=== PATIENT | female | born 1955 ===

== ENCOUNTER 2017-10-25 09:42 | Observation (INO) | payer OTHER ==
[2017-10-25 09:51] VITALS: BMI 28.8
--- NOTE | 2017-10-25 10:34 | ED PDOC ---
HPI: Abdomen Time Seen by Provider: 10/25/17 10:04 Chief Complaint (Nursing): Abdominal Pain Chief Complaint (Provider): "my privates are swollen" History Per: Patient, Manager Area ([employer]# [id number]) History/Exam Limitations: language barrier Onset/Duration Of Symptoms: Days Outside of [place] travel?: No Current Symptoms Are (Timing): Still Present Severity: Moderate Pain Scale Rating Of: 6 Location Of Pain/Discomfort: Suprapubic Additional Complaint(s): 62 y/o female, with extensive medical history, including ESRD on dialysis (T, Thur, Sat) presents complaining of vaginal swelling for the past two weeks. Pt reports the swelling started without any triggering event. It started at her stomach and worked its way down. She is compliant with dialysis. She says she attempted to tell her PMD and her Classification Clerk about this but said they ignored her, hence why she came for evaluation. She reports the vaginal edema is associated with difficulty urinating and suprapubic pain. She reports abdominal pain/fullness is associated with this sensation. She produces little urine due to ESRD but realized it has become difficult to micturate due to the edema. She denies any bleeding, discharge, pruritis, foul odor. Denies fever/chills, changes in vision, headaches, CP/SOB/palpitations, N/V/D/C, new onset pedal edema, numbness/tingling. Nephro: [place]ada Cardio: Koko PMD: Mario ALL: penicillins Past Medical History Vital Signs: Last Vital Signs Temp 97.9 F 10/25/17 09:50 Pulse 73 10/25/17 15:26 Resp 18 10/25/17 15:26 BP 169/76 H 10/25/17 15:26 Pulse Ox 98 10/25/17 15:26 - Family History Family History: States: No Known Family Hx - Home Medications Home Medications: Ambulatory Orders Medication Instructions Recorded Atorvastatin [Lipitor] 20 mg PO DAILY 10/25/17 B Complex W-C No.20/Folic Acid 1 mg PO DAILY 10/25/17 [Triphrocaps Softgel] Calcium Acetate [Phoslo] 3 cap PO TID 10/25/17 Esomeprazole Magnesium [Nexium] 40 mg PO DAILY 10/25/17 cloNIDine [Catapres] 0.3 mg PO Q8 10/25/17 - Allergies Allergies/Adverse Reactions: Allergies Allergy/AdvReac Type Severity Reaction Status Date / Time Penicillins Allergy RASH Verified 10/25/17 10:03 Review of Systems ROS Statement: Except As Marked, All Systems Reviewed And Found Negative Physical Exam - Reviewed Vital Signs Reviewed: Yes - Physical Exam Appears: Positive for: Non-toxic, No Acute Distress Head Exam: Positive for: ATRAUMATIC Skin: Positive for: Warm, Dry Eye Exam: Positive for: Normal appearance Neck: Positive for: Normal, Painless ROM, Supple Cardiovascular/Chest: Positive for: Regular Rate, Rhythm, Murmur (cresendo- descresendo murmur at RUSB ) Respiratory: Positive for: Normal Breath Sounds. Negative for: Crackles, Rales , Rhonchi, Wheezing, Respiratory Distress Pulses-Radial (L): 2+ Pulses-Radial (R): 2+ Gastrointestinal/Abdominal: Positive for: Bowel Sounds, Soft, Tenderness ( suprapubic ), Other (large scar s/p surgicial exploration ). Negative for: Distended, Guarding, Rebound Pelvic Exam: Positive for: External Exam Normal Back: Negative for: L CVA Tenderness, R CVA Tenderness Extremity: Positive for: Normal ROM, Pedal Edema (nonpitting ), Calf Tenderness (<2s). Negative for: Tenderness Lymphatic: Negative for: Adenopathy Neurologic/Psych: Positive for: clinical program coordinator II-XII - Laboratory Results Result Diagrams: 10/25/17 10:57 10/25/17 10:57 - ECG O2 Sat by Pulse Oximetry: 96 - Progress ED Course And Treament: suspected cystitis CBC CMP UA Pro-BNP: 157,000 Coags: wnl CT: mild-moderate pericardial effusion, b/l pleural effusion, cardiomegaly, mild -moderate ascites, polycystic kidneys Pt to be admitted for CHF and b/l effusions. Case discussed with admitting. Case discussed with Dr. Sutherland, whom has not seen the patient yet and agreed to allow Dr. Osborne to see the patient. Case discussed with Dr. Osborne whom will see the pt. Disposition - Clinical Impression Clinical Impression: CHF (congestive heart failure) - Patient ED Disposition Is Patient to be Admitted: Yes - Disposition Disposition Time: 16:39 Condition: STABLE - Pt Status Changed To: Hospital Disposition Of: Inpatient - Admit Certification Admit to Inpatient:: After my assessment, the patient will require hospitalization for at least two midnights. This is because of the severity of symptoms shown, intensity of services needed, and/or the medical risk in this patient being treated as an outpatient.
[2017-10-25 11:00] LABS: HEMOGLOBIN 10.2 g/dL (12.0-16.0); MEAN CELL VOLUME 96.7 fl (81.0-99.0); MEAN CORPUSCULAR HEMOGLOBIN 31.8 pg (27.0-31.0); MEAN CORPUSCULAR HGB CONC 32.9 g/dL (33.0-37.0); RBC 3.22 Mil/uL (3.80-5.20); RED CELL DISTRIBUTION WIDTH 16.4 % (11.5-14.5); WHITE BLOOD COUNT 4.8 K/uL (4.8-10.8)
[2017-10-25 11:13] LABS: ALB/GLOB RATIO 1.3 (1.0-2.1); ALBUMIN 3.9 g/dL (3.5-5.0)
[2017-10-25 11:46] LABS: URINE BILIRUBIN NEGATIVE (NEGATIVE); URINE CLARITY SLIGHT-CLOUDY (Clear); URINE COLOR LIGHT YELLOW (YELLOW); URINE GLUCOSE (UA) 100 mg/dL (Normal)
[2017-10-25 11:47] LABS: PH,URINE 7.5 (5.0-8.0); URINE BLOOD TRACE (NEGATIVE)
[2017-10-25 11:48] LABS: SQUAMOUS EPITHIAL 21 /hpf (0-5); URINE BACTERIA RARE (<OCC); URINE LEUKOCYTE ESTERASE NEGATIVE Leu/uL (Negative); URINE PROTEIN >=300 mg/dL (NEGATIVE); URINE UROBILINOGEN 0.2 mg/dL (0.2-1.0)
--- NOTE | 2017-10-25 14:23 | CT ---
PROCEDURE: CT Abdomen and Pelvis without intravenous contrast HISTORY: abdominal pain/edema COMPARISON: None. TECHNIQUE: Axial and reformatted coronal and sagittal CT images of the abdomen were obtained without IV or oral contrast administration. Contrast Dose: 0 IV contrast Radiation dose: Total exam DLP = 592.99 mGy-cm. This CT exam was performed using one or more of the following dose reduction techniques: Automated exposure control, adjustment of the mA and/or kV according to patient size, and/or use of iterative reconstruction technique. FINDINGS: LOWER THORAX: There are small bilateral pleural effusion. Mild ground-glass opacities noted at the lung bases could be due to pulmonary congestion. The heart is mildly to moderately enlarged. Vqvf-ky-oqmnsekf pericardial effusion is also noted. LIVER: The liver is mildly enlarged heterogeneous. There are scattered low attenuation lesions in the liver more prominent at the liver dome. The largest low-attenuation lesions seen at the posterior aspect of the liver dome measures 2.3 centimeter. This lesion is not fully characterized in this noncontrast study. GALLBLADDER AND BILE DUCTS: This suspicious for gallstone. Small amount of fluid seen at the pericholecystic region may be part of the free fluid noted in the rest of the abdomen. PANCREAS: Unremarkable. No gross lesion or ductal dilatation. SPLEEN: Unremarkable. ADRENALS: Unremarkable. No mass. KIDNEYS AND URETERS: There are multiple innumerable cystic structures in the kidneys associated with scattered coarse calcification. Findings suspicious for polycystic kidney disease. No evidence of hydronephrosis or hydroureter. VASCULATURE: Unremarkable. No aortic aneurysm. BOWEL: Unremarkable. No obstruction. No gross mural thickening. There are scattered colonic diverticulosis without evidence of diverticulitis. APPENDIX: Unremarkable. Normal appendix. PERITONEUM: There is a small amount of ascites in the abdomen. No evidence of free air. LYMPH NODES: Unremarkable. No enlarged lymph nodes. BLADDER: The urinary bladder is not distended. REPRODUCTIVE: The uterus and adnexa are not visualized. BONES: No acute fracture. Mild diffuse osteopenia noted. OTHER FINDINGS: There is mild diffuse soft tissue edema noted. IMPRESSION: Gallstones without definite CT evidence of acute cholecystitis. Findings suggestive of polycystic kidney disease. Small amount of ascites and mild to moderate diffuse soft tissue edema. Correlate clinically for renal failure/insufficiency. Small bilateral pleural effusions. Cardiomegaly and [id number]-[id number] pericardial effusion. Scattered low-attenuation lesions seen in the liver not fully characterized in this noncontrast study and may represent benign cyst. If indicated further assessment by ultrasound or enhanced study may be obtained.
--- NOTE | 2017-10-25 15:01 | RAD ---
HISTORY: LE edema COMPARISON: No prior. FINDINGS: LUNGS: No active pulmonary disease. PLEURA: No significant pleural effusion identified, no pneumothorax apparent. CARDIOVASCULAR: Cardiomegaly. No evidence of acute, significant cardiovascular disease. AllNormal. OSSEOUS STRUCTURES: No significant abnormalities. VISUALIZED UPPER ABDOMEN: Normal. OTHER FINDINGS: None. IMPRESSION: Cardiomegaly without evidence of congestive heart failure. No active pulmonary disease.
[2017-10-25 15:15] LABS: CK-MB 0.89 ng/mL (0.0-3.38); TROPONIN I 0.04 ng/mL (0.00-0.120)
[2017-10-25 15:28] LABS: PROTHROMBIN TIME 11.5 Seconds (9.8-13.1)
--- NOTE | 2017-10-25 16:32 | CP.PCM.HP ---
History of Present Illness - History of Present Illness History of Present Illness: 62 yo female with history of HTN, CHF and ESRD on dialysis TThS came in complaining of lower abdominal discomfort associated with swelling extending down to her vagina since 5 weeks ago. Admitted mild SOB after ambulating a few yards. Denied chest pain, nausea or vomiting. Has been compliant with dialysis since 16 yrs ago. The last dialysis was Wednesday and it was completed and went well. Present on Admission - Present on Admission Any Indicators Present on Admission: No History of DVT/PE: No History of Uncontrolled Diabetes: No Urinary Catheter: No Decubitus Ulcer Present: No Review of Systems - Review of Systems All systems: reviewed and no additional remarkable complaints except (aside from those mentioned above, 12 point system review were negative by me) Past Patient History - Tetanus Immunizations Tetanus Immunization: Unknown - Past Medical History & Family History Past Medical History?: Yes Past Family History: Reviewed and not pertinent - Past Social History Smoking Status: Never Smoked Alcohol: None Drugs: Denies Home Situation {Lives}: With Family - CARDIAC Hx Congestive Heart Failure: Yes Hx Hypercholesterolemia: Yes Hx Hypertension: Yes - PULMONARY Hx Respiratory Disorders: Yes - NEUROLOGICAL Hx Neurological Disorder: No - HEENT Hx HEENT Problems: No - RENAL Hx Dialysis: Yes (TTS) Type of Dialysis Access: av fistula right arm Date of Last Dialysis Treatment: 10/23/17 - ENDOCRINE/METABOLIC Hx Endocrine Disorders: No - HEMATOLOGICAL/ONCOLOGICAL Hx Blood Disorders: No - INTEGUMENTARY Hx Dermatological Problems: No - MUSCULOSKELETAL/RHEUMATOLOGICAL Hx Musculoskeletal Disorders: No - GASTROINTESTINAL Hx Gastrointestinal Disorders: No - GENITOURINARY/GYNECOLOGICAL Hx Genitourinary Disorders: No - PSYCHIATRIC Hx Psychophysiologic Disorder: No Hx Substance Use: No - SURGICAL HISTORY Hx Section: Yes Hx Vascular Surgery: Yes Hx Vascular Access Device: Yes (AV FISTULA) Other/Comment: FOOT SURGERY - ANESTHESIA Hx Anesthesia: Yes Hx Anesthesia Reactions: Yes Meds Allergies/Adverse Reactions: Allergies Allergy/AdvReac Type Severity Reaction Status Date / Time Penicillins Allergy RASH Verified 10/25/17 10:03 Physical Exam - Constitutional Appears: No Acute Distress - Head Exam Head Exam: ATRAUMATIC - Eye Exam Eye Exam: absent: Scleral icterus - ENT Exam ENT Exam: Mucous Membranes Moist - Neck Exam Neck exam: Negative for: Meningismus - Respiratory Exam Respiratory Exam: absent: Rales, Rhonchi, Wheezes, Respiratory Distress - Cardiovascular Exam Cardiovascular Exam: REGULAR RHYTHM, +S1, +S2 - GI/Abdominal Exam GI & Abdominal Exam: Soft (edematous from lower abdomen to suprapubis to genitalia). absent: Tenderness - Rectal Exam Rectal Exam: Deferred - Extremities Exam Extremities exam: Positive for: pedal edema. Negative for: normal inspection ( fistula on right arm) - Back Exam Back exam: absent: tenderness - Neurological Exam Neurological exam: Alert, Oriented x3 - Psychiatric Exam Psychiatric exam: Normal Affect - Skin Skin Exam: Dry, Intact Results - Vital Signs Recent Vital Signs: Last Vital Signs Temp 97.9 F 10/25/17 09:50 Pulse 73 10/25/17 15:26 Resp 18 10/25/17 15:26 BP 169/76 H 10/25/17 15:26 Pulse Ox 98 10/25/17 15:26 - Labs Result Diagrams: 10/25/17 10:57 10/25/17 10:57 Labs: Laboratory Results - last 24 hr 10/25/17 10/25/17 10/25/17 10:57 10:57 10:57 WBC 4.8 RBC 3.22 L Hgb 10.2 L Hct 31.1 L MCV 96.7 MCH 31.8 H MCHC 32.9 L RDW 16.4 H Plt Count 113 L PT INR Sodium 143 Potassium 5.2 H Chloride 98 Carbon Dioxide 31 H Anion Gap 19 BUN 39 H Creatinine 5.4 H Est GFR ( Amer) 10 Est GFR (Non-Af Amer) 8 Random Glucose 133 H Calcium 10.0 Total Bilirubin 1.1 AST 57 H ALT 17 Alkaline Phosphatase 97 CK-MB (Mass) Troponin I NT-Pro-B Natriuret Pep [id number] H Total Protein 7.0 Albumin 3.9 Globulin 3.1 Albumin/Globulin Ratio 1.3 Urine Color Light yellow Urine Clarity Slight-cloudy Urine pH 7.5 Ur Specific [place] >= 1.030 Urine Protein >=300 Urine Glucose (UA) 100 Urine Ketones Negative Urine Blood Trace H Urine Nitrate Negative Urine Bilirubin Negative Urine Urobilinogen 0.2 Ur Leukocyte Esterase Negative Urine RBC (Auto) 6 H Urine Microscopic WBC 8 H Ur Squamous Epith Cells 21 H Urine Bacteria Rare 10/25/17 10/25/17 14:46 15:12 WBC RBC Hgb Hct MCV MCH MCHC RDW Plt Count PT 11.5 INR 1.0 Sodium Potassium Chloride Carbon Dioxide Anion Gap BUN Creatinine Est GFR ( Amer) Est GFR (Non-Af Amer) Random Glucose Calcium Total Bilirubin AST ALT Alkaline Phosphatase CK-MB (Mass) 0.89 Troponin I 0.0400 NT-Pro-B Natriuret Pep Total Protein Albumin Globulin Albumin/Globulin Ratio Urine Color Urine Clarity Urine pH Ur Specific [place] Urine Protein Urine Glucose (UA) Urine Ketones Urine Blood Urine Nitrate Urine Bilirubin Urine Urobilinogen Ur Leukocyte Esterase Urine RBC (Auto) Urine Microscopic WBC Ur Squamous Epith Cells Urine Bacteria Assessment & Plan - Assessment and Plan (Free Text) Assessment: 62 yo female with history of HTN, CHF and ESRD on dialysis TThS came in complaining of lower abdominal discomfort associated with edematous swelling extending down to her genitalia since 5 weeks ago. 1. Abdominal Edema CT scan of abdomen: suggestive of Polycystic Kidney Disease r/o portal obstruction causing edema below the liver associated with Polycystic Kidney Disease GI consult with Dr. Elkins Abdominal US with Doppler 2. CHF?? ProBNP: 157,000 CXray: cardiomegaly but no pleural or pericardial effusion and no sign of CHF ECHO cardiology consult with Dr Osborne 3. ESRD dialysis TThS renal consult with Dr Barone
[2017-10-26 06:01] LABS: CALCIUM 9.7 mg/dL (8.4-10.2)
--- NOTE | 2017-10-26 06:57 | CON ---
DATE: CARDIOLOGY CONSULTATION REASON FOR CONSULTATION: Pericardial effusion. HISTORY OF PRESENT ILLNESS: The patient is a 62-year-old female who has a history of end-stage renal disease, on hemodialysis 3 times a week for the past 16 years. Her kidney failure was related to polycystic kidney according to the patient. She presents, because of lower anterior abdominal wall pain and swelling. The patient denies any fever or chills. Patient is unaware of any prior cardiac history and denies any history of chest pain. SOCIAL HISTORY: Nonsmoker, nondrinker. REVIEW OF SYSTEMS: The patient denies any fever or chills, denies any palpitation, dizziness or syncope. CURRENT MEDICATIONS: Clonidine 0.3 mg q. 8 hours, heparin 5000 units subcutaneous twice a day, Lipitor 20 mg once a day, PhosLo 3 tablets t.i.d., Protonix 40 mg once a day. PAST MEDICAL HISTORY: Hypertension, polycystic kidneys, on hemodialysis for the past 16 years. PHYSICAL EXAMINATION: GENERAL: The patient is a middle-aged female who does not appear to be in acute distress. VITAL SIGNS: Blood pressure 172/78, heart rate is 78, temperature 97.6, respirations 19. HEENT: Pale conjunctivae. CHEST: Diminished breath sounds over the bases. HEART: S1, S2 regular. ABDOMEN: Soft, cellulitis involving the lower anterior abdominal wall extending into the labia majora. EXTREMITIES: Trace leg edema. LABORATORY DATA: Hemoglobin and hematocrit 10.2 and 31.1, white count 4.8, platelet count 115,000. SMA-7: Sodium 143, potassium 5.2, chloride 98, CO2 of 31, glucose 133, BUN 39, creatinine 5.4, proBNP is 157,000, one set of troponin is negative. PT and INR are within normal limits. EKG revealed sinus rhythm with nonspecific ST changes, computer read as consider lateral ischemia; however, those changes are artifacts. Abdomen and pelvic CT scan: Gallstones without definite CT evidence of acute cholecystitis, polycystic kidney disease, small amount of ascites, ylze-li-zonwognc diffuse soft tissue edema, small bilateral pleural effusion, cardiomegaly and llkm-[id number]-lmxkqibr pericardial effusion. Chest x-ray could not be opened on the [employer] database; however, the official report states cardiomegaly without evidence of congestive heart failure, no active pulmonary disease. ASSESSMENT: 1. Consider anterior abdominal wall cellulitis, rule out fascitis. 2. End-stage renal disease, on hemodialysis secondary to polycystic kidney disease. 3. Hypertension. 4. Calculus cholecystitis. 5. Fxku-tg-gigcvutt pericardial effusion. 6. Thrombocytopenia and mild anemia. RECOMMENDATIONS: Continue current clonidine 0.3 mg q. 8 hours, may discontinue subcutaneous heparin, obtain an echocardiogram. Quentin Osborne MD
[2017-10-26] MEDS ORDERED: Albuterol HFA 90 mcg/actuation (8 g) INH PRN (07:01)
[2017-10-26 07:13] LABS: BASO # 0.1 K/uL (0.0-0.2); BASO % 1.2 % (0.0-2.0); EOS # 0.1 K/uL (0.0-0.7); EOS % 3.3 % (0.0-4.0); LYMPH % 23.2 % (20.0-40.0); MEAN CORPUSCULAR HEMOGLOBIN 32.1 pg (27.0-31.0); MEAN PLATELET VOLUME 8.9 fl (7.2-11.7); MONO # 0.5 K/uL (0.0-0.8); MONO % 10.7 % (0.0-10.0); NEUT # 2.8 K/uL (1.8-7.0); NEUT % 61.6 % (50.0-75.0); NRBC % 0.3 % (0.0-0.0); RBC 3.11 Mil/uL (3.80-5.20); RED CELL DISTRIBUTION WIDTH 16.6 % (11.5-14.5); WHITE BLOOD COUNT 4.5 K/uL (4.8-10.8)
--- NOTE | 2017-10-26 08:43 | CARD ---
APPROVED REPORT EKG Measurement Heart [id number] <Conclusion> Normal sinus rhythm ST & T wave abnormality, consider lateral ischemia Abnormal ECG
[2017-10-26] MEDS ORDERED: Doxercalciferol 4 mcg/2 ml Inj IV SCH (09:00)
[2017-10-26] MEDS ORDERED: [UNRECOGNIZED DRUG - REMARK] PO SCH (09:00)
[2017-10-26] MEDS ORDERED: Pantoprazole 40 mg EC Tab PO SCH (09:00)
[2017-10-26] MEDS: Calcium Acetate 667 MG Capsule PO SCH ×2 (09:49→13:26)
--- NOTE | 2017-10-26 10:17 | US ---
HISTORY: lower abdominal edema including genitalia and LE COMPARISON: October 25, 2017. CT abdomen and pelvis TECHNIQUE: Sonographic evaluation of the abdomen. FINDINGS: LIVER: Measures 17.9 Patent portal vein. Portal venous flow: Hepatopetal. Unremarkeable cm. Normal echogenicity of the liver parenchyma. No mass. No intrahepatic bile duct dilatation.Incidental finding(s): Innumerable hepatic cysts GALLBLADDER: Collapsed gallbladder accentuating bladder wall thickness. No gallstones identified. COMMON BILE DUCT: Measures 7.5. Mm. PANCREAS: Unremarkable as visualized. No mass. No ductal dilatation. RIGHT KIDNEY: Measures 5.6 x 13.9cm. Echogenic focus right kidney with distal shadowing 7 mm midpole region. Innumerable right renal cysts. LEFT KIDNEY: Measures 5.5 x 14.2cm. Normal echogenicity. No calculus, mass, or hydronephrosis. Innumerable left renal cysts. SPLEEN: Normal in size and contour. No mass. AORTA: No aneurysmal dilatation. IVC: Unremarkable. OTHER FINDINGS: Small volume abdominal ascites. IMPRESSION: Gallstones identified on recent CT scan are not apparent on the current study. Incidental finding(s): Findings consistent with polycystic kidney disease. Nonobstructing midpole calculus right kidney consistent with findings on recent CT scan. Low volume ascites.
--- NOTE | 2017-10-26 12:36 | CP.PCM.CON ---
History of Present Illness - History of Present Illness History of Present Illness: pt is seen and examined, full consult is dictated #[id number] seen in hd, uf goal is 2-2-.5 lit a s tolerated Past Patient History - Tetanus Immunizations Tetanus Immunization: Unknown - Past Medical History & Family History Past Medical History?: Yes - Past Social History Smoking Status: Never Smoked - CARDIAC Hx Congestive Heart Failure: Yes Hx Hypercholesterolemia: Yes Hx Hypertension: Yes - PULMONARY Hx Respiratory Disorders: Yes - NEUROLOGICAL Hx Neurological Disorder: No - HEENT Hx HEENT Problems: No - RENAL Hx Dialysis: Yes (TTS) Type of Dialysis Access: av fistula right arm Date of Last Dialysis Treatment: 10/23/17 - ENDOCRINE/METABOLIC Hx Endocrine Disorders: No - HEMATOLOGICAL/ONCOLOGICAL Hx Blood Disorders: No - INTEGUMENTARY Hx Dermatological Problems: No - MUSCULOSKELETAL/RHEUMATOLOGICAL Hx Musculoskeletal Disorders: No Hx Falls: Yes - GASTROINTESTINAL Hx Gastrointestinal Disorders: No - GENITOURINARY/GYNECOLOGICAL Hx Genitourinary Disorders: No - PSYCHIATRIC Hx Psychophysiologic Disorder: No Hx Substance Use: No - SURGICAL HISTORY Hx Section: Yes Hx Vascular Surgery: Yes Hx Vascular Access Device: Yes (AV FISTULA) Other/Comment: FOOT SURGERY - ANESTHESIA Hx Anesthesia: Yes Hx Anesthesia Reactions: Yes Meds Home Medications: Home Medication List Medication Instructions Recorded Confirmed Type Docusate [Colace] 100 mg PO BID PRN #30 cap 10/26/17 Rx Doxercalciferol [Hectorol] 2 mcg IV TTS vial 10/26/17 Rx Allergies/Adverse Reactions: Allergies Allergy/AdvReac Type Severity Reaction Status Date / Time Penicillins Allergy RASH Verified 10/25/17 10:03 - Medications Medications: Current Medications Acetaminophen (Tylenol 325mg Tab) 650 mg PO Q6 PRN PRN Reason: Pain, Mild (1-3) Last Admin: 10/26/17 03:53 Dose: 650 mg Albuterol (Ventolin Hfa 90 Mcg/Actuation (8 G)) 2 puff INH RQ6 PRN PRN Reason: Shortness of Breath Atorvastatin Calcium (Lipitor) 20 mg PO DAILY [facility] Last Admin: 10/26/17 09:48 Dose: 20 mg Calcium Acetate (Phoslo) 2,001 mg PO TID [facility] Last Admin: 10/26/17 09:49 Dose: 2,001 mg Clonidine HCl (Catapres) 0.3 mg PO Q8 [facility] Last Admin: 10/26/17 09:44 Dose: 0.3 mg Docusate Sodium (Colace) 100 mg PO BID PRN PRN Reason: Constipation Doxercalciferol (Hectorol) 2 mcg IV TTS [facility] Heparin Sodium (Porcine) (Heparin) 5,000 units SC Q12 SHAISTA PRN Reason: Protocol Last Admin: 10/26/17 09:47 Dose: 5,000 units Home Med (B Complex W-C No.20/Folic Acid [Triphrocaps Softgel]) 1 mg PO DAILY [facility] Pantoprazole Sodium (Protonix Ec Tab) 40 mg PO DAILY [facility] Last Admin: 10/26/17 09:48 Dose: 40 mg Results - Vital Signs Recent Vital Signs: Last Vital Signs Temp 98.8 F 10/26/17 12:00 Pulse 79 10/26/17 12:00 Resp 18 10/26/17 12:00 BP 179/65 H 10/26/17 12:00 Pulse Ox 92 L 10/26/17 12:00 - Labs Result Diagrams: 10/26/17 04:25 10/26/17 04:25 Labs: Laboratory Results - last 24 hr 10/25/17 10/25/17 10/25/17 14:46 15:12 16:40 WBC RBC Hgb Hct MCV MCH MCHC RDW Plt Count MPV Neut % (Auto) Lymph % (Auto) [place] % (Auto) Eos % (Auto) Baso % (Auto) Neut # Lymph # [place] # Eos # Baso # PT 11.5 INR 1.0 Sodium Potassium Chloride Carbon Dioxide Anion Gap BUN Creatinine Est GFR ( Amer) Est GFR (Non-Af Amer) Random Glucose Calcium CK-MB (Mass) 0.89 Troponin I 0.0400 NT-Pro-B Natriuret Pep [id number] H 10/26/17 10/26/17 04:25 04:25 WBC 4.5 L RBC 3.11 L Hgb 10.0 L Hct 30.2 L MCV 97.0 MCH 32.1 H MCHC 33.0 RDW 16.6 H Plt Count 97 L MPV 8.9 Neut % (Auto) 61.6 Lymph % (Auto) 23.2 [place] % (Auto) 10.7 H Eos % (Auto) 3.3 Baso % (Auto) 1.2 Neut # 2.8 Lymph # 1.0 [place] # 0.5 Eos # 0.1 Baso # 0.1 PT INR Sodium 143 Potassium 4.4 Chloride 98 Carbon Dioxide 31 H Anion Gap 18 BUN 46 H Creatinine 6.5 H Est GFR ( Amer) 8 Est GFR (Non-Af Amer) 6 Random Glucose 91 Calcium 9.7 CK-MB (Mass) Troponin I NT-Pro-B Natriuret Pep
--- NOTE | 2017-10-26 13:41 | CARD ---
APPROVED REPORT EXAM: Two-dimensional and M-mode echocardiogram with Doppler and color Doppler. Other Information Quality : ExcellentRhythm : NSR INDICATION Pericardial Effusion 2D DIMENSIONS IVSd1.20 (0.7-1.1cm)LVDd4.67 (3.9-5.9cm) LVOT Diameter1.84 (1.8-2.4cm)PWd1.64 (0.7-1.1cm) IVSs1.47 (0.8-1.2cm)LVDs3.57 (2.5-4.0cm) FS (%) 23.6 %PWs1.55 (0.8-1.2cm) M-Mode DIMENSIONS Left Atrium (MM)5.29 (2.5-4.0cm)IVSd1.12 (0.7-1.1cm) Aortic Root2.26 (2.2-3.7cm)LVDd5.38 (4.0-5.6cm) Aortic Cusp Exc.1.79 (1.5-2.0cm)PWd1.18 (0.7-1.1cm) IVSs1.59 cmFS (%) 38 % LVDs3.32 (2.0-3.8cm)PWs2.18 cm Mitral Valve MV E Wdttrdyj087.7cm/sMV DECEL LHHL254kiLY A Wwlphjnn403.1cm/s MV TTM52obK/A ratio1.2MVA (PHT)5.38cm2 TDI Lateral E' Peak V10.67cm/sMedial E' Peak V8.23cm/sE/Lateral E'13.5 E/Medial E'17.5 Pulmonary Valve PV Peak Yxcdugou772.7cm/s Tricuspid Valve TR Peak Mhkgyrym508du/sRAP IFSKFZCK71zfVaXO Peak Gr.56mmHg [id number] LEFT VENTRICLE The left ventricle is normal size. There is normal left ventricular wall thickness. Left ventricle systolic function is normal. The Ejection Fraction is 55-60%. There is normal LV segmental wall motion. The left ventricular diastolic function is normal. RIGHT VENTRICLE The right ventricle is normal size. There is normal right ventricular wall thickness. The right ventricular systolic function is normal. ATRIA The left atrium is mildly dilated. The right atrium is moderately dilated. AORTIC VALVE The aortic valve is normal in structure. No aortic regurgitation is present. There is no aortic valvular stenosis. MITRAL VALVE The mitral valve is normal in structure. There is no evidence of mitral valve prolapse. There is no mitral valve stenosis. Mitral regurgitation is mild. TRICUSPID VALVE The tricuspid valve is normal in structure. There is moderate tricuspid regurgitation. Right ventricular systolic pressure is estimated at 64 mmHg. There is moderate-severe pulmonary hypertension. PULMONIC VALVE The pulmonary valve is normal in structure. There is no pulmonic valvular regurgitation. GREAT VESSELS The aortic root is normal in size. The IVC is dilated. PERICARDIAL EFFUSION There is a small-moderate circumferential pericardial effusion. There is no evidence of diastolic compression of the right atrium or ventricle by pericardial effusion. <Conclusion> The left ventricle is normal size. There is normal left ventricular wall thickness. There is normal LV segmental wall motion. Left ventricle systolic function is normal. The Ejection Fraction is 55-60%. The left ventricular diastolic function is normal. The right atrium is moderately dilated. Right ventricular systolic pressure is estimated at 64 mmHg. There is moderate-severe pulmonary hypertension. The IVC is dilated. There is a small-moderate circumferential pericardial effusion. There is no evidence of diastolic compression of the right atrium or ventricle by pericardial effusion.
--- NOTE | 2017-10-26 15:39 | PN ---
DATE: SUBJECTIVE: The patient denies any chest pain. She complains of lower anterior abdominal wall pain. She denies any fever or chills. PHYSICAL EXAMINATION VITAL SIGNS: Blood pressure 179/69, heart rate 79, temperature 98.8, respirations 18. HEENT: Pale conjunctivae. CHEST: Clear. HEART: S1, S2 regular. EXTREMITIES: No edema. LABORATORY DATA: Hemoglobin and hematocrit 10 and 30.2, white count 4.5, platelet count 97,000. SMA-7: Sodium 146, potassium 4.4, chloride 98, CO2 31, glucose 91, BUN 46, creatinine 6.5. Official report of abdominal ultrasound, gallstones identified on recent CAT scan are not apparent on the current ultrasound study; polycystic kidney disease, nonobstructing midpole calculus, right kidney consistent with findings on CT scan. I did briefly review the echocardiography study, which revealed a small circumferential pericardial effusion. No evidence of tamponade. The right ventricular systolic pressure was measured as 66 mmHg. ASSESSMENT: 1. Lower anterior abdominal wall cellulitis. 2. Small pericardial effusion without the evidence of tamponade. 3. End-stage renal disease, on hemodialysis. 4. Urolithiasis. 5. Cholelithiasis identified on the CAT scan. 6. Polycystic kidney disease with end-stage renal disease, on hemodialysis for the past 16 years. 7. Thrombocytopenia and mild anemia. RECOMMENDATIONS: Continue clonidine 0.3 mg q. 8 hours, subcutaneous heparin 5000 units twice a day, Lipitor 20 mg once a day. The patient will be evaluated by Dr. Barone, heel pricker and will most likely get her scheduled hemodialysis for today. Quentin Osborne MD
[2017-10-26 16:23] VITALS: BP 183/61; PULSE 85; RESP 14; TEMP 98.2; O2SAT 95
[2017-10-26 16:54] LABS: HEPATITIS B SURFACE AG Negative (NEGATIVE)
[2017-10-26 17:12] LABS: HEPATITIS C ANTIBODY NEGATIVE (NEGATIVE)
--- NOTE | 2017-10-26 18:09 | CP.PCM.DIS ---
Provider - Provider Date of Admission: 10/25/17 14:45 Attending physician: Ismael Armendariz MD Primary care physician: Service patient Consults: Dr. Barone- nephrology Dr. Elkins- GI Time Spent in preparation of Discharge (in minutes): 25 Hospital Course - Lab Results Lab Results: Most Recent Lab Values WBC 4.5 K/uL (4.8-10.8) L 10/26/17 04:25 RBC 3.11 Mil/uL (3.80-5.20) L 10/26/17 04:25 Hgb 10.0 g/dL (12.0-16.0) L 10/26/17 04:25 Hct 30.2 % (34.0-47.0) L 10/26/17 04:25 MCV 97.0 fl (81.0-99.0) 10/26/17 04:25 MCH 32.1 pg (27.0-31.0) H 10/26/17 04:25 MCHC 33.0 g/dL (33.0-37.0) 10/26/17 04:25 RDW 16.6 % (11.5-14.5) H 10/26/17 04:25 Plt Count 97 K/uL (130-400) L 10/26/17 04:25 MPV 8.9 fl (7.2-11.7) 10/26/17 04:25 Neut % (Auto) 61.6 % (50.0-75.0) 10/26/17 04:25 Lymph % (Auto) 23.2 % (20.0-40.0) 10/26/17 04:25 [place] % (Auto) 10.7 % (0.0-10.0) H 10/26/17 04:25 Eos % (Auto) 3.3 % (0.0-4.0) 10/26/17 04:25 Baso % (Auto) 1.2 % (0.0-2.0) 10/26/17 04:25 Neut # 2.8 K/uL (1.8-7.0) 10/26/17 04:25 Lymph # 1.0 K/uL (1.0-4.3) 10/26/17 04:25 [place] # 0.5 K/uL (0.0-0.8) 10/26/17 04:25 Eos # 0.1 K/uL (0.0-0.7) 10/26/17 04:25 Baso # 0.1 K/uL (0.0-0.2) 10/26/17 04:25 PT 11.5 Seconds (9.8-13.1) 10/25/17 15:12 INR 1.0 (0.9-1.2) 10/25/17 15:12 Sodium 143 mmol/l (132-148) 10/26/17 04:25 Potassium 4.4 MMOL/L (3.6-5.0) 10/26/17 04:25 Chloride 98 mmol/L (98-107) 10/26/17 04:25 Carbon Dioxide 31 mmol/L (22-30) H 10/26/17 04:25 Anion Gap 18 (10-20) 10/26/17 04:25 BUN 46 mg/dl (7-17) H 10/26/17 04:25 Creatinine 6.5 mg/dl (0.7-1.2) H 10/26/17 04:25 Est GFR ( Amer) 8 10/26/17 04:25 Est GFR (Non-Af Amer) 6 10/26/17 04:25 Random Glucose 91 mg/dL (65-105) 10/26/17 04:25 Calcium 9.7 mg/dL (8.4-10.2) 10/26/17 04:25 Total Bilirubin 1.1 mg/dl (0.2-1.3) 10/25/17 10:57 AST 57 U/L (14-36) H 10/25/17 10:57 ALT 17 U/L (9-52) 10/25/17 10:57 Alkaline Phosphatase 97 U/L (38-126) 10/25/17 10:57 CK-MB (Mass) 0.89 ng/mL (0.0-3.38) 10/25/17 14:46 Troponin I 0.0400 ng/mL (0.00-0.120) 10/25/17 14:46 NT-Pro-B Natriuret Pep [id number] pg/ml (0-900) H 10/25/17 16:40 Total Protein 7.0 G/DL (6.3-8.2) 10/25/17 10:57 Albumin 3.9 g/dL (3.5-5.0) 10/25/17 10:57 Globulin 3.1 gm/dL (2.2-3.9) 10/25/17 10:57 Albumin/Globulin Ratio 1.3 (1.0-2.1) 10/25/17 10:57 Urine Color Light yellow (YELLOW) 10/25/17 10:57 Urine Clarity Slight-cloudy (Clear) 10/25/17 10:57 Urine pH 7.5 (5.0-8.0) 10/25/17 10:57 Ur Specific [place] >= 1.030 (1.003-1.030) 10/25/17 10:57 Urine Protein >=300 mg/dL (NEGATIVE) 10/25/17 10:57 Urine Glucose (UA) 100 mg/dL (Normal) 10/25/17 10:57 Urine Ketones Negative mg/dL (NEGATIVE) 10/25/17 10:57 Urine Blood Trace (NEGATIVE) H 10/25/17 10:57 Urine Nitrate Negative (NEGATIVE) 10/25/17 10:57 Urine Bilirubin Negative (NEGATIVE) 10/25/17 10:57 Urine Urobilinogen 0.2 mg/dL (0.2-1.0) 10/25/17 10:57 Ur Leukocyte Esterase Negative [place]/uL (Negative) 10/25/17 10:57 Urine RBC (Auto) 6 /hpf (0-3) H 10/25/17 10:57 Urine Microscopic WBC 8 /hpf (0-5) H 10/25/17 10:57 Ur Squamous Epith Cells 21 /hpf (0-5) H 10/25/17 10:57 Urine Bacteria Rare (<OCC) 10/25/17 10:57 Hep Bs Antigen Negative (NEGATIVE) 10/26/17 11:52 Hepatitis C Antibody Negative (NEGATIVE) 10/26/17 11:52 - Hospital Course Hospital Course: This is a 62 yo female with pmh of HTN, CHF (unspecified type), history of ESRD on dialysis T-, who presented to the ED complaining of generalized lower abdominal discomfort associated with generalized abdominal edema beginning 5 weeks ago. The patient has been compliant with dialysis. In the ED, the patient was found to be acutely fluid overloaded but was hemodynamically stable. CT scan of the abdomen and pelvis showed no acute abnormalities. The patient was admitted overnight. She states this morning that her abdominal pain was better. Dr. Barone was consulted and dialysis was performed. Dr. Elkins was consulted for GI- states no further workup at this time, abdominal pain likely due to soft tissue swelling from fluid overload. The patient underwent dialysis and states she feels better and her abdominal pain has improved. Of note, she does state that she has been having 2-3 drops of blood on tissue occasionally when she has a BM but not other lewis. She was encouraged to f/u with Dr. Elkins as outpatient for likely hemorrhoids. She was discharged today in stable condition and is to follow up with nephrology as scheduled for her dialysis. 1) Abdominal pain secondary to soft tissue swelling, from ESRD 2) Anasarca 3) Spotty GI bleeding, likely hemorrhoids 4) Essential hypertension 5) Cardiomegaly- needs echo as outpatient 6) ESRD on dialysis T-TH- SAT Discharge Exam - Additional Findings Additional findings: Physical exam: Constitutional- cooperative, awake, alert Head- NCAT, PERRL Eye- PERRL, EOMI ENT- normal exam, MMM. Neck- normal inspection, supple, no JVD Respiratory- CTAB, scatterd rhonchi, no wheezes or rales Cardiovascular- RRR, +S1, +S2 no MRG GI/Abdominal- mild tenderness to palpation, ascites, normal bowel sounds, soft, no mass, no hsm Skin- warm, dry Extremities Exam- normal capillary refill, normal inspection Neurological Exam- alert, awake, oriented Psych- normal mood, normal affect Discharge Plan - Follow Up Plan Condition: STABLE Disposition: HOME/ ROUTINE Instructions: Heart Failure (DC), Pacemaker (DC), Pulmonary Edema (DC), Ascites (DC) Additional Instructions: Mariama con cardiologo Dr. Koko renteria nov 03 a las 1:45pm Referrals: Jonh Sutherland MD [Medical Doctor] - Beau Barone MD [Staff Provider] - Chester Elkins MD, PhD [Staff Provider] - Francisco Martin MD [Staff Provider] -
--- NOTE | 2017-10-27 05:24 | CON ---
DATE: 10/26/2017 RENAL CONSULTATION LOCATION: 403, bed 1. REQUESTING PHYSICIAN: Ismael Armendariz MD REASON FOR RENAL CONSULTATION: End-stage renal disease for continuation of hemodialysis. HISTORY OF PRESENT ILLNESS: Ms. Alexis is a 62-year-old elderly female with a past medical history significant for longstanding hypertension, CHF, secondary hyperparathyroidism, end-stage renal disease on hemodialysis 3 times a week, Wednesday, , Wednesday, was admitted with chief complaints of lower abdominal discomfort associated with swelling of the legs extending down to her genitalia for 5 weeks, and also mild shortness of breath after ambulating for a few yards. Denies any chest pain, palpitation. Denies any nausea, vomiting, or diarrhea. Patient is on hemodialysis for the last 16 years. The last dialysis was on Wednesday, and was completed and tolerated. Patient is noncompliant with the fluid removal. Patient dictates removal of the fluid only 1 liter with each hemodialysis. Patient is gradually gaining weight. Denies any weight loss or any loss of appetite, any skin rash. PAST MEDICAL HISTORY: Significant for longstanding hypertension, CHF, end-stage renal disease on hemodialysis 3 times a week, Wednesday, and Wednesday for the last 16 years. PAST SURGICAL HISTORY: Status post hysterectomy and status post right upper extremity AV fistula. ALLERGIES: ALLERGIC TO PENICILLIN AND IODINE. SOCIAL HISTORY: No smoking, no alcohol, no drugs. FAMILY HISTORY: Not significant. She lives with her . CURRENT MEDICATIONS: Include as follows, Triphrocaps one daily, Lipitor 20 mg at bedtime, PhosLo 667 mg three capsules p.o. t.i.d., clonidine 0.3 mg p.o. q. 8 hours, Nexium 40 mg p.o. daily, Hectorol 2 mcg 3 times a week, Colace 100 mg p.o.b.i.d. REVIEW OF SYSTEMS: Significant for swelling of the legs and dyspnea on exertion. All other review of systems are reviewed and are negative. PHYSICAL EXAMINATION: VITAL SIGNS: Blood pressure 179/69, pulse 79, respirations 18, temperature 98.8, saturation 92%. Height 4 feet 9 inches and weight 133 pounds. GENERAL: Ms. Alexis is a 62-year-old elderly female, moderately-built, moderately-nourished, not in acute distress. HEENT: Pupils normal, reactive to light and accommodation. Puffiness of the face and eyelids. Conjunctivae pink. Sclerae is anicteric. Tongue is moist. Trachea is midline. LUNGS: Symmetric on both sides. Bilateral breath sounds present. Occasional basal crackles present. CARDIOVASCULAR: [place] at the fifth intercostal space, midclavicular line. S1 and S2 audible. No murmur, no gallop. The patient also has engorged veins on the anterior chest wall. ABDOMEN: Normal in appearance, soft, tympanic. No guarding. No rigidity. No hepatosplenomegaly. CENTRAL NERVOUS SYSTEM: Patient is alert, awake, and oriented x3. Nonfocal neuro examination. Cranial nerves II through XII grossly intact. Sensory and motor system is within normal limits. EXTREMITIES: No cyanosis, no clubbing. Patient has 1+ to 2+ edema in both lower extremities, left more than the right. LABORATORY DATA: Include as follows, as of 10/25/2017, WBC 4.8, hemoglobin 10.8, hematocrit 31.1, platelets 113. PT is 11.5, INR is 1.0. Sodium 143, potassium 5.2, chloride 98, CO2 of 31, BUN 39, creatinine 5.4, glucose 133, calcium is 10, and total bilirubin 1.1, AST 57, ALT 17, alkaline phosphate 97. ProBNP 157,000. Total protein 7.0, albumin is 3.9. Troponin 0.04. Urinalysis, slightly cloudy, pH 7.9, specific gravity more than 1.030, protein more than 300, glucose 100, ketones negative, blood trace, nitrites negative, bilirubin negative, urobilinogen 0.2, leukocyte esterase negative, rbc's 6 and wbc's 8. Hepatitis B surface antigen negative. Hepatitis C antibodies negative. As of 10/25/2017, repeat ProBNP 152,000. As of 10/26/2017, WBC 4.5, hemoglobin 10, hematocrit 30.2, platelets 97. Sodium 143, potassium 4.4, chloride 98, CO2 of 31, BUN 46, creatinine 6.5, glucose 91, calcium 9.7. Other laboratory reports, chest x-ray as of 10/25/2017, cardiomegaly without evidence of congestive heart failure, no active pulmonary disease. CT of the abdomen and pelvis as of 10/25/2017, gallstones without definite CT evidence of acute cholecystitis. Findings suggestive of polycystic kidney disease, small amount of ascites and mild to moderate diffuse soft tissue edema. Correlate clinically for renal failure and insufficiency. Small bilateral pleural effusion, cardiomegaly, and mild to moderate pericardial effusion. Scattered low attenuation lesion seen in the liver, not fully characterized in this noncontrast study, may represent benign cyst. If indicated further assessment, may by ultrasound or enhanced study may be obtained. Ultrasound of the abdomen as of 10/25/2017, the liver measures 17.9 cm, normal echogenicity of the liver parenchyma, no mass, no intrahepatic bile duct dilatation. Incidental findings, innumerable hepatic cysts present. The right kidney measures 5.6 x 13.9 cm, innumerable right renal cysts, and the left kidney 5.5 x 14.2 cm, normal echogenicity, no calculus, mass, hydronephrosis, innumerable left renal cysts, non-obstructing mid pole calculus right kidney consistent with findings on recent CT scan. Low volume ascites. Findings consistent with polycystic kidney disease. ASSESSMENT: In summary, Ms. Alexis is a 62-year-old elderly female with a history of longstanding hypertension, polycystic kidney disease, pericardial effusion, congestive heart failure, end-stage renal disease, status post hysterectomy, polycystic kidney disease and liver cysts, was admitted with edema of legs and also genital area, and dyspnea on exertion, with noncompliance with fluid removal due to cramps. 1. Uncontrolled hypertension. 2. End-stage renal disease. 3. Congestive heart failure. 4. Polycystic kidney and liver disease. PLAN: Patient is being dialyzed. We will try to ultrafiltrate as much as patient can tolerate. The goal is about 2.5 liters. We will decrease dry weight if patient agrees. Patient will need vigorous ultrafiltration and follow up with Cardiology. Continue Zemplar. Continue her current medications, and PhosLo and vitamins. We will follow with you. Thank you for allowing me to participate in your patient's care. Alicia Barone MD [facility] # [id number] MTDD
--- NOTE | 2017-10-27 09:04 | CON ---
DATE: 10/26/2017 REFERRING DOCTOR: Dr. Armendariz. REASON FOR CONSULTATION: Peripheral edema. HISTORY OF PRESENT ILLNESS: This is a pleasant 62-year-old female with history of hypertension, CHF, end-stage renal disease, on hemodialysis, lower abdominal discomfort, some swelling down to the lower abdomen and to her parapubic area. Patient has some shortness of breath. No nausea or vomiting. Some constipation lying in bed, comfortable, in no apparent distress. PAST MEDICAL HISTORY: As above. PAST SURGICAL HISTORY: As above. MEDICATIONS: Have been reviewed. REVIEW OF SYSTEMS: All other systems have been reviewed and negative apart from the HPI. PHYSICAL EXAMINATION: VITAL SIGNS: Here in the hospital are grossly unremarkable. GENERAL: This is a pleasant elderly-appearing female, lying in bed comfortably, in no apparent distress. HEENT: Head is normocephalic, atraumatic. Eyes, pupils equally reactive to light bilaterally. No conjunctival pallor or icterus. NECK: Supple. Normal range of motion. No lymphadenopathy appreciated. LUNGS: Coarse breath sounds bilaterally. HEART: S1, S2. Regular rate and rhythm. No murmurs appreciated. ABDOMEN: Soft and nontender. Bowel sounds present. No rebound, no guarding. RECTAL: Deferred. EXTREMITIES: Pulses present bilaterally. SKIN: Warm, dry and intact. NEUROLOGIC: A and O x3. LABORATORY DATA: Labs and radiology have been reviewed. CAT scan shows small amount of ascites, subcutaneous tissue edema, polycystic kidney disease, gallstones and the cholecystitis. Scan revealed some local in the liver. Blood work shows WBC 4.5, hemoglobin of 10.0, hematocrit 30, platelet count is essentially unremarkable. BNP is over 150,000. ASSESSMENT AND PLAN: This is a 62-year-old female with essentially in fluid overload renal failure, recommend dialysis. From GI standpoint, regarding the edema, I think it is all secondary to renal insufficiency, recommend an abdominal ultrasound with Doppler. If everything is within normal limits, she can be discharged home safely from GI standpoint. Follow up with me in the office as needed. Thank you for the consult. Chester Elkins MD/ PhD cc: Dr. Armendariz
== END 2017-10-26 16:45 | disposition home or self-care (01) ==
LOC: H.ER 09:42 → INTOOBSV 14:45 → H.ERHOLD 14:45 → H.TEL 23:00
DX: L03.311 Cellulitis of abdominal wall (principal); N18.6 End stage renal disease; I13.2 Hypertensive heart and chronic kidney disease with heart failure and with stage 5 chronic kidney disease, or end stage renal disease; I31.3 Pericardial effusion (noninflammatory); I50.9 Heart failure, unspecified; N20.9 Urinary calculus, unspecified; K80.10 Calculus of gallbladder with chronic cholecystitis without obstruction; N25.81 Secondary hyperparathyroidism of renal origin; K64.8 Other hemorrhoids; D64.9 Anemia, unspecified; D69.6 Thrombocytopenia, unspecified; K76.9 Liver disease, unspecified; Q61.3 Polycystic kidney, unspecified; E78.00 Pure hypercholesterolemia, unspecified; Z91.19 Patient's noncompliance with other medical treatment and regimen; Z99.2 Dependence on renal dialysis; Z88.0 Allergy status to penicillin
CPT/HCPCS: 36415; 71045; 74176; 76700; 80048; 80053; 81003; 82553; 83880; 84484; 85025; 85027; 85610; 86706; 86803; 87340; 90935; 93005; 93306; 96372; 96374; 99285; G0378; J1270; J1644; J1940

== ENCOUNTER 2017-11-04 20:10 | Observation (INO) | payer OTHER ==
[2017-11-04 20:10] VITALS: BMI 28.8
[2017-11-04] MEDS ORDERED: Albuterol-Ipratrop 3 mg / 0.5 (3 ml) UD INH STA (20:41)
[2017-11-04] MEDS ORDERED: Albuterol-Ipratrop 3 mg / 0.5 (3 ml) UD IH STA (20:41)
[2017-11-04] MEDS ORDERED: Sodium Chloride 0.9% 250 ML IV STA (20:41)
--- NOTE | 2017-11-04 20:45 | ED PDOC ---
HPI: SOB/CHF/COPD Time Seen by Provider: 11/04/17 20:30 Chief Complaint (Nursing): Shortness Of Breath Chief Complaint (Provider): Dyspnea History Per: Patient History/Exam Limitations: no limitations Onset/Duration Of Symptoms: Days (Today) Current Symptoms Are (Timing): Still Present Additional Complaint(s): Dyspnea with cough, nasal congestion, runny nose. No chest pain. Has body aches. No abd pain. No headaches or dizziness. Here few days ago for fluid in abd. Past Medical History Reviewed: Nursing Documentation, Vital Signs Vital Signs: Last Vital Signs Temp 101.4 F H 11/04/17 22:48 Pulse 96 H 11/04/17 22:48 Resp 17 11/04/17 22:48 BP 191/79 H 11/04/17 20:22 Pulse Ox 96 11/04/17 22:48 - Medical History PMH: CHF, HTN, Hypercholesterolemia, End Stage Renal Disease - Family History Family History: States: Unknown Family Hx - Living Arrangements Living Arrangements: With Family - Social History Alcohol: None Drugs: Denies - Home Medications Home Medications: Ambulatory Orders Medication Instructions Recorded Atorvastatin [Lipitor] 20 mg PO DAILY 10/25/17 B Complex W-C No.20/Folic Acid 1 mg PO DAILY 10/25/17 [Triphrocaps Softgel] Esomeprazole Magnesium [Nexium] 40 mg PO DAILY 10/25/17 cloNIDine [Catapres] 0.3 mg PO Q8 10/25/17 Docusate [Colace] 100 mg PO BID PRN #30 cap 10/26/17 Aspirin [Aspirin Chewable] 81 mg PO DAILY 11/04/17 B Complex W-C No.20/Folic Acid 1 cap PO DAILY 11/04/17 [Nephrocaps Softgel] - Allergies Allergies/Adverse Reactions: Allergies Allergy/AdvReac Type Severity Reaction Status Date / Time Penicillins Allergy RASH Verified 11/04/17 20:21 Review of Systems ROS Statement: Except As Marked, All Systems Reviewed And Found Negative Constitutional: Positive for: Weakness ENT: Positive for: Nose Pain, Nose Discharge, Nose Congestion Respiratory: Positive for: Cough, Shortness of Breath Neurological: Positive for: Weakness Physical Exam - Reviewed Nursing Documentation Reviewed: Yes Vital Signs Reviewed: Yes - Physical Exam Appears: Positive for: Non-toxic, No Acute Distress Head Exam: Positive for: ATRAUMATIC, NORMAL INSPECTION, NORMOCEPHALIC Skin: Positive for: Normal Color, Warm, DRY Eye Exam: Positive for: EOMI, Normal appearance, PERRL ENT: Positive for: Nasal Congestion Neck: Positive for: Normal, Painless ROM, Supple Cardiovascular/Chest: Positive for: Regular Rate, Rhythm Respiratory: Positive for: Decreased Breath Sounds, Other (mild coarse breath sounds). Negative for: Accessory Muscle Use Gastrointestinal/Abdominal: Positive for: Normal Exam, Bowel Sounds, Soft. Negative for: Tenderness Back: Positive for: Normal Inspection. Negative for: L CVA Tenderness, R CVA Tenderness Extremity: Positive for: Normal ROM. Negative for: Tenderness, Pedal Edema Neurologic/Psych: Positive for: Alert, Oriented - Laboratory Results Result Diagrams: 11/04/17 20:40 11/04/17 20:40 Interpretation Of Abn Labs: pos flu - ECG ECG: Positive for: Interpreted By Me, Viewed By Me ECG Rhythm: Positive for: Sinus Rhythm, Nonspecific Changes O2 Sat by Pulse Oximetry: 97 Pulse Ox Interpretation: Normal - Radiology X-Ray: Interpreted by Me, Viewed By Me X-Ray Interpretation: No Acute Disease - Progress ED Course And Treament: 1126: Stable. Has flu. Multiple risk factors and still weak. Will admit obs tele. Spoke with Dr. Kearns who will admit. Disposition - Clinical Impression Clinical Impression: Influenza, Weakness - Patient ED Disposition Is Patient to be Admitted: Yes Counseled Patient/Family Regarding: Studies Performed, Diagnosis - Disposition Disposition Time: 23:48 Condition: FAIR - Pt Status Changed To: Hospital Disposition Of: Observation - POA Present On Arrival: None
[2017-11-04] MEDS ORDERED: Albuterol-Ipratrop 3 mg / 0.5 (3 ml) UD ONE (20:57)
[2017-11-04 21:06] LABS: VENOUS BLOOD GAS BASE EXCESS -0.3 mmol/L (0.0-2.0); VENOUS BLOOD GAS PCO2 57 mmHg (40-60); VENOUS BLOOD GAS PO2 131 mm/Hg (30-55); VENOUS BLOOD PH 7.29 (7.32-7.43)
[2017-11-04 21:07] LABS: BASO % 0.9 % (0.0-2.0); EOS # 0.1 K/uL (0.0-0.7); EOS % 1.9 % (0.0-4.0); HEMOGLOBIN 9.8 g/dL (12.0-16.0); LYMPH # 0.6 K/uL (1.0-4.3); LYMPH % 17.5 % (20.0-40.0); MEAN CELL VOLUME 96.5 fl (81.0-99.0); MEAN CORPUSCULAR HEMOGLOBIN 31.3 pg (27.0-31.0); MEAN CORPUSCULAR HGB CONC 32.4 g/dL (33.0-37.0); MEAN PLATELET VOLUME 8.8 fl (7.2-11.7); MONO # 0.5 K/uL (0.0-0.8); MONO % 14.5 % (0.0-10.0); NEUT # 2.2 K/uL (1.8-7.0); NEUT % 65.2 % (50.0-75.0); NRBC % 0.1 % (0.0-0.0); RBC 3.13 Mil/uL (3.80-5.20); RED CELL DISTRIBUTION WIDTH 16.4 % (11.5-14.5); WHITE BLOOD COUNT 3.4 K/uL (4.8-10.8)
[2017-11-04 21:25] LABS: TROPONIN I 0.062 ng/mL (0.00-0.120)
[2017-11-04 21:30] LABS: ALB/GLOB RATIO 1.3 (1.0-2.1); ALBUMIN 3.8 g/dL (3.5-5.0); CALCIUM 9.3 mg/dL (8.4-10.2)
--- NOTE | 2017-11-04 23:54 | CP.PCM.HP ---
History of Present Illness - History of Present Illness History of Present Illness: PMD: basil Martin MD Chief Complaint: Fever/Cough/SOB The patient was seen and examined in the ED HPI: 62 years old female with hx of CHF, HTN, and ESRD on HD TTSa comes with 2 days of Fever, coughing with Phlegm, nasal congestion, Chills Rhinitis, body aches and SOB . No nausea , vomiting nor headaches, urinary symptoms nor diarrhea. In the ED the Ed the rapid Flue test was positive. PMH: ESRD on HD TTSa; CHF; HLD; HTN PSH: ; AV Fistula for Dialysis; Foot surgery SH: Never Smoked; No illegal drug use; No Alcohol; FH: States: Unknown Family Hx Allergies: PCN Medication: Reviewed Present on Admission - Present on Admission Any Indicators Present on Admission: No History of DVT/PE: No History of Uncontrolled Diabetes: No Urinary Catheter: No Decubitus Ulcer Present: No Review of Systems - Constitutional Constitutional: Chills, Fatigue, Fever. absent: Anorexia, Headache, Lethargy - EENT Eyes: Requires Corrective Lenses. absent: Diplopia, Floaters, Spots in Vision Ears: absent: Decreased Hearing, Ear Discharge, Tinnitus Nose/Mouth/Throat: Nasal Congestion, Nasal Discharge, Nasal Obstruction, Sinus Pressure. absent: Epistaxis, Sinus Pain - Cardiovascular Cardiovascular: Dyspnea. absent: Chest Pain, Edema - Respiratory Respiratory: Cough, Dyspnea. absent: Wheezing - Gastrointestinal Gastrointestinal: absent: Constipation, Diarrhea, Nausea, Vomiting - Genitourinary Genitourinary: absent: Dysuria, Flank Pain, Hematuria, Urinary Frequency - Musculoskeletal Musculoskeletal: Muscle Weakness, Myalgias. absent: Arthralgias - Integumentary Integumentary: absent: Pruritus, Rash, Skin Ulcer, Sores, Striae, Swelling - Neurological Neurological: absent: Confusion, Dizziness, Focal Weakness, Headaches, Weakness - Psychiatric Psychiatric: absent: Anxiety, Depression, Panic Attacks - Endocrine Endocrine: absent: Palpitations, Polydipsia, Polyphagia, Polyuria - Hematologic/Lymphatic Hematologic: absent: Easy Bleeding, Easy Bruising Past Patient History - Tetanus Immunizations Tetanus Immunization: Unknown - Past Medical History & Family History Past Medical History?: Yes - Past Social History Smoking Status: Never Smoked Chewing Tobacco Use: No Cigar Use: No Alcohol: None Drugs: Denies Home Situation {Lives}: With Family - CARDIAC Hx Congestive Heart Failure: Yes Hx Hypercholesterolemia: Yes Hx Hypertension: Yes - PULMONARY Hx Respiratory Disorders: Yes - NEUROLOGICAL Hx Neurological Disorder: No - HEENT Hx HEENT Problems: No - RENAL Hx Dialysis: Yes (TTS) - ENDOCRINE/METABOLIC Hx Endocrine Disorders: No - HEMATOLOGICAL/ONCOLOGICAL Hx Blood Disorders: No - INTEGUMENTARY Hx Dermatological Problems: No - MUSCULOSKELETAL/RHEUMATOLOGICAL Hx Musculoskeletal Disorders: No Hx Falls: Yes - GASTROINTESTINAL Hx Gastrointestinal Disorders: No - GENITOURINARY/GYNECOLOGICAL Hx Genitourinary Disorders: No - PSYCHIATRIC Hx Psychophysiologic Disorder: No Hx Substance Use: No - SURGICAL HISTORY Hx Section: Yes Hx Vascular Surgery: Yes Hx Vascular Access Device: Yes (AV FISTULA) Other/Comment: FOOT SURGERY - ANESTHESIA Hx Anesthesia: Yes Hx Anesthesia Reactions: Yes Meds Allergies/Adverse Reactions: Allergies Allergy/AdvReac Type Severity Reaction Status Date / Time Penicillins Allergy RASH Verified 11/04/17 20:21 Physical Exam - Constitutional Appears: No Acute Distress - Head Exam Head Exam: ATRAUMATIC, NORMAL INSPECTION, NORMOCEPHALIC - Eye Exam Eye Exam: EOMI, Normal appearance Pupil Exam: NORMAL ACCOMODATION, PERRL - ENT Exam ENT Exam: Mucous Membranes Moist, Normal Exam, Normal External Ear Exam - Neck Exam Neck exam: Positive for: Full Rom, Normal Inspection. Negative for: Lymphadenopathy, Tenderness - Respiratory Exam Respiratory Exam: Clear to Auscultation Bilateral. absent: Rales, Rhonchi, Wheezes - Cardiovascular Exam Cardiovascular Exam: REGULAR RHYTHM, RRR, +S1, +S2 Additional comments: IV/ systolic murmur at base - GI/Abdominal Exam GI & Abdominal Exam: Normal Bowel Sounds, Soft. absent: Mass, Organomegaly Additional comments: Mild tenderness at LUQ - Rectal Exam Rectal Exam: Deferred - Extremities Exam Extremities exam: Positive for: full ROM, normal inspection. Negative for: calf tenderness, pedal edema - Back Exam Back exam: NORMAL INSPECTION. absent: CVA tenderness (L), CVA tenderness (R) - Neurological Exam Neurological exam: Alert, CN II-XII Intact, Oriented x3, Reflexes Normal - Psychiatric Exam Psychiatric exam: Normal Affect, Normal Mood - Skin Skin Exam: Dry, Intact, Normal Color, Warm Results - Vital Signs Recent Vital Signs: Last Vital Signs Temp 101.4 F H 11/04/17 22:48 Pulse 96 H 11/04/17 22:48 Resp 17 11/04/17 22:48 BP 191/79 H 11/04/17 20:22 Pulse Ox 97 11/04/17 23:49 - Labs Result Diagrams: 11/04/17 20:40 11/04/17 20:40 Labs: Laboratory Results - last 24 hr 11/04/17 11/04/17 11/04/17 20:40 20:40 20:40 WBC 3.4 L RBC 3.13 L Hgb 9.8 L Hct 30.2 L MCV 96.5 MCH 31.3 H MCHC 32.4 L RDW 16.4 H Plt Count 101 L MPV 8.8 Neut % (Auto) 65.2 Lymph % (Auto) 17.5 L Angelina % (Auto) 14.5 H Eos % (Auto) 1.9 Baso % (Auto) 0.9 Neut # (Auto) 2.2 Lymph # (Auto) 0.6 L [place] # (Auto) 0.5 Eos # (Auto) 0.1 Baso # (Auto) 0.0 pO2 VBG pH VBG pCO2 VBG HCO3 VBG Total CO2 VBG O2 Sat (Calc) VBG Base Excess Glucose Lactate FiO2 Sodium 142 Potassium 4.0 Chloride 98 Carbon Dioxide 33 H Anion Gap 15 BUN 18 H Creatinine 3.6 H Est GFR ( Amer) 15 Est GFR (Non-Af Amer) 13 Random Glucose 117 H Calcium 9.3 Total Bilirubin 0.7 AST 30 ALT 18 Alkaline Phosphatase 79 Troponin I 0.0620 NT-Pro-B Natriuret Pep 863775 H Total Protein 6.7 Albumin 3.8 Globulin 2.9 Albumin/Globulin Ratio 1.3 Influenza Typ A,B (EIA) Pos for influenza a H 11/04/17 21:00 WBC RBC Hgb Hct MCV MCH MCHC RDW Plt Count MPV Neut % (Auto) Lymph % (Auto) Angelina % (Auto) Eos % (Auto) Baso % (Auto) Neut # (Auto) Lymph # (Auto) Angel[place] # (Auto) Eos # (Auto) Baso # (Auto) pO2 131 H VBG pH 7.29 L VBG pCO2 57 VBG HCO3 24.7 VBG Total CO2 29.1 H VBG O2 Sat (Calc) 99.2 H VBG Base Excess -0.3 L Glucose 118 H Lactate 1.5 FiO2 21.0 Sodium 125.0 L Potassium Chloride 100.0 Carbon Dioxide Anion Gap BUN Creatinine Est GFR ( Amer) Est GFR (Non-Af Amer) Random Glucose Calcium Total Bilirubin AST ALT Alkaline Phosphatase Troponin I NT-Pro-B Natriuret Pep Total Protein Albumin Globulin Albumin/Globulin Ratio Influenza Typ A,B (EIA) - Imaging and Cardiology Chest x-ray Status: Image reviewed by me Additional comment: No acute disease Assessment & Plan - Assessment and Plan (Free Text) Assessment: #. Influenza A infection #. ESRD on HD #. Leukopenia #. Thrombocytopenia #. Anemia Plan: 62 years old female with hx of CHF, HTN, and ESRD on HD TTSa comes with 2 days of Fever, coughing with Phlegm, nasal congestion, Chills Rhinitis, body aches and SOB . #. Influenza A infection - Droplet Isolation - Tamiflu #. ESRD on HD TTSa - Consult Dr Power nephrology #. Leukopenia and Thrombocytopenia could be due to the Flu - follow WBC #. HTN uncontrolled #. Anemia of Chronic Kidney disease - follow Hb #. DVT Prophylaxis with Heparin #. Code Status: Full - Date & Time Date: 11/04/17 Time: 23:54
[2017-11-05] MEDS ORDERED: Albuterol 0.083% Inhal Sol (2.5 mg/3 mL) UD INH PRN (04:39)
[2017-11-05 07:06] LABS: BASO % 0.5 % (0.0-2.0); EOS % 0.2 % (0.0-4.0); HEMOGLOBIN 9.8 g/dL (12.0-16.0); LYMPH # 0.5 K/uL (1.0-4.3); MEAN CELL VOLUME 97.5 fl (81.0-99.0); MEAN CORPUSCULAR HEMOGLOBIN 31.1 pg (27.0-31.0); MEAN CORPUSCULAR HGB CONC 31.8 g/dL (33.0-37.0); MEAN PLATELET VOLUME 8.6 fl (7.2-11.7); MONO # 0.1 K/uL (0.0-0.8); MONO % 4.8 % (0.0-10.0); NEUT # 2.3 K/uL (1.8-7.0); NEUT % 77.5 % (50.0-75.0); NRBC % 0.2 % (0.0-0.0); RBC 3.15 Mil/uL (3.80-5.20); RED CELL DISTRIBUTION WIDTH 16.1 % (11.5-14.5)
[2017-11-05] MEDS ORDERED: [UNRECOGNIZED DRUG - REMARK] PO SCH (09:00)
[2017-11-05] MEDS: Multivitamin Vitamin B Complex (Nephro-Vite) Tab PO SCH ×2 (09:24→17:17)
--- NOTE | 2017-11-05 10:09 | RAD ---
HISTORY: dyspnea COMPARISON: Chest radiograph dated 10/25/2017. FINDINGS: LUNGS: Questionable left basilar atelectasis. PLEURA: No significant pleural effusion identified, no pneumothorax apparent. CARDIOVASCULAR: Cardiomediastinal silhouette stably enlarged. OSSEOUS STRUCTURES: Unchanged. VISUALIZED UPPER ABDOMEN: Normal. OTHER FINDINGS: None. IMPRESSION: Questionable left basilar atelectasis.
--- NOTE | 2017-11-05 11:33 | CARD ---
APPROVED REPORT EKG Measurement Heart [id number] <Conclusion> Normal sinus rhythm ST & T wave abnormality, consider lateral ischemia Prolonged QT Abnormal ECG
[2017-11-05] MEDS ORDERED: Albuterol-Ipratrop 3 mg / 0.5 (3 ml) UD INH STA (16:59)
[2017-11-05] MEDS ORDERED: guaiFENesin-Codeine 100-10mg/5ml Syrup (5 ml) UD PO PRN (17:01)
--- NOTE | 2017-11-05 17:04 | CP.PCM.PN ---
Subjective - Date & Time of Evaluation Date of Evaluation: 11/05/17 Time of Evaluation: 14:00 - Subjective Subjective: Patient seen and examined bedside. Feeling very poor , complains of throat pain ,persistent coughing spells , dyspnea with coughing spells , chest congestion with clear sputum production. BP elevated 170/63 Tmax 102.3 Objective - Vital Signs/Intake and Output Vital Signs (last 24 hours): Temp Pulse Resp BP Pulse Ox 98.1 F 71 20 170/63 H 100 11/05/17 12:51 11/05/17 12:14 11/05/17 12:14 11/05/17 12:14 11/05/17 12:14 - Medications Medications: Current Medications Acetaminophen (Tylenol 325mg Tab) 650 mg PO Q4 PRN PRN Reason: Fever >100.4 F Albuterol Sulfate (Albuterol 0.083% Inhal Latricia (2.5 Mg/3 Ml) Ud) 2.5 mg INH RQ6 PRN PRN Reason: Shortness of Breath Albuterol/Ipratropium (Duoneb 3 Mg/0.5 Mg (3 Ml) Ud) 3 ml INH STAT STA Stop: 11/05/17 17:00 Albuterol/Ipratropium (Duoneb 3 Mg/0.5 Mg (3 Ml) Ud) 3 ml INH RQID [facility] Aspirin (Aspirin Chewable) 81 mg PO DAILY [facility] Last Admin: 11/05/17 09:25 Dose: 81 mg Atorvastatin Calcium (Lipitor) 20 mg PO DAILY [facility] Last Admin: 11/05/17 09:25 Dose: 20 mg Calcium Acetate (Phoslo) 667 mg PO [facility] Clonidine HCl (Catapres) 0.3 mg PO Q8 [facility] Last Admin: 11/05/17 09:32 Dose: 0.3 mg Docusate Sodium (Colace) 100 mg PO BID PRN PRN Reason: Constipation Guaifenesin/Codeine Phosphate (Robitussin W/Codeine) 10 ml PO Q6 PRN PRN Reason: Cough Heparin Sodium (Porcine) (Heparin) 5,000 units SC Q8 [facility] PRN Reason: Protocol Last Admin: 11/05/17 09:27 Dose: 5,000 units Home Med (B Complex W-C No.20/Folic Acid [Triphrocaps Softgel]) 1 mg PO DAILY [facility] Oseltamivir Phosphate (Tamiflu Cap) 75 mg PO BID [facility] PRN Reason: Protocol Last Admin: 11/05/17 09:24 Dose: 75 mg Vitamin B Complex/Vit C/Folic Acid (Nephro-Leslie) 1 tab PO DAILY [facility] Last Admin: 11/05/17 09:24 Dose: 1 tab - Labs Labs: 11/05/17 06:07 11/04/17 20:40 - Constitutional Appears: In Acute Distress (with coughing spells ) - Head Exam Head Exam: ATRAUMATIC, NORMAL INSPECTION, NORMOCEPHALIC - Eye Exam Eye Exam: EOMI, Normal appearance, PERRL Pupil Exam: NORMAL ACCOMODATION - ENT Exam ENT Exam: Mucous Membranes Moist, Normal Exam - Neck Exam Neck Exam: Normal Inspection - Respiratory Exam Respiratory Exam: Rales, Rhonchi, Respiratory Distress - Cardiovascular Exam Cardiovascular Exam: REGULAR RHYTHM, RRR, +S1, +S2. absent: JVD - GI/Abdominal Exam GI & Abdominal Exam: Soft, Normal Bowel Sounds. absent: Distended, Guarding, Tenderness, Rebound - Rectal Exam Rectal Exam: Deferred - Extremities Exam Extremities Exam: Full ROM, Normal Capillary Refill, Normal Inspection. absent : Calf Tenderness, Pedal Edema - Back Exam Back Exam: NORMAL INSPECTION - Neurological Exam Neurological Exam: Alert, Awake, CN II-XII Intact, Oriented x3 - Psychiatric Exam Psychiatric exam: Normal Affect - Skin Skin Exam: Dry, Intact, Normal Color, Warm Assessment and Plan - Assessment and Plan (Free Text) Assessment: 62 years old female with PMH ESRD on HD ,HTN comes with 2 days of Fever, coughing with Phlegm, nasal congestion, Chills Rhinitis, body aches and SOB .Patient states that she had HD yesterday. Complains of coughing spell associated with chest congestion , dyspnea and clear sputum production In ER found to be positive for Influenza A. CXR showed no active disease Patient febrile with Tmax 102 with SOB .BNP elevated [id number] ( same level as prior admissions) 1. Influenza A infection patient with dyspnea , shallow breathing chest congestion and coughing spells Droplet Isolation CXR showed no active disease Started Tamiflu will start Duonebs QID with pre and post treatment Peak flow Start Codeine with Robitussin Po 2. ESRD on HD TTSa Consult with Dr Power nephrology For HD in AM Continue Phoslo Elevated PROBNP is chronic due to ESRD ( Recent Echo showed normal EF and LV function )patient does not have CHF 3.Pancytopenia Possible worsening due to flu prior admision indicates also pancytopenia unclear etiology at present Will need follow up as out patient with Her PMD once flu is resolved for further evaluation 4.HTN uncontrolled on Clonidine PO 5.DVT Prophylaxis Heparin Code Status: Full surrogate decision maker :
[2017-11-05] MEDS ORDERED: Albuterol-Ipratrop 3 mg / 0.5 (3 ml) UD ONE ×2 (17:20→21:05)
[2017-11-05] MEDS: Albuterol-Ipratrop 3 mg / 0.5 (3 ml) UD INH SCH (21:06)
[2017-11-06 05:52] LABS: HEMOGLOBIN 10.2 g/dL (12.0-16.0); MEAN CELL VOLUME 97.4 fl (81.0-99.0); MEAN CORPUSCULAR HGB CONC 31.9 g/dL (33.0-37.0); RBC 3.27 Mil/uL (3.80-5.20); RED CELL DISTRIBUTION WIDTH 16.5 % (11.5-14.5); WHITE BLOOD COUNT 3.2 K/uL (4.8-10.8)
[2017-11-06 06:09] LABS: CALCIUM 9.1 mg/dL (8.4-10.2)
[2017-11-06] MEDS: Multivitamin Vitamin B Complex (Nephro-Vite) Tab PO SCH ×2 (09:53→09:57)
[2017-11-06] MEDS ORDERED: Albuterol-Ipratrop 3 mg / 0.5 (3 ml) UD ONE ×2 (09:59→13:27)
[2017-11-06] MEDS: Albuterol-Ipratrop 3 mg / 0.5 (3 ml) UD INH SCH ×2 (09:59→13:27)
--- NOTE | 2017-11-06 11:32 | CP.PCM.PN ---
Subjective - Date & Time of Evaluation Date of Evaluation: 11/06/17 Time of Evaluation: 11:30 - Subjective Subjective: pt doing well afebrile feeling better HD today and can likely go home after hd Objective - Vital Signs/Intake and Output Vital Signs (last 24 hours): Temp Pulse Resp BP Pulse Ox 97.7 F 79 17 176/75 H 98 11/06/17 04:48 11/06/17 10:11 11/06/17 10:11 11/06/17 10:11 11/06/17 10:11 - Medications Medications: Current Medications Acetaminophen (Tylenol 325mg Tab) 650 mg PO Q4 PRN PRN Reason: Fever >100.4 F Albuterol Sulfate (Albuterol 0.083% Inhal Latricia (2.5 Mg/3 Ml) Ud) 2.5 mg INH RQ6 PRN PRN Reason: Shortness of Breath Albuterol/Ipratropium (Duoneb 3 Mg/0.5 Mg (3 Ml) Ud) 3 ml INH RQID [facility] Last Admin: 11/06/17 09:59 Dose: 3 ml Amlodipine Besylate (Norvasc) 10 mg PO DAILY [facility] Aspirin (Aspirin Chewable) 81 mg PO DAILY [facility] Last Admin: 11/06/17 09:51 Dose: 81 mg Atorvastatin Calcium (Lipitor) 20 mg PO DAILY [facility] Last Admin: 11/06/17 09:52 Dose: 20 mg Calcium Acetate (Phoslo) 667 mg PO WM [facility] Last Admin: 11/06/17 09:54 Dose: 667 mg Clonidine HCl (Catapres) 0.3 mg PO Q8 [facility] Last Admin: 11/06/17 09:52 Dose: 0.3 mg Docusate Sodium (Colace) 100 mg PO BID PRN PRN Reason: Constipation Guaifenesin/Codeine Phosphate (Robitussin W/Codeine) 10 ml PO Q6 PRN PRN Reason: Cough Heparin Sodium (Porcine) (Heparin) 5,000 units SC Q8 [facility] PRN Reason: Protocol Last Admin: 11/06/17 10:06 Dose: Not Given Oseltamivir Phosphate (Tamiflu Cap) 75 mg PO BID [facility] PRN Reason: Protocol Last Admin: 11/06/17 09:53 Dose: 75 mg Vitamin B Complex/Vit C/Folic Acid (Nephro-Leslie) 1 tab PO DAILY [facility] Last Admin: 11/06/17 09:53 Dose: 1 tab Vitamin B Complex/Vit C/Folic Acid (Nephro-Leslie) 1 tab PO DAILY [facility] Last Admin: 11/06/17 09:57 Dose: Not Given - Labs Labs: 11/06/17 04:18 11/06/17 04:18 - Constitutional Appears: Non-toxic, No Acute Distress - Head Exam Head Exam: ATRAUMATIC, NORMOCEPHALIC - Eye Exam Eye Exam: Normal appearance, PERRL Pupil Exam: NORMAL ACCOMODATION - ENT Exam ENT Exam: Mucous Membranes Moist, Normal Oropharynx - Respiratory Exam Respiratory Exam: Clear to Ausculation Bilateral, NORMAL BREATHING PATTERN - Cardiovascular Exam Cardiovascular Exam: RRR, +S1, +S2 - GI/Abdominal Exam GI & Abdominal Exam: Soft, Normal Bowel Sounds. absent: Mass, Organomegaly - Extremities Exam Extremities Exam: Full ROM, Normal Capillary Refill - Back Exam Back Exam: absent: CVA tenderness (L), CVA tenderness (R) - Neurological Exam Neurological Exam: Alert, Awake, Oriented x3 - Psychiatric Exam Psychiatric exam: Normal Affect, Normal Mood - Skin Skin Exam: Dry, Normal Color, Warm Assessment and Plan - Assessment and Plan (Free Text) Plan: Assessment: 62 years old female with PMH ESRD on HD ,HTN comes with 2 days of Fever, coughing with Phlegm, nasal congestion, Chills Rhinitis, body aches and SOB .Patient states that she had HD yesterday. Complains of coughing spell associated with chest congestion , dyspnea and clear sputum production In ER found to be positive for Influenza A. CXR showed no active disease Patient febrile on admission with Tmax 102 with SOB .BNP elevated [id number] ( same level as prior admissions) 1. Influenza A infection patient admitted with dyspnea , shallow breathing chest congestion and coughing spells Droplet Isolation CXR showed no active disease Started Tamiflu will start Duonebs QID with pre and post treatment Peak flow Start Codeine with Robitussin Po improving today, afebrile 2. ESRD on HD TTSa Consult with Dr Power nephrology For HD today Continue Phoslo Elevated PROBNP is chronic due to ESRD ( Recent Echo showed normal EF and LV function )patient does not have CHF 3.Pancytopenia Possible worsening due to flu prior admision indicates also pancytopenia unclear etiology at present Will need follow up as out patient with Her PMD once flu is resolved for further evaluation 4.HTN uncontrolled on Clonidine PO 5.DVT Prophylaxis Heparin Code Status: Full surrogate decision maker :
[2017-11-07 00:38] VITALS: O2SAT 100
[2017-11-07] MEDS: Albuterol-Ipratrop 3 mg / 0.5 (3 ml) UD INH SCH (07:31)
[2017-11-07] MEDS: Multivitamin Vitamin B Complex (Nephro-Vite) Tab PO SCH ×2 (08:20→12:01)
--- NOTE | 2017-11-07 09:29 | CP.PCM.DIS ---
Provider - Provider Date of Admission: 11/04/17 23:48 Attending physician: Manan Kearns Time Spent in preparation of Discharge (in minutes): 30 Diagnosis - Discharge Diagnosis (1) Influenza Status: Acute Hospital Course - Lab Results Lab Results: Micro Results 11/04/17 21:00 Blood Blood Culture - Preliminary NO GROWTH AFTER 48 HOURS 11/04/17 20:40 Blood Blood Culture - Preliminary NO GROWTH AFTER 48 HOURS Most Recent Lab Values WBC 3.2 K/uL (4.8-10.8) L 11/06/17 04:18 RBC 3.27 Mil/uL (3.80-5.20) L 11/06/17 04:18 Hgb 10.2 g/dL (12.0-16.0) L 11/06/17 04:18 Hct 31.9 % (34.0-47.0) L 11/06/17 04:18 MCV 97.4 fl (81.0-99.0) 11/06/17 04:18 MCH 31.0 pg (27.0-31.0) 11/06/17 04:18 MCHC 31.9 g/dL (33.0-37.0) L 11/06/17 04:18 RDW 16.5 % (11.5-14.5) H 11/06/17 04:18 Plt Count 95 K/uL (130-400) L 11/06/17 04:18 MPV 8.6 fl (7.2-11.7) 11/05/17 06:07 Neut % (Auto) 77.5 % (50.0-75.0) H 11/05/17 06:07 Lymph % (Auto) 17.0 % (20.0-40.0) L 11/05/17 06:07 [place] % (Auto) 4.8 % (0.0-10.0) 11/05/17 06:07 Eos % (Auto) 0.2 % (0.0-4.0) 11/05/17 06:07 Baso % (Auto) 0.5 % (0.0-2.0) 11/05/17 06:07 Neut # (Auto) 2.3 K/uL (1.8-7.0) 11/05/17 06:07 Lymph # (Auto) 0.5 K/uL (1.0-4.3) L 11/05/17 06:07 [place] # (Auto) 0.1 K/uL (0.0-0.8) 11/05/17 06:07 Eos # (Auto) 0.0 K/uL (0.0-0.7) 11/05/17 06:07 Baso # (Auto) 0.0 K/uL (0.0-0.2) 11/05/17 06:07 pO2 131 mm/Hg (30-55) H 11/04/17 21:00 VBG pH 7.29 (7.32-7.43) L 11/04/17 21:00 VBG pCO2 57 mmHg (40-60) 11/04/17 21:00 VBG HCO3 24.7 mmol/L 11/04/17 21:00 VBG Total CO2 29.1 mmol/L (22-28) H 11/04/17 21:00 VBG O2 Sat (Calc) 99.2 % (40-65) H 11/04/17 21:00 VBG Base Excess -0.3 mmol/L (0.0-2.0) L 11/04/17 21:00 Sodium 125.0 mmol/L (132-148) L 11/04/17 21:00 Chloride 100.0 mmol/L (98-107) 11/04/17 21:00 Glucose 118 mg/dL (65-105) H 11/04/17 21:00 Lactate 1.5 mmol/L (0.7-2.1) 11/04/17 21:00 FiO2 21.0 % 11/04/17 21:00 Sodium 142 mmol/l (132-148) 11/06/17 04:18 Potassium 4.0 MMOL/L (3.6-5.0) 11/06/17 04:18 Chloride 92 mmol/L (98-107) L 11/06/17 04:18 Carbon Dioxide 33 mmol/L (22-30) H 11/06/17 04:18 Anion Gap 21 (10-20) H 11/06/17 04:18 BUN 45 mg/dl (7-17) H 11/06/17 04:18 Creatinine 6.1 mg/dl (0.7-1.2) H 11/06/17 04:18 Est GFR ( Amer) 8 02/10/18 04:18 Est GFR (Non-Af Amer) 7 11/06/17 04:18 Random Glucose 90 mg/dL (65-105) 11/06/17 04:18 Calcium 9.1 mg/dL (8.4-10.2) 11/06/17 04:18 Total Bilirubin 0.7 mg/dl (0.2-1.3) 11/04/17 20:40 AST 30 U/L (14-36) 11/04/17 20:40 ALT 18 U/L (9-52) 11/04/17 20:40 Alkaline Phosphatase 79 U/L (38-126) 11/04/17 20:40 Troponin I 0.0620 ng/mL (0.00-0.120) 11/04/17 20:40 NT-Pro-B Natriuret Pep 568918 pg/ml (0-900) H 11/04/17 20:40 Total Protein 6.7 G/DL (6.3-8.2) 11/04/17 20:40 Albumin 3.8 g/dL (3.5-5.0) 11/04/17 20:40 Globulin 2.9 gm/dL (2.2-3.9) 11/04/17 20:40 Albumin/Globulin Ratio 1.3 (1.0-2.1) 11/04/17 20:40 Influenza Typ A,B (EIA) Pos for influenza a (NEGATIVE) H 11/04/17 20:40 - Hospital Course Hospital Course: Assessment: 62 years old female with PMH ESRD on HD ,HTN comes with 2 days of Fever, coughing with Phlegm, nasal congestion, Chills Rhinitis, body aches and SOB .Patient states that she had HD yesterday. Complains of coughing spell associated with chest congestion , dyspnea and clear sputum production In ER found to be positive for Influenza A. CXR showed no active disease Patient febrile on admission with Tmax 102 with SOB .BNP elevated [id number] ( same level as prior admissions) PT IMPROVED CLINICALLY. AFEBRILE OVER 24 HOURS. TOLERATED HD WELL. STABLE FOR DISCHARGE HOME TODAY WITH FOLLOW UP PCP IN ONE WEEK. 1. Influenza A infection patient admitted with dyspnea , shallow breathing chest congestion and coughing spells Droplet Isolation CXR showed no active disease Started Tamiflu will start Duonebs QID with pre and post treatment Peak flow Start Codeine with Robitussin Po improving today, afebrile 2. ESRD on HD TTSa Consult with Dr Power nephrology For HD today Continue Phoslo Elevated PROBNP is chronic due to ESRD ( Recent Echo showed normal EF and LV function )patient does not have CHF 3.Pancytopenia Possible worsening due to flu prior admision indicates also pancytopenia unclear etiology at present Will need follow up as out patient with Her PMD once flu is resolved for further evaluation 4.HTN uncontrolled on Clonidine PO 5.DVT Prophylaxis Heparin Code Status: Full surrogate decision maker : Discharge Exam - Head Exam Head Exam: ATRAUMATIC Additional comments: GEN: WDWN, ALERT, COOPERATIVE HEENT: NCAT, PERRL, EOMI HEART: RRR, +S1S2, NO MRG LUNG: CTAB, NO WRR ABD: SOFT, NT, ND, NO HSM, NO MASSES EXT: NORMAL PEDAL PULSES, GOOD CAPILLARY REFILL NEURO: AAOX3, STRENGTH EQUAL BILATERAL UPPER AND LOWER EXTREMITIES SKIN: WARM, DRY PSYCH: NORMAL MOOD, NORMAL AFFECT Discharge Plan - Discharge Medications Prescriptions: amLODIPine [Norvasc] 10 mg PO DAILY #30 tab Atorvastatin [Lipitor] 20 mg PO DAILY #30 tab B Complex W-C No.20/Folic Acid [Triphrocaps Softgel] 1 mg PO DAILY #30 capsule B Complex W-C No.20/Folic Acid [Nephrocaps Softgel] 1 cap PO DAILY #30 capsule Calcium Acetate [Phoslo] 667 mg PO WM #90 capsule cloNIDine [Catapres] 0.3 mg PO Q8 #90 tab Docusate [Colace] 100 mg PO BID PRN #30 cap PRN Reason: Constipation Doxercalciferol [Hectorol] 2 mcg PO TTS #12 cap Epoetin Chris [Procrit] 10,000 unit IV TTS #1 vial Esomeprazole Magnesium [Nexium] 40 mg PO DAILY #30 capsule. Oseltamivir [Tamiflu Cap] 75 mg PO BID #6 cap - Follow Up Plan Condition: FAIR Disposition: HOME/ ROUTINE Instructions: Weakness (ED)
[2017-11-07 10:11] VITALS: BP 167/60; PULSE 79; RESP 18; TEMP 98.1
[2017-11-09] MEDS ORDERED: EPOETIN ALFA 10,000 UNIT/ML ML IV SCH (09:00)
== END 2017-11-07 11:35 | disposition home or self-care (01) ==
LOC: H.ER 20:10 → H.ERHOLD 23:48 → H.MEDSURG1 11-06 15:18
PROVIDERS: ADMIT Internal Medicine; ATTEND Internal Medicine
DX: J10.1 Influenza due to other identified influenza virus with other respiratory manifestations (principal); D61.818 Other pancytopenia; E78.00 Pure hypercholesterolemia, unspecified; E78.5 Hyperlipidemia, unspecified; I13.11 Hypertensive heart and chronic kidney disease without heart failure, with stage 5 chronic kidney disease, or end stage renal disease; N18.6 End stage renal disease; J31.0 Chronic rhinitis; Z99.2 Dependence on renal dialysis
CPT/HCPCS: 71045; 80048; 80053; 82803; 83880; 84484; 85025; 85027; 87040; 87804; 90935; 93005; 94640; 96372; 96374; 99285; G0378; J1644; J2930; J7040

== ENCOUNTER 2017-11-18 13:59 | Inpatient (IN) | payer OTHER ==
[2017-11-18 14:00] VITALS: BMI 28.8
[2017-11-18] MEDS ORDERED: Morphine 4 MG/ML VIAL IVP ONE ×2 (15:17→18:51)
--- NOTE | 2017-11-18 15:50 | ED PDOC ---
Lower Extremity Pain/Injury Time Seen by Provider: 11/18/17 14:35 Chief Complaint (Nursing): Lower Extremity Problem/Injury Chief Complaint (Provider): Right Leg Pain and Right Flank Pain History Per: Patient History/Exam Limitations: no limitations Onset/Duration Of Symptoms: Days (x4) Current Symptoms Are (Timing): Still Present Additional Complaint(s): 62 year old female with a past medical history of HTN and end stage renal disease, who presents to the ED complaining of right flank and right leg pain x4 days with associated tactile fevers, chills, chest pain, mild cough, and flu- like symptoms x4 days. Patient states she feels feverish, but denies taking her temperature. Also states her pain radiates down her right leg, and across her right flank to her back and abdomen. States her leg pain is primarily located in her right thigh. Reports her leg pain is worse when walking and the pain is preventing her from ambulating. Also reports right lower leg swelling. PMD: Dr. Francisco Martin [employer] Instructor: Dr. Alicia Barone Past Medical History Reviewed: Historical Data, Nursing Documentation, Vital Signs Vital Signs: Last Vital Signs Temp 98.0 F 11/18/17 14:04 Pulse 78 11/18/17 14:04 Resp 16 11/18/17 14:04 BP 160/107 H 11/18/17 14:04 Pulse Ox 98 11/18/17 14:04 - Medical History PMH: CHF, HTN, Hypercholesterolemia, End Stage Renal Disease (Dialysis - / /Wed) - Surgical History Surgical History: Hernia Repair Other surgeries: AV shunt, Right ankle fracture repair - Family History Family History: States: Unknown Family Hx - Immunization History Hx Tetanus Toxoid Vaccination: No Hx Influenza Vaccination: No Hx Pneumococcal Vaccination: No - Home Medications Home Medications: Ambulatory Orders Medication Instructions Recorded Aspirin [Aspirin Chewable] 81 mg PO DAILY 11/04/17 Atorvastatin [Lipitor] 20 mg PO DAILY #30 tab 11/07/17 B Complex W-C No.20/Folic Acid 1 cap PO DAILY #30 capsule 11/07/17 [Nephrocaps Softgel] B Complex W-C No.20/Folic Acid 1 mg PO DAILY #30 capsule 11/07/17 [Triphrocaps Softgel] Calcium Acetate [Phoslo] 667 mg PO WM #90 capsule 11/07/17 Docusate [Colace] 100 mg PO BID PRN #30 cap 11/07/17 Doxercalciferol [Hectorol] 2 mcg PO TTS #12 cap 11/07/17 Esomeprazole Magnesium [Nexium] 40 mg PO DAILY #30 capsule. 11/07/17 Vitamin B Complex/Vit C/Folic 1 tab PO DAILY tab 11/07/17 [Nephro-Leslie] amLODIPine [Norvasc] 10 mg PO DAILY #30 tab 11/07/17 cloNIDine [Catapres] 0.3 mg PO Q8 #90 tab 11/07/17 Metoprolol Tartrate [Lopressor] 25 mg PO BID 11/18/17 - Allergies Allergies/Adverse Reactions: Allergies Allergy/AdvReac Type Severity Reaction Status Date / Time Penicillins Allergy RASH Verified 11/18/17 14:03 Review of Systems ROS Statement: Except As Marked, All Systems Reviewed And Found Negative Constitutional: Positive for: Fever, Chills, Other (body aches) Cardiovascular: Positive for: Chest Pain Respiratory: Positive for: Cough Gastrointestinal: Positive for: Abdominal Pain Musculoskeletal: Positive for: Back Pain, Leg Pain Physical Exam - Reviewed Nursing Documentation Reviewed: Yes Vital Signs Reviewed: Yes - Physical Exam Appears: Positive for: Non-toxic, No Acute Distress, Uncomfortable (restless from pain) Head Exam: Positive for: ATRAUMATIC, NORMAL INSPECTION, NORMOCEPHALIC Skin: Positive for: Normal Color, Warm, Dry. Negative for: Rash Eye Exam: Positive for: EOMI, Normal appearance, PERRL Neck: Positive for: Normal, Painless ROM, Supple Cardiovascular/Chest: Positive for: Regular Rate, Rhythm. Negative for: Murmur Respiratory: Positive for: Normal Breath Sounds. Negative for: Respiratory Distress Gastrointestinal/Abdominal: Positive for: Soft, Tenderness (RLQ) Back: Positive for: R CVA Tenderness, Other (lower lumbar tenderness) Extremity: Positive for: Tenderness (right lower leg), Swelling (right lower leg , not erythematous), Other (SLR positive right leg). Negative for: Normal ROM ( right hip painful ROM) Neurologic/Psych: Positive for: Alert, Oriented (x3) - Laboratory Results Result Diagrams: 11/19/17 04:28 11/19/17 03:00 - ECG O2 Sat by Pulse Oximetry: 98 (RA) Pulse Ox Interpretation: Normal Medical Decision Making Medical Decision Making: Time: 15:09 Initial Impression: Flank pain, leg pain, abdominal pain. Differential diagnoses include, but are not limited to retroperitoneal/iliopsoas abscesses vs. hematoma, pyelonephritis, sciatica, appendicitis, septic hip arthritis, r/o DVT right lower extremity Initial Plan: --VBG Shock Panel --CT Abdomen & Pelvis --EKG --BMP --Troponin I --ED Urine dipstick --CBC w/ differential --Erythrocyte Sedimentation Rate --PTT --PT --Morphine 4 mg IVP --Blood Culture --US Duplex LE Vein Right --Reevaluation --EKG shows sinus rhythm, 1st degree AV block, normal QRS, no ST changes, rate 84 Time: 16:30 US Right Lower Extremity Venous Duplex Doppler Findings: COMMON FEMORAL VEIN: Normal direction of flow, compressibility and augmentation response. SUPERFICIAL FEMORAL VEIN: There is a peripheral circumference acute nonocclusive thrombus in the mid superficial femoral vein. POPLITEAL VEIN: Normal direction of flow, compressibility and augmentation response. POSTERIOR TIBIAL VEIN: Normal direction of flow, compressibility and augmentation response. OTHER FINDINGS: None. IMPRESSION: Acute circumferential nonocclusive thrombus in the mid superficial femoral vein. Clinical Impression: Acute DVT --Pending CT abdomen and labs --Discussed necessity of EJ and IJ IV access with patient, but patient refused due to concerns. Will proceed with peripheral IV access. --Patient is a dialysis patient and is receiving regular doses of Heparin. Patient is at risk for intraperitoneal bleeding, so at this time the risks of anticoagulation for DVT are higher than the benefits. Patient must be ruled out for any intra-abdominal bleeding before starting any anticoagulants. Time: 18:37 CT ABDOMEN AND PELVIS FINDINGS: LOWER THORAX: There are small right and trace left pleural effusions with subsegmental atelectasis in the lower lobes. There is moderate cardiomegaly. There is also moderate pericardial effusion. LIVER: There is mild hepatomegaly and diffuse low-attenuation in the liver. There are multiple variable size simple cysts in the liver, the largest in the posterior hepatic dome measures 2.0 cm. No gross lesion or ductal dilatation. GALLBLADDER AND BILE DUCTS: The gallbladder is well distended. There are probable tiny gallstones with PANCREAS: The pancreas is normal in size with homogeneous enhancement. No focal mass or ductal dilatation. SPLEEN: Normal in size and appearance. ADRENALS: No discrete nodule. KIDNEYS AND URETERS: Again seen are enlarged polycystic kidneys no hydronephrosis. VASCULATURE: Atherosclerotic aortoiliac calcifications. No aortic aneurysm. BOWEL: The small bowel loops are normal in caliber and there is fecalization of small bowel contents. There is mild left colonic diverticulosis without CT evidence for acute diverticulitis. No bowel dilatation or obstruction. APPENDIX: Normal appendix. PERITONEUM: There is small abdominal ascites. . No free air. LYMPH NODES: No enlarged lymph nodes. BLADDER: Decompressed. REPRODUCTIVE: The uterus is surgically absent. BONES: No acute fracture. Diffuse bone demineralization. OTHER FINDINGS: There is diffuse anasarca. IMPRESSION: 1. No evidence of hydronephrosis or obstructive uropathy. 2. Polycystic kidneys. 3. Multiple liver cysts, the largest in the posterior hepatic dome measures 2.0 cm. 4. Small abdominal ascites. Diffuse anasarca. 5. Mild left colonic diverticulosis without CT evidence for acute diverticulitis. 6. Small right and trace left pleural effusions and moderate pericardial effusion. 7. Question of small gallstones. Time: 18:45 --Lung Perf and Vent Scan --Benadryl 25 mg IV --SOLU-Medrol 125 mg IVP --Heparin --Upon reevaluation patient is still complaining of right sided leg and flank pain. --Discussed case with Dr. Julia Barone who will be on consult for dialysis. Discussed case with Hospitalist, Dr. Andrea, and patient will be admitted to telemetry for DVT, chest pain, and flank pain. Scribe Attestation: Documented by Enzo Schwartz, acting as a scribe for Karri Lorenzo MD. Provider Scribe Attestation: All medical record entries made by the Scribe were at my direction and personally dictated by me. I have reviewed the chart and agree that the record accurately reflects my personal performance of the history, physical exam, medical decision making, and the department course for this patient. I have also personally directed, reviewed, and agree with the discharge instructions and disposition. Disposition - Clinical Impression Clinical Impression: DVT (deep venous thrombosis), Chest pain, Flank pain - Patient ED Disposition Is Patient to be Admitted: Yes Discussed With DrMich: Deepika Andrea Counseled Patient/Family Regarding: Studies Performed, Diagnosis - Disposition Disposition Time: 18:45 Condition: FAIR - Pt Status Changed To: Hospital Disposition Of: Inpatient - Admit Certification Admit to Inpatient:: After my assessment, the patient will require hospitalization for at least two midnights. This is because of the severity of symptoms shown, intensity of services needed, and/or the medical risk in this patient being treated as an outpatient. - POA Present On Arrival: Deep Vein Thrombosis / PE
--- NOTE | 2017-11-18 16:32 | US ---
PROCEDURE: Right lower extremity venous duplex Doppler. HISTORY: Right leg pain swelling COMPARISON: None available. TECHNIQUE: Common femoral, superficial femoral, popliteal and posterior tibial veins were evaluated. Flow was assessed with color Doppler, compressibility, assessment of phasic flow and augmentation response. FINDINGS: COMMON FEMORAL VEIN: Normal direction of flow, compressibility and augmentation response. SUPERFICIAL FEMORAL VEIN: There is a peripheral circumference acute nonocclusive thrombus in the mid superficial femoral vein. POPLITEAL VEIN: Normal direction of flow, compressibility and augmentation response. POSTERIOR TIBIAL VEIN: Normal direction of flow, compressibility and augmentation response. OTHER FINDINGS: None. IMPRESSION: Acute circumferential nonocclusive thrombus in the mid superficial femoral vein.
[2017-11-18 16:58] LABS: VENOUS BLOOD GAS PCO2 49 mmHg (40-60); VENOUS BLOOD GAS PO2 58 mm/Hg (30-55); VENOUS BLOOD PH 7.57 (7.32-7.43)
[2017-11-18] MEDS ORDERED: Sodium Chloride 0.9% 100 ML ONE (17:08)
[2017-11-18] MEDS ORDERED: Iodixanol 320 MG/ML 100 ML BOTTLE IV ONE (17:08)
[2017-11-18 17:17] LABS: BASO % 0.8 % (0.0-2.0); EOS % 0.9 % (0.0-4.0); HEMOGLOBIN 9.5 g/dL (12.0-16.0); LYMPH # 0.9 K/uL (1.0-4.3); LYMPH % 22.6 % (20.0-40.0); MEAN CELL VOLUME 95.8 fl (81.0-99.0); MEAN CORPUSCULAR HEMOGLOBIN 32.4 pg (27.0-31.0); MEAN CORPUSCULAR HGB CONC 33.8 g/dL (33.0-37.0); MEAN PLATELET VOLUME 10.5 fl (7.2-11.7); MONO # 0.4 K/uL (0.0-0.8); MONO % 11.4 % (0.0-10.0); NEUT # 2.5 K/uL (1.8-7.0); NEUT % 64.3 % (50.0-75.0); NRBC % 0.1 % (0.0-0.0); RBC 2.95 Mil/uL (3.80-5.20); WHITE BLOOD COUNT 3.9 K/uL (4.8-10.8)
[2017-11-18 17:35] LABS: CALCIUM 9.3 mg/dL (8.4-10.2); TROPONIN I 0.043 ng/mL (0.00-0.120)
[2017-11-18 17:43] LABS: INR 1.1 (0.9-1.2); PARTIAL THROMBOPLASTIN TIME 26.7 Seconds (25.6-37.1); PROTHROMBIN TIME 12.4 Seconds (9.8-13.1)
--- NOTE | 2017-11-18 18:39 | CT ---
PROCEDURE: CT Abdomen and Pelvis with contrast HISTORY: right flank pain. eval iliapsoas/retroperitoneum COMPARISON: 10/25/2017. TECHNIQUE: CT scan of the abdomen and pelvis was performed after intravenous administration of contrast. Oral contrast was not administered. Coronal and sagittal reformatted images were obtained. Contrast dose: 80 mL Visipaque 320 Radiation dose: Total exam DLP = 452.01 mGy-cm. This CT exam was performed using one or more of the following dose reduction techniques: Automated exposure control, adjustment of the mA and/or kV according to patient size, and/or use of iterative reconstruction technique. FINDINGS: LOWER THORAX: There are small right and trace left pleural effusions with subsegmental atelectasis in the lower lobes. There is moderate cardiomegaly. There is also moderate pericardial effusion. LIVER: There is mild hepatomegaly and diffuse low-attenuation in the liver. There are multiple variable size simple cysts in the liver, the largest in the posterior hepatic dome measures 2.0 cm. No gross lesion or ductal dilatation. GALLBLADDER AND BILE DUCTS: The gallbladder is well distended. There are probable tiny gallstones with PANCREAS: The pancreas is normal in size with homogeneous enhancement. No focal mass or ductal dilatation. SPLEEN: Normal in size and appearance. ADRENALS: No discrete nodule. KIDNEYS AND URETERS: Again seen are enlarged polycystic kidneys no hydronephrosis. VASCULATURE: Atherosclerotic aortoiliac calcifications. No aortic aneurysm. BOWEL: The small bowel loops are normal in caliber and there is fecalization of small bowel contents. There is mild left colonic diverticulosis without CT evidence for acute diverticulitis. No bowel dilatation or obstruction. APPENDIX: Normal appendix. PERITONEUM: There is small abdominal ascites. . No free air. LYMPH NODES: No enlarged lymph nodes. BLADDER: Decompressed. REPRODUCTIVE: The uterus is surgically absent. BONES: No acute fracture. Diffuse bone demineralization. OTHER FINDINGS: There is diffuse anasarca. IMPRESSION: 1. No evidence of hydronephrosis or obstructive uropathy. 2. Polycystic kidneys. 3. Multiple liver cysts, the largest in the posterior hepatic dome measures 2.0 cm. 4. Small abdominal ascites. Diffuse anasarca. 5. Mild left colonic diverticulosis without CT evidence for acute diverticulitis. 6. Small right and trace left pleural effusions and moderate pericardial effusion. 7. Question of small gallstones.
[2017-11-18] MEDS ORDERED: DiphenhydrAMINE 50 mg/ml Inj IV STA (18:42)
[2017-11-18] MEDS ORDERED: Heparin 25,000units in D5W 25,000 UNITS/250 ML BAG IV SCH (18:45)
[2017-11-18] MEDS ORDERED: Heparin 25,000units in D5W 0 UNITS/0 ML BAG IV ONE (18:54)
[2017-11-18] MEDS ORDERED: Morphine 4 MG/ML VIAL ONE (18:54)
[2017-11-18] MEDS ORDERED: DiphenhydrAMINE 50 mg/ml Inj ONE (18:57)
--- NOTE | 2017-11-18 19:34 | CP.PCM.HP ---
History of Present Illness - History of Present Illness History of Present Illness: CC: back pain HPI: 62 F PMH ESRD TTS (Dr. Barone), HTN, HLD, presents to the ED today complaining of moderate chest pain associated with mild dyspnea and moderate flank pain, constant, radiating down lower extremity. Patient is anuric. CT abd was negative for any signs of infection or acute pathology, it did show a moderate pericardial effusion. EKG mild electrical alternans. Patient is currently comfortable, hypertensive, no respiratory distress. Pt also found to have DVT after eval for RLE swelling. Initiated on Eliquis. For hypertension, patient had not taken Clonidine today, on 0.3 mg [id number]. ROS: per HPI all other systems reviewed and negative Present on Admission - Present on Admission Any Indicators Present on Admission: No Past Patient History - Tetanus Immunizations Tetanus Immunization: Unknown - Past Medical History & Family History Past Medical History?: Yes - Past Social History Smoking Status: Never Smoked - CARDIAC Hx Congestive Heart Failure: Yes Hx Hypercholesterolemia: Yes Hx Hypertension: Yes - PULMONARY Hx Respiratory Disorders: Yes - NEUROLOGICAL Hx Neurological Disorder: No - HEENT Hx HEENT Problems: No - RENAL Date of Last Dialysis Treatment: 10/23/17 - ENDOCRINE/METABOLIC Hx Endocrine Disorders: No - HEMATOLOGICAL/ONCOLOGICAL Hx Blood Disorders: No - INTEGUMENTARY Hx Dermatological Problems: No - MUSCULOSKELETAL/RHEUMATOLOGICAL Hx Musculoskeletal Disorders: No Hx Falls: No - GASTROINTESTINAL Hx Gastrointestinal Disorders: No - GENITOURINARY/GYNECOLOGICAL Hx Genitourinary Disorders: No - PSYCHIATRIC Hx Psychophysiologic Disorder: No Hx Substance Use: No - SURGICAL HISTORY Hx Section: Yes Hx Vascular Surgery: Yes Hx Vascular Access Device: Yes (AV FISTULA) Other/Comment: FOOT SURGERY - ANESTHESIA Hx Anesthesia: Yes Hx Anesthesia Reactions: Yes Meds Allergies/Adverse Reactions: Allergies Allergy/AdvReac Type Severity Reaction Status Date / Time Penicillins Allergy RASH Verified 11/18/17 14:03 Physical Exam - Constitutional Appears: Non-toxic, No Acute Distress - Head Exam Head Exam: ATRAUMATIC, NORMOCEPHALIC - Eye Exam Eye Exam: EOMI, Normal appearance, PERRL Pupil Exam: NORMAL ACCOMODATION - ENT Exam ENT Exam: Mucous Membranes Moist, Normal Oropharynx - Respiratory Exam Respiratory Exam: Clear to Auscultation Bilateral, NORMAL BREATHING PATTERN - Cardiovascular Exam Cardiovascular Exam: RRR, +S1, +S2 - GI/Abdominal Exam GI & Abdominal Exam: Normal Bowel Sounds, Soft. absent: Mass, Organomegaly, Tenderness - Extremities Exam Extremities exam: Positive for: normal capillary refill, pedal pulses present - Back Exam Back exam: absent: CVA tenderness (L), CVA tenderness (R) - Neurological Exam Neurological exam: Alert, Oriented x3 - Psychiatric Exam Psychiatric exam: Normal Affect, Normal Mood - Skin Skin Exam: Dry, Warm Results - Vital Signs Recent Vital Signs: Last Vital Signs Temp 98.0 F 11/18/17 14:04 Pulse 98 H 11/18/17 19:14 Resp 16 11/18/17 14:04 BP 185/64 H 11/18/17 19:14 Pulse Ox 98 11/18/17 18:54 - Labs Result Diagrams: 11/18/17 17:08 11/18/17 17:08 Labs: Laboratory Results - last 24 hr 11/18/17 11/18/17 11/18/17 16:52 17:08 17:08 WBC 3.9 L RBC 2.95 L Hgb 9.5 L Hct 28.3 L MCV 95.8 MCH 32.4 H MCHC 33.8 RDW 16.0 H Plt Count 159 MPV 10.5 Neut % (Auto) 64.3 Lymph % (Auto) 22.6 Hartley % (Auto) 11.4 H Eos % (Auto) 0.9 Baso % (Auto) 0.8 Neut # (Auto) 2.5 Lymph # (Auto) 0.9 L Hartley # (Auto) 0.4 Eos # (Auto) 0.0 Baso # (Auto) 0.0 ESR 50 H PT INR APTT pO2 58 H VBG pH 7.57 H VBG pCO2 49 VBG HCO3 40.4 VBG Total CO2 46.4 H VBG O2 Sat (Calc) 97.3 H VBG Base Excess 20.0 H VBG Potassium 5.6 H Sodium 140.0 145 Chloride 105.0 96 L Glucose 99 Lactate 0.9 FiO2 28.0 Potassium 4.3 Carbon Dioxide 38 H Anion Gap 15 BUN 15 Creatinine 2.9 H Est GFR ( Amer) 20 Est GFR (Non-Af Amer) 16 Random Glucose 98 Calcium 9.3 Troponin I 0.0430 Venous Blood Potassium 5.6 H 02/22/18 17:08 WBC RBC Hgb Hct MCV MCH MCHC RDW Plt Count MPV Neut % (Auto) Lymph % (Auto) Hartley % (Auto) Eos % (Auto) Baso % (Auto) Neut # (Auto) Lymph # (Auto) Hartley # (Auto) Eos # (Auto) Baso # (Auto) ESR PT 12.4 INR 1.1 APTT 26.7 pO2 VBG pH VBG pCO2 VBG HCO3 VBG Total CO2 VBG O2 Sat (Calc) VBG Base Excess VBG Potassium Sodium Chloride Glucose Lactate FiO2 Potassium Carbon Dioxide Anion Gap BUN Creatinine Est GFR ( Amer) Est GFR (Non-Af Amer) Random Glucose Calcium Troponin I Venous Blood Potassium Assessment & Plan - Assessment and Plan (Free Text) Plan: 62 F PMH ESRD TTS (Dr. Barone), HTN, HLD, presents to the ED today complaining of moderate chest pain associated with mild dyspnea and moderate flank pain, constant, radiating down lower extremity. Patient is anuric. CT abd was negative for any signs of infection or acute pathology, it did show a moderate pericardial effusion. EKG mild electrical alternans. Patient is currently comfortable, hypertensive, no respiratory distress. Pt also found to have DVT after eval for RLE swelling. Initiated on Eliquis. For hypertension, patient had not taken Clonidine today, on 0.3 mg [id number]. DVT - DUPLEX: R superficial femoral vein, currently on Eliquis 10 mg Q12 for 7 days, then switch to 5 mg Q12 - V/Q scan was ordered by ER, pt already being treated Moderate Pericardial effusion - EKG showed mild electrical alternans - pt is HD stable, hypertensive but receiving medications - Echo ordered, as well as Cardiology consult with Dr. 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
[2017-11-18 21:12] LABS: CALCIUM 9.4 mg/dL (8.4-10.2)
[2017-11-19 03:51] LABS: CALCIUM 9.8 mg/dL (8.4-10.2)
[2017-11-19 05:57] LABS: HEMOGLOBIN 9.8 g/dL (12.0-16.0); MEAN CELL VOLUME 97.4 fl (81.0-99.0); MEAN CORPUSCULAR HEMOGLOBIN 31.7 pg (27.0-31.0); MEAN CORPUSCULAR HGB CONC 32.6 g/dL (33.0-37.0); RBC 3.08 Mil/uL (3.80-5.20); WHITE BLOOD COUNT 3.3 K/uL (4.8-10.8)
[2017-11-19] MEDS: Multivitamin Vitamin B Complex (Nephro-Vite) Tab PO SCH (08:57)
[2017-11-19] MEDS: Pantoprazole 40 mg EC Tab PO SCH (08:58)
[2017-11-19] MEDS: Calcium Acetate 667 MG Capsule PO SCH ×3 (08:58→17:43)
[2017-11-19] MEDS ORDERED: [UNRECOGNIZED DRUG - REMARK] PO SCH (09:00)
[2017-11-19] MEDS ORDERED: [UNRECOGNIZED DRUG - REMARK] PO SCH (09:00)
--- NOTE | 2017-11-19 10:38 | CP.PCM.CON ---
History of Present Illness - History of Present Illness History of Present Illness: This 62-year-old hypertensive female with chronic renal failure; requiring hemodialysis for number of years came to the emergency room complaining of flank pain and was hospitalized when he CT scan of the abdomen also detected evidence of pericardial fluid. The patient denies any unusual shortness of breath. She denies any chest pains. She denies any orthopnea. Physical examination shows an elderly tired female alert awake and coherent. Able to lie virtually flat in bed. Her heart rate was 76 bpm regular and her blood pressure was 140/70 mmHg. There was no pulsus paradoxus. Her jugular venous pressure was minimally elevated and there was no edema over lower extremities. There was a nonfunctioning shunt in the left upper extremity while the right upper extremity had a functioning AV shunt for hemodialysis. Her apex was not palpable the first and second heart sounds were normal there was no gallop there were no murmurs or rales. Her electric cardiogram showed sinus rhythm with nonspecific ST-T changes. Review of her echocardiogram from October 26 revealed a preserved left ventricular systolic function with markedly elevated pulmonary artery systolic pressure at 64 mmHg and evidence of mild to moderate pericardial effusion without any evidence off right ventricular and right atrial free wall compression. Her lab data was reviewed. Ultrasound of the lower extremities has also revealed evidence of DVT and the patient is being appropriately treated with anticoagulation. Impression: Pericardial fluid collection probably secondary to end-stage renal disease. This was detected on a recent echocardiogram on October 26 as well. The patient is going to have a repeat echocardiogram and if it also does not show any right ventricular free wall compression the patient may be allowed to return home. Past Patient History - Tetanus Immunizations Tetanus Immunization: Unknown - Past Medical History & Family History Past Medical History?: Yes - Past Social History Smoking Status: Never Smoked - CARDIAC Hx Cardiac Disorders: Yes - PULMONARY Hx Respiratory Disorders: Yes - NEUROLOGICAL Hx Neurological Disorder: No - HEENT Hx HEENT Problems: No - RENAL Hx Chronic Kidney Disease: Yes Hx Dialysis: Yes Type of Dialysis Access: R avf Date of Last Dialysis Treatment: 11/18/17 - ENDOCRINE/METABOLIC Hx Endocrine Disorders: No - HEMATOLOGICAL/ONCOLOGICAL Hx Blood Disorders: No - INTEGUMENTARY Hx Dermatological Problems: No - MUSCULOSKELETAL/RHEUMATOLOGICAL Hx Musculoskeletal Disorders: No Hx Falls: Yes - GASTROINTESTINAL Hx Gastrointestinal Disorders: No - GENITOURINARY/GYNECOLOGICAL Hx Genitourinary Disorders: No - PSYCHIATRIC Hx Psychophysiologic Disorder: No Hx Substance Use: No - SURGICAL HISTORY Hx Section: Yes Hx Vascular Surgery: Yes Hx Vascular Access Device: Yes (AV FISTULA) Other/Comment: FOOT SURGERY - ANESTHESIA Hx Anesthesia: Yes Hx Anesthesia Reactions: Yes Meds Allergies/Adverse Reactions: Allergies Allergy/AdvReac Type Severity Reaction Status Date / Time Penicillins Allergy RASH Verified 11/18/17 14:03 - Medications Medications: Current Medications Amlodipine Besylate (Norvasc) 10 mg PO DAILY [facility] Apixaban (Eliquis) 10 mg PO Q12 [facility] PRN Reason: Protocol Stop: 11/25/17 09:01 Last Admin: 11/19/17 08:57 Dose: 10 mg Atorvastatin Calcium (Lipitor) 20 mg PO DAILY [facility] Last Admin: 11/19/17 08:57 Dose: 20 mg Calcium Acetate (Phoslo) 667 mg PO WM [facility] Last Admin: 11/19/17 08:58 Dose: 667 mg Clonidine HCl (Catapres) 0.3 mg PO Q8 [facility] Last Admin: 11/19/17 00:26 Dose: 0.3 mg Docusate Sodium (Colace) 100 mg PO BID PRN PRN Reason: Constipation Doxercalciferol (Hectorol) 2 mcg PO TTS [facility] Epoetin Chris (Procrit) 10,000 unit IV TTS [facility] Metoprolol Tartrate (Lopressor) 25 mg PO BID [facility] Last Admin: 11/19/17 08:59 Dose: Not Given Pantoprazole Sodium (Protonix Ec Tab) 40 mg PO DAILY [facility] Last Admin: 11/19/17 08:58 Dose: 40 mg Vitamin B Complex/Vit C/Folic Acid (Nephro-Leslie) 1 tab PO DAILY [facility] Last Admin: 11/19/17 08:57 Dose: 1 tab Results - Vital Signs Recent Vital Signs: Last Vital Signs Temp 97.9 F 11/19/17 08:00 Pulse 75 11/19/17 08:00 Resp 20 11/19/17 08:00 BP 171/64 H 11/19/17 08:00 Pulse Ox 95 11/19/17 08:00 - Labs Result Diagrams: 11/19/17 04:28 11/19/17 03:00 Labs: Laboratory Results - last 24 hr 11/18/17 11/18/17 11/18/17 16:52 17:08 17:08 WBC 3.9 L RBC 2.95 L Hgb 9.5 L Hct 28.3 L MCV 95.8 MCH 32.4 H MCHC 33.8 RDW 16.0 H Plt Count 159 MPV 10.5 Neut % (Auto) 64.3 Lymph % (Auto) 22.6 Brewster % (Auto) 11.4 H Eos % (Auto) 0.9 Baso % (Auto) 0.8 Neut # (Auto) 2.5 Lymph # (Auto) 0.9 L Brewster # (Auto) 0.4 Eos # (Auto) 0.0 Baso # (Auto) 0.0 ESR 50 H PT INR APTT pO2 58 H VBG pH 7.57 H VBG pCO2 49 VBG HCO3 40.4 VBG Total CO2 46.4 H VBG O2 Sat (Calc) 97.3 H VBG Base Excess 20.0 H VBG Potassium 5.6 H Sodium 140.0 145 Chloride 105.0 96 L Glucose 99 Lactate 0.9 FiO2 28.0 Potassium 4.3 Carbon Dioxide 38 H Anion Gap 15 BUN 15 Creatinine 2.9 H Est GFR ( Amer) 20 Est GFR (Non-Af Amer) 16 Random Glucose 98 Calcium 9.3 Troponin I 0.0430 Venous Blood Potassium 5.6 H 18 18 11/19/17 17:08 20:50 03:00 WBC RBC Hgb Hct MCV MCH MCHC RDW Plt Count MPV Neut % (Auto) Lymph % (Auto) Brewster % (Auto) Eos % (Auto) Baso % (Auto) Neut # (Auto) Lymph # (Auto) Brewster # (Auto) Eos # (Auto) Baso # (Auto) ESR PT 12.4 INR 1.1 APTT 26.7 pO2 VBG pH VBG pCO2 VBG HCO3 VBG Total CO2 VBG O2 Sat (Calc) VBG Base Excess VBG Potassium Sodium 144 144 Chloride 94 L 94 L Glucose Lactate FiO2 Potassium 3.7 4.0 Carbon Dioxide 38 H 39 H Anion Gap 16 15 BUN 16 22 H Creatinine 3.3 H 4.2 H Est GFR ( Amer) 17 13 Est GFR (Non-Af Amer) 14 11 Random Glucose 101 162 H Calcium 9.4 9.8 Troponin I Venous Blood Potassium 11/19/1718 11/19/17 03:00 04:28 08:24 WBC 3.3 L RBC 3.08 L Hgb 9.8 L Hct 30.0 L MCV 97.4 MCH 31.7 H MCHC 32.6 L RDW 16.0 H Plt Count 97 L D MPV Neut % (Auto) Lymph % (Auto) Brewster % (Auto) Eos % (Auto) Baso % (Auto) Neut # (Auto) Lymph # (Auto) Brewster # (Auto) Eos # (Auto) Baso # (Auto) ESR PT INR APTT pO2 VBG pH VBG pCO2 VBG HCO3 VBG Total CO2 VBG O2 Sat (Calc) VBG Base Excess VBG Potassium Sodium Chloride Glucose Lactate FiO2 Potassium Carbon Dioxide Anion Gap BUN Creatinine Est GFR ( Amer) Est GFR (Non-Af Amer) Random Glucose Calcium Troponin I 0.0520 0.0460 Venous Blood Potassium
--- NOTE | 2017-11-19 14:35 | CP.PCM.PN ---
Subjective - Date & Time of Evaluation Date of Evaluation: 11/19/17 Time of Evaluation: 14:31 - Subjective Subjective: pt feeling well today would like to go home states her pain is resolved. per Dr. Barone HD today and likely dc home Objective - Vital Signs/Intake and Output Vital Signs (last 24 hours): Temp Pulse Resp BP Pulse Ox 98.3 F 71 20 168/55 H 100 11/19/17 13:00 11/19/17 13:00 11/19/17 13:00 11/19/17 13:00 11/19/17 13:00 - Medications Medications: Current Medications Amlodipine Besylate (Norvasc) 10 mg PO DAILY [facility] Apixaban (Eliquis) 10 mg PO Q12 [facility] PRN Reason: Protocol Stop: 11/25/17 09:01 Last Admin: 11/19/17 08:57 Dose: 10 mg Atorvastatin Calcium (Lipitor) 20 mg PO DAILY [facility] Last Admin: 11/19/17 08:57 Dose: 20 mg Calcium Acetate (Phoslo) 667 mg PO WM [facility] Last Admin: 11/19/17 12:54 Dose: 667 mg Clonidine HCl (Catapres) 0.3 mg PO Q8 [facility] Last Admin: 11/19/17 00:26 Dose: 0.3 mg Docusate Sodium (Colace) 100 mg PO BID PRN PRN Reason: Constipation Doxercalciferol (Hectorol) 2 mcg PO TTS [facility] Epoetin Chris (Procrit) 10,000 unit IV TTS [facility] Metoprolol Tartrate (Lopressor) 25 mg PO BID [facility] Last Admin: 11/19/17 08:59 Dose: Not Given Pantoprazole Sodium (Protonix Ec Tab) 40 mg PO DAILY [facility] Last Admin: 11/19/17 08:58 Dose: 40 mg Vitamin B Complex/Vit C/Folic Acid (Nephro-Leslie) 1 tab PO DAILY [facility] Last Admin: 11/19/17 08:57 Dose: 1 tab - Labs Labs: 11/19/17 04:28 11/19/17 03:00 PT 12.4 Seconds (9.8-13.1) 11/18/17 17:08 INR 1.1 (0.9-1.2) 11/18/17 17:08 APTT 26.7 Seconds (25.6-37.1) 11/18/17 17:08 - Constitutional Appears: Non-toxic, No Acute Distress - Head Exam Head Exam: ATRAUMATIC, NORMOCEPHALIC - Eye Exam Eye Exam: EOMI, Normal appearance, PERRL - ENT Exam ENT Exam: Mucous Membranes Moist, Normal Exam - Respiratory Exam Respiratory Exam: Clear to Ausculation Bilateral, NORMAL BREATHING PATTERN - Cardiovascular Exam Cardiovascular Exam: RRR, +S1, +S2 - GI/Abdominal Exam GI & Abdominal Exam: Soft, Normal Bowel Sounds. absent: Tenderness, Mass - Extremities Exam Extremities Exam: Full ROM, Normal Capillary Refill - Back Exam Back Exam: absent: CVA tenderness (L), CVA tenderness (R) - Neurological Exam Neurological Exam: Alert, Awake - Psychiatric Exam Psychiatric exam: Normal Affect, Normal Mood - Skin Skin Exam: Dry, Warm Assessment and Plan - Assessment and Plan (Free Text) Plan: 62 F PMH ESRD TTS (Dr. Barone), HTN, HLD, presents to the ED today complaining of moderate chest pain associated with mild dyspnea and moderate flank pain, constant, radiating down lower extremity. Patient is anuric. CT abd was negative for any signs of infection or acute pathology, it did show a moderate pericardial effusion. EKG mild electrical alternans. Patient is currently comfortable, hypertensive, no respiratory distress. Pt also found to have DVT after eval for RLE swelling. Initiated on Eliquis. For hypertension, patient had not taken Clonidine today, on 0.3 mg [id number]. 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
--- NOTE | 2017-11-19 15:14 | RAD ---
HISTORY: Chest pain COMPARISON: 11/04/2017. FINDINGS: LUNGS: The lungs are well inflated. There is moderate pulmonary venous congestion. PLEURA: No significant pleural effusion identified, no pneumothorax apparent. CARDIOVASCULAR: There is moderate cardiomegaly. OSSEOUS STRUCTURES: No significant abnormalities. VISUALIZED UPPER ABDOMEN: Normal. OTHER FINDINGS: There is stable appearance of a right axillary stent. . IMPRESSION: No active pulmonary disease. Moderate cardiomegaly and moderate pulmonary venous congestion.
--- NOTE | 2017-11-19 16:38 | NM ---
COMPARISON: Portable chest 11/19/2017 TECHNIQUE: 35.8 mCi technetium 99-m DTPA aerosol. 4.6 mCI technetium 99-m MAA administered intravenously. FINDINGS: VENTILATION COMPONENT: Mild central deposition inhalation agent is appreciated. Ventilation is otherwise unremarkable. An element of COPD is not completely excluded. PERFUSION COMPONENT: No suspicious perfusion defects identified. IMPRESSION: Lowprobability ventilation perfusion scan for pulmonary embolism.
--- NOTE | 2017-11-19 18:18 | CARD ---
APPROVED REPORT EXAM: Two-dimensional and M-mode echocardiogram with Doppler and color Doppler. Other Information Quality : ExcellentRhythm : NSR INDICATION Chest Pain 2D DIMENSIONS IVSd1.38 (0.7-1.1cm)LVDd5.05 (3.9-5.9cm) LVOT Diameter1.42 (1.8-2.4cm)PWd1.18 (0.7-1.1cm) IVSs1.55 (0.8-1.2cm)LVDs3.53 (2.5-4.0cm) FS (%) 30.1 %PWs1.60 (0.8-1.2cm) LVEF (%)55.0 (>50%) M-Mode DIMENSIONS Left Atrium (MM)4.40 (2.5-4.0cm)IVSd1.46 (0.7-1.1cm) Aortic Root2.81 (2.2-3.7cm)LVDd5.16 (4.0-5.6cm) Aortic Cusp Exc.1.85 (1.5-2.0cm)PWd1.29 (0.7-1.1cm) IVSs1.85 cmFS (%) 38 % LVDs3.18 (2.0-3.8cm)PWs2.25 cm Mitral Valve MV E Fprqrmjz067.1cm/sMV DECEL [id number] A Lnfeaggy660.8cm/s MV REE82qdM/A ratio1.4MVA (PHT)4.47cm2 TDI Lateral E' Peak V9.37cm/sMedial E' Peak V6.44cm/sE/Lateral E'16.0 E/Medial E'23.3 Pulmonary Valve PV Peak Uxtztlnd588.5cm/s Tricuspid Valve TR Peak Jsrhreps690jx/sRAP PHMXYBQR48svLgVS Peak Gr.43mmHg [id number] LEFT VENTRICLE The left ventricle is normal size. There is mild concentric left ventricular hypertrophy. The left ventricular function is normal. The left ventricular ejection fraction is within the normal range. There is normal LV segmental wall motion. The left ventricular diastolic function is normal. RIGHT VENTRICLE The right ventricle is normal size. There is normal right ventricular wall thickness. The right ventricular systolic function is normal. ATRIA The left atrium is mildly dilated. The right atrium is mildly dilated. AORTIC VALVE The aortic valve is normal in structure. No aortic regurgitation is present. There is no aortic valvular stenosis. MITRAL VALVE The mitral valve is mildly thickened. There is no mitral valve stenosis. Mitral regurgitation is moderate. TRICUSPID VALVE The tricuspid valve is normal in structure. There is moderate to severe tricuspid regurgitation. There is moderate pulmonary hypertension. PULMONIC VALVE The pulmonary valve is normal in structure. There is no pulmonic valvular regurgitation. GREAT VESSELS The aortic root is normal in size. The IVC collapses <50% with inspiration. PERICARDIAL EFFUSION There is a small-moderate circumferential pericardial effusion. There is an evidence of mild diastolic compression of the right atrium pericardial effusion. There are no echocardiographic indications for cardiac tamponade., clinical correlation is suggested <Conclusion> The left ventricle is normal size. The left ventricular function is normal. The left ventricular ejection fraction is within the normal range. There is normal LV segmental wall motion. The left ventricular diastolic function is normal. Mitral regurgitation is moderate. There is moderate to severe tricuspid regurgitation. There is moderate pulmonary hypertension. There is a small-moderate circumferential pericardial effusion. There is an evidence of mild diastolic compression of the right atrium pericardial effusion. There are no echocardiographic indications for cardiac tamponade., clinical correlation is suggested
--- NOTE | 2017-11-19 23:22 | CP.PCM.CON ---
History of Present Illness - History of Present Illness History of Present Illness: pt is seen ,full consult is dictated , for hd in am, refusing today#[id number] Past Patient History - Tetanus Immunizations Tetanus Immunization: Unknown - Past Medical History & Family History Past Medical History?: Yes - Past Social History Smoking Status: Never Smoked - CARDIAC Hx Congestive Heart Failure: Yes Hx Hypercholesterolemia: Yes Hx Hypertension: Yes - PULMONARY Hx Respiratory Disorders: Yes - NEUROLOGICAL Hx Neurological Disorder: No - HEENT Hx HEENT Problems: No - RENAL Date of Last Dialysis Treatment: 10/23/17 - ENDOCRINE/METABOLIC Hx Endocrine Disorders: No - HEMATOLOGICAL/ONCOLOGICAL Hx Blood Disorders: No - INTEGUMENTARY Hx Dermatological Problems: No - MUSCULOSKELETAL/RHEUMATOLOGICAL Hx Musculoskeletal Disorders: No Hx Falls: No - GASTROINTESTINAL Hx Gastrointestinal Disorders: No - GENITOURINARY/GYNECOLOGICAL Hx Genitourinary Disorders: No - PSYCHIATRIC Hx Psychophysiologic Disorder: No Hx Substance Use: No - SURGICAL HISTORY Hx Section: Yes Hx Vascular Surgery: Yes Hx Vascular Access Device: Yes (AV FISTULA) Other/Comment: FOOT SURGERY - ANESTHESIA Hx Anesthesia: Yes Hx Anesthesia Reactions: Yes Meds Allergies/Adverse Reactions: Allergies Allergy/AdvReac Type Severity Reaction Status Date / Time Penicillins Allergy RASH Verified 11/18/17 14:03 - Medications Medications: Current Medications Amlodipine Besylate (Norvasc) 10 mg PO DAILY [facility] Last Admin: 11/19/17 16:46 Dose: Not Given Apixaban (Eliquis) 10 mg PO Q12 [facility] PRN Reason: Protocol Stop: 11/25/17 09:01 Last Admin: 11/19/17 20:45 Dose: 10 mg Atorvastatin Calcium (Lipitor) 20 mg PO DAILY [facility] Last Admin: 11/19/17 08:57 Dose: 20 mg Calcium Acetate (Phoslo) 667 mg PO [facility] Clonidine HCl (Catapres) 0.3 mg PO Q8 [facility] Last Admin: 11/19/17 16:46 Dose: Not Given Docusate Sodium (Colace) 100 mg PO BID PRN PRN Reason: Constipation Doxercalciferol (Hectorol) 2 mcg PO TTS [facility] Epoetin Chris (Procrit) 10,000 unit IV TTS [facility] Metoprolol Tartrate (Lopressor) 25 mg PO BID [facility] Last Admin: 11/19/17 20:47 Dose: 25 mg Pantoprazole Sodium (Protonix Ec Tab) 40 mg PO DAILY [facility] Last Admin: 11/19/17 08:58 Dose: 40 mg Vitamin B Complex/Vit C/Folic Acid (Nephro-Leslie) 1 tab PO DAILY [facility] Last Admin: 11/19/17 08:57 Dose: 1 tab Results - Vital Signs Recent Vital Signs: Last Vital Signs Temp 98.9 F 11/19/17 19:41 Pulse 93 H 11/19/17 20:47 Resp 20 11/19/17 19:41 BP 181/64 H 11/19/17 20:47 Pulse Ox 92 L 11/19/17 19:41 - Labs Result Diagrams: 11/19/17 04:28 11/19/17 03:00 Labs: Laboratory Results - last 24 hr 11/19/17 11/19/17 11/19/17 03:00 03:00 04:28 WBC 3.3 L RBC 3.08 L Hgb 9.8 L Hct 30.0 L MCV 97.4 MCH 31.7 H MCHC 32.6 L RDW 16.0 H Plt Count 97 L D Sodium 144 Potassium 4.0 Chloride 94 L Carbon Dioxide 39 H Anion Gap 15 BUN 22 H Creatinine 4.2 H Est GFR ( Amer) 13 Est GFR (Non-Af Amer) 11 Random Glucose 162 H Calcium 9.8 Troponin I 0.0520 11/19/17 11/19/17 08:24 16:55 WBC RBC Hgb Hct MCV MCH MCHC RDW Plt Count Sodium Potassium Chloride Carbon Dioxide Anion Gap BUN Creatinine Est GFR ( Amer) Est GFR (Non-Af Amer) Random Glucose Calcium Troponin I 0.0460 0.0420
[2017-11-19] MEDS ORDERED: DiphenhydrAMINE 50 mg/ml Inj IVP STA (23:25)
[2017-11-19] MEDS ORDERED: DiphenhydrAMINE 50 mg/ml Inj ONE (23:32)
--- NOTE | 2017-11-19 23:48 | CARD ---
APPROVED REPORT EKG Measurement Heart [id number] [place] [id number] <Conclusion> Sinus rhythm with 1st degree AV block Possible Left atrial enlargement Sigificant artifacts Borderline ECG
--- NOTE | 2017-11-20 00:46 | PCM.RRT ---
<Claire Mosqueda - Last Filed: 11/20/17 01:00> I.Reason for JACK PRIZER - A) Acute Change in Patient: Subjective: JACK PRIZER Time start time: 11:46 JACK PRIZER Reason: CP, vomiting S: JACK PRIZER called by RN because patient was complaining of chest pain and vomiting. ROS negative. O: Vials: BP 187/66, HR 103, O2 sat 100% on rm air General: Pt seen actively vomiting, in acute distress Cardio: RRR, no murmurs, normal S1, S2 Pulmonary: CTABL, no rales, no wheezing Abdomen: Soft, nontender, non distended JACK PRIZER Interventions: -Zofran 4mg IV -Nitroglycerin SL x2 -Troponin q6 -EKG: no ischemic changes -Cxray portable Assessment: 62 F PMHx ESRD complaining of acute onset chest pain and vomiting. Plan: Continue to monitor. F/u labs and Cxray JACK PRIZER End Time: 12:30am JACK PRIZER MD: Dr. Kearns, Dr. Richards, Dr. Mosqueda <Manan Kearns - Last Filed: 11/20/17 05:32> Attending/Attestation - Attestation I have personally seen and examined this patient.: No I have fully participated in the care of the patient.: No I have reviewed all pertinent clinical information, including history, physical exam and plan: No Notes (Text): 11/20/17 05:27 I saw and examined this patient shoulder to shoulder with Dr Mosqueda. The assessment and plan indicate my direct input. Patient with nausea and retching after taking Eliquis complaining of chest pain. EKG: NSR with no sign of Ischemia - Troponin 0.048 A&P - Chest pain r/o ACS - Benadryl was initially prior to the JACK PRIZER - Zofran stopped the Retching and the patient felt better - NTG SL 2 tabs relieved the pain - Follow troponin #. ESRD - Dialysis for Today Manan Kearns MD
--- NOTE | 2017-11-20 08:30 | CON ---
DATE: RENAL CONSULTATION LOCATION: The patient is located in room 403, bed 2. REQUESTED PHYSICIAN: Deepika Andrea DO REASON FOR RENAL CONSULTATION: End-stage renal disease for continuation of the hemodialysis. HISTORY OF PRESENT ILLNESS: Mrs. Alexis is a 62-year-old elderly female with a past medical history significant for hypertension, end-stage renal disease, polycystic kidney disease, coronary artery disease and CHF who was admitted with chief complaints of right leg pain and bilateral flank pain for the last 4 days associated with questionable fever, chills, chest pain, mild cough and flu like symptoms. The patient initially claims and denies taking temperature and also complains of pain in the right leg radiating to the right leg. Pain is worse while walking and making her difficult to ambulate. The patient is not in acute distress. The patient is refusing hemodialysis today even after the contrast injection yesterday, the patient wants to get dialysis in a.m. only. PAST MEDICAL HISTORY: Significant for longstanding hypertension, polycystic kidney disease, end-stage renal disease, coronary artery disease, CHF and pericardial effusion. PAST SURGICAL HISTORY: Status post right upper extremity AV fistula. Status post hernia repair. ALLERGIES: ALLERGIC TO PENICILLIN. FAMILY HISTORY: Not significant. SOCIAL HISTORY: No smoking. No alcohol. No drugs. CURRENT MEDICATIONS: Include as follows: Clonidine 0.3 mg p.o. q. 8 hours, Colace 100 mg p.o. b.i.d., Eliquis 10 mg p.o. q.12 hours, Hectorol 2 mcg p.o. 3 times a week, Lipitor 20 mg p.o. daily, Lopressor 25 mg p.o. b.i.d., Nephro-Leslie 1 tablet daily, amlodipine 10 mg p.o. daily, PhosLo 667 mg p.o. with meals, Procrit 10,000 units 3 times a week and Protonix 40 mg p.o. daily. REVIEW OF SYSTEMS: Significant for bilateral flank pain and right leg pain and feverish cough and chest discomfort. All other review of systems are reviewed and negative. PHYSICAL EXAMINATION GENERAL: Mrs. Alexis is a 62-year-old elderly female moderately-built, moderately-nourished, not in distress. VITAL SIGNS: As follows: Blood pressure of 161/65, pulse of 77, respirations of 20, temperature of 98.6 and oxygen saturation of 93%. Height is 4 feet 9 inches and weight is 126 pounds. HEENT: Pupils are normal and reactive to light and accommodation. Conjunctivae are pink. Sclerae are anicteric. Tongue is moist. Trachea is midline. LUNGS: Symmetry on both sides. Bilateral breath sounds present and clear on auscultation. CARDIOVASCULAR SYSTEM: [place] at the fifth intercostal space, midclavicular line. S1 and S2 audible. No murmur and no gallop. ABDOMEN: Normal in appearance, soft, and tympanic. No guarding. No rigidity. No hepatosplenomegaly. The patient has bilateral flank tenderness present. No abdominal bruit. CENTRAL NERVOUS SYSTEM: The patient is alert, awake and oriented x3. Nonfocal neuro examination. Cranial nerves II through XII grossly intact. Sensory and motor system is within normal limits. EXTREMITIES: No cyanosis. No clubbing. No edema. Left leg is slightly swollen than the right. LABORATORY DATA: Include as follows: As of 11/19/2017, WBC of 3.3, hemoglobin of 9.8, hematocrit is 30 and platelets of 97. Sodium is 133, potassium is 4, chloride is 94, CO2 is 39, BUN is 22, and creatinine is 4.2. Glucose is 162 and calcium is 9.8. Troponin of 0.05, 0.046 and 0.042. As of 11/18/2017, WBC of 3.9, hemoglobin of 9.5, hematocrit is 28.3 and platelets of 159. PT is 12.4 and PTT is 26.7 . VBG; pH of 7.57, pO2 of 58, pCO2 of 49, and bicarbonate is 40. Sodium is 145, potassium is 4.3, chloride is 96, CO2 is 38, BUN is 15, and creatinine is 2.9. Glucose is 98 and calcium is 9.3. Troponin is 0.043. This is post-dialysis results. RADIOLOGIC DATA: Ultrasound of the extremities, acute circumferential nonocclusive thrombus in the mid superficial femoral vein, right lower extremity. CT of the abdomen and pelvis as of 11/18/2017, no evidence of hydronephrosis or obstructive uropathy, polycystic kidneys, multiple liver system, the largest in the posterior hepatic dome measures 2 cm small abdominal abscess and diffuse anasarca, mild left colonic diverticulosis without CT evidence for acute diverticulitis, small right and trace left pleural effusion and moderate pericardial effusion, questionable small gallstones. ASSESSMENT: In summary, Mrs. Alexis is a 62-year-old elderly female with a history of hypertension, polycystic kidney disease, end-stage renal disease, pericardial effusion, and diverticulosis who was admitted with bilateral flank tenderness, pain and right leg pain and also occasional cough and slight discomfort. She is status post CT of the abdomen and pelvis with contrast. 1. End-stage renal disease, continue hemodialysis 3 times a week, Wednesday, and Wednesday. The patient was offered hemodialysis today after the contrast exposure. The patient is refusing hemodialysis today. She is insisting to get dialysis on Wednesday. 2. Polycystic kidney and liver disease. 3. Rule out acute deep venous thrombosis of the right lower extremity. Continue anticoagulation as per the primary team. Continue phosphate binders and continue Epogen and Hectorol. We will follow with you. Thank for allowing me to participate in your patient's care. Alicia Barone MD
[2017-11-20] MEDS: Multivitamin Vitamin B Complex (Nephro-Vite) Tab PO SCH (08:48)
[2017-11-20] MEDS: Pantoprazole 40 mg EC Tab PO SCH (08:50)
[2017-11-20] MEDS ORDERED: EPOETIN ALFA 10,000 UNIT/ML ML IV SCH (09:00)
--- NOTE | 2017-11-20 09:53 | RAD ---
HISTORY: chest pain COMPARISON: Portable chest 11/19/2017 FINDINGS: LUNGS: Trace airspace disease not excluded the left base. PLEURA: Trace of pleural effusion suspected. No right pleural effusion. No pneumothorax bilaterally. CARDIOVASCULAR: Stable cardiomegaly. Pulmonary venous congestion is unchanged. OSSEOUS STRUCTURES: No significant abnormalities. VISUALIZED UPPER ABDOMEN: Normal. OTHER FINDINGS: Wall stent again seen at the medial right arm as well as axilla. As heterotopic calcifications also noted more distally in the arm. IMPRESSION: Stable CHF with no interval improvement at this time. Limited left pleural effusions suspected. Left basilar airspace disease is not excluded laterally.
[2017-11-20 10:41] LABS: BASO % 0.6 % (0.0-2.0); EOS % 0.1 % (0.0-4.0); HEMOGLOBIN 9.9 g/dL (12.0-16.0); LYMPH # 0.5 K/uL (1.0-4.3); LYMPH % 15.4 % (20.0-40.0); MEAN CELL VOLUME 98.4 fl (81.0-99.0); MEAN CORPUSCULAR HEMOGLOBIN 31.7 pg (27.0-31.0); MEAN CORPUSCULAR HGB CONC 32.2 g/dL (33.0-37.0); MEAN PLATELET VOLUME 9.4 fl (7.2-11.7); MONO # 0.1 K/uL (0.0-0.8); MONO % 3.8 % (0.0-10.0); NEUT # 2.7 K/uL (1.8-7.0); NEUT % 80.1 % (50.0-75.0); NRBC % 0.7 % (0.0-0.0); RBC 3.12 Mil/uL (3.80-5.20); RED CELL DISTRIBUTION WIDTH 16.5 % (11.5-14.5); WHITE BLOOD COUNT 3.3 K/uL (4.8-10.8)
[2017-11-20 11:19] LABS: CALCIUM 9.5 mg/dL (8.4-10.2)
--- NOTE | 2017-11-20 11:44 | CP.PCM.PN ---
Subjective - Date & Time of Evaluation Date of Evaluation: 11/20/17 Time of Evaluation: 11:44 - Subjective Subjective: pt is quin nd examined, follow up consult is dictated #[phone] for hd today, refused on wednesday Objective - Vital Signs/Intake and Output Vital Signs (last 24 hours): Temp Pulse Resp BP Pulse Ox 98.1 F 69 18 161/63 H 100 11/20/17 08:00 11/20/17 08:49 11/20/17 08:00 11/20/17 08:49 11/20/17 08:00 - Medications Medications: Current Medications Amlodipine Besylate (Norvasc) 10 mg PO DAILY [facility] Last Admin: 11/20/17 08:49 Dose: 10 mg Atorvastatin Calcium (Lipitor) 20 mg PO DAILY [facility] Last Admin: 11/20/17 08:49 Dose: 20 mg Calcium Acetate (Phoslo) 667 mg PO WM [facility] Last Admin: 11/20/17 08:47 Dose: 667 mg Clonidine HCl (Catapres) 0.3 mg PO Q8 [facility] Last Admin: 11/20/17 08:49 Dose: 0.3 mg Docusate Sodium (Colace) 100 mg PO BID PRN PRN Reason: Constipation Doxercalciferol (Hectorol) 2 mcg PO TTS [facility] Epoetin Chris (Procrit) 10,000 unit IV TTS [facility] Last Admin: 11/20/17 08:47 Dose: 10,000 unit Metoprolol Tartrate (Lopressor) 25 mg PO BID [facility] Last Admin: 11/20/17 08:48 Dose: 25 mg Ondansetron HCl (Zofran Inj) 4 mg IVP Q4 PRN PRN Reason: Nausea/Vomiting Pantoprazole Sodium (Protonix Ec Tab) 40 mg PO DAILY [facility] Last Admin: 11/20/17 08:50 Dose: 40 mg Vitamin B Complex/Vit C/Folic Acid (Nephro-Leslie) 1 tab PO DAILY [facility] Last Admin: 11/20/17 08:48 Dose: 1 tab - Labs Labs: 11/20/17 09:55 11/20/17 09:55 PT 12.4 Seconds (9.8-13.1) 11/18/17 17:08 INR 1.1 (0.9-1.2) 11/18/17 17:08 APTT 26.7 Seconds (25.6-37.1) 11/18/17 17:08
--- NOTE | 2017-11-20 11:51 | CP.PCM.PN ---
Subjective - Date & Time of Evaluation Date of Evaluation: 11/20/17 Time of Evaluation: 11:48 - Subjective Subjective: pt had episode of cp overnight, troponin elevated this AM 0.38, EKG no acute changes chest pain free at this time refused HD last night, pt to have HD this AM hemodynamically stable NAD Objective - Vital Signs/Intake and Output Vital Signs (last 24 hours): Temp Pulse Resp BP Pulse Ox 98.1 F 69 18 161/63 H 100 11/20/17 08:00 11/20/17 08:49 11/20/17 08:00 11/20/17 08:49 11/20/17 08:00 - Medications Medications: Current Medications Amlodipine Besylate (Norvasc) 10 mg PO DAILY [facility] Last Admin: 11/20/17 08:49 Dose: 10 mg Atorvastatin Calcium (Lipitor) 20 mg PO DAILY [facility] Last Admin: 11/20/17 08:49 Dose: 20 mg Calcium Acetate (Phoslo) 667 mg PO WM [facility] Last Admin: 11/20/17 08:47 Dose: 667 mg Clonidine HCl (Catapres) 0.3 mg PO Q8 [facility] Last Admin: 11/20/17 08:49 Dose: 0.3 mg Docusate Sodium (Colace) 100 mg PO BID PRN PRN Reason: Constipation Doxercalciferol (Hectorol) 2 mcg PO TTS [facility] Enoxaparin Sodium (Lovenox) 60 mg SC DAILY [facility] PRN Reason: Protocol Epoetin Chris (Procrit) 10,000 unit IV TTS [facility] Last Admin: 11/20/17 08:47 Dose: 10,000 unit Metoprolol Tartrate (Lopressor) 25 mg PO BID [facility] Last Admin: 11/20/17 08:48 Dose: 25 mg Ondansetron HCl (Zofran Inj) 4 mg IVP Q4 PRN PRN Reason: Nausea/Vomiting Pantoprazole Sodium (Protonix Ec Tab) 40 mg PO DAILY [facility] Last Admin: 11/20/17 08:50 Dose: 40 mg Vitamin B Complex/Vit C/Folic Acid (Nephro-Leslie) 1 tab PO DAILY [facility] Last Admin: 11/20/17 08:48 Dose: 1 tab - Labs Labs: 11/20/17 09:55 11/20/17 09:55 PT 12.4 Seconds (9.8-13.1) 11/18/17 17:08 INR 1.1 (0.9-1.2) 11/18/17 17:08 APTT 26.7 Seconds (25.6-37.1) 11/18/17 17:08 - Constitutional Appears: Non-toxic, No Acute Distress - Head Exam Head Exam: ATRAUMATIC, NORMOCEPHALIC - Eye Exam Eye Exam: EOMI, Normal appearance, PERRL Pupil Exam: NORMAL ACCOMODATION - ENT Exam ENT Exam: Mucous Membranes Moist, Normal Oropharynx - Neck Exam Neck Exam: Full ROM, Normal Inspection - Respiratory Exam Respiratory Exam: Clear to Ausculation Bilateral, NORMAL BREATHING PATTERN - Cardiovascular Exam Cardiovascular Exam: RRR, +S1, +S2 - GI/Abdominal Exam GI & Abdominal Exam: Soft, Normal Bowel Sounds. absent: Tenderness, Mass, Organomegaly - Extremities Exam Extremities Exam: Normal Capillary Refill. absent: Pedal Edema - Back Exam Back Exam: absent: CVA tenderness (L), CVA tenderness (R) - Neurological Exam Neurological Exam: Alert, Awake, Oriented x3 - Psychiatric Exam Psychiatric exam: Normal Affect, Normal Mood - Skin Skin Exam: Dry, Warm Assessment and Plan - Assessment and Plan (Free Text) Plan: 62 F PMH ESRD TTS (Dr. Barone), HTN, HLD, presents to the ED today complaining of moderate chest pain associated with mild dyspnea and moderate flank pain, constant, radiating down lower extremity. Patient is anuric. CT abd was negative for any signs of infection or acute pathology, it did show a moderate pericardial effusion. EKG mild electrical alternans. Patient is currently comfortable, hypertensive, no respiratory distress. Pt also found to have DVT after eval for RLE swelling. Initiated on Eliquis. For hypertension, patient had not taken Clonidine today, on 0.3 mg [id number]. 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
[2017-11-20] MEDS ORDERED: Enoxaparin 60 mg Syringe SC SCH (12:00)
[2017-11-20] MEDS: Heparin 25,000units in D5W 25,000 UNITS/250 ML BAG IV SCH ×2 (15:17→15:28)
--- NOTE | 2017-11-20 19:01 | CARD ---
APPROVED REPORT EKG Measurement Heart [id number] <Conclusion> Normal sinus rhythm Possible Left atrial enlargement Borderline ECG
--- NOTE | 2017-11-20 19:08 | CARD ---
APPROVED REPORT EKG Measurement Heart [id number] FL [id number] <Conclusion> Normal sinus rhythm Possible Left atrial enlargement Nonspecific ST abnormality Abnormal ECG
--- NOTE | 2017-11-21 00:38 | PN ---
FOLLOWUP RENAL CONSULTATION DATE: 11/20/2017 LOCATION: The patient is located in room 403, bed 2. REQUESTED BY: Deepika Andrea DO REASON FOR RENAL CONSULTATION: End-stage renal failure, for continuation hemodialysis. SUBJECTIVE: Mrs. Alexis is a 62-year-old elderly female with a past medical history significant for longstanding hypertension, polycystic kidney disease, end-stage renal failure, history of CHF, and pericardial effusion, who was admitted with a chief complaints of back pain and leg pain, who was requesting only UF about 1 L during dialysis. The patient is not in acute distress. The patient was seen and examined during hemodialysis. PHYSICAL EXAMINATION: VITAL SIGNS: As follows; blood pressure 148/62, pulse 66, respirations 20, temperature 97.9, and saturation 92%. Height 4 feet 9 inches and weight is 126 pounds. GENERAL: Mrs. Alexis is a 62-year-old elderly female, moderately built, moderately nourished, not in acute distress. HEENT: Pupils normal and reactive to light and accommodation. Conjunctivae pink. Sclerae anicteric. Tongue is moist. Trachea is midline. LUNGS: Symmetric on both sides. Bilateral breath sounds present. Clear on auscultation. CVS: [place] at the fifth intercostal space, midclavicular line. S1 and S2 audible. No murmur or gallop. ABDOMEN: Normal in appearance, soft, tympanic. Mild bilateral flank tenderness present. No guarding. No rigidity. No abdominal bruits. REGISTERED PUBLIC HEALTH NURSE: The patient is alert, awake, and oriented x3. Nonfocal neuro examination. Sensory and motor system is grossly within normal limits. EXTREMITIES: No cyanosis. No clubbing. No edema. CURRENT MEDICATIONS: Include as follows, clonidine 0.3 mg p.o. q. 8 hours, Colace 100 mg p.o. b.i.d., Coumadin 5 mg daily, Hectorol 2 mcg three times a week p.o., heparin 25,000 units in 250 mL as per the protocol, Lipitor 20 mg p.o. daily, Lopressor 25 mg p.o. b.i.d., Nephro-Leslie 1 tablet daily, Norvasc 10 mg daily, PhosLo 667 mg p.o. with meals, Procrit 10,000 units three times a week, Protonix 40 mg p.o. daily, and Zofran 4 mg IV q. 4 hours p.r.n. LABORATORY DATA: Include as follows, as of 11/20/2017, WBC 3.3, hemoglobin 9.9, hematocrit 30.7, and platelet 100. Sodium 143, potassium is 4, chloride 94, CO2 of 33, BUN 45, creatinine 5.9, glucose 132, calcium 9.5 and phosphorus is 4.6. Troponin 0.38 and 0.594. Triglyceride is 153, cholesterol is 98, LDL is 30 and HDL is 36. ASSESSMENT AND PLAN: In summary, Mrs. Alexis is a 62-year-old female elderly female with a history of hypertension, polycystic kidney disease and liver disease, end-stage renal disease, congestive heart failure, pericardial effusion, who was admitted with a right leg pain and found to have an acute circumferential nonocclusive thrombus in the mid superficial femoral vein. Lung scan as of 11/18/2017, low probability ventilation perfusion scan for pulmonary embolism. 1. End-stage renal disease. Continue hemodialysis three times a week, Wednesday, , and Wednesday. 2. Hypertension. Blood pressure is slightly high. Continue her current medications include Catapres and amlodipine. Consider to add beta-nella if needed. 3. Right superficial vein circumferential mid noncompressible thrombus. Continue anticoagulation as per the primary care physician. We will try to ultrafiltrate 2 L if the patient tolerates and continue phosphate binders. We will follow with you. Thank you for allowing me to participate in your patient's care. Continue to monitor the platelets as platelet count is dropping from 159,000 to 100,000 today. Alicia Barone MD
[2017-11-21 00:41] VITALS: RESP 18
[2017-11-21 05:16] VITALS: O2SAT 95
[2017-11-21 06:54] LABS: HEMOGLOBIN 10.1 g/dL (12.0-16.0); MEAN CELL VOLUME 96.6 fl (81.0-99.0); MEAN CORPUSCULAR HEMOGLOBIN 31.7 pg (27.0-31.0); MEAN CORPUSCULAR HGB CONC 32.8 g/dL (33.0-37.0); RBC 3.19 Mil/uL (3.80-5.20); RED CELL DISTRIBUTION WIDTH 15.7 % (11.5-14.5); WHITE BLOOD COUNT 3.4 K/uL (4.8-10.8)
[2017-11-21 07:00] LABS: INR 1.5 (0.9-1.2); PROTHROMBIN TIME 17.1 Seconds (9.8-13.1)
[2017-11-21 07:24] LABS: CALCIUM 9.3 mg/dL (8.4-10.2)
[2017-11-21 07:28] LABS: TROPONIN I 0.358 ng/mL (0.00-0.120)
[2017-11-21] MEDS: Multivitamin Vitamin B Complex (Nephro-Vite) Tab PO SCH (08:52)
[2017-11-21] MEDS: Pantoprazole 40 mg EC Tab PO SCH (08:53)
[2017-11-21] MEDS ORDERED: Enoxaparin 60 mg Syringe SC SCH (11:30)
--- NOTE | 2017-11-21 11:33 | CP.PCM.DIS ---
Provider - Provider Date of Admission: 11/18/17 18:44 Attending physician: Manan Kearns Time Spent in preparation of Discharge (in minutes): 30 Diagnosis - Discharge Diagnosis (1) DVT (deep venous thrombosis) Status: Acute Hospital Course - Lab Results Lab Results: Micro Results 11/18/17 17:08 Blood-Venous Blood Culture - Preliminary NO GROWTH AFTER 48 HOURS 11/18/17 17:08 Blood-Venous Blood Culture - Preliminary NO GROWTH AFTER 48 HOURS Most Recent Lab Values WBC 3.4 K/uL (4.8-10.8) L 11/21/17 06:00 RBC 3.19 Mil/uL (3.80-5.20) L 11/21/17 06:00 Hgb 10.1 g/dL (12.0-16.0) L 11/21/17 06:00 Hct 30.8 % (34.0-47.0) L 11/21/17 06:00 MCV 96.6 fl (81.0-99.0) 11/21/17 06:00 MCH 31.7 pg (27.0-31.0) H 11/21/17 06:00 MCHC 32.8 g/dL (33.0-37.0) L 11/21/17 06:00 RDW 15.7 % (11.5-14.5) H 11/21/17 06:00 Plt Count 137 K/uL (130-400) 11/21/17 06:00 MPV 9.4 fl (7.2-11.7) 11/20/17 09:55 Neut % (Auto) 80.1 % (50.0-75.0) H 11/20/17 09:55 Lymph % (Auto) 15.4 % (20.0-40.0) L 11/20/17 09:55 [place] % (Auto) 3.8 % (0.0-10.0) 11/20/17 09:55 Eos % (Auto) 0.1 % (0.0-4.0) 11/20/17 09:55 Baso % (Auto) 0.6 % (0.0-2.0) 11/20/17 09:55 Neut # (Auto) 2.7 K/uL (1.8-7.0) 11/20/17 09:55 Lymph # (Auto) 0.5 K/uL (1.0-4.3) L 11/20/17 09:55 [place] # (Auto) 0.1 K/uL (0.0-0.8) 11/20/17 09:55 Eos # (Auto) 0.0 K/uL (0.0-0.7) 11/20/17 09:55 Baso # (Auto) 0.0 K/uL (0.0-0.2) 11/20/17 09:55 ESR 50 mm/hr (0-30) H 11/18/17 17:08 PT 17.1 Seconds (9.8-13.1) H 11/21/17 06:00 INR 1.5 (0.9-1.2) H 11/21/17 06:00 APTT 26.7 Seconds (25.6-37.1) 11/18/17 17:08 pO2 58 mm/Hg (30-55) H 11/18/17 16:52 VBG pH 7.57 (7.32-7.43) H 11/18/17 16:52 VBG pCO2 49 mmHg (40-60) 11/18/17 16:52 VBG HCO3 40.4 mmol/L 11/18/17 16:52 VBG Total CO2 46.4 mmol/L (22-28) H 11/18/17 16:52 VBG O2 Sat (Calc) 97.3 % (40-65) H 11/18/17 16:52 VBG Base Excess 20.0 mmol/L (0.0-2.0) H 11/18/17 16:52 VBG Potassium 5.6 mmol/L (3.6-5.2) H 11/18/17 16:52 Sodium 140.0 mmol/L (132-148) 11/18/17 16:52 Chloride 105.0 mmol/L (98-107) 11/18/17 16:52 Glucose 99 mg/dL (65-105) 11/18/17 16:52 Lactate 0.9 mmol/L (0.7-2.1) 11/18/17 16:52 FiO2 28.0 % 11/18/17 16:52 Sodium 141 mmol/l (132-148) 11/21/17 06:00 Potassium 4.0 MMOL/L (3.6-5.0) 11/21/17 06:00 Chloride 95 mmol/L (98-107) L 11/21/17 06:00 Carbon Dioxide 35 mmol/L (22-30) H 11/21/17 06:00 Anion Gap 15 (10-20) 11/21/17 06:00 BUN 25 mg/dl (7-17) H 11/21/17 06:00 Creatinine 4.5 mg/dl (0.7-1.2) H 11/21/17 06:00 Est GFR ( Amer) 12 11/21/17 06:00 Est GFR (Non-Af Amer) 10 11/21/17 06:00 Random Glucose 94 mg/dL (65-105) 11/21/17 06:00 Calcium 9.3 mg/dL (8.4-10.2) 11/21/17 06:00 Phosphorus 4.6 mg/dl (2.5-4.5) H 11/20/17 09:55 Troponin I 0.3580 ng/mL (0.00-0.120) H* 11/21/17 06:00 Triglycerides 153 mg/DL (0-149) H 11/20/17 09:55 Cholesterol 98 mg/dL (0-199) 11/20/17 09:55 LDL Cholesterol Direct 30 mg/dL (0-129) 11/20/17 09:55 HDL Cholesterol 36 MG/DL (30-70) 11/20/17 09:55 Venous Blood Potassium 5.6 mmol/L (3.6-5.2) H 11/18/17 16:52 - Hospital Course Hospital Course: 62 F PMH ESRD TTS (Dr. Barone), HTN, HLD, presents to the ED today complaining of moderate chest pain associated with mild dyspnea and moderate flank pain, constant, radiating down lower extremity. Patient is anuric. CT abd was negative for any signs of infection or acute pathology, it did show a moderate pericardial effusion. EKG mild electrical alternans. Patient is currently comfortable, hypertensive, no respiratory distress. Pt also found to have DVT after eval for RLE swelling. Initiated on Eliquis. For hypertension, patient had not taken Clonidine today, on 0.3 mg [id number]. COURSE BY PROBLEM Discussed with Cardiology, patient stable to be discharged home with follow up CARDIOLOGY, NEPHROLOGY, AND PCP. Elevated Troponin, chest pain - trend enzymes, trending down, discussed with Cardiology, patient stable to be discharged with follow up as outpatient. - no acute changes on EKG, will monitor, currently chest pain free DVT - DUPLEX: R superficial femoral vein - patient refusing Eliquis stating she had an allergic reaction - changed to Lovenox and Coumadin, INR tomorrow - V/Q scan low likelihood PE - patient initially refused LOVENOX, however now agrees to treatment. - patient to FOLLOW UP WITH PCP FOR CLOSE MONITORING OF INR AND BRIDGE TO THERAPEUTIC LEVEL OF [place]. Moderate Pericardial effusion - stable, secondary to ESRD - EKG showed mild electrical alternans - pt is HD stable, hypertensive but receiving medications - Echo +small to moderate pericardial effusion, pt is HD stable - Cardiology consult appreciated, OK for discharge home. 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 - additional session of HD today 2/2 IV contrast yesterday - stable, continue all ESRD meds - Phoslo, Doxercalciferol, Procrit HTN - continue Norvasc, Clonidine 0.3 mg Q8 HLD - continue Lipitor VTE ppx on Eliquis Discharge Exam - Head Exam Head Exam: ATRAUMATIC, NORMOCEPHALIC - Eye Exam Eye Exam: EOMI, Normal appearance - ENT Exam ENT Exam: Mucous Membranes Dry, Mucous Membranes Moist - Respiratory Exam Respiratory Exam: Clear to PA & Lateral, NORMAL BREATHING PATTERN - Cardiovascular Exam Cardiovascular Exam: RRR, +S1, +S2 - GI/Abdominal Exam GI & Abdominal Exam: Normal Bowel Sounds, Soft, Unremarkable - Extremities Exam Extremities exam: full ROM, pedal pulses present - Back Exam Back exam: absent: CVA tenderness (L), CVA tenderness (R) - Neurological Exam Neurological exam: Alert, Oriented x3 - Psychiatric Exam Psychiatric exam: Normal Affect, Normal Mood - Skin Skin Exam: Dry, Warm Discharge Plan - Discharge Medications Prescriptions: amLODIPine [Norvasc] 10 mg PO DAILY #30 tab Atorvastatin [Lipitor] 20 mg PO DAILY #30 tab B Complex W-C No.20/Folic Acid [Triphrocaps Softgel] 1 mg PO DAILY #30 capsule B Complex W-C No.20/Folic Acid [Nephrocaps Softgel] 1 cap PO DAILY #30 capsule Calcium Acetate [Phoslo] 667 mg PO WM #90 capsule cloNIDine [Catapres] 0.3 mg PO Q8 #90 tab Docusate [Colace] 100 mg PO BID PRN #30 cap PRN Reason: Constipation Doxercalciferol [Hectorol] 2 mcg PO TTS #12 cap Enoxaparin [Lovenox] 60 mg SC DAILY #17 syr Epoetin Chris [Procrit] 10,000 unit IV TTS #3 ml Esomeprazole Magnesium [Nexium] 40 mg PO DAILY #30 capsule. Metoprolol Tartrate [Lopressor] 25 mg PO BID #60 tab Vitamin B Complex/Vit C/Folic [Nephro-Leslie] 1 tab PO DAILY #30 tab Warfarin [Coumadin] 5 mg PO QD5 #14 tab - Follow Up Plan Condition: FAIR Disposition: HOME/ ROUTINE Additional Instructions: FOLLOW UP PCP IN 2 TO 3 DAYS FOR FOLLOW UP INR and Coumadin levels. If unable to follow up with Primary care doctor, follow up in [facility] TO CHECK LEVELS. FOLLOW UP CARDIOLOGY ONE WEEK FOLLOW UP NEPHROLOGY ONE WEEK Referrals: Alicia Barone MD [Staff Provider] - Leroy Barnes MD [Staff Provider] - [facility] [Provider Group]
[2017-11-21 16:51] VITALS: PULSE 78
[2017-11-21 16:52] VITALS: BP 190/71; TEMP 98.3
== END 2017-11-21 18:30 | disposition home or self-care (01) | DRG 130 ==
LOC: H.ER 13:59 → H.ERHOLD 18:44 → H.TEL 20:51
PROVIDERS: ADMIT Internal Medicine; ATTEND Internal Medicine
PROC: 5A1D70Z Performance of Urinary Filtration, Intermittent, Less than 6 Hours Per Day (ICD-10-PCS; principal; 2017-11-20)
DX: I82.811 Embolism and thrombosis of superficial veins of right lower extremity (principal); I13.2 Hypertensive heart and chronic kidney disease with heart failure and with stage 5 chronic kidney disease, or end stage renal disease; I31.3 Pericardial effusion (noninflammatory); N18.6 End stage renal disease; Q61.3 Polycystic kidney, unspecified; R34 Anuria and oliguria; R18.8 Other ascites; R16.0 Hepatomegaly, not elsewhere classified; I50.9 Heart failure, unspecified; K76.89 Other specified diseases of liver; E78.00 Pure hypercholesterolemia, unspecified; Z79.01 Long term (current) use of anticoagulants; E78.5 Hyperlipidemia, unspecified; I25.10 Atherosclerotic heart disease of native coronary artery without angina pectoris; M81.0 Age-related osteoporosis without current pathological fracture; Z91.15 Patient's noncompliance with renal dialysis; Z99.2 Dependence on renal dialysis; K57.90 Diverticulosis of intestine, part unspecified, without perforation or abscess without bleeding; Z79.899 Other long term (current) drug therapy; R74.8 Abnormal levels of other serum enzymes

== ENCOUNTER 2017-11-28 21:20 | Inpatient (IN) | payer MEDICAID, OTHER ==
[2017-11-28 21:20] VITALS: BMI 28.8
--- NOTE | 2017-11-28 22:33 | ED PDOC ---
HPI: Chest Pain Time Seen by Provider: 11/28/17 21:34 Chief Complaint (Nursing): Chest Pain Chief Complaint (Provider): Chest Pain History Per: Patient History/Exam Limitations: no limitations Onset/Duration Of Symptoms: Hrs (x2), Waxing/Waning Quality: "Pain" Associated Symptoms: denies: Nausea, Dyspnea Modifying Factors: None Exacerbating Factors: None Alleviating Factors: None Additional Complaint(s): 62 year old female with a past medical history of deep vein thrombosis (right leg) presents to the ED complaining of chest pain which began 2 hours prior to arrival while she was at rest. The patient reports that the pain is substernal and radiates to her left arm. She also notes some shortness of breath and a non productive cough. As per patient, she was recently admitted to the hospital for deep vein thrombosis in her right leg and was discharged last Wednesday. Patient also states that her AV shunt seems to be more swollen than usual since last week Wednesday. She also notes some malaise, fatigue, generalized weakness, constipation, headache and dizziness and epigastric pain. Denies fever, nausea, vomiting, diarrhea. patient also has bruising on left upper arm that have been there since she was admitted 2 weeks ago. She reports nosebleeds yesterday and therefore stopped taking her coumadin. Concerned that her multiple ecchymotic lesions, her shunt swelling and her nosebleed is all due to anticoagulation. PMD Dr Hieu Martin - Risk Factors PE Risk Factors: Pos: Recent Hospitalization, Previous DVT, CHF TAD Risk Factors: Pos: Hypertension Past Medical History Reviewed: Historical Data, Nursing Documentation, Vital Signs Vital Signs: Last Vital Signs Temp 98.4 F 11/30/17 12:00 Pulse 86 11/30/17 12:00 Resp 20 11/30/17 12:00 BP 198/75 H 11/30/17 12:00 Pulse Ox 100 11/30/17 12:00 - Medical History PMH: CHF, HTN, Hypercholesterolemia, End Stage Renal Disease (Dialysis - / /Wed), Chronic Kidney Disease - Surgical History Surgical History: Hernia Repair - Family History Family History: States: Unknown Family Hx - Social History Current smoker - smoking cessation education provided: No Ex-Smoker (has not smoked in the last 12 months): No Alcohol: None Drugs: Denies - Immunization History Hx Tetanus Toxoid Vaccination: No Hx Influenza Vaccination: No Hx Pneumococcal Vaccination: No - Home Medications Home Medications: Ambulatory Orders Medication Instructions Recorded Atorvastatin [Lipitor] 20 mg PO DAILY #30 tab 11/20/17 B Complex W-C No.20/Folic Acid 1 cap PO DAILY #30 capsule 11/20/17 [Nephrocaps Softgel] B Complex W-C No.20/Folic Acid 1 mg PO DAILY #30 capsule 11/20/17 [Triphrocaps Softgel] Calcium Acetate [Phoslo] 667 mg PO WM #90 capsule 11/20/17 Docusate [Colace] 100 mg PO BID PRN #30 cap 11/20/17 Doxercalciferol [Hectorol] 2 mcg PO TTS #12 cap 11/20/17 Epoetin Chris [Procrit] 10,000 unit IV TTS #3 ml 11/20/17 Esomeprazole Magnesium [Nexium] 40 mg PO DAILY #30 capsule. 11/20/17 Metoprolol Tartrate [Lopressor] 25 mg PO BID #60 tab 11/20/17 Vitamin B Complex/Vit C/Folic 1 tab PO DAILY #30 tab 11/20/17 [Nephro-Leslie] amLODIPine [Norvasc] 10 mg PO DAILY #30 tab 11/20/17 cloNIDine [Catapres] 0.3 mg PO Q8 #90 tab 11/20/17 Enoxaparin [Lovenox] 60 mg SC DAILY #17 syr 11/21/17 Warfarin [Coumadin] 5 mg PO QD5 #14 tab 11/21/17 - Allergies Allergies/Adverse Reactions: Allergies Allergy/AdvReac Type Severity Reaction Status Date / Time aspirin Allergy PAIN Verified 11/28/17 21:23 Penicillins Allergy RASH Verified 11/18/17 14:03 Review of Systems ROS Statement: Except As Marked, All Systems Reviewed And Found Negative Constitutional: Positive for: Malaise, Other (fatigue). Negative for: Fever Cardiovascular: Positive for: Chest Pain Respiratory: Positive for: Cough, Shortness of Breath Gastrointestinal: Positive for: Constipation. Negative for: Nausea, Vomiting Neurological: Positive for: Headache, Dizziness Physical Exam - Reviewed Nursing Documentation Reviewed: Yes Vital Signs Reviewed: Yes - Physical Exam Appears: Positive for: Non-toxic, In Acute Distress (mild) Head Exam: Positive for: ATRAUMATIC, NORMOCEPHALIC Skin: Positive for: Warm, Dry (areas of ecchymosis extremities) Eye Exam: Positive for: EOMI, PERRL ENT: Positive for: Other (dry mucous membranes) Neck: Positive for: Painless ROM, Supple Cardiovascular/Chest: Positive for: Regular Rate, Rhythm. Negative for: Murmur Respiratory: Positive for: Normal Breath Sounds. Negative for: Respiratory Distress Gastrointestinal/Abdominal: Positive for: Soft. Negative for: Tenderness Back: Positive for: Normal Inspection. Negative for: Decreased ROM Extremity: Positive for: Pedal Edema (trace), Swelling (membranes right upper extremity AV shunt with palpable thrill and mild swelling no erythema), Other ( right radial pulse palpable;Left upper extremity multiple areas of ecchymosis). Negative for: Deformity Lymphatic: Negative for: Adenopathy Neurologic/Psych: Positive for: Alert. Negative for: Motor/Sensory Deficits - Laboratory Results Result Diagrams: 11/30/17 04:15 11/30/17 04:15 - ECG O2 Sat by Pulse Oximetry: 96 (RA) Pulse Ox Interpretation: Normal Medical Decision Making Medical Decision Makin Initial Impression 62 year old female presenting with chest pain Differentials including but not limited too: CHF, PE, acute coronary syndrome, pneumonia, fluid overload. Initial Plan: * CMP * Magnesium * phosphorous * troponin I * Troponin I Q8H * EKG * CBC * Partial Thromboplastin * Prothrombin Time * CXR * Blood Culture * Reevaluation 2127 EKG performed: * poor baseline * sinus rhythm 83bpm * no ST elevations non specific Pt needs hospitalization for chest pain with cardiac risk factors, needing serial enzymes to r/o ACS. Also needs hospitalization for symptomatic coumadin toxicity. Documented by Shira Copeland acting as a scribe for Emeli Ceballos MD. All medical record entries made by the Scribe were at my direction and personally dictated by me. I have reviewed the chart and agree that the record accurately reflects my personal performance of the history, physical exam, medical decision making, and the department course for this patient. I have also personally directed, reviewed, and agree with the discharge instructions and disposition. Disposition - Clinical Impression Clinical Impression: DVT (deep venous thrombosis), Chest pain, Coumadin toxicity Counseled Patient/Family Regarding: Studies Performed, Diagnosis - Disposition Disposition Time: 22:00 Condition: FAIR - Pt Status Changed To: Hospital Disposition Of: Inpatient - Admit Certification Admit to Inpatient:: After my assessment, the patient will require hospitalization for at least two midnights. This is because of the severity of symptoms shown, intensity of services needed, and/or the medical risk in this patient being treated as an outpatient. - POA Present On Arrival: Deep Vein Thrombosis / PE
[2017-11-28 22:43] LABS: BASO # 0.1 K/uL (0.0-0.2); BASO % 2.3 % (0.0-2.0); EOS # 0.1 K/uL (0.0-0.7); EOS % 3.2 % (0.0-4.0); HEMOGLOBIN 9.3 g/dL (12.0-16.0); LYMPH # 0.8 K/uL (1.0-4.3); LYMPH % 19.9 % (20.0-40.0); MEAN CELL VOLUME 96.7 fl (81.0-99.0); MEAN CORPUSCULAR HEMOGLOBIN 31.7 pg (27.0-31.0); MEAN CORPUSCULAR HGB CONC 32.8 g/dL (33.0-37.0); MEAN PLATELET VOLUME 8.2 fl (7.2-11.7); MONO # 0.5 K/uL (0.0-0.8); MONO % 12.4 % (0.0-10.0); NEUT # 2.6 K/uL (1.8-7.0); NEUT % 62.2 % (50.0-75.0); NRBC % 0.2 % (0.0-0.0); RBC 2.92 Mil/uL (3.80-5.20); RED CELL DISTRIBUTION WIDTH 16.7 % (11.5-14.5); WHITE BLOOD COUNT 4.2 K/uL (4.8-10.8)
[2017-11-28 23:04] LABS: TROPONIN I 0.036 ng/mL (0.00-0.120)
[2017-11-28 23:13] LABS: ALB/GLOB RATIO 1.1 (1.0-2.1); ALBUMIN 3.6 g/dL (3.5-5.0); CALCIUM 9.9 mg/dL (8.4-10.2)
[2017-11-28 23:24] LABS: INR 5.3 (0.9-1.2)
[2017-11-28 23:25] LABS: PARTIAL THROMBOPLASTIN TIME 45.9 Seconds (25.6-37.1)
[2017-11-28 23:34] LABS: PROTHROMBIN TIME 60.3 Seconds (9.8-13.1)
--- NOTE | 2017-11-29 00:41 | CP.PCM.HP ---
History of Present Illness - History of Present Illness History of Present Illness: This is a 62 yo female with a past medical history of hypertension, CKD ESRD on dialysis T-TH-SAT for a number of years, who came to the ED c/o chest pain, left sided, beginning 2 hours prior to arrival. The pain started at rest, is substernal, and radiates from her left chest to her left arm, feels like a pressure. The patient is also c/o some shortness of breath intermittently. She is also complaining that her AV shunt seems to be more swollen; however it is not painful or erythematous and she recieved dialysis on 11/28 successfully. She has noticed increased bruising on the left arm and some epistaxis yesterday so she has stopped taking her Coumadin yesterday evening. Of note she was being bridged onto Coumadin from Lovenox and so she was on Lovenox and Coumadin. In the ED, she was found to have INR elevated at 5.3 and PTT of 45.9. Her Hg is 9.3 , which is a little lower than her baseline of around 9.8. She has known hemorrhoids for which she has noticed a few drops of bleeding occasionally during BM; however no signs of melena or arleen bleeding. Troponin is 0.0360, down from previous admission when it was 0.3580. EKG nonischemic according to ED. The patient is to be admitted for further workup from cardiology in the morning to rule out acute coronary syndrome. She may also need repeat Echocardiogram to evaluate her known pericardial effusion. Denies any n/v/d/f/c/ headache. Present on Admission - Present on Admission Any Indicators Present on Admission: No Review of Systems - Review of Systems Review of Systems: A 12 point review of systems was conducted and found to be negative other than in HPI. Past Patient History - Tetanus Immunizations Tetanus Immunization: Unknown - Past Medical History & Family History Past Medical History?: Yes - Past Social History Alcohol: None Drugs: Denies - CARDIAC Hx Hypercholesterolemia: Yes Hx Hypertension: Yes - PULMONARY Hx Respiratory Disorders: Yes - NEUROLOGICAL Hx Neurological Disorder: No - HEENT Hx HEENT Problems: No - RENAL Hx Chronic Kidney Disease: Yes - ENDOCRINE/METABOLIC Hx Endocrine Disorders: No - HEMATOLOGICAL/ONCOLOGICAL Hx Blood Disorders: No - INTEGUMENTARY Hx Dermatological Problems: No - MUSCULOSKELETAL/RHEUMATOLOGICAL Hx Musculoskeletal Disorders: No Hx Falls: No - GASTROINTESTINAL Hx Gastrointestinal Disorders: No - GENITOURINARY/GYNECOLOGICAL Hx Genitourinary Disorders: No - PSYCHIATRIC Hx Psychophysiologic Disorder: No Hx Substance Use: No - SURGICAL HISTORY Hx Section: Yes Hx Vascular Surgery: Yes Hx Vascular Access Device: Yes (AV FISTULA) Other/Comment: FOOT SURGERY - ANESTHESIA Hx Anesthesia: Yes Hx Anesthesia Reactions: Yes Meds Allergies/Adverse Reactions: Allergies Allergy/AdvReac Type Severity Reaction Status Date / Time aspirin Allergy PAIN Verified 11/28/17 21:23 Penicillins Allergy RASH Verified 11/18/17 14:03 Physical Exam - Additional Findings Additional findings: Physical exam: Constitutional- cooperative, awake, alert Head- NCAT, PERRL Eye- PERRL, EOMI ENT- normal exam, MMM. Neck- normal inspection, supple, no JVD Respiratory- CTAB, no wheezes rales rhonchi Cardiovascular- RRR, +S1, +S2, systolic ejection murmur radiating up into the carotids GI/Abdominal- normal bowel sounds, soft, no mass, no hsm Skin- warm, dry Extremities Exam- + right brachial AV fistula noted, good bruit, no erythema. normal capillary refill. Ecchymosis on the left upper extremity. +1 pitting edema bilateral lower extremities Neurological Exam- alert, awake, oriented Psych- normal mood, normal affect Results - Vital Signs Recent Vital Signs: Last Vital Signs Temp 98.6 F 11/28/17 21:24 Pulse 83 11/28/17 21:24 Resp 18 11/28/17 21:24 BP 176/73 H 11/28/17 21:24 Pulse Ox 96 11/28/17 22:58 - Labs Result Diagrams: 11/28/17 22:38 11/28/17 22:38 Labs: Laboratory Results - last 24 hr 11/28/17 11/28/17 11/28/17 22:38 22:38 22:38 WBC 4.2 L RBC 2.92 L Hgb 9.3 L Hct 28.2 L MCV 96.7 MCH 31.7 H MCHC 32.8 L RDW 16.7 H Plt Count 153 MPV 8.2 Neut % (Auto) 62.2 Lymph % (Auto) 19.9 L [place] % (Auto) 12.4 H Eos % (Auto) 3.2 Baso % (Auto) 2.3 H Neut # (Auto) 2.6 Lymph # (Auto) 0.8 L [place] # (Auto) 0.5 Eos # (Auto) 0.1 Baso # (Auto) 0.1 PT 60.3 H* INR 5.3 H APTT 45.9 H Sodium 141 Potassium 4.4 Chloride 94 L Carbon Dioxide 38 H Anion Gap 13 BUN 35 H Creatinine 5.3 H Est GFR ( Amer) 10 Est GFR (Non-Af Amer) 8 Random Glucose 104 Calcium 9.9 Phosphorus 3.7 Magnesium 2.3 Total Bilirubin 0.8 AST 41 H D ALT 28 Alkaline Phosphatase 75 Troponin I 0.0360 Total Protein 6.7 Albumin 3.6 Globulin 3.1 Albumin/Globulin Ratio 1.1 Blood Type Antibody Screen BBK History Checked 11/28/17 22:38 WBC RBC Hgb Hct MCV MCH MCHC RDW Plt Count MPV Neut % (Auto) Lymph % (Auto) [place] % (Auto) Eos % (Auto) Baso % (Auto) Neut # (Auto) Lymph # (Auto) [place] # (Auto) Eos # (Auto) Baso # (Auto) PT INR APTT Sodium Potassium Chloride Carbon Dioxide Anion Gap BUN Creatinine Est GFR ( Amer) Est GFR (Non-Af Amer) Random Glucose Calcium Phosphorus Magnesium Total Bilirubin AST ALT Alkaline Phosphatase Troponin I Total Protein Albumin Globulin Albumin/Globulin Ratio Blood Type A POSITIVE Antibody Screen Negative BBK History Checked No verified bt Assessment & Plan - Assessment and Plan (Free Text) Plan: ASSESSMENT/PLAN 1) Chest pain, evaluate for ACS, with known hx of pericardial effusion - Dr. Flannery to be called in AM for cardiology - Troponins q 8 hours, first one WNL - EKG nonischemic; will repeat in AM 2) Supratherapeutic INR due to mild Coumadin toxicity - Hold Coumadin/Lovenox - Daily PT/INR - Continue to monitor hemoglobin 3) ESRD on dialysis T-TH-SAT - AV fistula appears to be working well as she just had dialysis 3/4 - Normovolemic at this time - Monitor electrolytes, BUN/CR - Consult Dr. Barone in AM for dialysis recommendations 4) Essential hypertension - Continue Clonidine 0.3 mg po q 8 hours - Continue Norvasc 10 mg po daily - Continue Lopressor 25 mg po BID 5) Hemorrhoids - To f/u with Dr. Elkins as outpatient - Continue Colace 100 mg po BID PRN for constipation 6) Hyperlipidemia - Continue statin 7) Anemia of chronic disease - Continue Procrit -Chronic - Appears stable, will continue to monitor w/ high INR 8) DVT prophylaxis - None, pt has supratherapeutic INR
[2017-11-29 06:26] LABS: HEMOGLOBIN 8.6 g/dL (12.0-16.0); MEAN CELL VOLUME 97.3 fl (81.0-99.0); MEAN CORPUSCULAR HGB CONC 32.9 g/dL (33.0-37.0); RBC 2.68 Mil/uL (3.80-5.20); RED CELL DISTRIBUTION WIDTH 16.5 % (11.5-14.5); WHITE BLOOD COUNT 3.2 K/uL (4.8-10.8)
[2017-11-29 06:41] LABS: INR 5.4 (0.9-1.2)
[2017-11-29 06:46] LABS: PROTHROMBIN TIME 61.5 Seconds (9.8-13.1)
[2017-11-29] MEDS ORDERED: Calcium Acetate 667 MG Capsule PO SCH (07:30)
--- NOTE | 2017-11-29 08:10 | CARD ---
APPROVED REPORT EKG Measurement Heart [id number] <Conclusion> Sinus rhythm with 1st degree AV block Otherwise normal ECG
--- NOTE | 2017-11-29 08:11 | CARD ---
APPROVED REPORT EKG Measurement Heart [id number] <Conclusion> Sinus rhythm with 1st degree AV block Nonspecific ST abnormality Abnormal ECG
--- NOTE | 2017-11-29 08:37 | RAD ---
HISTORY: chset pain COMPARISON: Portable chest 11/20/2017. FINDINGS: LUNGS: There is silhouetting left hemidiaphragm suggesting atelectasis or potential infiltrate left lower lobe base. No right-sided infiltrate. PLEURA: Minimal left pleural effusion not excluded. None is seen at the right. No pneumothorax bilaterally. CARDIOVASCULAR: Cardiomegaly appears stable with no interval pulmonary vascular derangement appreciable. OSSEOUS STRUCTURES: No significant abnormalities. VISUALIZED UPPER ABDOMEN: Normal. OTHER FINDINGS: A right-sided wall stent is seen in the medial proximal right upper extremity soft tissues once again. IMPRESSION: Left lower lobe basilar atelectasis or infiltrate. Trace of pleural effusion not excluded. Stable cardiomegaly.
[2017-11-29] MEDS ORDERED: Multivitamin Vitamin B Complex (Nephro-Vite) Tab PO SCH (09:00)
[2017-11-29] MEDS ORDERED: [UNRECOGNIZED DRUG - REMARK] PO SCH (09:00)
[2017-11-29] MEDS ORDERED: [UNRECOGNIZED DRUG - REMARK] PO SCH (09:00)
[2017-11-29] MEDS: Pantoprazole 40 mg EC Tab PO SCH (09:52)
[2017-11-29] MEDS: Multivitamin Vitamin B Complex (Nephro-Vite) Tab PO SCH (09:53)
--- NOTE | 2017-11-29 20:07 | CP.PCM.CON ---
History of Present Illness - History of Present Illness History of Present Illness: PT WITH CHEST DISCOMFORT FOR SEVERAL DAYS WITH ASSOCIATED ORTHOPNEA AND RODRIGUEZ. CP IS INTERMITTENT AND MILD IN NATURE. IT OCCURS WITH EXERTION AND REST. LASTS SEVERAL MINUTES. UPON PRESENTATION Elevated inr WAS NOTED. PT HAS RECENTLY DIAGNOSED loculated pericard effusion. DENIES DIZZINESS, LH, PALP. LABS REVEAL ANEMIA, RENAL FAILURE, AND NEG TROPONINS. I REVIEWED THE PREVIOUS ECHO AND COMPARED TO THE CURRENT ECHO. THE EFFUSION SIZE IS STABLE. Review of Systems - Constitutional Constitutional: As Per HPI. absent: Anorexia, Chills, Daytime Sleepiness, Excessive Sweating, Fatigue, Fever, Frequent Falls, Headache, Increased Appetite , Lethargy, Malaise, Night Sweats, Snoring, Sleep Apnea, Weight Gain, Weight Loss, Weakness, Other - EENT Eyes: As Per HPI. absent: Blind Spots, Blurred Vision, Change in Vision, Decreased Night Vision, Diplopia, Discharge, Dry Eye, Exophthalmos, Floaters, Irritation, Itchy Eyes, Loss of Peripheral Vision, Pain, Photophobia, Requires Corrective Lenses, Sees Flashes, Spots in Vision, Tunnel Vision, Other Visual Disturbances, Loss of Vision, Other Ears: As Per HPI. absent: Decreased Hearing, Ear Discharge, Ear Pain, Tinnitus , Abnormal Hearing, Disequilibrium, Dizziness, Other Nose/Mouth/Throat: As Per HPI. absent: Epistaxis, Nasal Congestion, Nasal Discharge, Nasal Obstruction, Nasal Trauma, Nose Pain, Post Nasal Drip, Sinus Pain, Sinus Pressure, Bleeding Gums, Change in Voice, Dental Pain, Dry Mouth, Dysphagia, Halitosis, Hoarsness, Lip Swelling, Mouth Lesions, Mouth Pain, Odynophagia, Sore Throat, Throat Swelling, Tongue Swelling, Facial Pain, Neck Pain, Neck Mass, Other - Breasts Breasts: As Per HPI. absent: Change in Shape, Mass, Pain, Nipple Discharge, Nipple Inversion, Skin Changes, Swelling, Other - Cardiovascular Cardiovascular: Chest Pain at Rest, Chest Pain with Activity, Dyspnea, Dyspnea on Exertion, Edema. absent: As Per HPI, Acrocyanosis, Chest Pain, Claudication , Diaphoresis, Irregular Heart Rhythm, Pain Radiating to Arm/Neck/Jaw, Leg Edema , Leg Ulcers, Lightheadedness, Orthopnea, Palpitations, Paroxysmal Nocturnal Dyspnea, Pedal Edema, Radiating Pain, Rapid Heart Rate, Slow Heart Rate, Syncope , Other - Respiratory Respiratory: As Per HPI. absent: Cough, Dyspnea, Hemoptysis, Dyspnea on Exertion, Wheezing, Snoring, Stridor, Pain on Inspiration, Chest Congestion, Excessive Mucous Production, Change in Mucous Color, Pain with Coughing, Other - Gastrointestinal Gastrointestinal: As Per HPI. absent: Abdominal Pain, Belching, Bloating, Change in Bowel Habits, Change in Stool Character, Coffee Ground Emesis, Constipation, Cramping, Diarrhea, Dyspepsia, Dysphagia, Early Satiety, Excessive Flatus, Fecal Incontinence, Heartburn, Hematemesis, Hematochezia, Loose Stools, Melena, Nausea, Odynophagia, Temesmus, Vomiting, Other - Genitourinary Genitourinary: As Per HPI. absent: Change in Urinary Stream, Difficulty Urinating, Dysuria, Flank Pain, Hematuria, Pyuria, Nocturia, Urinary Incontinence, Urinary Frequency, Urinary Hesitance, Urinary Urgency, Voiding Freq/Small Amts, Freq UTI, Hx Renal/Bladder Calculi, Hx /Renal Surgery, Bladder Distension, Other - Reproductive: Female Reproductive:Female: As Per HPI. absent: Amenorrhea, Amenorrhea/ Control, Currently Menstual, Cycle <21 Days, Cycle >35 Days, Cycle Variable, Menses 1-7 Days, Menses >/= 8 Days, Menses Variable, Cycle > 4 Weeks Between, No Menses for 6 Months, Heavy Menses, Light Menses, Normal Menses, Spotting Between Cycles , S/P Hysterectomy, Menopausal, Post Menopausal, Premenarche, Abnormal Vaginal Bleeding, Dysmenorrhea, Dyspareunia, Genital Lesions, Genital Pruritis, Pelvic Pain, Prolapse Symptoms, Sexual Dysfunction, Vaginal Discharge, Vaginal Dryness , Vaginal Odor, Vaginal Pruritis, Other - Menstruation Menstruation: As Per HPI. absent: Amenorrhea, Amenorrhea/ Control, Currently Menstual, Cycle <21 Days, Cycle >35 Days, Cycle Variable, Menses 1-7 Days, Menses >/= 8 Days, Menses Variable, Cycle > 4 Weeks Between, No Menses for 6 Months, Heavy Menses, Light Menses, Normal Menses, Spotting Between Cycles , S/P Hysterectomy, Menopausal, Post Menopausal, Premenarche, Abnormal Vaginal Bleeding, Dysmenorrhea, Other - Musculoskeletal Musculoskeletal: As Per HPI. absent: Abnormal Gait, Arthralgias, Atrophy, Back Pain, Deformity, Joint Swelling, Limited Range of Motion, Loss of Height, Muscle Cramps, Muscle Weakness, Myalgias, Neck Pain, Numbness, Radiating Pain into Limb, Stiffness, Tingling, Other - Integumentary Integumentary: Dry Skin, Unusual Bruising. absent: As Per HPI, Acne, Alopecia, Bleeding Lesions, Change in Hair, Change in Nails, Change in Pigmentation, Changing Lesions, Erythema, Furuncle, Hirsutism, Lesions, New Lesions, Non- Healing Lesions, Photosensitivity, Pruritus, Rash, Skin Pain, Skin Ulcer, Sores , Striae, Swelling, Wounds, Jaundice, Other - Neurological Neurological: As Per HPI. absent: Abnormal Gait, Abnormal Hearing, Abnormal Movements, Abnormal Speech, Behavioral Changes, Burning Sensations, Confusion, Convulsions, Disequilibrium, Dizziness, Numbness, Focal Weakness, Frequent Falls , Headaches, Lack of Coordination, Loss of Vision, Memory Loss, Paresthesias, Radicular Pain, Restless Legs, Sensory Deficit, Syncope, Tingling, Tremor, Vertigo, Weakness, Other Visual Disturbances, Other - Psychiatric Psychiatric: As Per HPI. absent: Abnormal Sleep Pattern, Anhedonia, Anxiety, Auditory Hallucinations, Behavioral Changes, Change in Appetite, Change in Libido, Confusion, Depression, Difficulty Concentrating, Hallucinations, Homicidal Ideation, Hopelessness, Irritability, Memory Loss, Mood Swings, Panic Attacks, Paranoia, Suicidal Ideation, Visual Hallucinations, Tactile Hallucinations, Other - Endocrine Endocrine: As Per HPI. absent: Change in Body Appearance, Change in Libido, Cold Intolorance, Deepening of Voice, Excessive Sweating, Fatigue, Flushing, Heat Intolorance, Increase in Ring/Shoe/Hat Size, Palpitations, Polydipsia, Polyphagia, Polyuria, Other - Hematologic/Lymphatic Hematologic: As Per HPI. absent: Easy Bleeding, Easy Bruising, Lymphadenopathy , Other Past Patient History - Tetanus Immunizations Tetanus Immunization: Unknown - Past Medical History & Family History Past Medical History?: Yes - Past Social History Smoking Status: Never Smoked Alcohol: None Drugs: Denies Home Situation {Lives}: With Family Domestic Violence: Negative - CARDIAC Hx Hypercholesterolemia: Yes Hx Hypertension: Yes Hx Peripheral Edema: Yes - PULMONARY Hx Respiratory Disorders: Yes - NEUROLOGICAL Hx Neurological Disorder: No - HEENT Hx HEENT Problems: No - RENAL Hx Chronic Kidney Disease: Yes Hx Dialysis: Yes Type of Dialysis Access: Right upper arm AVF Date of Last Dialysis Treatment: 11/27/17 - ENDOCRINE/METABOLIC Hx Endocrine Disorders: No - HEMATOLOGICAL/ONCOLOGICAL Hx Blood Disorders: No - INTEGUMENTARY Hx Dermatological Problems: No - MUSCULOSKELETAL/RHEUMATOLOGICAL Hx Musculoskeletal Disorders: No Hx Falls: No - GASTROINTESTINAL Hx Gastrointestinal Disorders: No Hx Hemorrhoids: Yes - GENITOURINARY/GYNECOLOGICAL Hx Genitourinary Disorders: No - PSYCHIATRIC Hx Psychophysiologic Disorder: No - SURGICAL HISTORY Hx Section: Yes Hx Herniorrhaphy: Yes Hx Vascular Surgery: Yes Hx Vascular Access Device: Yes (AV FISTULA) Other/Comment: FOOT SURGERY - ANESTHESIA Hx Anesthesia: Yes Hx Anesthesia Reactions: Yes Hx Malignant Hyperthermia: No Has any member of the family had a problem w/ anesthesia?: No Meds Allergies/Adverse Reactions: Allergies Allergy/AdvReac Type Severity Reaction Status Date / Time aspirin Allergy PAIN Verified 11/28/17 21:23 Penicillins Allergy RASH Verified 11/18/17 14:03 - Medications Medications: Current Medications Amlodipine Besylate (Norvasc) 10 mg PO DAILY [facility] Last Admin: 11/29/17 09:52 Dose: 10 mg Atorvastatin Calcium (Lipitor) 20 mg PO DAILY [facility] Last Admin: 11/29/17 09:52 Dose: 20 mg Calcium Acetate (Phoslo) 667 mg PO WM [facility] Last Admin: 11/29/17 14:07 Dose: Not Given Clonidine HCl (Catapres) 0.3 mg PO Q8 [facility] Last Admin: 11/29/17 16:05 Dose: 0.3 mg Docusate Sodium (Colace) 100 mg PO BID PRN PRN Reason: Constipation Last Admin: 11/29/17 09:54 Dose: 100 mg Doxercalciferol (Hectorol) 2 mcg PO TTS [facility] Epoetin Chris (Procrit) 10,000 unit IV TTS [facility] Metoprolol Tartrate (Lopressor) 25 mg PO BID [facility] Last Admin: 11/29/17 16:05 Dose: 25 mg Pantoprazole Sodium (Protonix Ec Tab) 40 mg PO DAILY [facility] Last Admin: 11/29/17 09:52 Dose: 40 mg Vitamin B Complex/Vit C/Folic Acid (Nephro-Leslie) 1 tab PO DAILY [facility] Last Admin: 11/29/17 09:52 Dose: 1 tab Vitamin B Complex/Vit C/Folic Acid (Nephro-Leslie) 1 tab PO DAILY [facility] Last Admin: 11/29/17 09:53 Dose: Not Given Results - Vital Signs Recent Vital Signs: Last Vital Signs Temp 101.0 F H 11/29/17 19:31 Pulse 73 11/29/17 19:31 Resp 20 11/29/17 19:31 BP 172/68 H 11/29/17 19:31 Pulse Ox 99 11/29/17 19:31 - Labs Result Diagrams: 11/30/17 04:15 11/30/17 04:15 Labs: Laboratory Results - last 24 hr 11/28/17 11/28/17 11/28/17 22:38 22:38 22:38 WBC 4.2 L RBC 2.92 L Hgb 9.3 L Hct 28.2 L MCV 96.7 MCH 31.7 H MCHC 32.8 L RDW 16.7 H Plt Count 153 MPV 8.2 Neut % (Auto) 62.2 Lymph % (Auto) 19.9 L [place] % (Auto) 12.4 H Eos % (Auto) 3.2 Baso % (Auto) 2.3 H Neut # (Auto) 2.6 Lymph # (Auto) 0.8 L [place] # (Auto) 0.5 Eos # (Auto) 0.1 Baso # (Auto) 0.1 PT 60.3 H* INR 5.3 H APTT 45.9 H Sodium 141 Potassium 4.4 Chloride 94 L Carbon Dioxide 38 H Anion Gap 13 BUN 35 H Creatinine 5.3 H Est GFR ( Amer) 10 Est GFR (Non-Af Amer) 8 Random Glucose 104 Calcium 9.9 Phosphorus 3.7 Magnesium 2.3 Total Bilirubin 0.8 AST 41 H D ALT 28 Alkaline Phosphatase 75 Troponin I 0.0360 Total Protein 6.7 Albumin 3.6 Globulin 3.1 Albumin/Globulin Ratio 1.1 Blood Type Blood Type Confirm Antibody Screen BBK History Checked 11/28/17 11/28/17 11/29/17 22:38 23:31 05:30 WBC RBC Hgb Hct MCV MCH MCHC RDW Plt Count MPV Neut % (Auto) Lymph % (Auto) [place] % (Auto) Eos % (Auto) Baso % (Auto) Neut # (Auto) Lymph # (Auto) [place] # (Auto) Eos # (Auto) Baso # (Auto) PT INR APTT Sodium Potassium Chloride Carbon Dioxide Anion Gap BUN Creatinine Est GFR ( Amer) Est GFR (Non-Af Amer) Random Glucose Calcium Phosphorus Magnesium Total Bilirubin AST ALT Alkaline Phosphatase Troponin I 0.0460 Total Protein Albumin Globulin Albumin/Globulin Ratio Blood Type A POSITIVE Blood Type Confirm A POSITIVE Antibody Screen Negative BBK History Checked No verified bt 11/29/17 11/29/17 11/29/17 05:30 05:30 09:00 WBC 3.2 L RBC 2.68 L Hgb 8.6 L Hct 26.1 L MCV 97.3 MCH 32.0 H MCHC 32.9 L RDW 16.5 H Plt Count 135 MPV Neut % (Auto) Lymph % (Auto) [place] % (Auto) Eos % (Auto) Baso % (Auto) Neut # (Auto) Lymph # (Auto) [place] # (Auto) Eos # (Auto) Baso # (Auto) PT 61.5 H* INR 5.4 H APTT 46.8 H Sodium Potassium Chloride Carbon Dioxide Anion Gap BUN Creatinine Est GFR ( Amer) Est GFR (Non-Af Amer) Random Glucose Calcium Phosphorus Magnesium Total Bilirubin AST ALT Alkaline Phosphatase Troponin I Total Protein Albumin Globulin Albumin/Globulin Ratio Blood Type Blood Type Confirm Antibody Screen BBK History Checked 11/29/17 14:22 WBC RBC Hgb Hct MCV MCH MCHC RDW Plt Count MPV Neut % (Auto) Lymph % (Auto) [place] % (Auto) Eos % (Auto) Baso % (Auto) Neut # (Auto) Lymph # (Auto) [place] # (Auto) Eos # (Auto) Baso # (Auto) PT INR APTT Sodium Potassium Chloride Carbon Dioxide Anion Gap BUN Creatinine Est GFR ( Amer) Est GFR (Non-Af Amer) Random Glucose Calcium Phosphorus Magnesium Total Bilirubin AST ALT Alkaline Phosphatase Troponin I 0.0380 Total Protein Albumin Globulin Albumin/Globulin Ratio Blood Type Blood Type Confirm Antibody Screen BBK History Checked - EKG Data EKG Interpreted by: Myself EKG shows normal: Sinus rhythm Assessment & Plan (1) Pericardial effusion Status: Acute (2) PHT (pulmonary hypertension) Status: Acute (3) Dyspnea Status: Acute (4) Tricuspid regurgitation Status: Acute (5) Chest pain Status: Acute (6) DVT (deep venous thrombosis) Status: Acute - Assessment and Plan (Free Text) Plan: echo reviewed. pt has a large posterior loculated pericard effusion. Pt also has severe tr with elevated PAP, therefore Systolic RA collapse may not be seen. Pts bp is high and hr stable. Her trop are unlikely due to ischemia with her elevated inr. Ekg shows no signs of pericarditis. Would monitor HB and proceed with HD. watch for hemodynamic changes w HD. RECOMMEND AGAINST ANTICOAG IN FUTURE.
[2017-11-30 05:24] LABS: HEMOGLOBIN 9.5 g/dL (12.0-16.0); MEAN CELL VOLUME 97.5 fl (81.0-99.0); MEAN CORPUSCULAR HEMOGLOBIN 31.9 pg (27.0-31.0); MEAN CORPUSCULAR HGB CONC 32.8 g/dL (33.0-37.0); RBC 2.98 Mil/uL (3.80-5.20); WHITE BLOOD COUNT 4.3 K/uL (4.8-10.8)
[2017-11-30 05:48] LABS: CALCIUM 9.5 mg/dL (8.4-10.2); INR 3.8 (0.9-1.2); PROTHROMBIN TIME 43.6 Seconds (9.8-13.1)
[2017-11-30] MEDS ORDERED: Labetalol 5 mg/ml Inj 20ML IVP STA (05:59)
--- NOTE | 2017-11-30 07:53 | CARD ---
APPROVED REPORT EXAM: Two-dimensional and M-mode echocardiogram with Doppler and color Doppler. Other Information Quality : ExcellentRhythm : NSR INDICATION Pericardial Effusion 2D DIMENSIONS IVSd1.38 (0.7-1.1cm)LVDd5.10 (3.9-5.9cm) LVOT Diameter1.91 (1.8-2.4cm)PWd1.26 (0.7-1.1cm) IVSs1.76 (0.8-1.2cm)LVDs3.60 (2.5-4.0cm) FS (%) 29.3 %PWs1.65 (0.8-1.2cm) M-Mode DIMENSIONS Left Atrium (MM)4.47 (2.5-4.0cm)IVSd1.59 (0.7-1.1cm) Aortic Root2.76 (2.2-3.7cm)LVDd5.18 (4.0-5.6cm) Aortic Cusp Exc.1.91 (1.5-2.0cm)PWd1.09 (0.7-1.1cm) IVSs1.85 cmFS (%) 37 % LVDs3.26 (2.0-3.8cm)PWs2.09 cm Mitral Valve MV E Fmyzvufa872.5cm/sMV DECEL [id number] A Sniugbqt022.2cm/s MV ADE04uqU/A ratio1.4MVA (PHT)4.82cm2 TDI Lateral E' Peak V10.59cm/sMedial E' Peak V7.90cm/sE/Lateral E'13.4 E/Medial E'17.9 Pulmonary Valve PV Peak Ixcbzjxh880.9cm/s Tricuspid Valve TR Peak [id number]/sRAP [id number] Peak Gr.52mmHg [id number] LEFT VENTRICLE The left ventricle is normal size. There is mild concentric left ventricular hypertrophy. Left ventricle systolic function is normal. The Ejection Fraction is 60-65%. There is normal LV segmental wall motion. The left ventricular diastolic function is normal. RIGHT VENTRICLE The right ventricle is normal size. There is normal right ventricular wall thickness. The right ventricular systolic function is normal. ATRIA The left atrium is borderline dilated. The right atrium is mildly dilated. AORTIC VALVE The aortic valve is normal in structure. No aortic regurgitation is present. There is no aortic valvular stenosis. MITRAL VALVE The mitral valve is normal in structure. There is no evidence of mitral valve prolapse. There is no mitral valve stenosis. Mitral regurgitation is mild to moderate. TRICUSPID VALVE The tricuspid valve is normal in structure. There is severe tricuspid regurgitation. Right ventricular systolic pressure is estimated at 63 mmHg. There is severe pulmonary hypertension. PULMONIC VALVE The pulmonary valve is normal in structure. There is no pulmonic valvular regurgitation. GREAT VESSELS The aortic root is normal in size. The IVC is dilated. The IVC collapses <50% with inspiration. PERICARDIAL EFFUSION There is a small-moderate circumferential pericardial effusion. There is an evidence of diastolic compression of the right atrium free wall by pericardial effusion. Comparison with the study of Nov 19, shows this finding is unchanged. Clinical correlation is recommended. <Conclusion> The left ventricle is normal size. There is mild concentric left ventricular hypertrophy. There is normal LV segmental wall motion. Left ventricle systolic function is normal. The Ejection Fraction is 60-65%. The left ventricular diastolic function is normal. There is severe tricuspid regurgitation. Right ventricular systolic pressure is estimated at 63 mmHg. There is severe pulmonary hypertension. The IVC is dilated. The IVC collapses <50% with inspiration. There is a small-moderate circumferential pericardial effusion. There is an evidence of diastolic mild compression of the right atrial free wall by pericardial effusion. Comparison with the study of Nov 19, shows this finding is unchanged. Clinical correlation is recommended.
--- NOTE | 2017-11-30 11:01 | CP.PCM.CON ---
History of Present Illness - History of Present Illness History of Present Illness: pt is seen and examined during hd, full consult is dictated #[id number] Past Patient History - Tetanus Immunizations Tetanus Immunization: Unknown - Past Medical History & Family History Past Medical History?: Yes - Past Social History Smoking Status: Never Smoked - CARDIAC Hx Hypercholesterolemia: Yes Hx Hypertension: Yes Hx Peripheral Edema: Yes - PULMONARY Hx Respiratory Disorders: Yes - NEUROLOGICAL Hx Neurological Disorder: No - HEENT Hx HEENT Problems: No - RENAL Hx Chronic Kidney Disease: Yes Hx Dialysis: Yes Type of Dialysis Access: Right upper arm AVF Date of Last Dialysis Treatment: 11/27/17 - ENDOCRINE/METABOLIC Hx Endocrine Disorders: No - HEMATOLOGICAL/ONCOLOGICAL Hx Blood Disorders: No - INTEGUMENTARY Hx Dermatological Problems: No - MUSCULOSKELETAL/RHEUMATOLOGICAL Hx Musculoskeletal Disorders: No Hx Falls: No - GASTROINTESTINAL Hx Gastrointestinal Disorders: No Hx Hemorrhoids: Yes - GENITOURINARY/GYNECOLOGICAL Hx Genitourinary Disorders: No - PSYCHIATRIC Hx Psychophysiologic Disorder: No - SURGICAL HISTORY Hx Section: Yes Hx Herniorrhaphy: Yes Hx Vascular Surgery: Yes Hx Vascular Access Device: Yes (AV FISTULA) Other/Comment: FOOT SURGERY - ANESTHESIA Hx Anesthesia: Yes Hx Anesthesia Reactions: Yes Hx Malignant Hyperthermia: No Has any member of the family had a problem w/ anesthesia?: No Meds Allergies/Adverse Reactions: Allergies Allergy/AdvReac Type Severity Reaction Status Date / Time aspirin Allergy PAIN Verified 11/28/17 21:23 Penicillins Allergy RASH Verified 11/18/17 14:03 - Medications Medications: Current Medications Acetaminophen (Tylenol 325mg Tab) 650 mg PO Q6 PRN PRN Reason: Fever >100.4 F Last Admin: 11/29/17 20:22 Dose: 650 mg Amlodipine Besylate (Norvasc) 10 mg PO DAILY [facility] Last Admin: 11/30/17 10:53 Dose: 10 mg Atorvastatin Calcium (Lipitor) 20 mg PO DAILY [facility] Last Admin: 11/29/17 09:52 Dose: 20 mg Calcium Acetate (Phoslo) 667 mg PO WM [facility] Last Admin: 11/30/17 09:18 Dose: Not Given Clonidine HCl (Catapres) 0.3 mg PO Q8 [facility] Last Admin: 11/30/17 10:57 Dose: 0.3 mg Docusate Sodium (Colace) 100 mg PO BID PRN PRN Reason: Constipation Last Admin: 11/29/17 09:54 Dose: 100 mg Doxercalciferol (Hectorol) 2 mcg PO TTS [facility] Epoetin Chris (Procrit) 10,000 unit IV TTS [facility] Hydralazine HCl (Apresoline) 10 mg PO TID [facility] Last Admin: 11/30/17 09:17 Dose: Not Given Metoprolol Tartrate (Lopressor) 50 mg PO BID [facility] Last Admin: 11/30/17 09:18 Dose: Not Given Pantoprazole Sodium (Protonix Ec Tab) 40 mg PO DAILY [facility] Last Admin: 11/29/17 09:52 Dose: 40 mg Vitamin B Complex/Vit C/Folic Acid (Nephro-Leslie) 1 tab PO DAILY [facility] Last Admin: 11/29/17 09:52 Dose: 1 tab Vitamin B Complex/Vit C/Folic Acid (Nephro-Leslie) 1 tab PO DAILY [facility] Last Admin: 11/29/17 09:53 Dose: Not Given Results - Vital Signs Recent Vital Signs: Last Vital Signs Temp 98.4 F 11/30/17 09:00 Pulse 96 H 11/30/17 10:57 Resp 18 11/30/17 09:00 BP 221/74 H 11/30/17 10:57 Pulse Ox 90 L 11/30/17 09:00 - Labs Result Diagrams: 11/30/17 04:15 11/30/17 04:15 Labs: Laboratory Results - last 24 hr 11/29/17 11/29/17 11/30/17 14:22 21:00 04:15 WBC 4.3 L RBC 2.98 L Hgb 9.5 L Hct 29.1 L MCV 97.5 MCH 31.9 H MCHC 32.8 L RDW 17.0 H Plt Count 131 PT INR Sodium Potassium Chloride Carbon Dioxide Anion Gap BUN Creatinine Est GFR ( Amer) Est GFR (Non-Af Amer) Random Glucose Calcium Troponin I 0.0380 Influenza Typ A,B (EIA) Negative for flu a/b 11/30/17 11/30/17 04:15 04:15 WBC RBC Hgb Hct MCV MCH MCHC RDW Plt Count PT 43.6 H* INR 3.8 H D Sodium 139 Potassium 4.9 Chloride 91 L Carbon Dioxide 33 H Anion Gap 20 BUN 52 H Creatinine 7.2 H Est GFR ( Amer) 7 Est GFR (Non-Af Amer) 6 Random Glucose 90 Calcium 9.5 Troponin I Influenza Typ A,B (EIA)
[2017-11-30] MEDS: EPOETIN ALFA 10,000 UNIT/ML ML IV SCH (11:54)
--- NOTE | 2017-11-30 13:43 | CP.PCM.PN ---
Subjective - Date & Time of Evaluation Date of Evaluation: 11/30/17 Time of Evaluation: 13:00 - Subjective Subjective: Patient seen and examined. Complaining of increased rectal bleeding today with a bowel movement. Tolerating dialysis well. Blood pressure still uncontrolled however. Fever of 101 yesterday evening; will continue to monitor her vitals. Objective - Vital Signs/Intake and Output Vital Signs (last 24 hours): Temp Pulse Resp BP Pulse Ox 98.4 F 86 20 198/75 H 100 11/30/17 12:00 11/30/17 12:00 11/30/17 12:00 11/30/17 12:00 11/30/17 12:00 - Medications Medications: Current Medications Acetaminophen (Tylenol 325mg Tab) 650 mg PO Q6 PRN PRN Reason: Fever >100.4 F Last Admin: 11/29/17 20:22 Dose: 650 mg Amlodipine Besylate (Norvasc) 10 mg PO DAILY [facility] Last Admin: 11/30/17 10:53 Dose: 10 mg Atorvastatin Calcium (Lipitor) 20 mg PO DAILY [facility] Last Admin: 11/29/17 09:52 Dose: 20 mg Calcium Acetate (Phoslo) 667 mg PO WM [facility] Last Admin: 11/30/17 09:18 Dose: Not Given Clonidine HCl (Catapres) 0.3 mg PO Q8 [facility] Last Admin: 11/30/17 10:57 Dose: 0.3 mg Docusate Sodium (Colace) 100 mg PO BID PRN PRN Reason: Constipation Last Admin: 11/29/17 09:54 Dose: 100 mg Doxercalciferol (Hectorol) 2 mcg PO TTS [facility] Epoetin Chris (Procrit) 10,000 unit IV TTS [facility] Last Admin: 11/30/17 11:54 Dose: 10,000 unit Hydralazine HCl (Apresoline) 10 mg PO TID [facility] Last Admin: 11/30/17 09:17 Dose: Not Given Metoprolol Tartrate (Lopressor) 50 mg PO BID [facility] Last Admin: 11/30/17 09:18 Dose: Not Given Pantoprazole Sodium (Protonix Ec Tab) 40 mg PO DAILY [facility] Last Admin: 11/29/17 09:52 Dose: 40 mg Vitamin B Complex/Vit C/Folic Acid (Nephro-Leslie) 1 tab PO DAILY [facility] Last Admin: 11/29/17 09:53 Dose: Not Given - Labs Labs: 11/30/17 04:15 11/30/17 04:15 PT 43.6 Seconds (9.8-13.1) H* 11/30/17 04:15 INR 3.8 (0.9-1.2) H D 11/30/17 04:15 APTT 46.8 Seconds (25.6-37.1) H 11/29/17 09:00 - Additional Findings Additional findings: ASSESSMENT/PLAN 1) Increased rectal bleeding overnight reported by patient - Consultation with Dr. Elkins ordered as bleeding is worse overnight as reported by patient - Likely due to hemorrhoids with increased INR - Will f/u recommendations - Hg stable 1) Chest pain, ACS ruled out. Presence of large loculated pleural effusion - Also with history of severe TR with elevated PAP - Dr. Flannery on consultation for cardiology - EKG shows no signs of pericarditis - Troponins negative x 3 2) Supratherapeutic INR due to mild Coumadin toxicity - Hold Coumadin/Lovenox - Daily PT/INR - Continue to monitor hemoglobin 3) ESRD on dialysis T-TH-SAT - AV fistula appears to be working well as she just had dialysis 3/4 - Normovolemic at this time - Monitor electrolytes, BUN/CR - Consult Dr. Barone in AM for dialysis recommendations 4) Uncontrolled blood pressure (198/75 currently) - Blood pressure medications held this morning for dialysis however - Continue Clonidine 0.3 mg po q 8 hours - Continue Norvasc 10 mg po daily - Increase Lopressor to 50 mg po BID from 25 mg - start Hydralazine 10 mg po TID and will increase if patient's hypertension continues to be uncontrolled. 6) Hyperlipidemia - Continue statin 7) Anemia of chronic disease - Continue Procrit - Chronic - Appears stable, will continue to monitor w/ high INR and increased rectal bleeding reported by patient 8) DVT prophylaxis - None, pt has supratherapeutic INR - restart Coumadin when patient's INR is therapeutic and if ok with GI
[2017-11-30] MEDS: Multivitamin Vitamin B Complex (Nephro-Vite) Tab PO SCH (14:25)
[2017-11-30] MEDS: Pantoprazole 40 mg EC Tab PO SCH (14:26)
--- NOTE | 2017-11-30 16:22 | CP.PCM.PN ---
Subjective - Date & Time of Evaluation Date of Evaluation: 11/30/17 Time of Evaluation: 16:20 - Subjective Subjective: pt w/o cp today. co blood in stool. inr remains elevated. Objective - Vital Signs/Intake and Output Vital Signs (last 24 hours): Temp Pulse Resp BP Pulse Ox 100.1 F H 79 20 143/57 L 98 11/30/17 16:05 11/30/17 16:05 11/30/17 16:05 11/30/17 16:05 11/30/17 16:05 - Medications Medications: Current Medications Acetaminophen (Tylenol 325mg Tab) 650 mg PO Q6 PRN PRN Reason: Fever >100.4 F Last Admin: 11/29/17 20:22 Dose: 650 mg Amlodipine Besylate (Norvasc) 10 mg PO DAILY [facility] Last Admin: 11/30/17 10:53 Dose: 10 mg Atorvastatin Calcium (Lipitor) 20 mg PO DAILY [facility] Last Admin: 11/30/17 14:26 Dose: 20 mg Calcium Acetate (Phoslo) 667 mg PO WM [facility] Last Admin: 11/30/17 14:30 Dose: Not Given Clonidine HCl (Catapres) 0.3 mg PO Q8 [facility] Last Admin: 11/30/17 10:57 Dose: 0.3 mg Docusate Sodium (Colace) 100 mg PO BID PRN PRN Reason: Constipation Last Admin: 11/29/17 09:54 Dose: 100 mg Doxercalciferol (Hectorol) 2 mcg PO TTS [facility] Last Admin: 11/30/17 14:24 Dose: 2 mcg Epoetin Chris (Procrit) 10,000 unit IV TTS [facility] Last Admin: 11/30/17 11:54 Dose: 10,000 unit Hydralazine HCl (Apresoline) 10 mg PO TID [facility] Last Admin: 11/30/17 14:24 Dose: 10 mg Metoprolol Tartrate (Lopressor) 50 mg PO BID [facility] Last Admin: 11/30/17 09:18 Dose: Not Given Pantoprazole Sodium (Protonix Ec Tab) 40 mg PO DAILY [facility] Last Admin: 11/30/17 14:26 Dose: 40 mg Vitamin B Complex/Vit C/Folic Acid (Nephro-Leslie) 1 tab PO DAILY [facility] Last Admin: 11/30/17 14:25 Dose: 1 tab - Labs Labs: 11/30/17 04:15 11/30/17 04:15 PT 43.6 Seconds (9.8-13.1) H* 11/30/17 04:15 INR 3.8 (0.9-1.2) H D 11/30/17 04:15 APTT 46.8 Seconds (25.6-37.1) H 11/29/17 09:00 - Constitutional Appears: Non-toxic - Head Exam Head Exam: ATRAUMATIC, NORMAL INSPECTION, NORMOCEPHALIC - Eye Exam Eye Exam: EOMI, Normal appearance, PERRL. absent: Conjunctival injection, Nystagmus, Periorbital swelling, Periorbital tenderness, Scleral icterus Pupil Exam: NORMAL ACCOMODATION, PERRL - ENT Exam ENT Exam: Mucous Membranes Moist, Normal Exam. absent: Mucous Membranes Dry, Normal External Ear Exam, Normal Oropharynx, TM's Normal Bilaterally - Neck Exam Neck Exam: Full ROM, Normal Inspection. absent: Lymphadenopathy, Meningismus, Tenderness, Thyromegaly - Respiratory Exam Respiratory Exam: Wheezes, NORMAL BREATHING PATTERN. absent: Accessory Muscle Use, Chest Wall Tenderness, Decreased Breath Sounds, Clear to Ausculation Bilateral, Prolonged Expiratory Phase, Rales, Rhonchi, Respiratory Distress, Stridor - Cardiovascular Exam Cardiovascular Exam: REGULAR RHYTHM, +S1, +S2, Murmur. absent: Bradycardia, Tachycardia, Clicks, Diastolic murmur, Gallop, Irregular Rhythm, JVD, RRR, Rubs , +S4 - GI/Abdominal Exam GI & Abdominal Exam: Soft, Normal Bowel Sounds. absent: Bruit, Distended, Firm , Guarding, Rigid, Tenderness, Diminished Bowel Sounds, Hernia, Hyperactive Bowel Sounds, Hypoactive Bowel Sounds, Organomegaly, Pulsatile Mass, Rebound, Mass - Rectal Exam Rectal Exam: Deferred - Extremities Exam Extremities Exam: Joint Swelling, Pedal Edema Additional comments: echymosis diffuse - Back Exam Back Exam: NORMAL INSPECTION. absent: CVA tenderness (L), CVA tenderness (R), Full ROM, muscle spasm, paraspinal tenderness, rash noted, tenderness, vertebral tenderness - Neurological Exam Neurological Exam: Alert, Awake, CN II-XII Intact, Normal Gait, Oriented x3. absent: Abnormal Gait, Altered, Motor Sensory Deficit, Reflexes Normal - Psychiatric Exam Psychiatric exam: Normal Affect, Normal Mood. absent: Agitated, Anxious, Depressed, Flat Affect, Homicidal Ideation, Manic, Suicidal Ideation - Skin Skin Exam: Abrasion Additional comments: bruising Assessment and Plan (1) Pericardial effusion Status: Acute (2) PHT (pulmonary hypertension) Status: Acute (3) Dyspnea Status: Acute (4) Tricuspid regurgitation Status: Acute (5) Chest pain Status: Acute (6) DVT (deep venous thrombosis) Status: Acute - Assessment and Plan (Free Text) Plan: I RECOMMEND IVCF AND DISCONTINUATION OF ALL ANTICOAGULATION. PT SHOULD HAVE PERICARD EFFUSION MONITORED OUTPT. NEEDS HD EFFUSION REMAINS STABLE AND LOCULATED.
[2017-12-01 05:09] LABS: MEAN CELL VOLUME 96.5 fl (81.0-99.0); MEAN CORPUSCULAR HEMOGLOBIN 31.5 pg (27.0-31.0); MEAN CORPUSCULAR HGB CONC 32.6 g/dL (33.0-37.0); RBC 2.86 Mil/uL (3.80-5.20); RED CELL DISTRIBUTION WIDTH 17.2 % (11.5-14.5); WHITE BLOOD COUNT 3.3 K/uL (4.8-10.8)
[2017-12-01 05:13] LABS: PARTIAL THROMBOPLASTIN TIME 38.6 Seconds (25.6-37.1)
[2017-12-01 05:20] LABS: CALCIUM 9.5 mg/dL (8.4-10.2)
--- NOTE | 2017-12-01 06:42 | CON ---
DATE: RENAL CONSULTATION REQUESTED BY: REASON FOR RENAL CONSULTATION: End-stage renal disease, coagulopathy, for continuation of the hemodialysis. HISTORY OF PRESENT ILLNESS: The patient is a 62 years old elderly female with a past medical history significant for longstanding hypertension, coronary artery disease, CHF, pericardial effusion, polycystic kidney disease, peripheral vascular disease who was admitted recently to [facility] for chest discomfort and also pain in the right leg. The patient was found to have a DVT and started on anticoagulation recently. Now, the patient was admitted with chest discomfort and also shortness of breath. Denies any fever or cough. Denies any abdominal pain. Denies any nausea, vomiting, diarrhea. Denies any swelling of the legs. PAST MEDICAL HISTORY: Significant for longstanding hypertension, end-stage renal disease, polycystic kidney disease, and coronary artery disease. PAST SURGICAL HISTORY: Status post right upper extremity AV fistula and also surgery to the right foot long time ago. ALLERGIES: ALLERGIC TO ASPIRIN AND PENICILLIN. SOCIAL HISTORY: No smoking. No alcohol. No drugs. CURRENT MEDICATIONS: Include as follows: Lipitor 20 mg p.o. daily, Lovenox 60 mg subcu daily, Hectorol 2 mcg three times a week, Colace 100 mg p.o. b.i.d., PhosLo 667 mg p.o. with meals, TriphroCaps 1 daily, Nephrocaps 1 p.o. daily, clonidine 0.3 mg p.o. q.8 hours, amlodipine 10 mg p.o. daily, Coumadin 5 mg p.o. daily, metoprolol 25 mg p.o. b.i.d., Nexium 40 mg p.o. daily, Epogen 10,000 unit 3 times a week. FAMILY HISTORY: Not significant. She has a very supportive family. Lives with her . REVIEW OF SYSTEMS: Significant for chest discomfort and shortness of breath. All other review of systems reviewed and are negative. PHYSICAL EXAMINATION: VITAL SIGNS: As follows: Blood pressure 198/75, pulse 86, respirations 20, temperature 98.4, saturation 100%. Height 4 feet 9 inches, weight is 125 pounds. GENERAL: The patient is a 62 years old elderly female, moderately built, moderately nourished, not in acute distress. HEENT: Pupils normal and reactive to light and accommodation. Conjunctiva pink. Sclerae anicteric. Tongue is moist. Trachea is midline. LUNGS: Symmetric on both sides. Bilateral breath sounds present. Occasional basal crackles present. CVS: [place] at the fifth intercostal space, midclavicular line. S1, S2 audible. No murmur or gallop. ABDOMEN: Normal in appearance. Soft, tympanic. No guarding. No rigidity. No hepatosplenomegaly. RAYON CONER: The patient is alert, awake, and oriented x3. Nonfocal neuro examination. Cranial nerves II through XII grossly intact. Sensory and motor system is within normal limits. EXTREMITIES: No cyanosis, no clubbing, no edema. LABORATORY DATA: Include as follows: As of 11/29/2017, 3.2, hemoglobin 8.6, hematocrit is 26.1, platelets 135. PT 61.5, INR is 5.4, PTT 46.8. Troponin 0.046 and 0.38. Influenza A and B antibody is negative. Other laboratory data as of 11/30/2017, WBC 4.3, hemoglobin 9.5, hematocrit is 29.1, platelets 131. PT 43.6, INR 3.8. Sodium 139, potassium 4.9, chloride 91, CO2 of 33, BUN 52, creatinine 7.2, glucose 90, calcium 9.5. Chest x-ray as of 11/28/2017, left lower lobe basilar atelectasis or infiltrate, trace pleural effusion not excluded, stable cardiomegaly. Echocardiogram as of 11/29/2017, left ventricle is normal size. There is mild concentric left ventricular hypertrophy. There is normal left ventricular segmental wall motion. Left ventricular systolic function is normal. Ejection fraction is 60% to 65%. Left ventricular diastolic function is normal. There is severe tricuspid regurgitation. Right ventricular systolic pressure is estimated at 63 mmHg, and there is severe pulmonary hypertension. IVC is dilated. IVC collapses less than 50% with inspiration. There is small to moderate circumferential pericardial effusion. There is an evidence of diastolic mild compression of the right atrial free wall by pericardial effusion, comparison with study of 11/19 shows this finding is unchanged. Clinical correlation is recommended. IMPRESSION: In summary, the patient is a 62 years old elderly female with a history of hypertension, polycystic kidney disease, end-stage renal disease with uncontrolled hypertension who was admitted with shortness of breath and chest discomfort and also occasional blood in the stool, today elevated PT and INR. 1. End-stage renal disease. Continue hemodialysis three times a week Wednesday, , Wednesday. 2. Anemia, rule out gastrointestinal loss. 3. Polycystic kidney disease. 4. Mild to moderate pericardial effusion. 5. Severe pulmonary hypertension. 6. Severe tricuspid regurgitation. The patient is being dialyzed and UF goal increased from 1.8 to 2.3 liters as tolerated. Follow up with GI. Continue Epogen, continue calcium acetate. We will follow with you. Thank you for allowing me to participate in your patient's care. Restrict fluids to 1 liter per day. Alicia Barone MD
[2017-12-01] MEDS: Multivitamin Vitamin B Complex (Nephro-Vite) Tab PO SCH (08:42)
--- NOTE | 2017-12-01 08:44 | CON ---
DATE: 11/30/2017 REFERRING PHYSICIAN: Imer Galeano DO REASON FOR CONSULTATION: Abdominal pain and anemia. HISTORY OF PRESENT ILLNESS: This is a 62-year-old female with history of hypertension, end-stage renal dialysis Wednesday, and Wednesday chest pain left-sided with some fevers as well, and some shortness of breath on and off. The patient feels better at this point. Supratherapeutic INR, has couple of episodes of bleeding CA, and elevated troponins. Currently, lying in bed comfortably, in no apparent distress. PAST MEDICAL HISTORY: As above. PAST SURGICAL HISTORY: As above. MEDICATIONS: Have been reviewed. REVIEW OF SYSTEMS: All other systems have been reviewed and negative apart from the HPI. PHYSICAL EXAMINATION: GENERAL: Pleasant, elderly-appearing female lying in bed comfortably, in no apparent distress. VITAL SIGNS: Here in the hospital, grossly unremarkable. HEENT: Head is normocephalic and atraumatic. Eyes, pupils are equally reactive to light bilaterally. No conjunctival pallor or icterus. NECK: Supple. Normal range of motion. No lymphadenopathy appreciated. LUNGS: Coarse breath sounds bilaterally. HEART: S1 and S2, regular rate and rhythm. No murmurs appreciated. ABDOMEN: Soft and nontender. Bowel sounds present. There is some discomfort in the epigastric region. No rebound. No guarding. RECTAL: Deferred. EXTREMITIES: Pulses present bilaterally. SKIN: Warm, dry and intact. NEUROLOGIC: A and O x3. LABORATORY DATA: Labs have been reviewed. WBC 4.3, hemoglobin 9.5, hematocrit 29.1, and platelet count normal. INR is high at 5.4, now at 3.8 with elevated PT and PTT. BUN and creatinine is 2/7.2. AST 41 and ALT normal. ASSESSMENT AND PLAN: This is a 62-year-old female with chest pain, abdominal pain, and fevers with elevated INR. From gastroenterology standpoint, recommend possible CT scan of abdomen and pelvis. correction of the INR PPI twice a day. Thank you for the consult. Chester Elkins MD/ PhD cc: Iemr Galeano DO
[2017-12-01] MEDS: Pantoprazole 40 mg EC Tab PO SCH (08:45)
--- NOTE | 2017-12-01 09:17 | CP.PCM.PN ---
Subjective - Date & Time of Evaluation Date of Evaluation: 12/01/17 Time of Evaluation: 09:16 - Subjective Subjective: no new complaints Objective - Vital Signs/Intake and Output Vital Signs (last 24 hours): Temp Pulse Resp BP Pulse Ox 98.1 F 70 18 160/57 H 96 12/01/17 08:00 12/01/17 08:48 12/01/17 08:00 12/01/17 08:48 12/01/17 08:00 - Medications Medications: Current Medications Acetaminophen (Tylenol 325mg Tab) 650 mg PO Q6 PRN PRN Reason: Fever >100.4 F Last Admin: 11/29/17 20:22 Dose: 650 mg Amlodipine Besylate (Norvasc) 10 mg PO DAILY [facility] Last Admin: 12/01/17 08:43 Dose: 10 mg Atorvastatin Calcium (Lipitor) 20 mg PO DAILY [facility] Last Admin: 12/01/17 08:43 Dose: 20 mg Calcium Acetate (Phoslo) 667 mg PO WM [facility] Last Admin: 12/01/17 08:44 Dose: 667 mg Clonidine HCl (Catapres) 0.3 mg PO Q8 [facility] Last Admin: 12/01/17 08:41 Dose: 0.3 mg Docusate Sodium (Colace) 100 mg PO BID PRN PRN Reason: Constipation Last Admin: 11/29/17 09:54 Dose: 100 mg Doxercalciferol (Hectorol) 2 mcg PO TTS [facility] Last Admin: 11/30/17 14:24 Dose: 2 mcg Epoetin Chris (Procrit) 10,000 unit IV TTS [facility] Last Admin: 11/30/17 11:54 Dose: 10,000 unit Hydralazine HCl (Apresoline) 10 mg PO TID [facility] Last Admin: 12/01/17 08:39 Dose: 10 mg Metoprolol Tartrate (Lopressor) 50 mg PO BID [facility] Last Admin: 12/01/17 08:48 Dose: 50 mg Pantoprazole Sodium (Protonix Ec Tab) 40 mg PO DAILY [facility] Last Admin: 12/01/17 08:45 Dose: 40 mg Vitamin B Complex/Vit C/Folic Acid (Nephro-Leslie) 1 tab PO DAILY [facility] Last Admin: 12/01/17 08:42 Dose: 1 tab - Labs Labs: 12/01/17 04:30 12/01/17 04:30 PT 34.0 Seconds (9.8-13.1) H D 12/01/17 04:30 INR 3.0 (0.9-1.2) H 12/01/17 04:30 APTT 38.6 Seconds (25.6-37.1) H D 12/01/17 04:30 - Head Exam Head Exam: NORMOCEPHALIC - Neck Exam Neck Exam: Normal Inspection - Respiratory Exam Respiratory Exam: NORMAL BREATHING PATTERN - Cardiovascular Exam Cardiovascular Exam: REGULAR RHYTHM Assessment and Plan - Assessment and Plan (Free Text) Assessment: 62 yo female with coumadin toxicity dc planning f/u office in a week
--- NOTE | 2017-12-01 11:57 | CP.PCM.PN ---
Subjective - Date & Time of Evaluation Date of Evaluation: 12/01/17 Time of Evaluation: 09:30 - Subjective Subjective: Patient was seen and examined today. still complaining of some blood in her stool; however hemoglobin in stable. denies headache, fever, chills, nausea, vomiting, or diarrhea. no fever since 11/29/2017. Yesterday had some scant bleeding from AV fistula which has been wrapped, dressing is c/d/i. Objective - Vital Signs/Intake and Output Vital Signs (last 24 hours): Temp Pulse Resp BP Pulse Ox 98.3 F 68 18 124/53 L 95 12/01/17 11:45 12/01/17 11:45 12/01/17 11:45 12/01/17 11:45 12/01/17 11:45 - Medications Medications: Current Medications Acetaminophen (Tylenol 325mg Tab) 650 mg PO Q6 PRN PRN Reason: Fever >100.4 F Last Admin: 11/29/17 20:22 Dose: 650 mg Amlodipine Besylate (Norvasc) 10 mg PO DAILY [facility] Last Admin: 12/01/17 08:43 Dose: 10 mg Atorvastatin Calcium (Lipitor) 20 mg PO DAILY [facility] Last Admin: 12/01/17 08:43 Dose: 20 mg Calcium Acetate (Phoslo) 667 mg PO WM [facility] Last Admin: 12/01/17 08:44 Dose: 667 mg Clonidine HCl (Catapres) 0.3 mg PO Q8 [facility] Last Admin: 12/01/17 08:41 Dose: 0.3 mg Docusate Sodium (Colace) 100 mg PO BID PRN PRN Reason: Constipation Last Admin: 11/29/17 09:54 Dose: 100 mg Doxercalciferol (Hectorol) 2 mcg PO TTS [facility] Last Admin: 11/30/17 14:24 Dose: 2 mcg Epoetin Chris (Procrit) 10,000 unit IV TTS [facility] Last Admin: 11/30/17 11:54 Dose: 10,000 unit Hydralazine HCl (Apresoline) 10 mg PO TID [facility] Last Admin: 12/01/17 08:39 Dose: 10 mg Metoprolol Tartrate (Lopressor) 50 mg PO BID [facility] Last Admin: 12/01/17 08:48 Dose: 50 mg Pantoprazole Sodium (Protonix Ec Tab) 40 mg PO DAILY [facility] Last Admin: 12/01/17 08:45 Dose: 40 mg Vitamin B Complex/Vit C/Folic Acid (Nephro-Leslie) 1 tab PO DAILY [facility] Last Admin: 12/01/17 08:42 Dose: 1 tab - Labs Labs: 12/01/17 04:30 12/01/17 04:30 PT 34.0 Seconds (9.8-13.1) H D 12/01/17 04:30 INR 3.0 (0.9-1.2) H 12/01/17 04:30 APTT 38.6 Seconds (25.6-37.1) H D 12/01/17 04:30 - Additional Findings Additional findings: Physical exam: Constitutional- cooperative, awake, alert Head- NCAT, PERRL Eye- PERRL, EOMI ENT- normal exam, MMM. Neck- normal inspection, supple, no JVD Respiratory- CTAB, no wheezes rales rhonchi Cardiovascular- RRR, +S1, +S2, systolic ejection murmur radiating up into the carotids GI/Abdominal- normal bowel sounds, soft, no mass, no hsm Skin- warm, dry. Extremities Exam- + right brachial AV fistula noted, good bruit, no erythema, currently getting hemodialysis successfully. . normal capillary refill. Ecchymosis on the left upper extremity. +1 pitting edema bilateral lower extremities Neurological Exam- alert, awake, oriented Psych- normal mood, normal affect Assessment and Plan - Assessment and Plan (Free Text) Plan: ASSESSMENT/PLAN 1) Supratherapeutic INR due to mild Coumadin toxicity, was on Coumadin due to DVT - Patient's INR down to 3.0 today- as per Dr. Flannery, the patient's anticoagulation should be discontinued indefinitely due to rectal bleeding and she should have IVC filter placed to prevent pulmonary embolism. This was discussed with Dr. Suarez, radiology, and will be done tomorrow afternoon. Patient is amenable to this - Hold Coumadin/Lovenox - Daily PT/INR - Continue to monitor hemoglobin- stable at this time - For possible discharge tomorrow after IR procedure 2) Increased rectal bleeding reported by patient - As per Dr. Elkins, patient is clear for discharge from a GI standpoint and may f/u with him as outpatient - Likely due to hemorrhoids with increased INR - Should hopefully resolve with the normalization of her INR as coumadin will be discontinued indefinitely - Hg stable 3) Chest pain, ACS ruled out. Presence of large loculated pleural effusion - Also with history of severe TR with elevated PAP - Dr. Flannery on consultation for cardiology- states effusion is stable, nothing to do at this time - EKG shows no signs of pericarditis - Troponins negative x 3 4) ESRD on dialysis T--SAT - AV fistula appears to be working well as she just had dialysis 11/28 - Normovolemic at this time - Monitor electrolytes, BUN/CR - Dr. Barone on consultation from nephrology 5) Hypertension, improved somewhat - Continue Clonidine 0.3 mg po q 8 hours - Continue Norvasc 10 mg po daily - Increase Lopressor to 50 mg po BID from 25 mg - continue Hydralazine 10 mg po TID and will increase if patient's hypertension continues to be uncontrolled. 6) Hyperlipidemia - Continue statin 7) Anemia of chronic disease - Continue Procrit - Chronic - Appears stable, will continue to monitor w/ high INR and increased rectal bleeding reported by patient 8) DVT prophylaxis - SCDs when INR <2.0
[2017-12-02 00:41] VITALS: RESP 18
[2017-12-02 05:43] LABS: HEMOGLOBIN 9.3 g/dL (12.0-16.0); MEAN CELL VOLUME 96.9 fl (81.0-99.0); MEAN CORPUSCULAR HEMOGLOBIN 31.3 pg (27.0-31.0); MEAN CORPUSCULAR HGB CONC 32.3 g/dL (33.0-37.0); RBC 2.96 Mil/uL (3.80-5.20); RED CELL DISTRIBUTION WIDTH 16.3 % (11.5-14.5); WHITE BLOOD COUNT 3.2 K/uL (4.8-10.8)
[2017-12-02 05:48] LABS: PARTIAL THROMBOPLASTIN TIME 34.6 Seconds (25.6-37.1); PROTHROMBIN TIME 22.5 Seconds (9.8-13.1)
[2017-12-02 06:16] LABS: CALCIUM 9.4 mg/dL (8.4-10.2)
[2017-12-02 08:16] VITALS: BP 188/52; PULSE 95; TEMP 98.1; O2SAT 96
[2017-12-02] MEDS: Multivitamin Vitamin B Complex (Nephro-Vite) Tab PO SCH (09:15)
[2017-12-02] MEDS: Pantoprazole 40 mg EC Tab PO SCH (09:17)
[2017-12-02] MEDS: EPOETIN ALFA 10,000 UNIT/ML ML IV SCH (09:40)
--- NOTE | 2017-12-02 16:40 | CP.PCM.DIS ---
Provider - Provider Date of Admission: 11/28/17 23:46 Attending physician: Imer Galeano DO Primary care physician: Dr. Dr Hieu Martin Consults: Dr. Elkins- GI Dr. Barone- Nephrology Dr. Flannery- Cardiology Time Spent in preparation of Discharge (in minutes): 25 Hospital Course - Lab Results Lab Results: Micro Results 11/28/17 22:30 Blood-Venous Blood Culture - Preliminary NO GROWTH AFTER 3 DAYS Most Recent Lab Values WBC 3.2 K/uL (4.8-10.8) L 12/02/17 04:45 RBC 2.96 Mil/uL (3.80-5.20) L 12/02/17 04:45 Hgb 9.3 g/dL (12.0-16.0) L 12/02/17 04:45 Hct 28.7 % (34.0-47.0) L 12/02/17 04:45 MCV 96.9 fl (81.0-99.0) 12/02/17 04:45 MCH 31.3 pg (27.0-31.0) H 12/02/17 04:45 MCHC 32.3 g/dL (33.0-37.0) L 12/02/17 04:45 RDW 16.3 % (11.5-14.5) H 12/02/17 04:45 Plt Count 133 K/uL (130-400) 12/02/17 04:45 MPV 8.2 fl (7.2-11.7) 11/28/17 22:38 Neut % (Auto) 62.2 % (50.0-75.0) 11/28/17 22:38 Lymph % (Auto) 19.9 % (20.0-40.0) L 11/28/17 22:38 Curry % (Auto) 12.4 % (0.0-10.0) H 11/28/17 22:38 Eos % (Auto) 3.2 % (0.0-4.0) 11/28/17 22:38 Baso % (Auto) 2.3 % (0.0-2.0) H 11/28/17 22:38 Neut # (Auto) 2.6 K/uL (1.8-7.0) 11/28/17 22:38 Lymph # (Auto) 0.8 K/uL (1.0-4.3) L 11/28/17 22:38 [place] # (Auto) 0.5 K/uL (0.0-0.8) 11/28/17 22:38 Eos # (Auto) 0.1 K/uL (0.0-0.7) 11/28/17 22:38 Baso # (Auto) 0.1 K/uL (0.0-0.2) 11/28/17 22:38 PT 22.5 Seconds (9.8-13.1) H D 12/02/17 04:45 INR 2.0 (0.9-1.2) H D 12/02/17 04:45 APTT 34.6 Seconds (25.6-37.1) 12/02/17 04:45 Sodium 139 mmol/l (132-148) 12/02/17 04:45 Potassium 3.9 MMOL/L (3.6-5.0) 12/02/17 04:45 Chloride 94 mmol/L (98-107) L 12/02/17 04:45 Carbon Dioxide 31 mmol/L (22-30) H 12/02/17 04:45 Anion Gap 18 (10-20) 12/02/17 04:45 BUN 12 mg/dl (7-17) 12/02/17 04:45 Creatinine 2.9 mg/dl (0.7-1.2) H 12/02/17 04:45 Est GFR ( Amer) 20 12/02/17 04:45 Est GFR (Non-Af Amer) 16 12/02/17 04:45 Random Glucose 99 mg/dL (65-105) 12/02/17 04:45 Calcium 9.4 mg/dL (8.4-10.2) 12/02/17 04:45 Phosphorus 3.7 mg/dl (2.5-4.5) 11/28/17 22:38 Magnesium 2.3 MG/DL (1.6-2.3) 11/28/17 22:38 Total Bilirubin 0.8 mg/dl (0.2-1.3) 11/28/17 22:38 AST 41 U/L (14-36) H D 11/28/17 22:38 ALT 28 U/L (9-52) 11/28/17 22:38 Alkaline Phosphatase 75 U/L (38-126) 11/28/17 22:38 Troponin I 0.0380 ng/mL (0.00-0.120) 11/29/17 14:22 Total Protein 6.7 G/DL (6.3-8.2) 11/28/17 22:38 Albumin 3.6 g/dL (3.5-5.0) 11/28/17 22:38 Globulin 3.1 gm/dL (2.2-3.9) 11/28/17 22:38 Albumin/Globulin Ratio 1.1 (1.0-2.1) 11/28/17 22:38 Influenza Typ A,B (EIA) Negative for flu a/b (NEGATIVE) 11/29/17 21:00 Blood Type A POSITIVE 11/28/17 22:38 Blood Type Confirm A POSITIVE 11/28/17 23:31 Antibody Screen Negative 11/28/17 22:38 BBK History Checked No verified bt 11/28/17 22:38 - Hospital Course Hospital Course: This is a 62 yo female with a past medical history of hypertension, CKD ESRD on dialysis T-TH-SAT for a number of years, who came to the ED on 11/29/2017 c/o chest pain, left sided, beginning 2 hours prior to arrival. The pain started at rest, is substernal, and radiates from her left chest to her left arm, feels like a pressure. The patient is also c/o some shortness of breath intermittently. She is also complaining that her AV shunt seems to be more swollen; however it is not painful or erythematous and she recieved dialysis on 11/28 successfully. She has noticed increased bruising on the left arm and some epistaxis yesterday so she has stopped taking her Coumadin yesterday evening. Of note she was being bridged onto Coumadin from Lovenox and so she was on Lovenox and Coumadin. In the ED, she was found to have INR elevated at 5.3 and PTT of 45.9. Her Hg is 9.3, which is a little lower than her baseline of around 9.8. She has known hemorrhoids for which she has noticed a few drops of bleeding occasionally during BM; however no signs of melena or arleen bleeding. During her stay, she was ruled out for acute coronary syndrome. Dr. Flannery saw the patient and stated that her pericardial effusion was stable and there was no need for intervention. She did continue to have intermittent rectal bleeding , and due to this Dr. Flannery recommended holding all anticoagulation and obtaining IVC filter to prevent pulmonary embolism. However, the patietn ended up refusing this. She was also seen by Dr. Elkins who stated that being as her hemoglobin has remained stable there was no need for further workup at this time from GI point of view and she could remain on Coumadin after discharge. During her stay she also received dialysis as scheduled T--WED. Today, the patient states that she feels much better and is chest pain free. She is being discharged to home today in stable condition. ASSESSMENT/PLAN 1) Supratherapeutic INR due to mild Coumadin toxicity, was on Coumadin due to DVT - Patient refused IVC filter - Will discharge her today on lower dose of Coumadin at 2 mg po daily (had 5 mg po daily previously) 2) Hemorrhoidal bleeding, chronic, improved today with decreased INR - As per Dr. Elkins, patient is clear for discharge from a GI standpoint and may f/u with him as outpatient - Likely due to hemorrhoids with increased INR - Should hopefully resolve with the normalization of her INR as coumadin will be discontinued indefinitely - Hg stable 3) Chest pain, ACS ruled out. Presence of large loculated pleural effusion - Also with history of severe TR with elevated PAP - Dr. Flannery on consultation for cardiology- states effusion is stable, nothing to do at this time - EKG shows no signs of pericarditis - Troponins negative x 3 4) ESRD on dialysis T--WED - AV fistula working well - Normovolemic at this time - Dr. Barone saw on consultation from nephrology 5) Uncontrolled hypertension, improved with increase of blood pressure medications - Continue Clonidine 0.3 mg po q 8 hours - Continue Norvasc 10 mg po daily - Increase Lopressor to 50 mg po BID from 25 mg - Increase Hydralazine to 25 mg po TID for discharge 6) Hyperlipidemia - Continue statin 7) Anemia of chronic disease - Continue Procrit - Chronic - Appears stable, will continue to monitor w/ high INR and increased rectal bleeding reported by patient 8) DVT prophylaxis - Had supratherapeutic INR during admission, discharging with Coumadin Discharge Exam - Head Exam Head Exam: NORMOCEPHALIC - Additional Findings Additional findings: Physical exam: Constitutional- cooperative, awake, alert Head- NCAT, PERRL Eye- PERRL, EOMI ENT- normal exam, MMM. Neck- normal inspection, supple, no JVD Respiratory- CTAB, no wheezes rales rhonchi Cardiovascular- RRR, +S1, +S2, systolic ejection murmur radiating up into the carotids GI/Abdominal- normal bowel sounds, soft, no mass, no hsm Skin- warm, dry. Extremities Exam- + right brachial AV fistula noted, good bruit, no erythema, currently getting hemodialysis successfully. . normal capillary refill. Ecchymosis on the left upper extremity. +1 pitting edema bilateral lower extremities Neurological Exam- alert, awake, oriented Psych- normal mood, normal affect Discharge Plan - Discharge Medications Prescriptions: amLODIPine [Norvasc] 10 mg PO DAILY #30 tab Atorvastatin [Lipitor] 20 mg PO DAILY #30 tab B Complex W-C No.20/Folic Acid [Triphrocaps Softgel] 1 mg PO DAILY #30 capsule B Complex W-C No.20/Folic Acid [Nephrocaps Softgel] 1 cap PO DAILY #30 capsule Calcium Acetate [Phoslo] 667 mg PO WM #90 capsule cloNIDine [Catapres] 0.3 mg PO Q8 #90 tab Docusate [Colace] 100 mg PO BID PRN #60 cap PRN Reason: Constipation Doxercalciferol [Hectorol] 2 mcg PO TTS #12 cap Esomeprazole Magnesium [Nexium] 40 mg PO DAILY #30 capsule. hydrALAZINE [Apresoline] 25 mg PO TID #90 tab Metoprolol Tartrate [Lopressor] 50 mg PO Q12H #60 tab Vitamin B Complex/Vit C/Folic [Nephro-Leslie] 1 tab PO DAILY #30 tab Warfarin [Coumadin] 2 mg PO 1800 #30 tab - Follow Up Plan Condition: IMPROVED Disposition: HOME/ ROUTINE Instructions: Chest Pain (DC), Anti-Clotting Medicines: Warfarin (Coumadin)
== END 2017-12-02 12:31 | disposition home or self-care (01) | DRG 947 ==
LOC: H.ER 21:20 → H.ERHOLD 23:46 → H.TEL 11-29 09:03
PROVIDERS: ADMIT Internal Medicine; ATTEND Internal Medicine
PROC: 5A1D70Z Performance of Urinary Filtration, Intermittent, Less than 6 Hours Per Day (ICD-10-PCS; principal; 2017-11-28)
DX: R79.1 Abnormal coagulation profile (principal); N18.6 End stage renal disease; I13.2 Hypertensive heart and chronic kidney disease with heart failure and with stage 5 chronic kidney disease, or end stage renal disease; J90 Pleural effusion, not elsewhere classified; I27.20 Pulmonary hypertension, unspecified; I07.1 Rheumatic tricuspid insufficiency; I31.3 Pericardial effusion (noninflammatory); Q61.3 Polycystic kidney, unspecified; K62.5 Hemorrhage of anus and rectum; E78.00 Pure hypercholesterolemia, unspecified; I50.9 Heart failure, unspecified; I25.10 Atherosclerotic heart disease of native coronary artery without angina pectoris; I73.9 Peripheral vascular disease, unspecified; D63.8 Anemia in other chronic diseases classified elsewhere; E78.5 Hyperlipidemia, unspecified; K64.9 Unspecified hemorrhoids; Z79.01 Long term (current) use of anticoagulants; Z86.718 Personal history of other venous thrombosis and embolism; Z99.2 Dependence on renal dialysis; Z53.20 Procedure and treatment not carried out because of patient's decision for unspecified reasons; T45.515A Adverse effect of anticoagulants, initial encounter; K59.00 Constipation, unspecified; R07.89 Other chest pain

== ENCOUNTER 2017-12-06 13:07 | Inpatient (IN) | payer MEDICAID, OTHER ==
[2017-12-06 13:08] VITALS: BMI 28.8
--- NOTE | 2017-12-06 13:26 | ED PDOC ---
Lower Extremity Pain/Injury Time Seen by Provider: 12/06/17 13:19 Chief Complaint (Nursing): Lower Extremity Problem/Injury History Per: Family Onset/Duration Of Symptoms: Days (2) Current Symptoms Are (Timing): Still Present Severity: Moderate Pain Scale Rating Of: 5 Additional Complaint(s): Right hip pain since yesterady. Pain radiates down leg. No trauma. H/o ESRD last dialyzed 2 days ago. Past Medical History Vital Signs: Last Vital Signs Temp 99.3 F 12/06/17 13:10 Pulse 89 12/06/17 13:10 Resp 16 12/06/17 13:10 BP 171/76 H 12/06/17 13:10 Pulse Ox 99 12/06/17 13:10 - Medical History PMH: CHF, HTN, Hypercholesterolemia, Peripheral Edema, End Stage Renal Disease ( Dialysis - //Wed), Chronic Kidney Disease - Surgical History Surgical History: Hernia Repair - Family History Family History: States: Unknown Family Hx - Immunization History Hx Tetanus Toxoid Vaccination: No Hx Influenza Vaccination: No Hx Pneumococcal Vaccination: No - Home Medications Home Medications: Ambulatory Orders Medication Instructions Recorded Epoetin Chris [Procrit] 10,000 unit IV TTS #3 ml 11/20/17 Acetaminophen [Tylenol 325mg tab] 650 mg PO Q6 PRN tab 12/02/17 Atorvastatin [Lipitor] 20 mg PO DAILY #30 tab 12/02/17 B Complex W-C No.20/Folic Acid 1 cap PO DAILY #30 capsule 12/02/17 [Nephrocaps Softgel] B Complex W-C No.20/Folic Acid 1 mg PO DAILY #30 capsule 12/02/17 [Triphrocaps Softgel] Calcium Acetate [Phoslo] 667 mg PO WM #90 capsule 12/02/17 Docusate [Colace] 100 mg PO BID PRN #60 cap 12/02/17 Doxercalciferol [Hectorol] 2 mcg PO TTS #12 cap 12/02/17 Esomeprazole Magnesium [Nexium] 40 mg PO DAILY #30 capsule.dr 12/02/17 Metoprolol Tartrate [Lopressor] 50 mg PO Q12H #60 tab 12/02/17 Vitamin B Complex/Vit C/Folic 1 tab PO DAILY #30 tab 12/02/17 [Nephro-Leslie] Warfarin [Coumadin] 2 mg PO 1800 #30 tab 12/02/17 amLODIPine [Norvasc] 10 mg PO DAILY #30 tab 12/02/17 cloNIDine [Catapres] 0.3 mg PO Q8 #90 tab 12/02/17 hydrALAZINE [Apresoline] 25 mg PO TID #90 tab 12/02/17 - Allergies Allergies/Adverse Reactions: Allergies Allergy/AdvReac Type Severity Reaction Status Date / Time aspirin Allergy PAIN Verified 11/28/17 21:23 Penicillins Allergy RASH Verified 11/18/17 14:03 Review of Systems ROS Statement: Except As Marked, All Systems Reviewed And Found Negative Musculoskeletal: Positive for: Other (Right hip pain) Physical Exam - Reviewed Nursing Documentation Reviewed: Yes Vital Signs Reviewed: Yes - Physical Exam Appears: Positive for: Non-toxic, Uncomfortable Head Exam: Positive for: ATRAUMATIC, NORMAL INSPECTION, NORMOCEPHALIC Skin: Positive for: Warm. Negative for: Normal Color (Multiple ecchymosis on arms abd and lower ext bilat.) Eye Exam: Positive for: EOMI, Normal appearance, PERRL ENT: Positive for: Normal ENT Inspection Neck: Positive for: Normal, Painless ROM Cardiovascular/Chest: Positive for: Regular Rate, Rhythm Respiratory: Positive for: CNT, Normal Breath Sounds Gastrointestinal/Abdominal: Positive for: Normal Exam, Bowel Sounds, Soft Extremity: Positive for: Other (Tenderness right hip. No deformity. Pain on flexion and adduction.) Neurologic/Psych: Positive for: Alert, Oriented - Laboratory Results Result Diagrams: 12/06/17 14:09 12/06/17 15:16 - ECG O2 Sat by Pulse Oximetry: 99 Disposition - Clinical Impression Clinical Impression: Chronic hip pain - Patient ED Disposition Is Patient to be Admitted: Transfer of Care - Disposition Disposition: Transfer of Care Disposition Time: 16:53 Condition: FAIR Forms: [employer] (Polish) Patient Signed Over To: Jatin Villalpando
[2017-12-06 14:25] LABS: BASO # 0.1 K/uL (0.0-0.2); BASO % 1.3 % (0.0-2.0); EOS # 0.1 K/uL (0.0-0.7); HEMOGLOBIN 9.9 g/dL (12.0-16.0); LYMPH # 0.9 K/uL (1.0-4.3); LYMPH % 14.4 % (20.0-40.0); MEAN CELL VOLUME 96.8 fl (81.0-99.0); MEAN CORPUSCULAR HEMOGLOBIN 31.3 pg (27.0-31.0); MEAN CORPUSCULAR HGB CONC 32.4 g/dL (33.0-37.0); MEAN PLATELET VOLUME 7.9 fl (7.2-11.7); MONO # 0.5 K/uL (0.0-0.8); MONO % 8.5 % (0.0-10.0); NEUT # 4.8 K/uL (1.8-7.0); NEUT % 74.8 % (50.0-75.0); NRBC % 0.1 % (0.0-0.0); RBC 3.15 Mil/uL (3.80-5.20); RED CELL DISTRIBUTION WIDTH 17.7 % (11.5-14.5); WHITE BLOOD COUNT 6.4 K/uL (4.8-10.8)
--- NOTE | 2017-12-06 15:17 | RAD ---
PROCEDURE: Right hip 12/06/2017 AP views of the pelvis performed. HISTORY: pain COMPARISON: Correlation made with CT scan abdomen pelvis dated 11/18/2017 which image the right hip in 3 planes FINDINGS: BONES: No evidence of acute displaced fracture nor dislocation. The osseous structures appear intact. Both femoral heads appropriately located within the respective acetabula. JOINTS: Normal. SOFT TISSUES: Multiple calcified buttock injection granulomas are present bilaterally right greater than left OTHER FINDINGS: None. IMPRESSION: No evidence of acute displaced fracture nor dislocation. There is a history of trauma and symptoms persist, consider followup CT scan the hip. .
[2017-12-06 15:42] LABS: ALB/GLOB RATIO 1.1 (1.0-2.1); ALBUMIN 3.7 g/dL (3.5-5.0); CALCIUM 9.9 mg/dL (8.4-10.2); PROTHROMBIN TIME 11.1 Seconds (9.8-13.1)
[2017-12-06] MEDS ORDERED: Oxycodone/Acetaminophen 5/325 mg Tab PO STA (16:24)
[2017-12-06] MEDS ORDERED: Oxycodone/Acetaminophen 5/325 mg Tab ONE (16:52)
--- NOTE | 2017-12-06 17:58 | CARD ---
APPROVED REPORT EKG Measurement Heart [id number] <Conclusion> Normal sinus rhythm Nonspecific ST and T wave abnormality Abnormal ECG
--- NOTE | 2017-12-06 18:31 | ED PDOC ---
- Laboratory Results Result Diagrams: 12/06/17 14:09 12/06/17 15:16 - ECG O2 Sat by Pulse Oximetry: 99 Pulse Ox Interpretation: Normal Disposition Counseled Patient/Family Regarding: Studies Performed, Diagnosis, Need For Followup - Clinical Impression Clinical Impression: Chronic hip pain - POA Present On Arrival: None - Disposition Referrals: [facility] [Outside] Disposition: Hospitalized as Observation Patient Disposition Time: 18:31 Condition: GOOD Forms: [facility] (Faroese)
[2017-12-06] MEDS ORDERED: Albuterol 0.083% Inhal Sol (2.5 mg/3 mL) UD IH PRN (18:38)
--- NOTE | 2017-12-06 18:38 | CP.PCM.HP ---
History of Present Illness - History of Present Illness History of Present Illness: CC: hip pain 62 F PMH ESRD TTS (Dr. Barone), HTN, HLD, recently discharged for Coumadin toxicity, presents with a one day history of severe hip pain radiating down from her buttock to her anterior thigh and down her leg, electric-like in nature. Patient was given morphine in ED without relief and is unable to ambulate at this time. Patient to be placed on OBS for intractable sciatica pain. Pt for HD tomorrow as well, Dr. Barone. HD stable, NAD. ROS: per HPI all other systems reviewed and negative. Present on Admission - Present on Admission Any Indicators Present on Admission: No Past Patient History - Tetanus Immunizations Tetanus Immunization: Unknown - Past Medical History & Family History Past Medical History?: Yes - Past Social History Smoking Status: Never Smoked - CARDIAC Hx Congestive Heart Failure: Yes Hx Hypercholesterolemia: Yes Hx Hypertension: Yes Hx Peripheral Edema: Yes - PULMONARY Hx Respiratory Disorders: Yes - NEUROLOGICAL Hx Neurological Disorder: No - HEENT Hx HEENT Problems: No - RENAL Hx Chronic Kidney Disease: Yes - ENDOCRINE/METABOLIC Hx Endocrine Disorders: No - HEMATOLOGICAL/ONCOLOGICAL Hx Blood Disorders: No - INTEGUMENTARY Hx Dermatological Problems: No - MUSCULOSKELETAL/RHEUMATOLOGICAL Hx Musculoskeletal Disorders: No Hx Falls: No - GASTROINTESTINAL Hx Gastrointestinal Disorders: No Hx Hemorrhoids: Yes - GENITOURINARY/GYNECOLOGICAL Hx Genitourinary Disorders: No - PSYCHIATRIC Hx Psychophysiologic Disorder: No Hx Substance Use: No - SURGICAL HISTORY Hx Section: Yes Hx Herniorrhaphy: Yes Hx Vascular Surgery: Yes Hx Vascular Access Device: Yes (AV FISTULA) Other/Comment: FOOT SURGERY - ANESTHESIA Hx Anesthesia: Yes Hx Anesthesia Reactions: Yes Hx Malignant Hyperthermia: No Meds Allergies/Adverse Reactions: Allergies Allergy/AdvReac Type Severity Reaction Status Date / Time aspirin Allergy PAIN Verified 11/28/17 21:23 Penicillins Allergy RASH Verified 11/18/17 14:03 Physical Exam - Constitutional Appears: Non-toxic, No Acute Distress - Head Exam Head Exam: ATRAUMATIC, NORMOCEPHALIC - Eye Exam Eye Exam: EOMI, Normal appearance, PERRL - ENT Exam ENT Exam: Mucous Membranes Moist, Normal Oropharynx - Respiratory Exam Respiratory Exam: Clear to Auscultation Bilateral, NORMAL BREATHING PATTERN - Cardiovascular Exam Cardiovascular Exam: RRR, +S1, +S2 - GI/Abdominal Exam GI & Abdominal Exam: Normal Bowel Sounds, Soft. absent: Mass, Organomegaly, Tenderness - Extremities Exam Extremities exam: Positive for: normal capillary refill, pedal pulses present - Back Exam Back exam: absent: CVA tenderness (L), CVA tenderness (R) - Neurological Exam Neurological exam: Alert, Oriented x3 - Psychiatric Exam Psychiatric exam: Normal Affect, Normal Mood - Skin Skin Exam: Dry, Warm Results - Vital Signs Recent Vital Signs: Last Vital Signs Temp 99.3 F 12/06/17 13:10 Pulse 89 12/06/17 13:10 Resp 16 12/06/17 13:10 BP 171/76 H 12/06/17 13:10 Pulse Ox 99 12/06/17 18:32 - Labs Result Diagrams: 12/06/17 14:09 12/06/17 15:16 Labs: Laboratory Results - last 24 hr 12/06/17 12/06/17 12/06/17 14:09 15:16 15:16 WBC 6.4 D RBC 3.15 L Hgb 9.9 L Hct 30.5 L MCV 96.8 MCH 31.3 H MCHC 32.4 L RDW 17.7 H Plt Count 187 MPV 7.9 Neut % (Auto) 74.8 Lymph % (Auto) 14.4 L [place] % (Auto) 8.5 Eos % (Auto) 1.0 Baso % (Auto) 1.3 Neut # (Auto) 4.8 Lymph # (Auto) 0.9 L [place] # (Auto) 0.5 Eos # (Auto) 0.1 Baso # (Auto) 0.1 PT 11.1 INR 1.0 Sodium 142 Potassium 4.9 Chloride 95 L Carbon Dioxide 28 Anion Gap 24 H BUN 33 H Creatinine 5.8 H Est GFR ( Amer) 9 Est GFR (Non-Af Amer) 7 Random Glucose 94 Calcium 9.9 Total Bilirubin 0.6 AST 26 ALT 23 Alkaline Phosphatase 90 Total Protein 6.9 Albumin 3.7 Globulin 3.2 Albumin/Globulin Ratio 1.1 Assessment & Plan - Assessment and Plan (Free Text) Plan: 62 F PMH ESRD TTS (Dr. Barone), HTN, HLD, recently discharged for Coumadin toxicity, presents with a one day history of severe hip pain radiating down from her buttock to her anterior thigh and down her leg, electric-like in nature. Patient was given morphine in ED without relief and is unable to ambulate at this time. Patient to be placed on OBS for intractable sciatica pain. Pt for HD tomorrow as well, Dr. Barone. HD stable, NAD. Sciatica Pain - anesthesia consult for pain mgmt / epidural? - gabapentin, motrin, percocet ESRD on HD TTS - Dr. Barone - HD tomorrow - B Complex W-C No.20/Folic Acid [Triphrocaps Softgel] 1 cap PO DAILY - Calcium Acetate 3 mg PO TID hx DVT - Warfarin [Coumadin] 5 mg PO DAILY - INR tomorrow HTN - continue home meds - Continue Clonidine 0.3 mg po q 8 hours - Continue Lopressor to 50 mg po BID - Patient was also discharged on Amlodipine and Hydralazine, however not on pt home meds CAD, HLD - Aspirin 81 mg PO DAILY - Atorvastatin [Lipitor] 20 mg PO DAILY GERD - Esomeprazole Magnesium [Nexium] 40 mg PO DAILY VTE on Coumadin
[2017-12-06] MEDS: Docusate-Senna 50 mg-8.6 mg Tab PO SCH (21:30)
--- NOTE | 2017-12-07 00:07 | CP.PCM.PN ---
Subjective - Date & Time of Evaluation Date of Evaluation: 12/06/17 Time of Evaluation: 20:45 - Subjective Subjective: pt is seen andexamined, follow up consult is dictated #[id number] Objective - Vital Signs/Intake and Output Vital Signs (last 24 hours): Temp Pulse Resp BP Pulse Ox 99.5 F 91 H 18 178/61 H 100 12/06/17 20:56 12/06/17 21:30 12/06/17 20:56 12/06/17 21:30 12/06/17 19:55 - Medications Medications: Current Medications Albuterol Sulfate (Albuterol 0.083% Inhal Latricia (2.5 Mg/3 Ml) Ud) 2.5 mg IH RQ6 PRN PRN Reason: Shortness of Breath Aspirin (Ecotrin) 81 mg PO DAILY [facility] Atorvastatin Calcium (Lipitor) 20 mg PO DAILY [facility] Calcium Acetate (Phoslo) 2,001 mg PO TID [facility] Clonidine HCl (Catapres) 0.3 mg PO Q8 [facility] Gabapentin (Neurontin) 100 mg PO TID [facility] Home Med (B Complex W-C No.20/Folic Acid [Triphrocaps Softgel]) 1 cap PO DAILY [facility] Ibuprofen (Motrin Tab) 400 mg PO Q6H PRN PRN Reason: Pain, moderate (4-7) Last Admin: 12/06/17 19:48 Dose: 400 mg Metoprolol Tartrate (Lopressor) 50 mg PO Q12 [facility] Last Admin: 12/06/17 21:30 Dose: 50 mg Ondansetron HCl (Zofran Inj) 4 mg IVP Q6 PRN PRN Reason: Nausea/Vomiting Last Admin: 12/06/17 23:16 Dose: 4 mg Pantoprazole Sodium (Protonix Ec Tab) 40 mg PO DAILY [facility] Senna/Docusate Sodium (Senokot S 50 Mg-8.6 Mg) 1 tab PO HS [facility] Last Admin: 12/06/17 21:30 Dose: 1 tab Warfarin Sodium (Coumadin) 5 mg PO DAILY [facility] PRN Reason: Protocol - Labs Labs: 12/06/17 14:09 12/06/17 15:16 PT 11.1 Seconds (9.8-13.1) 12/06/17 15:16 INR 1.0 (0.9-1.2) 12/06/17 15:16
[2017-12-07 06:22] LABS: HEMOGLOBIN 9.4 g/dL (12.0-16.0); MEAN CELL VOLUME 96.8 fl (81.0-99.0); MEAN CORPUSCULAR HEMOGLOBIN 31.9 pg (27.0-31.0); MEAN CORPUSCULAR HGB CONC 32.9 g/dL (33.0-37.0); RBC 2.94 Mil/uL (3.80-5.20); WHITE BLOOD COUNT 3.9 K/uL (4.8-10.8)
[2017-12-07 06:31] LABS: INR 1.2 (0.9-1.2); PROTHROMBIN TIME 13.7 Seconds (9.8-13.1)
[2017-12-07 06:47] LABS: CALCIUM 9.6 mg/dL (8.4-10.2)
--- NOTE | 2017-12-07 07:03 | PN ---
DATE: The patient is located in room 665, bed 1. Requested by Dr. Deepika Andrea. REASON FOR RENAL CONSULTATION: End-stage renal disease, for continuation of hemodialysis and also right leg pain. SUBJECTIVE: Mrs. Alexis is a 62-year-old elderly, very pleasant female with a history of longstanding hypertension, polycystic kidney disease, end-stage renal disease, history of UTI in the past and also DVT in the right leg, noncompliance with Coumadin, who was recently discharged from [facility] last week, now admitted with chief complaints of pain in the right hip and also the pain radiates to the posterior thigh and also to the anterior aspect of the thigh for the last few days. Now, the patient has difficulty ambulating today. Denies any fever or cough. Denies any chest pain or palpitation. Denies any nausea, vomiting. Occasional gross hematuria as per the patient's at bedside. PHYSICAL EXAMINATION: VITAL SIGNS: As follows: Blood pressure 178/61, pulse 91, respiration about 18, temperature 99.5, saturation 100%. Height 5 feet 3 inches, weight is 134 pounds. GENERAL: Mrs. Alexis is a 62-year-old elderly female, moderately built, moderately nourished, not in distress except pain in the right leg. HEENT: Pupils normal and reactive to light and accommodation. Conjunctivae pink. Sclerae anicteric. Tongue is moist. Trachea is midline. LUNGS: Symmetric on both sides. Bilateral breath sounds present. Clear on auscultation. CVS: [place] at the fifth intercostal space, midclavicular line. S1 and S2 audible. No murmur or gallop. ABDOMEN: Normal in appearance, soft, tympanic. No guarding. No rigidity. The patient has tenderness in the right flank and also pain in the right gluteal region. EXTREMITIES: No cyanosis, no clubbing, no edema. CURRENT MEDICATIONS: Include as follows: Albuterol inhaler, clonidine 0.3 mg p.o. q.8 hours, Coumadin 5 mg p.o. daily, Ecotrin 81 mg daily, Lipitor 200 mg p.o. daily, Lopressor 50 mg p.o. q.12 hours, ibuprofen 400 mg p.o. q.6, Neurontin 100 mg p.o. t.i.d., PhosLo 667 mg three tablets p.o. t.i.d., Protonix 40 mg p.o. daily, Senokot, and Zofran 4 mg IV q.6 hours. LABORATORY DATA: Include as follows: As of 12/06/2017: WBC 6.4, hemoglobin 9.9, hematocrit is 30.4, platelets 187. PT 11.1. Sodium 142, potassium 4.9, chloride 95, CO2 is 28, BUN 33, creatinine 5.8, glucose 94, calcium 9.9. Total bili 0.6, AST 26, ALT 23, alkaline phos 90, total protein 6, albumin is 3.7. X-ray of the hip as of 12/06/2017: No evidence of acute displayed fracture or dislocation and the osseous structures appear intact. Both femoral heads are appropriately located within the respective acetabulum. Multiple calcified buttock injection granulomas are present bilaterally, right greater than the left. No evidence of acute displaced fracture or dislocation. There is a history of trauma, her symptoms persist. Consider followup CT scan of the hip. In summary, Mrs. Alexis is a 62-year-old elderly female with a history of hypertension, polycystic kidney disease, secondary hyperparathyroidism, pericardial effusion, right lower extremity DVT, was admitted with pain in the right flank and also right gluteal region, pain radiating to the right leg, mostly posterior, and also to the anterior aspect of the thigh. 1. End-stage renal disease. Continue hemodialysis three times a week, Wednesday, , Wednesday. 2. Hypertension. Blood pressure is stable. Continue clonidine. Also continue Lopressor and continue calcium acetate. Continue Coumadin. Consider neurology evaluation. Consider CT scan of the lumbosacral spine to rule out sciatica, degenerative joint disease. Continue her Coumadin, and we will follow with you. Thank you for allowing me to participate in your patient's care. Alicia Barone MD
[2017-12-07] MEDS ORDERED: Doxercalciferol 4 mcg/2 ml Inj IV SCH (08:00)
[2017-12-07] MEDS: Pantoprazole 40 mg EC Tab PO SCH (08:30)
[2017-12-07] MEDS ORDERED: Multivitamin Vitamin B Complex (Nephro-Vite) Tab PO SCH (09:00)
[2017-12-07] MEDS ORDERED: Calcium Acetate 667 MG Capsule PO SCH (09:00)
[2017-12-07] MEDS ORDERED: EPOETIN ALFA 10,000 UNIT/ML ML SC SCH (09:00)
[2017-12-07] MEDS: Multivitamin Vitamin B Complex (Nephro-Vite) Tab PO SCH (10:35)
[2017-12-07] MEDS: EPOETIN ALFA 10,000 UNIT/ML ML IV SCH (11:33)
--- NOTE | 2017-12-07 14:06 | CP.PCM.CON ---
History of Present Illness - History of Present Illness History of Present Illness: 62 yo woman w/ multiple comorbidities was admitted for intractable right hip and leg pain. Called to assess patient for possible injection. Chart reviewed. Patient complains of right sided pain from the lower back down to the right hip, inner thigh to the lower leg. X-ray showed arthritis but no overt fractures or dislocation. There are no further imaging studies during this admission or previously, such as CT scan or MRI. Of note, patient was on coumadin at home, though INR is subtherapeutic and she isn't on AC currently. Past Patient History - Tetanus Immunizations Tetanus Immunization: Unknown - Past Medical History & Family History Past Medical History?: Yes - Past Social History Smoking Status: Never Smoked - CARDIAC Hx Cardiac Disorders: Yes Hx Congestive Heart Failure: Yes Hx Hypercholesterolemia: Yes Hx Hypertension: Yes Hx Peripheral Edema: Yes - PULMONARY Hx Respiratory Disorders: No - NEUROLOGICAL Hx Neurological Disorder: No - HEENT Hx HEENT Problems: No - RENAL Hx Chronic Kidney Disease: Yes Hx Dialysis: Yes Type of Dialysis Access: Right AV fistula Date of Last Dialysis Treatment: 12/04/17 - ENDOCRINE/METABOLIC Hx Endocrine Disorders: No - HEMATOLOGICAL/ONCOLOGICAL Hx Blood Disorders: No - INTEGUMENTARY Hx Dermatological Problems: No - MUSCULOSKELETAL/RHEUMATOLOGICAL Hx Musculoskeletal Disorders: No Hx Falls: Yes - GASTROINTESTINAL Hx Gastrointestinal Disorders: Yes Hx Hemorrhoids: Yes - GENITOURINARY/GYNECOLOGICAL Hx Genitourinary Disorders: No - PSYCHIATRIC Hx Psychophysiologic Disorder: No - SURGICAL HISTORY Hx Surgeries: Yes Hx Section: Yes Hx Herniorrhaphy: Yes Hx Vascular Surgery: Yes Hx Vascular Access Device: Yes (AV FISTULA) Other/Comment: FOOT SURGERY - ANESTHESIA Hx Anesthesia: Yes Hx Anesthesia Reactions: Yes Hx Malignant Hyperthermia: No Meds Allergies/Adverse Reactions: Allergies Allergy/AdvReac Type Severity Reaction Status Date / Time aspirin Allergy PAIN Verified 11/28/17 21:23 Penicillins Allergy RASH Verified 11/18/17 14:03 - Medications Medications: Current Medications Albuterol Sulfate (Albuterol 0.083% Inhal Latricia (2.5 Mg/3 Ml) Ud) 2.5 mg IH RQ6 PRN PRN Reason: Shortness of Breath Aspirin (Ecotrin) 81 mg PO DAILY [facility] Last Admin: 12/07/17 08:31 Dose: 81 mg Atorvastatin Calcium (Lipitor) 20 mg PO DAILY [facility] Last Admin: 12/07/17 08:30 Dose: 20 mg Calcium Acetate (Phoslo) 2,001 mg PO TID [facility] Last Admin: 12/07/17 12:39 Dose: Not Given Clonidine HCl (Catapres) 0.3 mg PO Q8 [facility] Last Admin: 12/07/17 11:04 Dose: 0.3 mg Doxercalciferol (Hectorol) 2 mcg IV TTS@1700 [facility] Epoetin Chris (Procrit) 10,000 unit IV TTS [facility] Last Admin: 12/07/17 11:33 Dose: 10,000 unit Gabapentin (Neurontin) 100 mg PO TID [facility] Last Admin: 12/07/17 12:40 Dose: 100 mg Ibuprofen (Motrin Tab) 400 mg PO Q6H PRN PRN Reason: Pain, moderate (4-7) Last Admin: 12/06/17 19:48 Dose: 400 mg Metoprolol Tartrate (Lopressor) 50 mg PO Q12 [facility] Last Admin: 12/07/17 11:05 Dose: 50 mg Ondansetron HCl (Zofran Inj) 4 mg IVP Q6 PRN PRN Reason: Nausea/Vomiting Last Admin: 12/06/17 23:16 Dose: 4 mg Pantoprazole Sodium (Protonix Ec Tab) 40 mg PO DAILY [facility] Last Admin: 12/07/17 08:30 Dose: 40 mg Senna/Docusate Sodium (Senokot S 50 Mg-8.6 Mg) 1 tab PO HS [facility] Last Admin: 12/06/17 21:30 Dose: 1 tab Vitamin B Complex/Vit C/Folic Acid (Nephro-Leslie) 1 tab PO DAILY [facility] Last Admin: 12/07/17 10:35 Dose: 1 tab Physical Exam - Extremities Exam Additional comments: TTP over right greater trochanteric bursa. - Back Exam Back exam: paraspinal tenderness, vertebral tenderness Results - Vital Signs Recent Vital Signs: Last Vital Signs Temp 98.8 F 12/07/17 10:00 Pulse 77 12/07/17 11:05 Resp 18 12/07/17 10:00 BP 172/64 H 12/07/17 11:05 Pulse Ox 100 12/07/17 10:00 - Labs Result Diagrams: 12/07/17 05:45 12/07/17 05:45 Labs: Laboratory Results - last 24 hr 12/06/17 12/06/17 12/06/17 14:09 15:16 15:16 WBC 6.4 D RBC 3.15 L Hgb 9.9 L Hct 30.5 L MCV 96.8 MCH 31.3 H MCHC 32.4 L RDW 17.7 H Plt Count 187 MPV 7.9 Neut % (Auto) 74.8 Lymph % (Auto) 14.4 L Schley % (Auto) 8.5 Eos % (Auto) 1.0 Baso % (Auto) 1.3 Neut # (Auto) 4.8 Lymph # (Auto) 0.9 L Schley # (Auto) 0.5 Eos # (Auto) 0.1 Baso # (Auto) 0.1 PT 11.1 INR 1.0 APTT Sodium 142 Potassium 4.9 Chloride 95 L Carbon Dioxide 28 Anion Gap 24 H BUN 33 H Creatinine 5.8 H Est GFR ( Amer) 9 Est GFR (Non-Af Amer) 7 Random Glucose 94 Calcium 9.9 Total Bilirubin 0.6 AST 26 ALT 23 Alkaline Phosphatase 90 Total Protein 6.9 Albumin 3.7 Globulin 3.2 Albumin/Globulin Ratio 1.1 12/07/17 12/07/17 12/07/17 05:45 05:45 05:45 WBC 3.9 L RBC 2.94 L Hgb 9.4 L Hct 28.5 L MCV 96.8 MCH 31.9 H MCHC 32.9 L RDW 18.0 H Plt Count 153 MPV Neut % (Auto) Lymph % (Auto) Schley % (Auto) Eos % (Auto) Baso % (Auto) Neut # (Auto) Lymph # (Auto) Schley # (Auto) Eos # (Auto) Baso # (Auto) PT 13.7 H INR 1.2 APTT 28.0 Sodium 138 Potassium 5.5 H Chloride 94 L Carbon Dioxide 29 Anion Gap 21 H BUN 42 H Creatinine 6.9 H Est GFR ( Amer) 7 Est GFR (Non-Af Amer) 6 Random Glucose 90 Calcium 9.6 Total Bilirubin AST ALT Alkaline Phosphatase Total Protein Albumin Globulin Albumin/Globulin Ratio Assessment & Plan - Assessment and Plan (Free Text) Assessment: 62 yo woman w/ right sided lower back, hip and leg pain. Etiology is unclear. Patient exhibits right greater trochanteric bursitis on examination, but radiculopathy cannot be assumed and hip pathology cannot be ruled out without further MRI studies. Patient also has multiple comorbidities that may preclude her from receiving injection or surgery. - Lidoderm patch to right greater tronchanteric bursa - would need outpatient lumbar MRI and right hip MRI before further intervention can be considered - medication management for now - PT - dispo per primary team
[2017-12-07] MEDS: Lidocaine 5% Patch TD SCH (16:26)
[2017-12-07] MEDS: Doxercalciferol 4 mcg/2 ml Inj IV SCH (16:29)
[2017-12-07 17:08] LABS: HEPATITIS B SURFACE AG Negative (NEGATIVE)
[2017-12-07 17:13] LABS: HEPATITIS B CORE AB NEGATIVE (NEGATIVE)
[2017-12-07 17:25] LABS: HEPATITIS C ANTIBODY NEGATIVE (NEGATIVE)
--- NOTE | 2017-12-07 18:07 | CP.PCM.PN ---
Subjective - Date & Time of Evaluation Date of Evaluation: 12/07/17 Time of Evaluation: 13:30 - Subjective Subjective: Patient seen and examined bedside. Complains of pain to right hip radiating to the groin and anterior part of the thigh. Unable to ambulate. Refusing MRI hip and lower back Underwent HD today BP labile Objective - Vital Signs/Intake and Output Vital Signs (last 24 hours): Temp Pulse Resp BP Pulse Ox 100.7 F H 76 20 172/54 H 98 12/07/17 15:39 12/07/17 16:29 12/07/17 15:39 12/07/17 16:29 12/07/17 15:39 - Medications Medications: Current Medications Albuterol Sulfate (Albuterol 0.083% Inhal Latricia (2.5 Mg/3 Ml) Ud) 2.5 mg IH RQ6 PRN PRN Reason: Shortness of Breath Aspirin (Ecotrin) 81 mg PO DAILY [facility] Last Admin: 12/07/17 08:31 Dose: 81 mg Atorvastatin Calcium (Lipitor) 20 mg PO DAILY [facility] Last Admin: 12/07/17 08:30 Dose: 20 mg Calcium Acetate (Phoslo) 2,001 mg PO TID [facility] Last Admin: 12/07/17 16:29 Dose: 2,001 mg Clonidine HCl (Catapres) 0.3 mg PO Q8 [facility] Last Admin: 12/07/17 16:29 Dose: 0.3 mg Doxercalciferol (Hectorol) 2 mcg IV TTS@1700 [facility] Last Admin: 12/07/17 16:29 Dose: Not Given Epoetin Chris (Procrit) 10,000 unit IV TTS [facility] Last Admin: 12/07/17 11:33 Dose: 10,000 unit Gabapentin (Neurontin) 100 mg PO TID [facility] Last Admin: 12/07/17 16:29 Dose: 100 mg Ibuprofen (Motrin Tab) 400 mg PO Q6H PRN PRN Reason: Pain, moderate (4-7) Last Admin: 12/06/17 19:48 Dose: 400 mg Lidocaine (Lidoderm) 1 ea TD DAILY [facility] Last Admin: 12/07/17 16:26 Dose: 1 ea Metoprolol Tartrate (Lopressor) 50 mg PO Q12 [facility] Last Admin: 12/07/17 11:05 Dose: 50 mg Ondansetron HCl (Zofran Inj) 4 mg IVP Q6 PRN PRN Reason: Nausea/Vomiting Last Admin: 12/06/17 23:16 Dose: 4 mg Pantoprazole Sodium (Protonix Ec Tab) 40 mg PO DAILY [facility] Last Admin: 12/07/17 08:30 Dose: 40 mg Senna/Docusate Sodium (Senokot S 50 Mg-8.6 Mg) 1 tab PO HS [facility] Last Admin: 12/06/17 21:30 Dose: 1 tab Vitamin B Complex/Vit C/Folic Acid (Nephro-Leslie) 1 tab PO DAILY [facility] Last Admin: 12/07/17 10:35 Dose: 1 tab - Labs Labs: 12/07/17 05:45 12/07/17 05:45 PT 13.7 Seconds (9.8-13.1) H 12/07/17 05:45 INR 1.2 (0.9-1.2) 12/07/17 05:45 APTT 28.0 Seconds (25.6-37.1) 12/07/17 05:45 - Constitutional Appears: Non-toxic, No Acute Distress, Chronically Ill - Head Exam Head Exam: ATRAUMATIC, NORMAL INSPECTION, NORMOCEPHALIC - Eye Exam Eye Exam: EOMI, Normal appearance, PERRL Pupil Exam: NORMAL ACCOMODATION - ENT Exam ENT Exam: Mucous Membranes Moist, Normal Exam - Neck Exam Neck Exam: Full ROM, Normal Inspection - Respiratory Exam Respiratory Exam: Clear to Ausculation Bilateral, NORMAL BREATHING PATTERN. absent: Wheezes, Respiratory Distress - Cardiovascular Exam Cardiovascular Exam: Murmur (systolic). absent: JVD - GI/Abdominal Exam GI & Abdominal Exam: Soft, Normal Bowel Sounds. absent: Distended, Guarding, Tenderness, Rebound - Rectal Exam Rectal Exam: Deferred - Extremities Exam Extremities Exam: Normal Capillary Refill. absent: Calf Tenderness, Pedal Edema Additional comments: right hip decreased ROM due to pain - Back Exam Back Exam: NORMAL INSPECTION - Neurological Exam Neurological Exam: Alert, Awake, CN II-XII Intact, Oriented x3 - Psychiatric Exam Psychiatric exam: Normal Affect - Skin Skin Exam: Dry, Warm Additional comments: multiple upper extremity echymosis Assessment and Plan - Assessment and Plan (Free Text) Assessment: 62 y/o F with PMH ESRD TTS (Dr. Barone), HTN, HLD, recently discharged for Coumadin toxicity, presented with one day history of severe hip pain radiating down from her buttock to her anterior thigh and down her leg, electric -like in nature. Patient was given morphine in ED without relief and is unable to ambulate .She was placed under observation for intractable hip pain . Pain management consulted . Patient refusing MRI PT consulted and recommended [facility] . 1. Intractable right hip pain unclear etiology patient is unable to ambulate pain management consulted Started Lidoderm patch and gabapentin Refusing further imaging with MRI Continue PT as tolerated Will need [facility] 2.ESRD on HD TTS Nephrology Dr. Barone consulted Had HD today 3.hx DVT on Warfarin [Coumadin] 5 mg PO DAILY monitor iNR 4.HTN labile, uncontrolled Continue Clonidine 0.3 mg po q 8 hours, Lopressor to 50 mg po BID ,Amlodipine and Hydralazine 5.CAD, HLD stable on Aspirin 81 mg PO DAILY ,Atorvastatin [Lipitor] 20 mg PO DAILY 6.GERD Esomeprazole Magnesium [Nexium] 40 mg PO DAILY 7.VTE on Coumadin
[2017-12-07] MEDS: Docusate-Senna 50 mg-8.6 mg Tab PO SCH (21:20)
[2017-12-08 06:31] LABS: INR 2.2 (0.9-1.2); PROTHROMBIN TIME 24.2 Seconds (9.8-13.1)
[2017-12-08 06:40] LABS: HEMOGLOBIN 9.3 g/dL (12.0-16.0); MEAN CELL VOLUME 97.3 fl (81.0-99.0); MEAN CORPUSCULAR HEMOGLOBIN 31.3 pg (27.0-31.0); MEAN CORPUSCULAR HGB CONC 32.2 g/dL (33.0-37.0); RBC 2.98 Mil/uL (3.80-5.20); RED CELL DISTRIBUTION WIDTH 18.1 % (11.5-14.5); WHITE BLOOD COUNT 3.6 K/uL (4.8-10.8)
[2017-12-08 07:02] LABS: CALCIUM 9.8 mg/dL (8.4-10.2)
[2017-12-08] MEDS: Lidocaine 5% Patch TD SCH (08:54)
[2017-12-08] MEDS: Multivitamin Vitamin B Complex (Nephro-Vite) Tab PO SCH (08:54)
[2017-12-08] MEDS: Pantoprazole 40 mg EC Tab PO SCH (08:55)
--- NOTE | 2017-12-08 09:37 | CP.PCM.PN ---
Subjective - Date & Time of Evaluation Date of Evaluation: 12/08/17 Time of Evaluation: 14:30 - Subjective Subjective: Patient was seen and evaluated bedside. Feeling a little better but tired .Pain is better controlled . Participated with PT today No acute issues overnight. Minimal nasal bleed overnight Hemodynamically stable. Objective - Vital Signs/Intake and Output Vital Signs (last 24 hours): Temp Pulse Resp BP Pulse Ox 98.6 F 76 18 159/60 H 100 12/08/17 07:30 12/08/17 08:54 12/08/17 07:30 12/08/17 08:54 12/08/17 07:30 - Medications Medications: Current Medications Albuterol Sulfate (Albuterol 0.083% Inhal Latricia (2.5 Mg/3 Ml) Ud) 2.5 mg IH RQ6 PRN PRN Reason: Shortness of Breath Amlodipine Besylate (Norvasc) 10 mg PO DAILY [facility] Last Admin: 12/08/17 08:53 Dose: 10 mg Aspirin (Ecotrin) 81 mg PO DAILY [facility] Last Admin: 12/08/17 08:54 Dose: 81 mg Atorvastatin Calcium (Lipitor) 20 mg PO DAILY [facility] Last Admin: 12/08/17 08:55 Dose: 20 mg Calcium Acetate (Phoslo) 2,001 mg PO TID [facility] Last Admin: 12/08/17 08:48 Dose: 2,001 mg Clonidine HCl (Catapres) 0.3 mg PO Q8 [facility] Last Admin: 12/08/17 08:53 Dose: 0.3 mg Doxercalciferol (Hectorol) 2 mcg IV TTS@1700 [facility] Last Admin: 12/07/17 16:29 Dose: Not Given Epoetin Chris (Procrit) 10,000 unit IV TTS [facility] Last Admin: 12/07/17 11:33 Dose: 10,000 unit Gabapentin (Neurontin) 100 mg PO TID [facility] Last Admin: 12/08/17 08:54 Dose: 100 mg Hydralazine HCl (Apresoline) 25 mg PO TID [facility] Last Admin: 12/08/17 08:53 Dose: 25 mg Ibuprofen (Motrin Tab) 400 mg PO Q6H PRN PRN Reason: Pain, moderate (4-7) Last Admin: 12/06/17 19:48 Dose: 400 mg Lidocaine (Lidoderm) 1 ea TD DAILY [facility] Last Admin: 12/08/17 08:54 Dose: 1 ea Metoprolol Tartrate (Lopressor) 50 mg PO Q12 [facility] Last Admin: 12/08/17 08:54 Dose: 50 mg Ondansetron HCl (Zofran Inj) 4 mg IVP Q6 PRN PRN Reason: Nausea/Vomiting Last Admin: 12/06/17 23:16 Dose: 4 mg Pantoprazole Sodium (Protonix Ec Tab) 40 mg PO DAILY [facility] Last Admin: 12/08/17 08:55 Dose: 40 mg Senna/Docusate Sodium (Senokot S 50 Mg-8.6 Mg) 1 tab PO HS [facility] Last Admin: 12/07/17 21:20 Dose: 1 tab Vitamin B Complex/Vit C/Folic Acid (Nephro-Leslie) 1 tab PO DAILY [facility] Last Admin: 12/08/17 08:54 Dose: 1 tab - Labs Labs: 12/08/17 05:55 12/08/17 05:55 PT 24.2 Seconds (9.8-13.1) H D 12/08/17 05:55 INR 2.2 (0.9-1.2) H D 12/08/17 05:55 APTT 28.0 Seconds (25.6-37.1) 12/07/17 05:45 - Constitutional Appears: Non-toxic, No Acute Distress, Chronically Ill - Head Exam Head Exam: ATRAUMATIC, NORMAL INSPECTION, NORMOCEPHALIC - Eye Exam Eye Exam: EOMI, Normal appearance, PERRL Pupil Exam: NORMAL ACCOMODATION - ENT Exam ENT Exam: Mucous Membranes Moist, Normal Exam - Neck Exam Neck Exam: Normal Inspection - Respiratory Exam Respiratory Exam: Clear to Ausculation Bilateral, NORMAL BREATHING PATTERN. absent: Rhonchi, Wheezes, Respiratory Distress - Cardiovascular Exam Cardiovascular Exam: Murmur (systolic murmur). absent: JVD - GI/Abdominal Exam GI & Abdominal Exam: Soft, Normal Bowel Sounds. absent: Distended, Guarding, Rebound - Rectal Exam Rectal Exam: Deferred - Extremities Exam Extremities Exam: Normal Capillary Refill. absent: Pedal Edema Additional comments: right upper extremity AVF multiple upper extremity echymosis - Back Exam Back Exam: NORMAL INSPECTION - Neurological Exam Neurological Exam: Alert, Awake, CN II-XII Intact - Psychiatric Exam Psychiatric exam: Normal Affect - Skin Skin Exam: Dry, Warm Additional comments: multiple upper extremity echymosis Assessment and Plan - Assessment and Plan (Free Text) Assessment: 62 y/o F with PMH ESRD TTS (Dr. Barone), HTN, HLD, recently discharged for Coumadin toxicity, presented with one day history of severe right hip pain radiating down from her buttock to her anterior thigh and down her leg, electric -like in nature. Patient was given morphine in ED without relief and is unable to ambulate .She was placed under observation for intractable hip pain . Pain management consulted . Patient refusing MRI PT consulted and recommended [facility] .Given the fact that patient does not have insurance, trasfer to a [facility] facility is not possible. will continue Pt while in hospital Today participated with PT better and pain is more controlled 1. Intractable right hip pain unclear etiology patient was unable to ambulate pain management consulted Started Lidoderm patch and gabapentin Refusing further imaging with MRI Pt consulted and recommended [facility] but patient has no insurance. Will continue PT whilde in hospital until ready for discharge. Today able to participate more with PT and pain is better controlled . She ambulates with walker and cane at home. Will reevaluate in AM 2.ESRD on HD TTS Nephrology Dr. Barone consulted For HD in AM 3.hx DVT on Warfarin [Coumadin) 2mg PO DAILY INR 2.2 Will give 2 mg today ( given 5 mg the day prior) 4.HTN labile, uncontrolled Continue Clonidine 0.3 mg po q 8 hours, Lopressor to 50 mg po BID ,Amlodipine and Hydralazine 5.CAD, HLD stable on Aspirin 81 mg PO DAILY ,Atorvastatin [Lipitor] 20 mg PO DAILY 6.GERD Esomeprazole Magnesium [Nexium] 40 mg PO DAILY 7.VTE on Coumadin
--- NOTE | 2017-12-08 10:23 | CP.PCM.PN ---
Subjective - Date & Time of Evaluation Date of Evaluation: 12/08/17 Time of Evaluation: 10:23 - Subjective Subjective: pt is seen and examined, follow up consult is dictated #[id number] for hd in am, tts Objective - Vital Signs/Intake and Output Vital Signs (last 24 hours): Temp Pulse Resp BP Pulse Ox 98.6 F 76 18 159/60 H 98 12/08/17 09:37 12/08/17 09:37 12/08/17 09:37 12/08/17 09:37 12/08/17 09:37 - Medications Medications: Current Medications Albuterol Sulfate (Albuterol 0.083% Inhal Latricia (2.5 Mg/3 Ml) Ud) 2.5 mg IH RQ6 PRN PRN Reason: Shortness of Breath Amlodipine Besylate (Norvasc) 10 mg PO DAILY [facility] Last Admin: 12/08/17 08:53 Dose: 10 mg Aspirin (Ecotrin) 81 mg PO DAILY [facility] Last Admin: 12/08/17 08:54 Dose: 81 mg Atorvastatin Calcium (Lipitor) 20 mg PO DAILY [facility] Last Admin: 12/08/17 08:55 Dose: 20 mg Calcium Acetate (Phoslo) 2,001 mg PO TID [facility] Last Admin: 12/08/17 08:48 Dose: 2,001 mg Clonidine HCl (Catapres) 0.3 mg PO Q8 [facility] Last Admin: 12/08/17 08:53 Dose: 0.3 mg Doxercalciferol (Hectorol) 2 mcg IV TTS@1700 [facility] Last Admin: 12/07/17 16:29 Dose: Not Given Epoetin Chris (Procrit) 10,000 unit IV TTS [facility] Last Admin: 12/07/17 11:33 Dose: 10,000 unit Gabapentin (Neurontin) 100 mg PO TID [facility] Last Admin: 12/08/17 08:54 Dose: 100 mg Hydralazine HCl (Apresoline) 25 mg PO TID [facility] Last Admin: 12/08/17 08:53 Dose: 25 mg Ibuprofen (Motrin Tab) 400 mg PO Q6H PRN PRN Reason: Pain, moderate (4-7) Last Admin: 12/06/17 19:48 Dose: 400 mg Lidocaine (Lidoderm) 1 ea TD DAILY [facility] Last Admin: 12/08/17 08:54 Dose: 1 ea Metoprolol Tartrate (Lopressor) 50 mg PO Q12 [facility] Last Admin: 12/08/17 08:54 Dose: 50 mg Ondansetron HCl (Zofran Inj) 4 mg IVP Q6 PRN PRN Reason: Nausea/Vomiting Last Admin: 12/06/17 23:16 Dose: 4 mg Pantoprazole Sodium (Protonix Ec Tab) 40 mg PO DAILY [facility] Last Admin: 12/08/17 08:55 Dose: 40 mg Senna/Docusate Sodium (Senokot S 50 Mg-8.6 Mg) 1 tab PO HS [facility] Last Admin: 12/07/17 21:20 Dose: 1 tab Vitamin B Complex/Vit C/Folic Acid (Nephro-Leslie) 1 tab PO DAILY [facility] Last Admin: 12/08/17 08:54 Dose: 1 tab - Labs Labs: 12/08/17 05:55 12/08/17 05:55 PT 24.2 Seconds (9.8-13.1) H D 12/08/17 05:55 INR 2.2 (0.9-1.2) H D 12/08/17 05:55 APTT 28.0 Seconds (25.6-37.1) 12/07/17 05:45
[2017-12-08] MEDS: Docusate-Senna 50 mg-8.6 mg Tab PO SCH (21:49)
--- NOTE | 2017-12-09 07:25 | PN ---
DATE: 12/08/2017 FOLLOWUP RENAL CONSULTATION LOCATION: The patient is located in room 665, bed 1. REQUESTED BY: REASON FOR RENAL CONSULTATION: End-stage renal disease, continuation of hemodialysis. HISTORY OF PRESENT ILLNESS: Mr. Alexis is 62 years old elderly very pleasant [place] female with a past medical history significant for longstanding hypertension, polycystic kidney disease, end-stage renal disease, on hemodialysis three times a week, pericardial effusion, recently diagnosed DVT in the right lower extremity who was admitted with chief complaints of lower back pain and severe pain radiating to the right leg posterior aspect mostly, and the patient is on lidocaine patch. The patient is feeling slightly better but still not able to ambulate. No chest pain or palpitation. No fever. No cough. No abdominal pain. No nausea, vomiting, diarrhea. PHYSICAL EXAMINATION: VITAL SIGNS: As follows, blood pressure this morning 159/60, pulse 76, respirations 18, temperature 98.6, saturation 98%. Height 5 feet 3 inches, weight is 134 pounds. GENERAL: On physical exam, Mrs. Alexis is 62 years old elderly female, moderately built, moderately nourished, not in acute distress. HEENT: Pupils normal and reactive to light and accommodation. Conjunctivae pink. Sclerae anicteric. Tongue is moist. Trachea is midline. LUNGS: Symmetric on both sides. Bilateral breath sounds present. Clear on auscultation. CVS: [place] at the fifth intercostal space, midclavicular line. S1, S2 audible. No murmur or gallop. ABDOMEN: Normal in appearance, soft, tympanic. No guarding. No rigidity. No hepatosplenomegaly. CLOD PULLER: The patient is alert, awake, and oriented x3. Nonfocal neuro examination. Cranial nerves II through XII grossly intact. Sensory and motor system is within normal limits. EXTREMITIES: No cyanosis, no clubbing, no edema. The patient is able to move both legs. MEDICATIONS: Her current medications include as follows, albuterol inhaler, hydralazine 25 mg p.o. t.i.d., Catapres 0.3 mg p.o. q.8 hours, Ecotrin 81 mg daily, Hectorol 2 mcg three times a week, Lidoderm patch, Lipitor 20 mg p.o. daily, Lopressor 50 mg p.o. q.12 hours, ibuprofen 400 mg p.o. q.6 hours, Nephro-Leslie 1 tablet daily, Neurontin 100 mg p.o. t.i.d., amlodipine 10 mg p.o. daily, PhosLo 667 mg 3 tablets p.o. t.i.d., Procrit 10,000 units three times a week, Protonix 40 mg daily, Senokot, and Zofran. LABORATORY DATA: As follows, as of 12/08/2017, WBC 3.6, hemoglobin 9.3, hematocrit is 29, platelets 160. PT 24.2, INR 2.2. Sodium 138, potassium 4.6, chloride 93, CO of 29, BUN 26, creatinine 4.8, glucose 91, calcium 9.8. Hepatitis B surface antigen negative, surface antibody is positive, core antibody is negative, hep C antibody is negative. IMPRESSION: In summary, Mrs. Alexis is 62 years old elderly female with a past medical history significant for hypertension, polycystic kidney disease, end-stage renal disease, right lower extremity deep venous thrombosis who was admitted with severe pain in the right leg posterior aspect, also lower back pain radiating to the right leg. 1. End-stage renal disease. Continue hemodialysis three times a week; Wednesday, , Wednesday. 2. Hypertension. Blood pressure is stable now. Continue hydralazine, clonidine, metoprolol, and Norvasc. 3. Right leg pain, rule out sciatica. Continue ibuprofen and lidocaine patch. 4. Deep venous thrombosis right leg. Continue anticoagulation as per primary team. Thank you for allowing me to participate in your patient's care. For HD in a.m. Alicia Barone MD
[2017-12-09 07:31] LABS: PROTHROMBIN TIME 26.9 Seconds (9.8-13.1)
[2017-12-09 07:32] LABS: INR 2.4 (0.9-1.2)
[2017-12-09] MEDS: Multivitamin Vitamin B Complex (Nephro-Vite) Tab PO SCH (10:02)
[2017-12-09] MEDS: Lidocaine 5% Patch TD SCH (10:04)
[2017-12-09] MEDS: Pantoprazole 40 mg EC Tab PO SCH (10:05)
[2017-12-09] MEDS: EPOETIN ALFA 10,000 UNIT/ML ML IV SCH (10:16)
--- NOTE | 2017-12-09 10:20 | CP.PCM.PN ---
Subjective - Date & Time of Evaluation Date of Evaluation: 12/09/17 Time of Evaluation: 10:20 - Subjective Subjective: pt is seen and examined during hd, follow consult is dictated #[id number] uf goal is 2 lit Objective - Vital Signs/Intake and Output Vital Signs (last 24 hours): Temp Pulse Resp BP Pulse Ox 98.2 F 58 L 18 149/53 L 100 12/09/17 07:36 12/09/17 07:36 12/09/17 07:36 12/09/17 07:36 12/09/17 07:36 - Medications Medications: Current Medications Albuterol Sulfate (Albuterol 0.083% Inhal Latricia (2.5 Mg/3 Ml) Ud) 2.5 mg IH RQ6 PRN PRN Reason: Shortness of Breath Amlodipine Besylate (Norvasc) 10 mg PO DAILY [facility] Last Admin: 12/09/17 10:01 Dose: Not Given Aspirin (Ecotrin) 81 mg PO DAILY [facility] Last Admin: 12/09/17 10:03 Dose: 81 mg Atorvastatin Calcium (Lipitor) 20 mg PO DAILY [facility] Last Admin: 12/09/17 10:04 Dose: 20 mg Calcium Acetate (Phoslo) 2,001 mg PO TID [facility] Last Admin: 12/09/17 10:02 Dose: 2,001 mg Clonidine HCl (Catapres) 0.3 mg PO Q8 [facility] Last Admin: 12/09/17 10:01 Dose: Not Given Doxercalciferol (Hectorol) 2 mcg IV TTS@1700 [facility] Last Admin: 12/07/17 16:29 Dose: Not Given Epoetin Chris (Procrit) 10,000 unit IV TTS [facility] Last Admin: 12/09/17 10:16 Dose: 10,000 unit Gabapentin (Neurontin) 100 mg PO TID [facility] Last Admin: 12/09/17 10:02 Dose: 100 mg Hydralazine HCl (Apresoline) 25 mg PO TID [facility] Last Admin: 12/09/17 10:00 Dose: Not Given Ibuprofen (Motrin Tab) 400 mg PO Q6H PRN PRN Reason: Pain, moderate (4-7) Last Admin: 12/06/17 19:48 Dose: 400 mg Lidocaine (Lidoderm) 1 ea TD DAILY [facility] Last Admin: 12/09/17 10:04 Dose: 1 ea Metoprolol Tartrate (Lopressor) 50 mg PO Q12 [facility] Last Admin: 12/09/17 10:01 Dose: Not Given Ondansetron HCl (Zofran Inj) 4 mg IVP Q6 PRN PRN Reason: Nausea/Vomiting Last Admin: 12/06/17 23:16 Dose: 4 mg Pantoprazole Sodium (Protonix Ec Tab) 40 mg PO DAILY [facility] Last Admin: 12/09/17 10:05 Dose: 40 mg Senna/Docusate Sodium (Senokot S 50 Mg-8.6 Mg) 1 tab PO HS [facility] Last Admin: 12/08/17 21:49 Dose: 1 tab Vitamin B Complex/Vit C/Folic Acid (Nephro-Leslie) 1 tab PO DAILY [facility] Last Admin: 12/09/17 10:02 Dose: 1 tab Warfarin Sodium (Coumadin) 2 mg PO QD5 [facility] PRN Reason: Protocol Stop: 12/09/17 17:01 - Labs Labs: 12/08/17 05:55 12/08/17 05:55 PT 26.9 Seconds (9.8-13.1) H 12/09/17 06:10 INR 2.4 (0.9-1.2) H 12/09/17 06:10 APTT 28.0 Seconds (25.6-37.1) 12/07/17 05:45
[2017-12-09] MEDS: Doxercalciferol 4 mcg/2 ml Inj IV SCH ×2 (13:53→17:01)
--- NOTE | 2017-12-09 16:16 | CP.PCM.PN ---
Subjective - Date & Time of Evaluation Date of Evaluation: 12/09/17 Time of Evaluation: 09:00 - Subjective Subjective: Pt seen during dialysis also after HD still with right leg pain more on the groin area - pt has DVT of the right leg low back pain resolved denies any radiating pain no weakness but has pain on ambulation lives in a walk up apartment with 17 steps worked with PT today - able to walk with help of walker but has problem when going up stairs denies FUENTES, no dizziness no CP no SOB no abd pain Objective - Vital Signs/Intake and Output Vital Signs (last 24 hours): Temp Pulse Resp BP Pulse Ox 99.3 F 72 20 171/68 H 98 12/09/17 15:42 12/09/17 15:42 12/09/17 15:42 12/09/17 15:42 12/09/17 15:42 - Medications Medications: Current Medications Albuterol Sulfate (Albuterol 0.083% Inhal Latricia (2.5 Mg/3 Ml) Ud) 2.5 mg IH RQ6 PRN PRN Reason: Shortness of Breath Amlodipine Besylate (Norvasc) 10 mg PO DAILY [facility] Last Admin: 12/09/17 10:01 Dose: Not Given Aspirin (Ecotrin) 81 mg PO DAILY [facility] Last Admin: 12/09/17 10:03 Dose: 81 mg Atorvastatin Calcium (Lipitor) 20 mg PO DAILY [facility] Last Admin: 12/09/17 10:04 Dose: 20 mg Calcium Acetate (Phoslo) 2,001 mg PO TID [facility] Last Admin: 12/09/17 13:53 Dose: Not Given Clonidine HCl (Catapres) 0.3 mg PO Q8 [facility] Last Admin: 12/09/17 10:01 Dose: Not Given Doxercalciferol (Hectorol) 2 mcg IV TTS@1700 [facility] Last Admin: 12/09/17 13:53 Dose: 2 mcg Epoetin Chris (Procrit) 10,000 unit IV TTS [facility] Last Admin: 12/09/17 10:16 Dose: 10,000 unit Gabapentin (Neurontin) 100 mg PO TID [facility] Last Admin: 12/09/17 13:48 Dose: 100 mg Hydralazine HCl (Apresoline) 25 mg PO TID [facility] Last Admin: 12/09/17 13:47 Dose: 25 mg Ibuprofen (Motrin Tab) 400 mg PO Q6H PRN PRN Reason: Pain, moderate (4-7) Last Admin: 12/06/17 19:48 Dose: 400 mg Lidocaine (Lidoderm) 1 ea TD DAILY [facility] Last Admin: 12/09/17 10:04 Dose: 1 ea Metoprolol Tartrate (Lopressor) 50 mg PO Q12 [facility] Last Admin: 12/09/17 13:50 Dose: 50 mg Ondansetron HCl (Zofran Inj) 4 mg IVP Q6 PRN PRN Reason: Nausea/Vomiting Last Admin: 12/06/17 23:16 Dose: 4 mg Pantoprazole Sodium (Protonix Ec Tab) 40 mg PO DAILY [facility] Last Admin: 12/09/17 10:05 Dose: 40 mg Senna/Docusate Sodium (Senokot S 50 Mg-8.6 Mg) 1 tab PO HS [facility] Last Admin: 12/08/17 21:49 Dose: 1 tab Vitamin B Complex/Vit C/Folic Acid (Nephro-Leslie) 1 tab PO DAILY [facility] Last Admin: 12/09/17 10:02 Dose: 1 tab Warfarin Sodium (Coumadin) 2 mg PO QD5 [facility] PRN Reason: Protocol Stop: 12/09/17 17:01 - Labs Labs: 12/08/17 05:55 12/08/17 05:55 PT 26.9 Seconds (9.8-13.1) H 12/09/17 06:10 INR 2.4 (0.9-1.2) H 12/09/17 06:10 APTT 28.0 Seconds (25.6-37.1) 12/07/17 05:45 - Constitutional Appears: No Acute Distress - Head Exam Head Exam: NORMAL INSPECTION, NORMOCEPHALIC - Eye Exam Eye Exam: EOMI, Normal appearance Pupil Exam: NORMAL ACCOMODATION - ENT Exam ENT Exam: Mucous Membranes Moist, Normal External Ear Exam - Neck Exam Neck Exam: Full ROM. absent: Meningismus - Respiratory Exam Respiratory Exam: NORMAL BREATHING PATTERN. absent: Respiratory Distress - Cardiovascular Exam Cardiovascular Exam: REGULAR RHYTHM, +S1, +S2 - GI/Abdominal Exam GI & Abdominal Exam: Soft, Normal Bowel Sounds. absent: Tenderness - Extremities Exam Extremities Exam: Calf Tenderness, Full ROM, Normal Capillary Refill. absent: Pedal Edema Additional comments: right thigh bigger than left right thigh tenderness - Neurological Exam Neurological Exam: Alert, Awake, Oriented x3 Neuro motor strength exam: Left Upper Extremity: 5, Right Upper Extremity: 5, Left Lower Extremity: 5, Right Lower Extremity: 5 (limited by pain) - Psychiatric Exam Psychiatric exam: Normal Affect, Normal Mood - Skin Skin Exam: Dry, Normal Color, Warm Assessment and Plan - Assessment and Plan (Free Text) Assessment: 62 y/o F with PMH ESRD TTS (Dr. Barone), HTN, HLD, recently discharged for Coumadin toxicity, presented with one day history of severe right hip pain radiating down from her buttock to her anterior thigh and down her leg, electric -like in nature. Patient was given morphine in ED without relief and is unable to ambulate .She was placed under observation for intractable hip pain . Pain management consulted . Patient refusing MRI PT consulted and recommended [facility] .Given the fact that patient does not have insurance, transfer to a [facility] facility is not possible. will continue Pt while in hospital Today participated with PT better and pain is more controlled 1. Intractable right hip pain ? pain from Femoral DVT ? patient was unable to ambulate pain management consulted Started Lidoderm patch and gabapentin Refusing further imaging with MRI Pt consulted and recommended [facility] but patient has no insurance. Will continue PT while in hospital until ready for discharge. Today able to participate more with PT and pain is better controlled . She ambulates with walker and cane at home. Will reevaluate in AM 2.ESRD on HD TTS Nephrology Dr. Barone consulted For HD in AM 3.hx DVT on Warfarin [Coumadin) 2mg PO DAILY INR 2.2 Will give 2 mg today 4.HTN labile, uncontrolled Continue Clonidine 0.3 mg po q 8 hours, Lopressor to 50 mg po BID ,Amlodipine and Hydralazine 5.CAD, HLD stable on Aspirin 81 mg PO DAILY ,Atorvastatin [Lipitor] 20 mg PO DAILY 6.GERD cont PPI 7.VTE on Coumadin
[2017-12-09] MEDS: Docusate-Senna 50 mg-8.6 mg Tab PO SCH (21:52)
[2017-12-10 07:20] LABS: INR 2.2 (0.9-1.2); PROTHROMBIN TIME 25.3 Seconds (9.8-13.1)
[2017-12-10 07:30] VITALS: RESP 18; TEMP 97.2; O2SAT 97
--- NOTE | 2017-12-10 08:25 | PN ---
FOLLOWUP RENAL CONSULTATION DATE: 12/09/2017 LOCATION: The patient is located in room 665, bed 1. REQUESTED BY: Deepika Andrea DO REASON FOR FOLLOWUP: End-stage renal disease, continuation of the hemodialysis. SUBJECTIVE: Mrs. Alexis is a 62-year-old elderly, very pleasant female with a past medical history significant for hypertension, end-stage renal disease, polycystic kidney disease, and DVT of the right lower extremity who was admitted with a chief complaint of severe back pain and also right leg pain radiating from the back on the posterior aspect and also into the groin. The patient is feeling slightly better today and able to move the leg. The patient is being dialyzed and UF goal is about 2 L. Denies any chest pain, but does complain of slight dizziness. No nausea, no vomiting or diarrhea. PHYSICAL EXAMINATION: VITAL SIGNS: As follows; this morning blood pressure 149/53, pulse 58, respirations 18, temperature 98.2, and saturation 100%. Height 5 feet and 3 inches and weight is 134 pounds. GENERAL: Mrs. Alexis is a 62-year-old elderly female, moderately built, moderately nourished, and not in acute distress. HEENT: Pupils are normal and reactive to light and accommodation. Conjunctivae pink. Sclerae anicteric. Tongue is moist. Trachea is midline. LUNGS: Symmetric on both sides. Bilateral breath sounds present. Clear to auscultation. CARDIOVASCULAR: [place] at the fifth intercostal space, midclavicular line. S1 and S2 audible. No murmur or gallop. ABDOMEN: Normal in appearance, soft, and tympanic. No guarding. No rigidity. No hepatosplenomegaly. CENTRAL NERVOUS SYSTEM: The patient is alert, awake, and oriented x3. Nonfocal neuro examination. Cranial nerves II through XII grossly intact. Sensory and motor system is within normal limits. EXTREMITIES: No cyanosis, no clubbing, and no edema. CURRENT MEDICATIONS: Include as follows; albuterol inhaler, hydralazine 25 mg p.o. t.i.d., clonidine 0.3 mg p.o. q.8 hours, aspirin 81 mg daily, Hectorol 2 mcg three times a week, Lidoderm patch, Lipitor 20 mg p.o. daily, metoprolol 50 mg q.12 hours, ibuprofen 400 mg p.o. q.6 hours, Nephro-Leslie 1 tablet daily, Neurontin 100 mg p.o. t.i.d., Norvasc 10 mg p.o. daily, PhosLo 667 mg 3 tablets t.i.d., Procrit 10,000 units three times a week, Protonix 40 mg p.o. daily, Senokot 1 tablet p.o. at bedtime, tramadol 50 mg p.o. q.12 hours, and Zofran 4 mg IV q.6 hours p.r.n. LABORATORY DATA: As of 12/09/2017; PT is 26.9, PTT was not done, and INR is 2.4. No other labs are available for today. As of 12/08/2017; H and H 9.3/. As of 12/08/2017; again potassium 4.6, BUN 26, creatinine 4.8, and calcium 9.8. IMPRESSION AND PLAN: In summary, Mrs. Alexis is a 62-year-old elderly female with a history of hypertension, polycystic kidney disease, pericardial effusion, end-stage renal disease, and right lower extremity deep venous thrombosis who was admitted with back pain and pain radiating to the posterior aspect of the right leg. 1. Uncontrolled hypertension. Blood pressure is slightly better today. Continue her new current medication hydralazine 25 mg t.i.d., clonidine 0.3 mg p.o. q.8 hours, metoprolol 50 mg p.o. q.12 hours, and also amlodipine 10 mg daily. 2. Deep venous thrombosis. Continue anticoagulation as per primary team. 3. End-stage renal disease. Continue hemodialysis Wednesday, , and Wednesday. Ultrafiltration goal is about 2 L. 4. Low back pain and leg pain, rule out sciatica. Follow up with the Neurology. Continue with pain medication ibuprofen, tramadol, and Lidoderm local patch. Consider Physical Therapy evaluation. We will follow with you. Thank you for allowing me to participate in your patient's care. Alicia Barone MD [facility] # [id number]
[2017-12-10] MEDS: Multivitamin Vitamin B Complex (Nephro-Vite) Tab PO SCH (08:48)
[2017-12-10] MEDS: Pantoprazole 40 mg EC Tab PO SCH (08:50)
[2017-12-10] MEDS: Lidocaine 5% Patch TD SCH (08:50)
[2017-12-10 08:51] VITALS: BP 159/63; PULSE 66
--- NOTE | 2017-12-10 09:27 | CP.PCM.DIS ---
Provider - Provider Date of Admission: 12/07/17 14:30 Attending physician: Deepika Andrae DO Consults: Nephro: Dr Irving Pain Mgt: Dr Frances Time Spent in preparation of Discharge (in minutes): 35 Diagnosis - Discharge Diagnosis (1) Right leg pain Status: Acute (2) Low back pain Status: Acute (3) DVT (deep venous thrombosis) Status: Chronic (4) ESRD (end stage renal disease) on dialysis Status: Chronic (5) Polycystic kidney disease Status: Chronic (6) HTN (hypertension) Status: Acute Hospital Course - Lab Results Lab Results: Most Recent Lab Values WBC 3.6 K/uL (4.8-10.8) L 12/08/17 05:55 RBC 2.98 Mil/uL (3.80-5.20) L 12/08/17 05:55 Hgb 9.3 g/dL (12.0-16.0) L 12/08/17 05:55 Hct 29.0 % (34.0-47.0) L 12/08/17 05:55 MCV 97.3 fl (81.0-99.0) 12/08/17 05:55 MCH 31.3 pg (27.0-31.0) H 12/08/17 05:55 MCHC 32.2 g/dL (33.0-37.0) L 12/08/17 05:55 RDW 18.1 % (11.5-14.5) H 12/08/17 05:55 Plt Count 160 K/uL (130-400) 12/08/17 05:55 MPV 7.9 fl (7.2-11.7) 12/06/17 14:09 Neut % (Auto) 74.8 % (50.0-75.0) 12/06/17 14:09 Lymph % (Auto) 14.4 % (20.0-40.0) L 12/06/17 14:09 [place] % (Auto) 8.5 % (0.0-10.0) 12/06/17 14:09 Eos % (Auto) 1.0 % (0.0-4.0) 12/06/17 14:09 Baso % (Auto) 1.3 % (0.0-2.0) 12/06/17 14:09 Neut # (Auto) 4.8 K/uL (1.8-7.0) 12/06/17 14:09 Lymph # (Auto) 0.9 K/uL (1.0-4.3) L 12/06/17 14:09 [place] # (Auto) 0.5 K/uL (0.0-0.8) 12/06/17 14:09 Eos # (Auto) 0.1 K/uL (0.0-0.7) 12/06/17 14:09 Baso # (Auto) 0.1 K/uL (0.0-0.2) 12/06/17 14:09 PT 25.3 Seconds (9.8-13.1) H 12/10/17 06:10 INR 2.2 (0.9-1.2) H 12/10/17 06:10 APTT 28.0 Seconds (25.6-37.1) 12/07/17 05:45 Sodium 138 mmol/l (132-148) 12/08/17 05:55 Potassium 4.6 MMOL/L (3.6-5.0) 12/08/17 05:55 Chloride 93 mmol/L (98-107) L 12/08/17 05:55 Carbon Dioxide 29 mmol/L (22-30) 12/08/17 05:55 Anion Gap 21 (10-20) H 12/08/17 05:55 BUN 26 mg/dl (7-17) H 12/08/17 05:55 Creatinine 4.8 mg/dl (0.7-1.2) H 12/08/17 05:55 Est GFR ( Amer) 11 12/08/17 05:55 Est GFR (Non-Af Amer) 9 12/08/17 05:55 Random Glucose 91 mg/dL (65-105) 12/08/17 05:55 Calcium 9.8 mg/dL (8.4-10.2) 12/08/17 05:55 Total Bilirubin 0.6 mg/dl (0.2-1.3) 12/06/17 15:16 AST 26 U/L (14-36) 12/06/17 15:16 ALT 23 U/L (9-52) 12/06/17 15:16 Alkaline Phosphatase 90 U/L (38-126) 12/06/17 15:16 Total Protein 6.9 G/DL (6.3-8.2) 12/06/17 15:16 Albumin 3.7 g/dL (3.5-5.0) 12/06/17 15:16 Globulin 3.2 gm/dL (2.2-3.9) 12/06/17 15:16 Albumin/Globulin Ratio 1.1 (1.0-2.1) 12/06/17 15:16 Hep Bs Antigen Negative (NEGATIVE) 12/07/17 10:20 Hep Bs Antibody Positive (NEGATIVE) 12/08/17 08:44 Hep B Core IgM Ab Negative (NEGATIVE) 12/07/17 10:20 Hepatitis C Antibody Negative (NEGATIVE) 12/07/17 10:20 - Hospital Course Hospital Course: 62 y/o F with H ESRD TTS (Dr. Barone), HTN, HLD, recently discharged for Coumadin toxicity, presented with one day history of severe right hip pain radiating down from her buttock to her anterior thigh and down her leg, electric -like in nature. Patient was given morphine in ED without relief and is unable to ambulate .She was placed admitted for intractable hip pain . Pain management consulted . Patient refusing MRI PT consulted and recommended [facility] .Given the fact that patient does not have insurance, transfer to a [facility] facility is not possible. Physical therapy and Pain management was continued while patient in hospital. Her pain improved, and her gait and ambulation improved 1. Intractable right hip pain , improved ? pain from Femoral DVT ? patient was unable to ambulate due to pain pain management consulted Started Lidoderm patch and gabapentin Refusing further imaging with MRI PT consulted and recommended [facility] but patient has no insurance. PT worked with patient while in hospital until ready for discharge. Today, her pain markedly improved and she is able to ambulate. She ambulates with walker and cane at home ( baseline). d/c pt home cont TIW Physical therapy as outpt 2.ESRD on HD TTS , Hx of PCKD Nephrology Dr. Barone consulted For HD in AM 3.history of RLE DVT on Warfarin [Coumadin) 2.5 mg PO DAILY INR 2.2 PT/INR on Wednesday then ff up with [facility] clinic after labs 4.HTN uncontrolled labile, uncontrolled Continue Clonidine 0.3 mg po q 8 hours, Lopressor to 50 mg po BID ,Amlodipine and Hydralazine 5.CAD, HLD stable on Aspirin 81 mg PO DAILY ,Atorvastatin [Lipitor] 20 mg PO DAILY 6.GERD cont PPI 7.VTE on Coumadin Discharge Exam - Head Exam Head Exam: ATRAUMATIC, NORMAL INSPECTION, NORMOCEPHALIC - Eye Exam Eye Exam: EOMI, Normal appearance Pupil Exam: NORMAL ACCOMODATION - ENT Exam ENT Exam: Mucous Membranes Moist, Normal External Ear Exam - Neck Exam Neck exam: Full Rom - Respiratory Exam Respiratory Exam: NORMAL BREATHING PATTERN. absent: Respiratory Distress - Cardiovascular Exam Cardiovascular Exam: REGULAR RHYTHM, +S1, +S2 - Extremities Exam Extremities exam: calf tenderness (right), normal capillary refill, pedal pulses present Additional comments: RLE >LLE - Back Exam Back exam: absent: CVA tenderness (L), CVA tenderness (R) - Neurological Exam Neurological exam: Alert, CN II-XII Intact, Oriented x3, Reflexes Normal - Psychiatric Exam Psychiatric exam: Normal Affect, Normal Mood - Skin Skin Exam: Dry, Normal Color, Warm Discharge Plan - Discharge Medications Prescriptions: amLODIPine [Norvasc] 10 mg PO DAILY #30 tab Gabapentin [Neurontin] 100 mg PO TID #90 cap hydrALAZINE [Apresoline] 25 mg PO TID #90 tab Lidocaine 5% [Lidoderm] 1 ea TD DAILY #30 patch Warfarin [Coumadin] 2.5 mg PO 1800 #15 tab - Follow Up Plan Condition: GOOD Disposition: HOME/ ROUTINE Instructions: Hemodialysis (DC), Hip Pain (DC) Additional Instructions: continue TIW HD [facility] [facility] [place] [address] ([facility]) a las 3:20pm con el Dr. Figueroa Tu venir a el hospital para analisis de teresa el -PT/INR prior to the appt hacer mariama para terapia fisica 3veces por semana llamar para transportacion al [facility] [phone] Referrals: [facility] [Outside] Alicia Barone MD [Staff Provider] - Francisco Martin MD [Staff Provider] -
== END 2017-12-10 14:05 | disposition home or self-care (01) | DRG 551 ==
LOC: H.ER 13:07 → H.ERHOLD 18:26 → H.MEDSURG1 20:59 → OBSVTOIN 12-07 14:30
PROVIDERS: ADMIT Student in an Organized Health Care Education/Training Program; ATTEND Student in an Organized Health Care Education/Training Program
PROC: 5A1D70Z Performance of Urinary Filtration, Intermittent, Less than 6 Hours Per Day (ICD-10-PCS; principal; 2017-12-07)
DX: M54.5 Low back pain (principal); N18.6 End stage renal disease; I13.2 Hypertensive heart and chronic kidney disease with heart failure and with stage 5 chronic kidney disease, or end stage renal disease; Q61.3 Polycystic kidney, unspecified; N25.81 Secondary hyperparathyroidism of renal origin; M25.551 Pain in right hip; E78.00 Pure hypercholesterolemia, unspecified; E78.5 Hyperlipidemia, unspecified; I50.9 Heart failure, unspecified; Z79.01 Long term (current) use of anticoagulants; Z86.718 Personal history of other venous thrombosis and embolism; Z99.2 Dependence on renal dialysis; K21.9 Gastro-esophageal reflux disease without esophagitis; Z88.6 Allergy status to analgesic agent; Z88.0 Allergy status to penicillin; I25.10 Atherosclerotic heart disease of native coronary artery without angina pectoris; M79.604 Pain in right leg

== ENCOUNTER 2018-03-01 13:50 | Inpatient (IN) | payer MEDICAID, OTHER, SELFPAY ==
[2018-03-01 13:50] VITALS: BMI 28.8
[2018-03-01] MEDS ORDERED: Albuterol 0.083% Inhal Sol (2.5 mg/3 mL) UD INH ONE (14:55)
[2018-03-01 15:14] LABS: VENOUS BLOOD GAS BASE EXCESS 2.2 mmol/L (0.0-2.0); VENOUS BLOOD GAS PCO2 67 mmHg (40-60); VENOUS BLOOD GAS PO2 49 mm/Hg (30-55); VENOUS BLOOD PH 7.27 (7.32-7.43)
[2018-03-01 15:28] LABS: BASO % 0.7 % (0.0-2.0); EOS # 0.1 K/uL (0.0-0.7); EOS % 1.4 % (0.0-4.0); HEMOGLOBIN 12.5 g/dL (12.0-16.0); LYMPH # 0.5 K/uL (1.0-4.3); LYMPH % 13.2 % (20.0-40.0); MEAN CELL VOLUME 95.1 fl (81.0-99.0); MEAN CORPUSCULAR HEMOGLOBIN 30.5 pg (27.0-31.0); MEAN CORPUSCULAR HGB CONC 32.1 g/dL (33.0-37.0); MEAN PLATELET VOLUME 8.3 fl (7.2-11.7); MONO # 0.4 K/uL (0.0-0.8); NEUT # 2.9 K/uL (1.8-7.0); NEUT % 74.7 % (50.0-75.0); NRBC % 0.2 % (0.0-0.0); RBC 4.08 Mil/uL (3.80-5.20); RED CELL DISTRIBUTION WIDTH 24.7 % (11.5-14.5); WHITE BLOOD COUNT 3.9 K/uL (4.8-10.8)
--- NOTE | 2018-03-01 15:40 | RAD ---
HISTORY: cxr COMPARISON: Chest radiograph dated 11/28/2017. TECHNIQUE: Chest PA and lateral FINDINGS: LUNGS: No active pulmonary disease. PLEURA: No significant pleural effusion identified. No pneumothorax apparent. CARDIOVASCULAR: Atherosclerotic aortic calcifications. Cardiomediastinal silhouette stably enlarged. OSSEOUS STRUCTURES: Unchanged. VISUALIZED UPPER ABDOMEN: Normal. OTHER FINDINGS: Partially imaged right upper extremity stent redemonstrated. IMPRESSION: No active disease.
[2018-03-01 15:41] LABS: ALB/GLOB RATIO 1.2 (1.0-2.1); ALBUMIN 3.9 g/dL (3.5-5.0); CALCIUM 9.5 mg/dL (8.4-10.2)
[2018-03-01] MEDS ORDERED: Albuterol 0.083% Inhal Sol (2.5 mg/3 mL) UD ONE (15:46)
[2018-03-01 15:50] LABS: TROPONIN I 0.044 ng/mL (0.00-0.120)
[2018-03-01 16:09] LABS: VENOUS BLOOD GAS BASE EXCESS 7.6 mmol/L (0.0-2.0); VENOUS BLOOD GAS PCO2 52 mmHg (40-60); VENOUS BLOOD GAS PO2 34 mm/Hg (30-55); VENOUS BLOOD PH 7.42 (7.32-7.43)
--- NOTE | 2018-03-01 16:12 | ED PDOC ---
HPI: SOB/CHF/COPD Time Seen by Provider: 03/01/18 14:00 Chief Complaint (Nursing): Shortness Of Breath Chief Complaint (Provider): shortness of breath History Per: Patient History/Exam Limitations: no limitations Onset/Duration Of Symptoms: Days (1x) Current Symptoms Are (Timing): Still Present Additional History Per: EMS Additional Complaint(s): 62 year old female with a history of CHF presents to the ED complaining of shortness of breath onset yesterday. As per EMS, patient had dialysis today and blood pressure of 216/78 baseline. Also reports of associated symptoms of cough. Denies vomiting and diarrhea. PMD: Francisco Martin Past Medical History Reviewed: Historical Data, Nursing Documentation, Vital Signs Vital Signs: Last Vital Signs Temp 98.7 F 03/02/18 11:57 Pulse 62 03/02/18 11:57 Resp 18 03/02/18 11:57 BP 151/67 H 03/02/18 11:57 Pulse Ox 93 L 03/02/18 11:57 - Medical History PMH: CHF, Fractures, HTN, Hypercholesterolemia, Peripheral Edema, Pneumonia, End Stage Renal Disease (Dialysis - //Wed), Chronic Kidney Disease - Surgical History Surgical History: Hernia Repair - Family History Family History: States: Unknown Family Hx - Social History Current smoker - smoking cessation education provided: No Alcohol: None Drugs: Denies - Immunization History Hx Tetanus Toxoid Vaccination: No Hx Influenza Vaccination: Yes Hx Pneumococcal Vaccination: Yes - Home Medications Home Medications: Ambulatory Orders Medication Instructions Recorded Atorvastatin [Lipitor] 20 mg PO Q48H 12/06/17 Calcium Acetate [Phoslo] 1,334 cap PO WM 12/06/17 Esomeprazole Magnesium [Nexium] 40 mg PO DAILY 12/06/17 Metoprolol Tartrate [Lopressor] 25 mg PO Q12 12/06/17 cloNIDine [Catapres] 0.3 mg PO Q8 12/06/17 Albuterol Sulfate [Ventolin Hfa] 2 puff IH Q6 PRN 03/01/18 Aspirin [Adult Low Dose Aspirin EC] 81 mg PO DAILY 03/01/18 Gabapentin [Neurontin] 100 mg PO TID PRN 03/01/18 Lidocaine 5% [Lidoderm] 1 patch TD DAILY 03/01/18 [place]-3 Fatty Acids/Fish Oil 1 cap PO BID 03/01/18 [[place]-3 1,000 mg Softgel] - Allergies Allergies/Adverse Reactions: Allergies Allergy/AdvReac Type Severity Reaction Status Date / Time ciprofloxacin [From Cipro] Allergy RASH Verified 03/01/18 17:52 Penicillins Allergy RASH Verified 11/18/17 14:03 Wells Criteria for PE - Wells Criteria for Pulmonary Embolism Clinical Signs and Symptoms of DVT: No P.E is #1 Diagnosis, or Equally Likely: No Heart Rate >100: No Immobilization at least 3 days;Surgery previous 4 weeks: No Previous, objectively diagnosed PE or DVT: No Hemoptysis: No Malignancy w/treatment within 6 months, or palliative: No Total Score: 0 Review of Systems ROS Statement: Except As Marked, All Systems Reviewed And Found Negative Respiratory: Positive for: Cough, Shortness of Breath Gastrointestinal: Negative for: Vomiting, Diarrhea Physical Exam - Reviewed Nursing Documentation Reviewed: Yes Vital Signs Reviewed: Yes - Physical Exam Appears: Positive for: Well, Non-toxic, Uncomfortable (tahcypneic, appears labored breathing) Head Exam: Positive for: ATRAUMATIC, NORMAL INSPECTION, NORMOCEPHALIC Skin: Positive for: Normal Color, Warm, Dry Eye Exam: Positive for: EOMI, Normal appearance, PERRL ENT: Positive for: Normal ENT Inspection Neck: Positive for: Normal, Painless ROM, Supple. Negative for: Decreased ROM Cardiovascular/Chest: Positive for: Regular Rate, Rhythm. Negative for: Murmur Respiratory: Positive for: Crackles, Other (shortness of breath) Gastrointestinal/Abdominal: Positive for: Normal Exam, Bowel Sounds, Soft. Negative for: Tenderness, Guarding, Rebound Back: Positive for: Normal Inspection. Negative for: L CVA Tenderness, R CVA Tenderness Extremity: Positive for: Normal ROM, Pedal Edema (slight, 1+), Other (right upper arm entrance shunt and left arm closed shunt). Negative for: Tenderness Neurologic/Psych: Positive for: Alert, Oriented (x3) - Laboratory Results Result Diagrams: 03/02/18 05:20 03/02/18 05:20 - ECG O2 Sat by Pulse Oximetry: 100 (RA) Pulse Ox Interpretation: Normal Medical Decision Making Medical Decision Making: Time: 1453 Initial Impression: shortness of breath and fever r/o pneumonia Initial Plan: --VBG Shock Panel --EKG --B-type Natriuretic Peptide --CMP --Lact Acid --Troponin --CBC w/ Differential --Chest Two View [RAD] --Albuterol 0.083% 2.5mg --Tylenol 650mg --Blood Culture --Peak Flow Pre/Post TX --Urinalysis --Reevaluation Time: 1537 HISTORY: cxr COMPARISON: Chest radiograph dated 11/28/2017. TECHNIQUE: Chest PA and lateral FINDINGS: LUNGS: No active pulmonary disease. PLEURA: No significant pleural effusion identified. No pneumothorax apparent. CARDIOVASCULAR: Atherosclerotic aortic calcifications. Cardiomediastinal silhouette stably enlarged. OSSEOUS STRUCTURES: Unchanged. VISUALIZED UPPER ABDOMEN: Normal. OTHER FINDINGS: Partially imaged right upper extremity stent redemonstrated. IMPRESSION: No active disease. 1814 Patient will be admitted for fever and CHF under family practice. also for fever. resident aware. EKG performed: sinus rhythm, left atrial enlargement at 89 bpm Scribe Attestation: Documented by Merissa Wells, acting as a scribe for Ney Mayers MD Provider Scribe Attestation: All medical record entries made by the Scribe were at my direction and personally dictated by me. I have reviewed the chart and agree that the record accurately reflects my personal performance of the history, physical exam, medical decision making, and the department course for this patient. I have also personally directed, reviewed, and agree with the discharge instructions and disposition. Disposition - Clinical Impression Clinical Impression: Chronic congestive heart failure, Fever - Patient ED Disposition Is Patient to be Admitted: Yes Counseled Patient/Family Regarding: Studies Performed, Diagnosis - Disposition Disposition Time: 18:00 Condition: STABLE - Pt Status Changed To: Hospital Disposition Of: Inpatient - Admit Certification Admit to Inpatient:: After my assessment, the patient will require hospitalization for at least two midnights. This is because of the severity of symptoms shown, intensity of services needed, and/or the medical risk in this patient being treated as an outpatient. - POA Present On Arrival: None
--- NOTE | 2018-03-01 18:58 | CP.PCM.HP ---
History of Present Illness - History of Present Illness History of Present Illness: 62 yr old F presented to ED via EMS with complaint of SOB and fever x 3 days. Patient reports she was getting hemodialysis today and was able to complete 2hrs. Associated symptoms are productive cough of yellow phlegm, body aches and intermittent headaches. SOB is at rest and on exertion, patient reports recurrence in past -last time 12/07/17 with hospital admisssion. Received tylenol at HD around 12pm. Denies nausea, vomiting, diarrhea, dysuria, constipation or weakness, denies LE swelling . Patient reports she walks with a cane at baseline due to history of right ankle ORIF in 2013. Is tolerating PO diet, has normal stool output (last bowel movement was this AM-soft) PMD: Francisco Gautam (last refilled medication 11/2017) [place] [employer] Machine Setter: Dr. Sutherland Mortar Mixer: Dr. Barone PMHx: ESRD on HD (TThS) completed 2hrs today, HTN, CHF, HLD, hx RLE DVT, GERD, CAD s/p cath (unsure of stent), Right ankle ORIF, chronic RUE swelling, left kidney cysts SurgHx: hysterectomy with b/l oophorectomy, x 1, right ankle ORIF FMHx: mother is 88yrs old-has HTN, father hx unknown, siblings and children are healthy SocHx: denies tobacco/Etoh or drugs Medications: Metoprolol Tartrate 25mg PO BID, Clonidine 0.3mg PO Q8, Atorvastatin 20mg PO Q48, Nexium 40mg PO QD Allergies: penicillin (rash/bruises) ED course: BP 164/79, HR 91, Resp 22, Temp 101.7F, O2 100% on room air -EKG: NSR -CXR: negative for active disease -CBC w/diff: WBC 3.9, H/H 12.5/38.8, plts 118 -CMP: Na 141, K 4.3. HCO3 34, BUN/Cr 23/3.6, AST 43 ALT 25 -VBG shock panel x 2: pO2 49-34; pH 7.27-7.42; pCO2 67-52; pHCO3 26.2-29.8, O2 sat 82.8-63.8; lactate 1.6-1.4, potassium >20-4.2 -proBNP: 195,000 -troponin: 0.0440 -ED tx: albuterol 2.5mg/0.083%, tylenol 650mg PO once Present on Admission - Present on Admission Any Indicators Present on Admission: Yes History of DVT/PE: Yes History of Uncontrolled Diabetes: No Urinary Catheter: No Decubitus Ulcer Present: No History Surgical Site Infection Following: None Review of Systems - Constitutional Constitutional: Fever, Malaise. absent: Chills, Weakness - EENT Eyes: absent: Blurred Vision, Change in Vision Ears: absent: Ear Discharge Nose/Mouth/Throat: absent: Nasal Congestion, Nasal Discharge - Breasts Breasts: absent: Nipple Discharge, Skin Changes - Cardiovascular Cardiovascular: Dyspnea (at rest), Dyspnea on Exertion. absent: Chest Pain, Pain Radiating to Arm/Neck/Jaw, Leg Edema, Leg Ulcers, Syncope - Respiratory Respiratory: Cough, Pain with Coughing. absent: Hemoptysis - Gastrointestinal Gastrointestinal: absent: Abdominal Pain, Bloating, Constipation, Diarrhea, Nausea, Vomiting - Genitourinary Genitourinary: absent: Change in Urinary Stream, Dysuria, Urinary Frequency - Reproductive: Female Reproductive:Female: S/P Hysterectomy - Integumentary Integumentary: absent: Dry Skin, Lesions, Wounds - Neurological Neurological: Headaches (intermittent). absent: Confusion, Disequilibrium, Dizziness - Psychiatric Psychiatric: absent: Homicidal Ideation, Suicidal Ideation - Endocrine Endocrine: absent: Polydipsia, Polyphagia - Hematologic/Lymphatic Hematologic: Easy Bruising Past Patient History - Tetanus Immunizations Tetanus Immunization: Unknown - Past Medical History & Family History Past Medical History?: Yes - Past Social History Smoking Status: Never Smoked Alcohol: None Drugs: Denies - CARDIAC Hx Congestive Heart Failure: Yes Hx Hypercholesterolemia: Yes Hx Hypertension: Yes Hx Peripheral Edema: Yes - PULMONARY Hx Pneumonia: Yes - NEUROLOGICAL Hx Neurological Disorder: No - HEENT Hx HEENT Problems: No - RENAL Hx Chronic Kidney Disease: Yes - ENDOCRINE/METABOLIC Hx Endocrine Disorders: No - HEMATOLOGICAL/ONCOLOGICAL Hx Blood Disorders: No - INTEGUMENTARY Hx Dermatological Problems: No - MUSCULOSKELETAL/RHEUMATOLOGICAL Hx Fractures: Yes - GASTROINTESTINAL Hx Gastrointestinal Disorders: Yes Hx Hemorrhoids: Yes - GENITOURINARY/GYNECOLOGICAL Hx Genitourinary Disorders: No - PSYCHIATRIC Hx Psychophysiologic Disorder: No Hx Substance Use: No - SURGICAL HISTORY Hx Surgeries: Yes Hx Section: Yes Hx Herniorrhaphy: Yes Hx Vascular Surgery: Yes Hx Vascular Access Device: Yes (AV FISTULA) Other/Comment: FOOT SURGERY 2014 with hardware - ANESTHESIA Hx Anesthesia: Yes Hx Anesthesia Reactions: Yes Hx Malignant Hyperthermia: No Meds Allergies/Adverse Reactions: Allergies Allergy/AdvReac Type Severity Reaction Status Date / Time ciprofloxacin [From Cipro] Allergy RASH Verified 03/01/18 17:52 Penicillins Allergy RASH Verified 11/18/17 14:03 Physical Exam - Constitutional Appears: No Acute Distress - Head Exam Head Exam: ATRAUMATIC, NORMOCEPHALIC - Eye Exam Eye Exam: EOMI, PERRL - ENT Exam ENT Exam: Mucous Membranes Moist, Normal Oropharynx - Neck Exam Neck exam: Positive for: Full Rom, Lymphadenopathy (submandibular bilaterally) Additional comments: left JVD present - Respiratory Exam Respiratory Exam: Chest Wall Tenderness (upper bilateral chest, visible varicose veins), Wheezes (mild expiratory wheeze), NORMAL BREATHING PATTERN - Cardiovascular Exam Cardiovascular Exam: REGULAR RHYTHM, +S1, +S2 - GI/Abdominal Exam GI & Abdominal Exam: Normal Bowel Sounds, Soft. absent: Tenderness - Extremities Exam Extremities exam: Positive for: pedal edema (+1 pitting bilaterally), tenderness (bilateral distal lower extremities along dorsal aspect), pedal pulses present Additional comments: left AV fistula no palpable bruit, no leakage; right AV fistula with palpable bruit, clean gauze covering it - Back Exam Back exam: absent: CVA tenderness (L), CVA tenderness (R) - Neurological Exam Neurological exam: Alert, CN II-XII Intact (grossly ), Oriented x3 Additional comments: strength 5/5 in bilateral upper and lower extremities - Psychiatric Exam Psychiatric exam: Normal Affect, Normal Mood - Skin Skin Exam: Dry, Intact, Warm Results - Vital Signs Recent Vital Signs: Last Vital Signs Temp 101 F H 03/01/18 18:36 Pulse 84 03/01/18 18:36 Resp 20 03/01/18 18:36 BP 182/73 H 03/01/18 18:36 Pulse Ox 96 03/01/18 18:36 - Labs Result Diagrams: 03/01/18 15:05 03/01/18 15:05 Labs: Laboratory Results - last 24 hr 03/01/18 03/01/18 03/01/18 14:55 15:00 15:05 WBC RBC Hgb Hct MCV MCH MCHC RDW Plt Count MPV Neut % (Auto) Lymph % (Auto) [place] % (Auto) Eos % (Auto) Baso % (Auto) Neut # (Auto) Lymph # (Auto) [place] # (Auto) Eos # (Auto) Baso # (Auto) pO2 49 VBG pH 7.27 L VBG pCO2 67 H* VBG HCO3 26.2 VBG Total CO2 32.9 H VBG O2 Sat (Calc) 82.8 H VBG Base Excess 2.2 H VBG Potassium > 20.0 H* Sodium 129.0 L 141 Chloride 97.0 L 96 L Glucose 88 Lactate 1.6 FiO2 21.0 Blood Gas Comments Vbg Crit Value Called To Thu nath r.n. Crit Value Called By Sharmila Cribennie Value Read Back Y Blood Gas Notified Time 1513 Potassium 4.3 Carbon Dioxide 34 H Anion Gap 15 BUN 23 H Creatinine 3.6 H Est GFR ( Amer) 15 Est GFR (Non-Af Amer) 13 Random Glucose 87 Lactic Acid 1.1 Calcium 9.5 Total Bilirubin 0.8 AST 43 H D ALT 25 Alkaline Phosphatase 90 Troponin I 0.0440 NT-Pro-B Natriuret Pep 644921 H Total Protein 7.2 Albumin 3.9 Globulin 3.2 Albumin/Globulin Ratio 1.2 Venous Blood Potassium > 20.0 H* 03/01/18 03/01/18 15:05 15:40 WBC 3.9 L RBC 4.08 Hgb 12.5 D Hct 38.8 MCV 95.1 D MCH 30.5 MCHC 32.1 L RDW 24.7 H Plt Count 118 L D MPV 8.3 Neut % (Auto) 74.7 Lymph % (Auto) 13.2 L [place] % (Auto) 10.0 Eos % (Auto) 1.4 Baso % (Auto) 0.7 Neut # (Auto) 2.9 Lymph # (Auto) 0.5 L [place] # (Auto) 0.4 Eos # (Auto) 0.1 Baso # (Auto) 0.0 pO2 34 VBG pH 7.42 VBG pCO2 52 VBG HCO3 29.8 VBG Total CO2 35.3 H VBG O2 Sat (Calc) 63.8 VBG Base Excess 7.6 H VBG Potassium 4.2 Sodium 139.0 Chloride 98.0 Glucose 90 Lactate 1.4 FiO2 21.0 Blood Gas Comments Crit Value Called To Crit Value Called By Crit Value Read Back Blood Gas Notified Time Potassium Carbon Dioxide Anion Gap BUN Creatinine Est GFR ( Amer) Est GFR (Non-Af Amer) Random Glucose Lactic Acid Calcium Total Bilirubin AST ALT Alkaline Phosphatase Troponin I NT-Pro-B Natriuret Pep Total Protein Albumin Globulin Albumin/Globulin Ratio Venous Blood Potassium 4.2 Assessment & Plan - Assessment and Plan (Free Text) Assessment: 62 yr old F admitted for fever and SOB in setting of incompleted hemodialysis session today and hx CHF. 1. Fever -Temp 101.7 F on admission, cough and sore throat -likely secondary to viral URI, CXR negative, WBC 3.9 -admit to telemetry -tylenol PRN fever -f/u blood culture, next day CBC 2. SOB -acute on chronic -likely secondary to viral URI in setting of stable pericardial effusion and severe pulmonary HTN/severe tricuspid regurge -CXR negative for active disease, troponin negative -proBNP 195,000 -Echo 11/29/17: normal LV size and function with EF 60-65%, mild concentric LVH, severe pulm HTN/severe tricuspid regurge -f/u serial troponin -consider repeat echo 3. HTN -chronic, uncontrolled -continue home medications -cardiology consulted for medical optimization -heart healthy diet/renal diet 4. ESRD on HD (TThS) -chronic, controlled -continue home medications -completed 2hrs of HD today, BUN/Cr at baseline 23/3.6 respectively -Nephrology on consult : Dr. Barone; will follow recommendations: Lasix 40mg IV Q12 5.GERD -chronic, stable -Pantoprazole 40mg PO QD 6. Chronic RLE DVT -stable -Heparin 5,000 units SC Q8 -no SCD's - Date & Time Date: 03/01/18 Time: 18:58
[2018-03-01] MEDS ORDERED: Albuterol HFA 90 mcg/actuation (8 g) IH PRN (19:59)
--- NOTE | 2018-03-02 02:37 | CP.PCM.PCO ---
Physician Communication Note - Physician Communication Note Physician Communication Note: Paged by nurse -patient with chest pain Assessment/Plan - Assessment and Plan (Free Text) Assessment: Patient laying comfortably in bed, reports she feels hot, has complaint of sore throat, back pain (bilateral upper back) and left shoulder pain. Reports back and shoulder pain are chronic x 1 yr. Exam: AAO x 3, tenderness to palpation in bilateral upper chest and trapezius area, speaking in full sentences, no motor or sensory deficits Plan: stat EKG done: left posterior fascicular block, no significant ST-T changes, similar to findings to EKG done in 12/06/17, echo with normal LVEF 2017 -serial troponins sent, routine cardiology consult placed - Date & Time Date: 03/01/18 Time: 23:56
[2018-03-02 06:28] LABS: EOS % 0.2 % (0.0-4.0); HEMOGLOBIN 14.1 g/dL (12.0-16.0); LYMPH # 1.5 K/uL (1.0-4.3); LYMPH % 30.4 % (20.0-40.0); MEAN CELL VOLUME 96.9 fl (81.0-99.0); MEAN CORPUSCULAR HEMOGLOBIN 31.1 pg (27.0-31.0); MEAN CORPUSCULAR HGB CONC 32.1 g/dL (33.0-37.0); MEAN PLATELET VOLUME 8.5 fl (7.2-11.7); MONO # 0.4 K/uL (0.0-0.8); MONO % 8.7 % (0.0-10.0); NEUT % 59.7 % (50.0-75.0); NRBC % 0.7 % (0.0-0.0); RBC 4.52 Mil/uL (3.80-5.20); RED CELL DISTRIBUTION WIDTH 24.4 % (11.5-14.5)
[2018-03-02 07:28] LABS: ALB/GLOB RATIO 1.1 (1.0-2.1); ALBUMIN 3.8 g/dL (3.5-5.0); CALCIUM 9.5 mg/dL (8.4-10.2)
--- NOTE | 2018-03-02 07:39 | CP.PCM.CON ---
History of Present Illness - History of Present Illness History of Present Illness: 62 y/ admitted with SOB/ body aches/fever/productive cough x 4 days Pt has been coughing up whitish phlegm less SOB today/ denies chest pain/palpitations BNP: 195,000 EKG: no acute changes Echo 12/12: [facility] EF: 60-65% TR PH PMHx: ESRD on HD HTN, CHF, HLD, hx RLE DVT, GERD, CAD s/p cath Right ankle ORIF, chronic RUE swelling, left kidney cysts hysterectomy Past Patient History - Tetanus Immunizations Tetanus Immunization: Unknown - Past Medical History & Family History Past Medical History?: Yes - Past Social History Smoking Status: Never Smoked Alcohol: None Drugs: Denies - CARDIAC Hx Congestive Heart Failure: Yes Hx Hypercholesterolemia: Yes Hx Hypertension: Yes Hx Peripheral Edema: Yes - PULMONARY Hx Pneumonia: Yes - NEUROLOGICAL Hx Neurological Disorder: No - HEENT Hx HEENT Problems: No - RENAL Hx Chronic Kidney Disease: Yes - ENDOCRINE/METABOLIC Hx Endocrine Disorders: No - HEMATOLOGICAL/ONCOLOGICAL Hx Blood Disorders: No - INTEGUMENTARY Hx Dermatological Problems: No - MUSCULOSKELETAL/RHEUMATOLOGICAL Hx Fractures: Yes - GASTROINTESTINAL Hx Gastrointestinal Disorders: Yes Hx Hemorrhoids: Yes - GENITOURINARY/GYNECOLOGICAL Hx Genitourinary Disorders: No - PSYCHIATRIC Hx Psychophysiologic Disorder: No Hx Substance Use: No - SURGICAL HISTORY Hx Surgeries: Yes Hx Section: Yes Hx Herniorrhaphy: Yes Hx Vascular Surgery: Yes Hx Vascular Access Device: Yes (AV FISTULA) Other/Comment: FOOT SURGERY 2013 with hardware - ANESTHESIA Hx Anesthesia: Yes Hx Anesthesia Reactions: Yes Hx Malignant Hyperthermia: No Meds Allergies/Adverse Reactions: Allergies Allergy/AdvReac Type Severity Reaction Status Date / Time ciprofloxacin [From Cipro] Allergy RASH Verified 03/01/18 17:52 Penicillins Allergy RASH Verified 11/18/17 14:03 - Medications Medications: Current Medications Acetaminophen (Tylenol 325mg Tab) 650 mg PO Q6 PRN PRN Reason: Fever >100.4 F Last Admin: 03/01/18 23:02 Dose: 650 mg Albuterol (Ventolin Hfa 90 Mcg/Actuation (8 G)) 2 puff IH Q6 PRN PRN Reason: Shortness of Breath Aspirin (Ecotrin) 81 mg PO DAILY SHAISTA Atorvastatin Calcium (Lipitor) 20 mg PO Q48H SHAISTA Last Admin: 03/01/18 20:46 Dose: 20 mg Benzocaine/Menthol (Cepacol Sore Throat) 1 mayra PO Q2 PRN PRN Reason: Sore Throat Calcium Acetate (Phoslo) 1,334 mg PO WM [facility] Clonidine HCl (Catapres) 0.3 mg PO Q8 [facility] Last Admin: 03/02/18 02:09 Dose: 0.3 mg Furosemide (Lasix) 40 mg IV Q12 [facility] Gabapentin (Neurontin) 100 mg PO TID PRN PRN Reason: neuropathic pain Heparin Sodium (Porcine) (Heparin) 5,000 units SC Q8 [facility] PRN Reason: Protocol Last Admin: 03/02/18 02:10 Dose: 5,000 units Lidocaine (Lidoderm) 1 ea TD DAILY [facility] Metoprolol Tartrate (Lopressor) 25 mg PO Q12 [facility] Last Admin: 03/02/18 02:17 Dose: Not Given Dksji-6-Yqbw Ethyl Esters (Lovaza) 1 gm PO BID [facility] Pantoprazole Sodium (Protonix Ec Tab) 40 mg PO DAILY [facility] Physical Exam - Constitutional Appears: Well - Head Exam Head Exam: ATRAUMATIC - Eye Exam Eye Exam: Normal appearance - ENT Exam ENT Exam: Normal Exam - Neck Exam Neck exam: Positive for: Normal Inspection - Respiratory Exam Respiratory Exam: Wheezes, NORMAL BREATHING PATTERN - Cardiovascular Exam Cardiovascular Exam: REGULAR RHYTHM Results - Vital Signs Recent Vital Signs: Last Vital Signs Temp 98.4 F 03/02/18 04:52 Pulse 70 03/02/18 04:52 Resp 18 03/02/18 04:52 BP 166/77 H 03/02/18 04:52 Pulse Ox 100 03/02/18 04:52 - Labs Result Diagrams: 03/02/18 05:20 03/02/18 05:20 Labs: Laboratory Results - last 24 hr 03/01/18 03/01/18 03/01/18 05:20 14:55 15:00 WBC RBC Hgb Hct MCV MCH MCHC RDW Plt Count MPV Neut % (Auto) Lymph % (Auto) [place] % (Auto) Eos % (Auto) Baso % (Auto) Neut # (Auto) Lymph # (Auto) [place] # (Auto) Eos # (Auto) Baso # (Auto) pO2 49 VBG pH 7.27 L VBG pCO2 67 H* VBG HCO3 26.2 VBG Total CO2 32.9 H VBG O2 Sat (Calc) 82.8 H VBG Base Excess 2.2 H VBG Potassium > 20.0 H* Sodium 129.0 L Chloride 97.0 L Glucose 88 Lactate 1.6 FiO2 21.0 Blood Gas Comments Vbg Crit Value Called To Thu nath r.n. Crit Value Called By Sharmila Crit Value Read Back Y Blood Gas Notified Time 1513 Potassium Carbon Dioxide Anion Gap BUN Creatinine Est GFR ( Amer) Est GFR (Non-Af Amer) Random Glucose Lactic Acid 1.1 Calcium Total Bilirubin AST ALT Alkaline Phosphatase Troponin I 0.0780 NT-Pro-B Natriuret Pep Total Protein Albumin Globulin Albumin/Globulin Ratio Venous Blood Potassium > 20.0 H* 03/01/18 03/01/18 03/01/18 15:05 15:05 15:40 WBC 3.9 L RBC 4.08 Hgb 12.5 D Hct 38.8 MCV 95.1 D MCH 30.5 MCHC 32.1 L RDW 24.7 H Plt Count 118 L D MPV 8.3 Neut % (Auto) 74.7 Lymph % (Auto) 13.2 L [place] % (Auto) 10.0 Eos % (Auto) 1.4 Baso % (Auto) 0.7 Neut # (Auto) 2.9 Lymph # (Auto) 0.5 L [place] # (Auto) 0.4 Eos # (Auto) 0.1 Baso # (Auto) 0.0 pO2 34 VBG pH 7.42 VBG pCO2 52 VBG HCO3 29.8 VBG Total CO2 35.3 H VBG O2 Sat (Calc) 63.8 VBG Base Excess 7.6 H VBG Potassium 4.2 Sodium 141 139.0 Chloride 96 L 98.0 Glucose 90 Lactate 1.4 FiO2 21.0 Blood Gas Comments Crit Value Called To Crit Value Called By Crit Value Read Back Blood Gas Notified Time Potassium 4.3 Carbon Dioxide 34 H Anion Gap 15 BUN 23 H Creatinine 3.6 H Est GFR ( Amer) 15 Est GFR (Non-Af Amer) 13 Random Glucose 87 Lactic Acid Calcium 9.5 Total Bilirubin 0.8 AST 43 H D ALT 25 Alkaline Phosphatase 90 Troponin I 0.0440 NT-Pro-B Natriuret Pep 919971 H Total Protein 7.2 Albumin 3.9 Globulin 3.2 Albumin/Globulin Ratio 1.2 Venous Blood Potassium 4.2 03/02/18 03/02/18 05:20 05:20 WBC 5.0 RBC 4.52 Hgb 14.1 Hct 43.8 MCV 96.9 MCH 31.1 H MCHC 32.1 L RDW 24.4 H Plt Count 93 L D MPV 8.5 Neut % (Auto) 59.7 Lymph % (Auto) 30.4 [place] % (Auto) 8.7 Eos % (Auto) 0.2 Baso % (Auto) 1.0 Neut # (Auto) 3.0 Lymph # (Auto) 1.5 [place] # (Auto) 0.4 Eos # (Auto) 0.0 Baso # (Auto) 0.0 pO2 VBG pH VBG pCO2 VBG HCO3 VBG Total CO2 VBG O2 Sat (Calc) VBG Base Excess VBG Potassium Sodium 139 Chloride 95 L Glucose Lactate FiO2 Blood Gas Comments Crit Value Called To Crit Value Called By Crit Value Read Back Blood Gas Notified Time Potassium 5.5 H Carbon Dioxide 30 Anion Gap 20 BUN 30 H Creatinine 5.1 H Est GFR ( Amer) 10 Est GFR (Non-Af Amer) 9 Random Glucose 95 Lactic Acid Calcium 9.5 Total Bilirubin 0.9 AST 45 H ALT 24 Alkaline Phosphatase 87 Troponin I NT-Pro-B Natriuret Pep Total Protein 7.2 Albumin 3.8 Globulin 3.4 Albumin/Globulin Ratio 1.1 Venous Blood Potassium Assessment & Plan (1) Dyspnea Assessment and Plan: Dyspnea seems to be more related to respiratory problem than cardiac will follow Status: Acute (2) HTN (hypertension) Status: Acute (3) Influenza Status: Acute (4) PHT (pulmonary hypertension) Status: Acute (5) ESRD (end stage renal disease) on dialysis Status: Chronic
[2018-03-02] MEDS: Omega-3-Acid Ethyl Esters 1 GM Cap PO SCH ×2 (08:14→18:10)
[2018-03-02] MEDS: Lidocaine 5% Patch TD SCH (08:15)
--- NOTE | 2018-03-02 09:00 | CP.PCM.PN ---
Subjective - Date & Time of Evaluation Date of Evaluation: 03/02/18 Time of Evaluation: 08:57 - Subjective Subjective: Overnight pt continued to spike fever, last T was 102.7 at 8AM. Pt endorsing cough and dyspnea. Per pt, the cough has been persistent but the dyspnea has improved since admission. Pt states that she has been coughing, productive white and mucus and there is associated pain in her diaphragm with cough. Denies chest pain, dizziness, n/v/d/c. +chills and fever overnight. [facility] [id number] Objective - Vital Signs/Intake and Output Vital Signs (last 24 hours): Temp Pulse Resp BP Pulse Ox 102.7 F H 76 18 166/66 H 98 03/02/18 08:12 03/02/18 08:17 03/02/18 07:43 03/02/18 08:17 03/02/18 07:43 - Medications Medications: Current Medications Acetaminophen (Tylenol 325mg Tab) 650 mg PO Q6 PRN PRN Reason: Fever >100.4 F Last Admin: 03/02/18 08:12 Dose: 650 mg Albuterol (Ventolin Hfa 90 Mcg/Actuation (8 G)) 2 puff IH Q6 PRN PRN Reason: Shortness of Breath Aspirin (Ecotrin) 81 mg PO DAILY [facility] Last Admin: 03/02/18 08:15 Dose: 81 mg Atorvastatin Calcium (Lipitor) 20 mg PO Q48H [facility] Last Admin: 03/01/18 20:46 Dose: 20 mg Benzocaine/Menthol (Cepacol Sore Throat) 1 mayra PO Q2 PRN PRN Reason: Sore Throat Calcium Acetate (Phoslo) 1,334 mg PO WM [facility] Last Admin: 03/02/18 08:13 Dose: 1,334 mg Clonidine HCl (Catapres) 0.3 mg PO Q8 [facility] Last Admin: 03/02/18 08:14 Dose: 0.3 mg Furosemide (Lasix) 40 mg IV Q12 [facility] Last Admin: 03/02/18 08:16 Dose: 40 mg Gabapentin (Neurontin) 100 mg PO TID PRN PRN Reason: neuropathic pain Heparin Sodium (Porcine) (Heparin) 5,000 units SC Q8 [facility] PRN Reason: Protocol Last Admin: 03/02/18 08:16 Dose: 5,000 units Lidocaine (Lidoderm) 1 ea TD DAILY [facility] Last Admin: 03/02/18 08:15 Dose: 1 ea Metoprolol Tartrate (Lopressor) 25 mg PO Q12 [facility] Last Admin: 03/02/18 08:17 Dose: 25 mg Isfhl-4-Teno Ethyl Esters (Lovaza) 1 gm PO BID [facility] Last Admin: 03/02/18 08:14 Dose: 1 gm Pantoprazole Sodium (Protonix Ec Tab) 40 mg PO DAILY [facility] - Labs Labs: 03/02/18 05:20 03/02/18 05:20 - Constitutional Appears: Other (Coughing, O2 NC 2L) - Head Exam Head Exam: NORMAL INSPECTION, NORMOCEPHALIC - Eye Exam Eye Exam: EOMI, Normal appearance - ENT Exam ENT Exam: Mucous Membranes Moist - Respiratory Exam Respiratory Exam: Rhonchi (and crackles b/l ), NORMAL BREATHING PATTERN. absent : Rales, Wheezes - Cardiovascular Exam Cardiovascular Exam: REGULAR RHYTHM, +S1, +S2 - GI/Abdominal Exam GI & Abdominal Exam: Soft, Normal Bowel Sounds. absent: Tenderness - Extremities Exam Extremities Exam: absent: Pedal Edema Additional comments: stasis dermatitis b/l - Neurological Exam Neurological Exam: Alert, Awake - Psychiatric Exam Psychiatric exam: Normal Affect, Normal Mood - Skin Skin Exam: Dry, Intact, Normal Color, Warm Assessment and Plan - Assessment and Plan (Free Text) Assessment: Assessment/Plan: 62 YO Female with hx of ESRD on HD (TThS), HTN, CHF, hx RLE DVT, GERD, CAD s/p cath presents is admitted for fever, and dyspnea. Fever -likely 2/2 to viral URI -Tmax over 24 hrs 102.7 -CXR negative, WBC 5.0 -tylenol PRN fever -start levofloxacin 250 PO MWF -f/u blood culture, urine culture -ID consulted, follow up recs Dyspnea, cough -acute on chronic -likely CHF exacerbation 2/2 to viral URI in setting of stable pericardial effusion and severe pulmonary HTN/severe tricuspid regurge -CXR negative for active disease, troponin negative x 3 -proBNP 195,000 -Echo 11/29/17: normal LV size and function with EF 60-65%, mild concentric LVH, severe pulm HTN/severe tricuspid regurge -consider repeat echo -EKG sinus with 1st deg AV block, HR 89 -cardiology consulted, Dyspnea seems to be more related to respiratory problem than cardiac -start promethazine/codeine for cough HTN -chronic, uncontrolled -c/w home medications -cardiology consulted for medical optimization -heart healthy diet/renal diet ESRD on HD (TThS) -chronic, controlled -continue home medications -completed 2hrs of HD today, BUN/Cr at baseline 23/3.6 respectively -Nephrology on consult: Dr. Barone; will follow recommendations: Lasix 40mg IV Q12 GERD -chronic, stable -Pantoprazole 40mg PO QD Chronic RLE DVT -stable -Heparin 5,000 units SC Q8 -no SCD's
[2018-03-02] MEDS: Pantoprazole 40 mg EC Tab PO SCH (09:05)
[2018-03-02 09:19] LABS: INR 1.2 (0.9-1.2); PARTIAL THROMBOPLASTIN TIME 31.9 Seconds (25.6-37.1); PROTHROMBIN TIME 13.5 Seconds (9.8-13.1)
--- NOTE | 2018-03-02 13:13 | CP.PCM.CON ---
History of Present Illness - History of Present Illness History of Present Illness: 62 yr old F presented to ED via EMS with complaint of SOB and fever x 3 days. Patient reports she was getting hemodialysis today and was able to complete 2hrs. Associated symptoms are productive cough of yellow phlegm, body aches and intermittent headaches. Denies nausea, vomiting, diarrhea, dysuria, constipation or weakness, denies LE swelling . REFERRED FOR ID EVAL FOR ANTIBIOTIC MANAGEMENT PMHx: ESRD on HD (TThS) completed 2hrs today, HTN, CHF, HLD, hx RLE DVT, GERD, CAD s/p cath (unsure of stent), Right ankle ORIF, chronic RUE swelling, left kidney cysts SurgHx: hysterectomy with b/l oophorectomy, x 1, right ankle ORIF FMHx: mother is 88yrs old-has HTN, father hx unknown, siblings and children are healthy SocHx: denies tobacco/Etoh or drugs Medications: Metoprolol Tartrate 25mg PO BID, Clonidine 0.3mg PO Q8, Atorvastatin 20mg PO Q48, Nexium 40mg PO QD Allergies: penicillin (rash/bruises) Review of Systems - Review of Systems All systems: reviewed and no additional remarkable complaints except - Constitutional Constitutional: As Per HPI - EENT Eyes: absent: As Per HPI, Blind Spots, Blurred Vision, Change in Vision, Decreased Night Vision, Diplopia, Discharge, Dry Eye, Exophthalmos, Floaters, Irritation, Itchy Eyes, Loss of Peripheral Vision, Pain, Photophobia, Requires Corrective Lenses, Sees Flashes, Spots in Vision, Tunnel Vision, Other Visual Disturbances, Loss of Vision, Other Ears: absent: As Per HPI, Decreased Hearing, Ear Discharge, Ear Pain, Tinnitus, Abnormal Hearing, Disequilibrium, Dizziness, Other Nose/Mouth/Throat: absent: As Per HPI, Epistaxis, Nasal Congestion, Nasal Discharge, Nasal Obstruction, Nasal Trauma, Nose Pain, Post Nasal Drip, Sinus Pain, Sinus Pressure, Bleeding Gums, Change in Voice, Dental Pain, Dry Mouth, Dysphagia, Halitosis, Hoarsness, Lip Swelling, Mouth Lesions, Mouth Pain, Odynophagia, Sore Throat, Throat Swelling, Tongue Swelling, Facial Pain, Neck Pain, Neck Mass, Other - Breasts Breasts: absent: As Per HPI, Change in Shape, Mass, Pain, Nipple Discharge, Nipple Inversion, Skin Changes, Swelling, Other - Cardiovascular Cardiovascular: As Per HPI - Respiratory Respiratory: As Per HPI, Cough, Dyspnea. absent: Hemoptysis - Gastrointestinal Gastrointestinal: absent: As Per HPI, Abdominal Pain, Belching, Bloating, Change in Bowel Habits, Change in Stool Character, Coffee Ground Emesis, Constipation, Cramping, Diarrhea, Dyspepsia, Dysphagia, Early Satiety, Excessive Flatus, Fecal Incontinence, Heartburn, Hematemesis, Hematochezia, Loose Stools, Melena, Nausea, Odynophagia, Temesmus, Vomiting, Other - Genitourinary Genitourinary: absent: As Per HPI, Change in Urinary Stream, Difficulty Urinating, Dysuria, Flank Pain, Hematuria, Pyuria, Nocturia, Urinary Incontinence, Urinary Frequency, Urinary Hesitance, Urinary Urgency, Voiding Freq/Small Amts, Freq UTI, Hx Renal/Bladder Calculi, Hx /Renal Surgery, Bladder Distension, Other - Reproductive: Female Reproductive:Female: absent: As Per HPI, Amenorrhea, Amenorrhea/ Control, Currently Menstual, Cycle <21 Days, Cycle >35 Days, Cycle Variable, Menses 1-7 Days, Menses >/= 8 Days, Menses Variable, Cycle > 4 Weeks Between, No Menses for 6 Months, Heavy Menses, Light Menses, Normal Menses, Spotting Between Cycles , S/P Hysterectomy, Menopausal, Post Menopausal, Premenarche, Abnormal Vaginal Bleeding, Dysmenorrhea, Dyspareunia, Genital Lesions, Genital Pruritis, Pelvic Pain, Prolapse Symptoms, Sexual Dysfunction, Vaginal Discharge, Vaginal Dryness , Vaginal Odor, Vaginal Pruritis, Other - Menstruation Menstruation: absent: As Per HPI, Amenorrhea, Amenorrhea/ Control, Currently Menstual, Cycle <21 Days, Cycle >35 Days, Cycle Variable, Menses 1-7 Days, Menses >/= 8 Days, Menses Variable, Cycle > 4 Weeks Between, No Menses for 6 Months, Heavy Menses, Light Menses, Normal Menses, Spotting Between Cycles , S/P Hysterectomy, Menopausal, Post Menopausal, Premenarche, Abnormal Vaginal Bleeding, Dysmenorrhea, Other - Musculoskeletal Musculoskeletal: As Per HPI - Integumentary Integumentary: absent: As Per HPI, Acne, Alopecia, Bleeding Lesions, Change in Hair, Change in Nails, Change in Pigmentation, Changing Lesions, Dry Skin, Erythema, Furuncle, Hirsutism, Lesions, New Lesions, Non-Healing Lesions, Photosensitivity, Pruritus, Rash, Skin Pain, Skin Ulcer, Sores, Striae, Swelling , Unusual Bruising, Wounds, Jaundice, Other - Neurological Neurological: absent: As Per HPI, Abnormal Gait, Abnormal Hearing, Abnormal Movements, Abnormal Speech, Behavioral Changes, Burning Sensations, Confusion, Convulsions, Disequilibrium, Dizziness, Numbness, Focal Weakness, Frequent Falls , Headaches, Lack of Coordination, Loss of Vision, Memory Loss, Paresthesias, Radicular Pain, Restless Legs, Sensory Deficit, Syncope, Tingling, Tremor, Vertigo, Weakness, Other Visual Disturbances, Other - Psychiatric Psychiatric: absent: As Per HPI, Abnormal Sleep Pattern, Anhedonia, Anxiety, Auditory Hallucinations, Behavioral Changes, Change in Appetite, Change in Libido, Confusion, Depression, Difficulty Concentrating, Hallucinations, Homicidal Ideation, Hopelessness, Irritability, Memory Loss, Mood Swings, Panic Attacks, Paranoia, Suicidal Ideation, Visual Hallucinations, Tactile Hallucinations, Other - Endocrine Endocrine: absent: As Per HPI, Change in Body Appearance, Change in Libido, Cold Intolorance, Deepening of Voice, Excessive Sweating, Fatigue, Flushing, Heat Intolorance, Increase in Ring/Shoe/Hat Size, Palpitations, Polydipsia, Polyphagia, Polyuria, Other - Hematologic/Lymphatic Hematologic: absent: As Per HPI, Easy Bleeding, Easy Bruising, Lymphadenopathy, Other Past Patient History - Tetanus Immunizations Tetanus Immunization: Unknown - Past Medical History & Family History Past Medical History?: Yes - Past Social History Smoking Status: Never Smoked Alcohol: None Drugs: Denies - CARDIAC Hx Congestive Heart Failure: Yes Hx Hypercholesterolemia: Yes Hx Hypertension: Yes Hx Peripheral Edema: Yes - PULMONARY Hx Pneumonia: Yes - NEUROLOGICAL Hx Neurological Disorder: No - HEENT Hx HEENT Problems: No - RENAL Hx Chronic Kidney Disease: Yes - ENDOCRINE/METABOLIC Hx Endocrine Disorders: No - HEMATOLOGICAL/ONCOLOGICAL Hx Blood Disorders: No - INTEGUMENTARY Hx Dermatological Problems: No - MUSCULOSKELETAL/RHEUMATOLOGICAL Hx Fractures: Yes - GASTROINTESTINAL Hx Gastrointestinal Disorders: Yes Hx Hemorrhoids: Yes - GENITOURINARY/GYNECOLOGICAL Hx Genitourinary Disorders: No - PSYCHIATRIC Hx Psychophysiologic Disorder: No Hx Substance Use: No - SURGICAL HISTORY Hx Surgeries: Yes Hx Section: Yes Hx Herniorrhaphy: Yes Hx Vascular Surgery: Yes Hx Vascular Access Device: Yes (AV FISTULA) Other/Comment: FOOT SURGERY 2014 with hardware - ANESTHESIA Hx Anesthesia: Yes Hx Anesthesia Reactions: Yes Hx Malignant Hyperthermia: No Meds Allergies/Adverse Reactions: Allergies Allergy/AdvReac Type Severity Reaction Status Date / Time ciprofloxacin [From Cipro] Allergy RASH Verified 03/01/18 17:52 Penicillins Allergy RASH Verified 11/18/17 14:03 - Medications Medications: Current Medications Acetaminophen (Tylenol 325mg Tab) 650 mg PO Q6 PRN PRN Reason: Fever >100.4 F Last Admin: 03/02/18 08:12 Dose: 650 mg Albuterol (Ventolin Hfa 90 Mcg/Actuation (8 G)) 2 puff IH Q6 PRN PRN Reason: Shortness of Breath Aspirin (Ecotrin) 81 mg PO DAILY [facility] Last Admin: 03/02/18 08:15 Dose: 81 mg Atorvastatin Calcium (Lipitor) 20 mg PO Q48H [facility] Last Admin: 03/01/18 20:46 Dose: 20 mg Azithromycin (Zithromax) 500 mg PO DAILY [facility] PRN Reason: Protocol Benzocaine/Menthol (Cepacol Sore Throat) 1 mayra PO Q2 PRN PRN Reason: Sore Throat Calcium Acetate (Phoslo) 1,334 mg PO WM [facility] Last Admin: 03/02/18 08:13 Dose: 1,334 mg Clonidine HCl (Catapres) 0.3 mg PO Q8 [facility] Last Admin: 03/02/18 08:14 Dose: 0.3 mg Furosemide (Lasix) 40 mg IV Q12 [facility] Last Admin: 03/02/18 08:16 Dose: 40 mg Gabapentin (Neurontin) 100 mg PO TID PRN PRN Reason: neuropathic pain Heparin Sodium (Porcine) (Heparin) 5,000 units SC Q8 [facility] PRN Reason: Protocol Last Admin: 03/02/18 08:16 Dose: 5,000 units Lidocaine (Lidoderm) 1 ea TD DAILY [facility] Last Admin: 03/02/18 08:15 Dose: 1 ea Metoprolol Tartrate (Lopressor) 25 mg PO Q12 [facility] Last Admin: 03/02/18 08:17 Dose: 25 mg Duqxp-6-Rosl Ethyl Esters (Lovaza) 1 gm PO BID [facility] Last Admin: 03/02/18 08:14 Dose: 1 gm Pantoprazole Sodium (Protonix Ec Tab) 40 mg PO DAILY [facility] Promethazine HCl/Codeine (Phenergan/Codeine Oral Syrup) 5 ml PO Q6 PRN PRN Reason: Cough Physical Exam - Constitutional Appears: Non-toxic, No Acute Distress, Chronically Ill - Head Exam Head Exam: ATRAUMATIC, NORMAL INSPECTION, NORMOCEPHALIC - Eye Exam Eye Exam: PERRL. absent: Scleral icterus - ENT Exam ENT Exam: Mucous Membranes Dry, Normal External Ear Exam - Neck Exam Neck exam: Negative for: Lymphadenopathy, Thyromegaly - Respiratory Exam Respiratory Exam: Decreased Breath Sounds, Prolonged Expiratory Phase, Rhonchi - Cardiovascular Exam Cardiovascular Exam: REGULAR RHYTHM, +S1, +S2 - GI/Abdominal Exam GI & Abdominal Exam: Diminished Bowel Sounds, Soft. absent: Guarding, Rebound, Rigid, Tenderness - Rectal Exam Rectal Exam: Deferred - Exam Exam: NORMAL INSPECTION - Extremities Exam Extremities exam: Negative for: pedal edema - Back Exam Back exam: absent: CVA tenderness (L), CVA tenderness (R), paraspinal tenderness - Neurological Exam Neurological exam: Alert, CN II-XII Intact, Oriented x3, Reflexes Normal - Psychiatric Exam Psychiatric exam: Normal Mood - Skin Skin Exam: Dry Results - Vital Signs Recent Vital Signs: Last Vital Signs Temp 98.7 F 03/02/18 11:57 Pulse 62 03/02/18 11:57 Resp 18 03/02/18 11:57 BP 151/67 H 03/02/18 11:57 Pulse Ox 93 L 03/02/18 11:57 - Labs Result Diagrams: 03/02/18 05:20 03/02/18 05:20 Labs: Laboratory Results - last 24 hr 03/01/18 03/01/18 03/01/18 05:20 08:40 14:55 WBC RBC Hgb Hct MCV MCH MCHC RDW Plt Count MPV Neut % (Auto) Lymph % (Auto) [place] % (Auto) Eos % (Auto) Baso % (Auto) Neut # (Auto) Lymph # (Auto) [place] # (Auto) Eos # (Auto) Baso # (Auto) PT 13.5 H INR 1.2 APTT 31.9 pO2 49 VBG pH 7.27 L VBG pCO2 67 H* VBG HCO3 26.2 VBG Total CO2 32.9 H VBG O2 Sat (Calc) 82.8 H VBG Base Excess 2.2 H VBG Potassium > 20.0 H* Sodium 129.0 L Chloride 97.0 L Glucose 88 Lactate 1.6 FiO2 21.0 Blood Gas Comments Vbg Crit Value Called To Thu nath r.n. Crit Value Called By Sharmila Crit Value Read Back Y Blood Gas Notified Time 1513 Potassium Carbon Dioxide Anion Gap BUN Creatinine Est GFR ( Amer) Est GFR (Non-Af Amer) Random Glucose Lactic Acid Calcium Total Bilirubin AST ALT Alkaline Phosphatase Troponin I 0.0780 NT-Pro-B Natriuret Pep Total Protein Albumin Globulin Albumin/Globulin Ratio Venous Blood Potassium > 20.0 H* 03/01/18 03/01/18 03/01/18 15:00 15:05 15:05 WBC 3.9 L RBC 4.08 Hgb 12.5 D Hct 38.8 MCV 95.1 D MCH 30.5 MCHC 32.1 L RDW 24.7 H Plt Count 118 L D MPV 8.3 Neut % (Auto) 74.7 Lymph % (Auto) 13.2 L [place] % (Auto) 10.0 Eos % (Auto) 1.4 Baso % (Auto) 0.7 Neut # (Auto) 2.9 Lymph # (Auto) 0.5 L [place] # (Auto) 0.4 Eos # (Auto) 0.1 Baso # (Auto) 0.0 PT INR APTT pO2 VBG pH VBG pCO2 VBG HCO3 VBG Total CO2 VBG O2 Sat (Calc) VBG Base Excess VBG Potassium Sodium 141 Chloride 96 L Glucose Lactate FiO2 Blood Gas Comments Crit Value Called To Crit Value Called By Crit Value Read Back Blood Gas Notified Time Potassium 4.3 Carbon Dioxide 34 H Anion Gap 15 BUN 23 H Creatinine 3.6 H Est GFR ( Amer) 15 Est GFR (Non-Af Amer) 13 Random Glucose 87 Lactic Acid 1.1 Calcium 9.5 Total Bilirubin 0.8 AST 43 H D ALT 25 Alkaline Phosphatase 90 Troponin I 0.0440 NT-Pro-B Natriuret Pep 459125 H Total Protein 7.2 Albumin 3.9 Globulin 3.2 Albumin/Globulin Ratio 1.2 Venous Blood Potassium 06/05/18 06/06/18 06/06/18 15:40 05:20 05:20 WBC 5.0 RBC 4.52 Hgb 14.1 Hct 43.8 MCV 96.9 MCH 31.1 H MCHC 32.1 L RDW 24.4 H Plt Count 93 L D MPV 8.5 Neut % (Auto) 59.7 Lymph % (Auto) 30.4 [place] % (Auto) 8.7 Eos % (Auto) 0.2 Baso % (Auto) 1.0 Neut # (Auto) 3.0 Lymph # (Auto) 1.5 [place] # (Auto) 0.4 Eos # (Auto) 0.0 Baso # (Auto) 0.0 PT INR APTT pO2 34 VBG pH 7.42 VBG pCO2 52 VBG HCO3 29.8 VBG Total CO2 35.3 H VBG O2 Sat (Calc) 63.8 VBG Base Excess 7.6 H VBG Potassium 4.2 Sodium 139.0 139 Chloride 98.0 95 L Glucose 90 Lactate 1.4 FiO2 21.0 Blood Gas Comments Crit Value Called To Crit Value Called By Crit Value Read Back Blood Gas Notified Time Potassium 5.5 H Carbon Dioxide 30 Anion Gap 20 BUN 30 H Creatinine 5.1 H Est GFR ( Amer) 10 Est GFR (Non-Af Amer) 9 Random Glucose 95 Lactic Acid Calcium 9.5 Total Bilirubin 0.9 AST 45 H ALT 24 Alkaline Phosphatase 87 Troponin I NT-Pro-B Natriuret Pep Total Protein 7.2 Albumin 3.8 Globulin 3.4 Albumin/Globulin Ratio 1.1 Venous Blood Potassium 4.2 03/02/18 08:00 WBC RBC Hgb Hct MCV MCH MCHC RDW Plt Count MPV Neut % (Auto) Lymph % (Auto) [place] % (Auto) Eos % (Auto) Baso % (Auto) Neut # (Auto) Lymph # (Auto) [place] # (Auto) Eos # (Auto) Baso # (Auto) PT INR APTT pO2 VBG pH VBG pCO2 VBG HCO3 VBG Total CO2 VBG O2 Sat (Calc) VBG Base Excess VBG Potassium Sodium Chloride Glucose Lactate FiO2 Blood Gas Comments Crit Value Called To Crit Value Called By Crit Value Read Back Blood Gas Notified Time Potassium Carbon Dioxide Anion Gap BUN Creatinine Est GFR ( Amer) Est GFR (Non-Af Amer) Random Glucose Lactic Acid Calcium Total Bilirubin AST ALT Alkaline Phosphatase Troponin I 0.0710 NT-Pro-B Natriuret Pep Total Protein Albumin Globulin Albumin/Globulin Ratio Venous Blood Potassium Assessment & Plan (1) CHF (congestive heart failure) Status: Acute (2) Respiratory tract infection Status: Acute (3) ESRD (end stage renal disease) on dialysis Status: Chronic - Assessment and Plan (Free Text) Assessment: ACUTE FEBRILE ILLNESS RESP SYMPTOMS SUGGEST POSSIBLE VIRAL ETIOLOGY CULTURES SO FAR NEG STAT vANCO GIVEN SEROLOGIES AND CULTURES SENT
[2018-03-02] MEDS ORDERED: Sodium Chloride 3% for Inhalation 4 ML VIAL.NEB IH PRN (13:17)
[2018-03-02] MEDS ORDERED: Gentamicin 160 MG in Sodium Chloride 0.9% 100 ML IVPB ONE (13:30)
--- NOTE | 2018-03-02 16:24 | CARD ---
APPROVED REPORT EKG Measurement Heart [id number] <Conclusion> Sinus rhythm Possible Left atrial enlargement Rightward axis Anterior infarct, age undetermined Abnormal ECG
--- NOTE | 2018-03-02 16:25 | CARD ---
APPROVED REPORT EKG Measurement Heart [id number] <Conclusion> Normal sinus rhythm Rightward axis Borderline ECG
[2018-03-02] MEDS: Benzocaine/Menthol (Cepacol) Lozenge PO PRN (18:10)
[2018-03-02] MEDS: Promethazine/Cod 6.25mg-10mg/5ml Syr UD PO PRN (18:14)
--- NOTE | 2018-03-02 19:21 | CP.PCM.CON ---
History of Present Illness - History of Present Illness History of Present Illness: pt is seen and examined, full consult is dictated #[id number] for hd in am c.diff toxin neg, antigen pos Past Patient History - Tetanus Immunizations Tetanus Immunization: Unknown - Past Medical History & Family History Past Medical History?: Yes - Past Social History Alcohol: None Drugs: Denies - CARDIAC Hx Congestive Heart Failure: Yes Hx Hypercholesterolemia: Yes Hx Hypertension: Yes Hx Peripheral Edema: Yes - PULMONARY Hx Pneumonia: Yes - NEUROLOGICAL Hx Neurological Disorder: No - HEENT Hx HEENT Problems: No - RENAL Hx Chronic Kidney Disease: Yes - ENDOCRINE/METABOLIC Hx Endocrine Disorders: No - HEMATOLOGICAL/ONCOLOGICAL Hx Blood Disorders: No - INTEGUMENTARY Hx Dermatological Problems: No - MUSCULOSKELETAL/RHEUMATOLOGICAL Hx Fractures: Yes - GASTROINTESTINAL Hx Gastrointestinal Disorders: Yes Hx Hemorrhoids: Yes - GENITOURINARY/GYNECOLOGICAL Hx Genitourinary Disorders: No - PSYCHIATRIC Hx Psychophysiologic Disorder: No Hx Substance Use: No - SURGICAL HISTORY Hx Surgeries: Yes Hx Section: Yes Hx Herniorrhaphy: Yes Hx Vascular Surgery: Yes Hx Vascular Access Device: Yes (AV FISTULA) Other/Comment: FOOT SURGERY 2013 with hardware - ANESTHESIA Hx Anesthesia: Yes Hx Anesthesia Reactions: Yes Hx Malignant Hyperthermia: No Meds Allergies/Adverse Reactions: Allergies Allergy/AdvReac Type Severity Reaction Status Date / Time ciprofloxacin [From Cipro] Allergy RASH Verified 03/01/18 17:52 Penicillins Allergy RASH Verified 11/18/17 14:03 - Medications Medications: Current Medications Acetaminophen (Tylenol 325mg Tab) 650 mg PO Q6 PRN PRN Reason: Fever >100.4 F Last Admin: 03/02/18 18:13 Dose: 650 mg Albuterol (Ventolin Hfa 90 Mcg/Actuation (8 G)) 2 puff IH Q6 PRN PRN Reason: Shortness of Breath Aspirin (Ecotrin) 81 mg PO DAILY [facility] Last Admin: 03/02/18 08:15 Dose: 81 mg Atorvastatin Calcium (Lipitor) 20 mg PO Q48H [facility] Last Admin: 03/01/18 20:46 Dose: 20 mg Azithromycin (Zithromax) 500 mg PO DAILY [facility] PRN Reason: Protocol Last Admin: 03/02/18 14:07 Dose: 500 mg Benzocaine/Menthol (Cepacol Sore Throat) 1 mayra PO Q2 PRN PRN Reason: Sore Throat Last Admin: 03/02/18 18:10 Dose: 1 mayra Calcium Acetate (Phoslo) 1,334 mg PO WM [facility] Last Admin: 03/02/18 18:10 Dose: 1,334 mg Clonidine HCl (Catapres) 0.3 mg PO Q8 [facility] Last Admin: 03/02/18 18:10 Dose: 0.3 mg Furosemide (Lasix) 40 mg IV Q12 [facility] Last Admin: 03/02/18 08:16 Dose: 40 mg Gabapentin (Neurontin) 100 mg PO TID PRN PRN Reason: neuropathic pain Heparin Sodium (Porcine) (Heparin) 5,000 units SC Q8 [facility] PRN Reason: Protocol Last Admin: 03/02/18 17:52 Dose: 5,000 units Lidocaine (Lidoderm) 1 ea TD DAILY [facility] Last Admin: 03/02/18 08:15 Dose: 1 ea Metoprolol Tartrate (Lopressor) 25 mg PO Q12 [facility] Last Admin: 03/02/18 08:17 Dose: 25 mg Dcnxm-2-Kkwi Ethyl Esters (Lovaza) 1 gm PO BID [facility] Last Admin: 03/02/18 18:10 Dose: 1 gm Ondansetron HCl (Zofran Odt) 4 mg PO Q8H PRN PRN Reason: Nausea/Vomiting Pantoprazole Sodium (Protonix Ec Tab) 40 mg PO DAILY [facility] Last Admin: 03/02/18 09:05 Dose: 40 mg Promethazine HCl/Codeine (Phenergan/Codeine Oral Syrup) 5 ml PO Q6 PRN PRN Reason: Cough Last Admin: 03/02/18 18:14 Dose: 5 ml Results - Vital Signs Recent Vital Signs: Last Vital Signs Temp 101 F H 03/02/18 18:13 Pulse 78 03/02/18 18:10 Resp 18 03/02/18 16:10 BP 152/84 H 03/02/18 18:10 Pulse Ox 100 03/02/18 16:10 - Labs Result Diagrams: 03/02/18 05:20 03/02/18 05:20 Labs: Laboratory Results - last 24 hr 03/01/18 03/01/18 03/02/18 05:20 08:40 05:20 WBC 5.0 RBC 4.52 Hgb 14.1 Hct 43.8 MCV 96.9 MCH 31.1 H MCHC 32.1 L RDW 24.4 H Plt Count 93 L D MPV 8.5 Neut % (Auto) 59.7 Lymph % (Auto) 30.4 Colbert % (Auto) 8.7 Eos % (Auto) 0.2 Baso % (Auto) 1.0 Neut # (Auto) 3.0 Lymph # (Auto) 1.5 Colbert # (Auto) 0.4 Eos # (Auto) 0.0 Baso # (Auto) 0.0 PT 13.5 H INR 1.2 APTT 31.9 Sodium Potassium Chloride Carbon Dioxide Anion Gap BUN Creatinine Est GFR ( Amer) Est GFR (Non-Af Amer) Random Glucose Calcium Total Bilirubin AST ALT Alkaline Phosphatase Troponin I 0.0780 Total Protein Albumin Globulin Albumin/Globulin Ratio Procalcitonin 03/02/18 03/02/18 03/02/18 05:20 08:00 08:40 WBC RBC Hgb Hct MCV MCH MCHC RDW Plt Count MPV Neut % (Auto) Lymph % (Auto) Colbert % (Auto) Eos % (Auto) Baso % (Auto) Neut # (Auto) Lymph # (Auto) Colbert # (Auto) Eos # (Auto) Baso # (Auto) PT INR APTT Sodium 139 Potassium 5.5 H Chloride 95 L Carbon Dioxide 30 Anion Gap 20 BUN 30 H Creatinine 5.1 H Est GFR ( Amer) 10 Est GFR (Non-Af Amer) 9 Random Glucose 95 Calcium 9.5 Total Bilirubin 0.9 AST 45 H ALT 24 Alkaline Phosphatase 87 Troponin I 0.0710 Total Protein 7.2 Albumin 3.8 Globulin 3.4 Albumin/Globulin Ratio 1.1 Procalcitonin 2.55 H
[2018-03-02] MEDS ORDERED: Vancomycin 500 mg (Oral/Rectal USE) PO SCH (23:05)
[2018-03-03] MEDS: Vancomycin 500 mg (Oral/Rectal USE) PO SCH ×5 (00:26→21:45)
--- NOTE | 2018-03-03 06:45 | CON ---
DATE: RENAL CONSULTATION LOCATION: The patient is located in room 403, bed 2. REQUESTED BY: Camila Tomas MD REASON FOR RENAL CONSULTATION: End stage renal disease, fever, cough, shortness of breath, and for continuation of the hemodialysis. HISTORY OF PRESENT ILLNESS: Ms. Alexis is 62-year-old elderly female with a past medical history significant for longstanding hypertension, polycystic kidney disease, coronary artery disease, and end-stage renal disease, on hemodialysis, history of DVT, and also paroxysmal atrial fibrillation who was admitted with a chief complaint of cough, shortness of breath, associated with whitish yellow sputum for 4 days and also patient was found to be febrile yesterday during dialysis and after 2 hours of hemodialysis treatment, the patient is complaining of shortness of breath and hemodialysis was discontinued after 2 hours of treatment and an ultrafiltration about 1900 mL. The patient was sent to the emergency room through EMS. The patient was also found to have high blood pressure 216/78 on admission to the emergency room. The patient denies any headache, denies any dizziness; denies any nausea or vomiting; denies any abdominal pain; denies any chest pain or palpitation. The patient complains of loose bowel movement x6 today. PAST MEDICAL HISTORY: Significant for longstanding hypertension, end-stage renal disease, polycystic kidney disease, coronary artery disease. PAST SURGICAL HISTORY: Status post right upper extremity AV fistula and also fracture of the right ankle long-term ago. ALLERGIES: ALLERGIC TO CIPROFLOXACIN, PENICILLIN, AND QUESTIONABLE ALLERGY TO DYE. SOCIAL HISTORY: No smoking, no alcohol, no drugs. PERSONAL HISTORY: She is , and she has a very supportive family, daughter and . FAMILY HISTORY: Not significant. CURRENT MEDICATIONS: Include as follows: Clonidine 0.3 mg p.o. every 8 hours, Cepacol throat lozenges one every 2 hours p.r.n., Dificid 200 mg p.o. b.i.d., Ecotrin 81 mg daily, Hectorol 2 mcg 3 times a week, subcutenaous heparin 5000 every 8 hours, Lasix 40 mg IV every 12 hours, Lidoderm patch topical, Lipitor 20 mg p.o. every 48 hours, metoprolol 25 mg p.o. every 12 hours, Lovaza 1 gm p.o. b.i.d., Neurontin 100 mg p.o. t.i.d., Phenergan with Codeine 5 mL p.o. every 6 hours p.r.n., PhosLo 667 mg two tablets p.o. with meals, Procrit 10,000 units three times a week, hold for hemoglobin more than 11, Protonix 40 mg p.o. daily, Tylenol, DuoNeb, albuterol inhaler two puffs every 6 hours, and Zofran 4 mg p.o. every 8 hours. REVIEW OF SYSTEMS: Significant for cough, shortness of breath, and fever. All other review of systems are reviewed and are negative. PHYSICAL EXAMINATION: VITAL SIGNS: Blood pressure 152/84, pulse 78, respirations 18, temperature is 101, and T-max is 102.7, saturation is 100%. Height is 4 feet 9 inches and weight is 134 pounds. GENERAL: Mrs. Alexis is a 62-year-old elderly female, moderately built, moderately nourished, not in acute distress. HEENT: Pupils normal and reactive to light and accommodation. Conjunctivae pink. Sclerae anicteric. Tongue is moist. Trachea is midline. LUNGS: Symmetry on both sides, bilateral breath sounds present. Bilateral basal crackles present and patient has collaterals on the anterior chest wall. CVS: [place] of the fifth intercostal space, midclavicular line, S1 and S2 audible. No murmur, no gallop. ABDOMEN: Normal in appearance, soft, tympanic. No guarding, no rigidity, no hepatosplenomegaly. No abdominal bruits. CENTRAL NERVOUS SYSTEM: The patient is alert, awake, oriented x3. Nonfocal neuro examination. Cranial nerves II through XII grossly intact. Sensory and motor system is within normal limits. EXTREMITIES: No cyanosis, no clubbing, no edema. LABORATORY DATA: Include as follows, as of 03/01/2018, WBC is 3.9, hemoglobin 12.4, hematocrit is 38.8, platelets 118, PT 13.5, INR 1.2, PTT 31.9. VBG, pH 7.42, pO2 is 34, pCO2 is 52, bicarb is 29.8, saturation is 63.8. Chem-7, sodium 141, potassium 4.3, chloride 96, CO2 of 34, BUN 23, creatinine 3.6, and glucose is 87. Lactic acid is 1.1, calcium 9.5, total bili 0.3, AST 43, ALT 24, alkaline phosphatase 90, troponin 0.044, proBNP 195,000, total protein 7, albumin 3.9, potassium is 4.2. Stool for C. diff toxin antigen is positive and influenza A and B antibodies are negative. Other laboratory data as of 03/02/2018, sodium 139, potassium 5.5, chloride 95, CO2 of 30, BUN 30, creatinine 5.1, glucose 95, calcium 9.5, total bili 0.9, AST 45, ALT 24, alkaline phosphatase 87. WBC 5, hemoglobin 14.1, hematocrit 43.8, platelets 93. C. diff antigen is positive, on toxin is negative. Sputum cultures are pending and blood cultures x1 is no growth after 24 hours. Chest x-ray is within normal limits. IMPRESSION: In summary, Mrs. Alexis is a 62-year-old elderly female with history of cough, shortness of breath, cough associated with whitish yellow sputum for 4 days and fever, 102.7, with a normal white count and also diarrhea with loose bowel movement x6 this morning and also stool for C. diff toxin is negative but antigen is positive. 1. End stage renal disease. Continue hemodialysis, 3 times a week, Wednesday, , Wednesday. 2. Hypertension, most likely secondary to noncompliance with the diet and fluid intake. 3. Cough, associated with whitish yellow sputum, rule out acute bronchitis. Chest x-ray was negative for any pneumonia on admission. Followup repeat chest x-ray. 4. Thrombocytopenia. 5. Polycystic kidney disease. Continue antibiotics as per Dr. Carter. We will consider to add vancomycin or Flagyl for possible C. diff. Thank you for allowing me to participate in your patient's care. We will schedule for hemodialysis in a.m. Alicia Barone MD [email or web address]
[2018-03-03 06:52] LABS: EOS % 0.3 % (0.0-4.0); HEMOGLOBIN 12.3 g/dL (12.0-16.0); LYMPH # 1.1 K/uL (1.0-4.3); LYMPH % 34.4 % (20.0-40.0); MEAN CELL VOLUME 96.4 fl (81.0-99.0); MEAN CORPUSCULAR HEMOGLOBIN 30.5 pg (27.0-31.0); MEAN CORPUSCULAR HGB CONC 31.7 g/dL (33.0-37.0); MEAN PLATELET VOLUME 8.7 fl (7.2-11.7); MONO # 0.4 K/uL (0.0-0.8); MONO % 12.7 % (0.0-10.0); NEUT # 1.7 K/uL (1.8-7.0); NEUT % 51.6 % (50.0-75.0); NRBC % 0.3 % (0.0-0.0); RBC 4.03 Mil/uL (3.80-5.20); RED CELL DISTRIBUTION WIDTH 24.4 % (11.5-14.5); WHITE BLOOD COUNT 3.3 K/uL (4.8-10.8)
[2018-03-03 07:20] LABS: ALB/GLOB RATIO 1.2 (1.0-2.1); ALBUMIN 3.4 g/dL (3.5-5.0); CALCIUM 9.2 mg/dL (8.4-10.2)
[2018-03-03] MEDS ORDERED: EPOETIN ALFA 10,000 UNIT/ML ML SC SCH (09:00)
[2018-03-03] MEDS: Benzocaine/Menthol (Cepacol) Lozenge PO PRN ×3 (09:44→17:34)
[2018-03-03] MEDS: Omega-3-Acid Ethyl Esters 1 GM Cap PO SCH ×2 (09:45→17:36)
[2018-03-03] MEDS: Lidocaine 5% Patch TD SCH (09:46)
[2018-03-03] MEDS: Pantoprazole 40 mg EC Tab PO SCH (09:49)
--- NOTE | 2018-03-03 11:03 | CP.PCM.PN ---
Subjective - Date & Time of Evaluation Date of Evaluation: 03/03/18 Time of Evaluation: 11:02 - Subjective Subjective: Yesterday pt endorsed loose BM x 5 in the PM, stool culture, c diff test was done. C. diff was pos, ot subsequently started on PO vanc. No acute overnight events. Pt is examined by bedside this AM. States that she continues to have loose BM, but no longer having the associated cramping pain. Breathing has improved since admission, and the productive cough is better with the medication. [facility] [id number] Objective - Vital Signs/Intake and Output Vital Signs (last 24 hours): Temp Pulse Resp BP Pulse Ox 97.9 F 64 18 191/73 H 100 03/03/18 08:18 03/03/18 09:46 03/03/18 08:18 03/03/18 09:46 03/03/18 08:18 - Medications Medications: Current Medications Acetaminophen (Tylenol 325mg Tab) 650 mg PO Q6 PRN PRN Reason: Fever >100.4 F Last Admin: 03/02/18 18:13 Dose: 650 mg Albuterol (Ventolin Hfa 90 Mcg/Actuation (8 G)) 2 puff IH Q6 PRN PRN Reason: Shortness of Breath Aspirin (Ecotrin) 81 mg PO DAILY [facility] Last Admin: 03/03/18 09:47 Dose: 81 mg Atorvastatin Calcium (Lipitor) 20 mg PO Q48H [facility] Last Admin: 03/01/18 20:46 Dose: 20 mg Benzocaine/Menthol (Cepacol Sore Throat) 1 mayra PO Q2 PRN PRN Reason: Sore Throat Last Admin: 03/03/18 09:44 Dose: 1 mayra Calcium Acetate (Phoslo) 1,334 mg PO WM [facility] Last Admin: 03/03/18 07:44 Dose: 1,334 mg Clonidine HCl (Catapres) 0.3 mg PO Q8 [facility] Last Admin: 03/03/18 09:45 Dose: 0.3 mg Doxercalciferol (Hectorol) 2 mcg PO TTS [facility] Last Admin: 03/03/18 09:43 Dose: 2 mcg Epoetin Chris (Procrit) 10,000 unit SC TTS [facility] Last Admin: 03/03/18 09:42 Dose: 10,000 unit Furosemide (Lasix) 40 mg PO Q12 [facility] Last Admin: 03/03/18 09:41 Dose: 40 mg Gabapentin (Neurontin) 100 mg PO TID PRN PRN Reason: neuropathic pain Heparin Sodium (Porcine) (Heparin) 5,000 units SC Q8 [facility] PRN Reason: Protocol Last Admin: 03/03/18 09:48 Dose: Not Given Lidocaine (Lidoderm) 1 ea TD DAILY [facility] Last Admin: 03/03/18 09:46 Dose: 1 ea Metoprolol Tartrate (Lopressor) 25 mg PO Q12 [facility] Last Admin: 03/03/18 09:46 Dose: 25 mg Dfxuq-6-Viav Ethyl Esters (Lovaza) 1 gm PO BID [facility] Last Admin: 03/03/18 09:45 Dose: 1 gm Ondansetron HCl (Zofran Odt) 4 mg PO Q8H PRN PRN Reason: Nausea/Vomiting Pantoprazole Sodium (Protonix Ec Tab) 40 mg PO DAILY [facility] Last Admin: 03/03/18 09:49 Dose: Not Given Promethazine HCl/Codeine (Phenergan/Codeine Oral Syrup) 5 ml PO Q6 PRN PRN Reason: Cough Last Admin: 03/02/18 18:14 Dose: 5 ml Vancomycin HCl (Vancocin (Oral/Rectal Use)) 125 mg PO Q6 [facility] PRN Reason: Protocol Last Admin: 03/03/18 09:41 Dose: 125 mg - Labs Labs: 03/03/18 06:48 03/03/18 04:00 PT 13.5 Seconds (9.8-13.1) H 03/01/18 08:40 INR 1.2 (0.9-1.2) 03/01/18 08:40 APTT 31.9 Seconds (25.6-37.1) 03/01/18 08:40 - Constitutional Appears: Non-toxic, No Acute Distress - Head Exam Head Exam: ATRAUMATIC Additional comments: NL on 2L O2 - Eye Exam Eye Exam: EOMI, Normal appearance - ENT Exam ENT Exam: Mucous Membranes Moist - Respiratory Exam Respiratory Exam: Rhonchi (and crackles heard througout ), Wheezes (mild expiratory wheezing in the lower lobes ), NORMAL BREATHING PATTERN. absent: Rales - Cardiovascular Exam Cardiovascular Exam: REGULAR RHYTHM, +S1, +S2 - GI/Abdominal Exam GI & Abdominal Exam: Soft, Hyperactive Bowel Sounds. absent: Distended, Tenderness - Extremities Exam Extremities Exam: absent: Pedal Edema Additional comments: stasis dermatitis noted b/l in the lower extremities. RLE ORIF scar noted, well healed. RUE AV fistula noted, palpable thrill old fistula on LUE IV line noted on LUE - Back Exam Back Exam: NORMAL INSPECTION. absent: CVA tenderness (L), CVA tenderness (R) - Neurological Exam Neurological Exam: Alert, Awake - Psychiatric Exam Psychiatric exam: Normal Affect, Normal Mood - Skin Skin Exam: Normal Color, Warm Additional comments: some bruising on exam on RUE and LUE Assessment and Plan - Assessment and Plan (Free Text) Assessment: Assessment/Plan: 62 YO Female with hx of ESRD on HD (TThS), HTN, CHF, hx RLE DVT, GERD, CAD s/p cath presents is admitted for fever, and dyspnea. Fever -Tmax over 24 hrs 102.7, currently afebrile -likely 2/2 to viral URI -CXR negative, WBC 3.3 -tylenol PRN fever -c/w vanco PO -f/u bcx, ucx and scx -blood cx no growth 24 hrs -sputum culture, PMN, epithelial cells and gram pos cocci, culture pending -ID consulted, possibly viral etiology, start vanco Dyspnea, cough -improving -acute on chronic -likely CHF exacerbation 2/2 to viral URI in setting of stable pericardial effusion and severe pulmonary HTN/severe tricuspid regurge -CXR negative for active disease, troponin negative x 3 -proBNP 195,000 -Echo 11/29/17: normal LV size and function with EF 60-65%, mild concentric LVH, severe pulm HTN/severe tricuspid regurge -EKG sinus with 1st deg AV block, HR 89 -cardiology consulted, Dyspnea seems to be more related to respiratory problem than cardiac -c/w promethazine/codeine for cough -c/w albuterol and mucomyst per Nephrology consult Diarrhea -multiple episodes of loose BM -no hx of recent abx use -hx of c diff in past (2yrs ago) -c.diff tox is neg but antibody pos -follow up stool culture -c/w vanc PO HTN -chronic, uncontrolled -Per nephrology; c/w home medications -cardiology consulted for medical optimization; Dyspnea seems to be more related to respiratory problem than cardiac -heart healthy diet/renal diet ESRD on HD (TThS) -chronic, controlled -continue home medications -completed 2hrs of HD today, BUN/Cr at baseline 23/3.6 respectively -Nephrology on consult: Dr. Barone; lasix IV today and continue lasix PO daily from tomorrow -HD today Thrombocytopenia -likely acute on chronic -2/2 to ESRD -continue to monitor Valcular disease -Echo 11/29/17: normal LV size and function with EF 60-65%, mild concentric LVH, severe pulm HTN/severe tricuspid regurge -severe TR and severe Pulm hypertension -consider [facility] referral as outpt GERD -chronic, stable -Pantoprazole 40mg PO QD Chronic RLE DVT -stable -Heparin 5,000 units SC Q8 on hold due to low plts -no SCD's
--- NOTE | 2018-03-03 11:32 | CP.PCM.PN ---
Subjective - Date & Time of Evaluation Date of Evaluation: 03/03/18 Time of Evaluation: 11:32 - Subjective Subjective: pt is seen and examined, follow up consult is dictated #[id number] for hd today Objective - Vital Signs/Intake and Output Vital Signs (last 24 hours): Temp Pulse Resp BP Pulse Ox 97.9 F 64 18 191/73 H 100 03/03/18 08:18 03/03/18 09:46 03/03/18 08:18 03/03/18 09:46 03/03/18 08:18 - Medications Medications: Current Medications Acetaminophen (Tylenol 325mg Tab) 650 mg PO Q6 PRN PRN Reason: Fever >100.4 F Last Admin: 03/02/18 18:13 Dose: 650 mg Albuterol (Ventolin Hfa 90 Mcg/Actuation (8 G)) 2 puff IH Q6 [facility] Aspirin (Ecotrin) 81 mg PO DAILY [facility] Last Admin: 03/03/18 09:47 Dose: 81 mg Atorvastatin Calcium (Lipitor) 20 mg PO Q48H [facility] Last Admin: 03/01/18 20:46 Dose: 20 mg Benzocaine/Menthol (Cepacol Sore Throat) 1 mayra PO Q2 PRN PRN Reason: Sore Throat Last Admin: 03/03/18 09:44 Dose: 1 mayra Calcium Acetate (Phoslo) 1,334 mg PO WM [facility] Last Admin: 03/03/18 07:44 Dose: 1,334 mg Clonidine HCl (Catapres) 0.3 mg PO Q8 [facility] Last Admin: 03/03/18 09:45 Dose: 0.3 mg Doxercalciferol (Hectorol) 2 mcg PO TTS [facility] Last Admin: 03/03/18 09:43 Dose: 2 mcg Epoetin Chris (Procrit) 10,000 unit SC TTS [facility] Last Admin: 03/03/18 09:42 Dose: 10,000 unit Furosemide (Lasix) 40 mg PO Q12 [facility] Last Admin: 03/03/18 09:41 Dose: 40 mg Furosemide (Lasix) 40 mg IVP ONCE ONE Stop: 03/03/18 11:31 Gabapentin (Neurontin) 100 mg PO TID PRN PRN Reason: neuropathic pain Heparin Sodium (Porcine) (Heparin) 5,000 units SC Q8 [facility] PRN Reason: Protocol Last Admin: 03/03/18 09:48 Dose: Not Given Lidocaine (Lidoderm) 1 ea TD DAILY [facility] Last Admin: 03/03/18 09:46 Dose: 1 ea Metoprolol Tartrate (Lopressor) 25 mg PO Q12 [facility] Last Admin: 03/03/18 09:46 Dose: 25 mg Vtfsg-0-Vayq Ethyl Esters (Lovaza) 1 gm PO BID [facility] Last Admin: 03/03/18 09:45 Dose: 1 gm Ondansetron HCl (Zofran Odt) 4 mg PO Q8H PRN PRN Reason: Nausea/Vomiting Pantoprazole Sodium (Protonix Ec Tab) 40 mg PO DAILY [facility] Last Admin: 03/03/18 09:49 Dose: Not Given Promethazine HCl/Codeine (Phenergan/Codeine Oral Syrup) 5 ml PO Q6 PRN PRN Reason: Cough Last Admin: 03/02/18 18:14 Dose: 5 ml Vancomycin HCl (Vancocin (Oral/Rectal Use)) 125 mg PO Q6 [facility] PRN Reason: Protocol Last Admin: 03/03/18 09:41 Dose: 125 mg - Labs Labs: 03/03/18 06:48 03/03/18 04:00 PT 13.5 Seconds (9.8-13.1) H 03/01/18 08:40 INR 1.2 (0.9-1.2) 03/01/18 08:40 APTT 31.9 Seconds (25.6-37.1) 03/01/18 08:40
--- NOTE | 2018-03-03 13:41 | CP.PCM.PN ---
Subjective - Date & Time of Evaluation Date of Evaluation: 03/03/18 Time of Evaluation: 10:00 - Subjective Subjective: Breathing easily still with cough but less Objective - Vital Signs/Intake and Output Vital Signs (last 24 hours): Temp Pulse Resp BP Pulse Ox 97.9 F 64 18 173/70 H 100 03/03/18 12:13 03/03/18 12:13 03/03/18 12:13 03/03/18 12:32 03/03/18 12:13 - Medications Medications: Current Medications Acetaminophen (Tylenol 325mg Tab) 650 mg PO Q6 PRN PRN Reason: Fever >100.4 F Last Admin: 03/02/18 18:13 Dose: 650 mg Acetylcysteine (Mucomyst 10% 4ml) 2 ml IH RBID [facility] Albuterol (Ventolin Hfa 90 Mcg/Actuation (8 G)) 2 puff IH Q6 [facility] Aspirin (Ecotrin) 81 mg PO DAILY [facility] Last Admin: 03/03/18 09:47 Dose: 81 mg Atorvastatin Calcium (Lipitor) 20 mg PO Q48H [facility] Last Admin: 03/01/18 20:46 Dose: 20 mg Benzocaine/Menthol (Cepacol Sore Throat) 1 mayra PO Q2 PRN PRN Reason: Sore Throat Last Admin: 03/03/18 12:31 Dose: 1 mayra Calcium Acetate (Phoslo) 1,334 mg PO WM [facility] Last Admin: 03/03/18 12:37 Dose: 1,334 mg Clonidine HCl (Catapres) 0.3 mg PO Q8 [facility] Last Admin: 03/03/18 09:45 Dose: 0.3 mg Doxercalciferol (Hectorol) 2 mcg PO TTS [facility] Last Admin: 03/03/18 09:43 Dose: 2 mcg Epoetin Chris (Procrit) 10,000 unit SC TTS [facility] Last Admin: 03/03/18 09:42 Dose: 10,000 unit Furosemide (Lasix) 40 mg PO Q12 [facility] Last Admin: 03/03/18 09:41 Dose: 40 mg Gabapentin (Neurontin) 100 mg PO TID PRN PRN Reason: neuropathic pain Heparin Sodium (Porcine) (Heparin) 5,000 units SC Q8 [facility] PRN Reason: Protocol Last Admin: 03/03/18 09:48 Dose: Not Given Lidocaine (Lidoderm) 1 ea TD DAILY [facility] Last Admin: 03/03/18 09:46 Dose: 1 ea Metoprolol Tartrate (Lopressor) 25 mg PO Q12 [facility] Last Admin: 03/03/18 09:46 Dose: 25 mg Vtuuq-7-Pxnd Ethyl Esters (Lovaza) 1 gm PO BID [facility] Last Admin: 03/03/18 09:45 Dose: 1 gm Ondansetron HCl (Zofran Odt) 4 mg PO Q8H PRN PRN Reason: Nausea/Vomiting Pantoprazole Sodium (Protonix Ec Tab) 40 mg PO DAILY [facility] Last Admin: 03/03/18 09:49 Dose: Not Given Promethazine HCl/Codeine (Phenergan/Codeine Oral Syrup) 5 ml PO Q6 PRN PRN Reason: Cough Last Admin: 03/02/18 18:14 Dose: 5 ml Vancomycin HCl (Vancocin (Oral/Rectal Use)) 125 mg PO Q6 [facility] PRN Reason: Protocol Last Admin: 03/03/18 09:41 Dose: 125 mg - Labs Labs: 03/03/18 06:48 03/03/18 04:00 PT 13.5 Seconds (9.8-13.1) H 03/01/18 08:40 INR 1.2 (0.9-1.2) 03/01/18 08:40 APTT 31.9 Seconds (25.6-37.1) 03/01/18 08:40 Assessment and Plan (1) Dyspnea Assessment & Plan: Continue present Tx Status: Acute (2) HTN (hypertension) Status: Acute (3) Influenza Status: Acute (4) PHT (pulmonary hypertension) Status: Acute (5) ESRD (end stage renal disease) on dialysis Status: Chronic
[2018-03-03] MEDS: Promethazine/Cod 6.25mg-10mg/5ml Syr UD PO PRN (14:29)
[2018-03-03] MEDS: Albuterol HFA 90 mcg/actuation (8 g) IH SCH ×2 (16:33→21:44)
--- NOTE | 2018-03-04 03:06 | PN ---
FOLLOWUP RENAL CONSULTATION DATE: 03/03/2018 LOCATION: The patient is located in room 413, bed 1. REQUESTED BY: Camila Tomas MD REASON FOR FOLLOWUP: End-stage renal disease, continuation of the hemodialysis. SUBJECTIVE: Mrs. Alexis is a 62-year-old elderly, very pleasant female with a past medical history significant for hypertension, coronary artery disease, CHF, end-stage renal disease, pericardial effusion, DVT, paroxysmal AFib, and polycystic kidney disease who was admitted with chief complaint of fever, cough, shortness of breath for 3 to 4 days prior to the admission and cough associated whitish-yellow sputum. The patient was also found to have a diarrhea and stool for C. diff, LDL is positive, and toxin is negative. The patient is feeling slightly better today, not in any distress. No chest pain. No palpitation. No fever. No abdominal pain. No nausea, vomiting, or diarrhea. PHYSICAL EXAMINATION: VITAL SIGNS: Blood pressure this morning 191/73, pulse 64, respirations 18, temperature 97.9, and saturation 100%. Height is 4 feet 9 inches and weight is 134 pounds. GENERAL: Mrs. Alexis is a 62-year-old elderly female, moderately built, moderately nourished, and not in acute distress. HEENT: Pupils normal and reactive to light and accommodation. Conjunctivae pink. Sclerae anicteric. Tongue is moist. Trachea is midline. LUNGS: Symmetric on both sides, bilateral breath sounds present. Occasional basal crackles present. CARDIOVASCULAR: [place] of the fifth intercostal space, midclavicular line, S1 and S2 audible. No murmur. No gallop. ABDOMEN: Normal in appearance, soft, and tympanic. No guarding. No rigidity. No hepatosplenomegaly. CENTRAL NERVOUS SYSTEM: The patient is alert, awake, and oriented x3. Nonfocal neuro examination. Cranial nerves II through XII grossly intact. Sensory and motor system is within normal limits. EXTREMITIES: No cyanosis. No clubbing. No edema. CURRENT MEDICATIONS: Include as follows; clonidine 0.3 mg p.o. every 8 hours, Cepacol throat lozenges, aspirin 81 mg daily, Hectorol 2 mcg 3 times a week, subcutaneous heparin 5000 every 8 hours, Lasix 40 mg p.o. every 12 hours, lidocaine patch, Lipitor 20 mg p.o. every 48 hours, Lovaza 1 g p.o. b.i.d., Mucomyst 2 mL b.i.d., Neurontin 100 mg p.o. t.i.d., Phenergan With Codeine 5 mL p.o. every 6 hours p.r.n., PhosLo 667 mg two tablets p.o. with meals, Epogen 10,000 units three times a week and hold for hemoglobin more than 11, Protonix 40 mg daily, Tylenol, vancomycin 125 mg p.o. every 6 hours, albuterol inhaler, and Zofran. LABORATORY DATA: Include as follows as of 03/03/2018; WBC 3.3, hemoglobin 12.3, hematocrit is 38.9, and platelets 81. Sodium 137, potassium 3.7, chloride 95, CO2 of 26, BUN 48, creatinine 7, glucose 82, calcium 9.2, total bili 0.7, AST 35, ALT 20, alkaline phosphatase is 79, total protein 6.4, and albumin is 3.4. Stool C. diff antigen is positive and antibody is negative. Influenza A and B antibodies are negative. Blood culture x2 negative day 1 and blood culture x1 negative day 2 and sputum culture is pending. ASSESSMENT AND PLAN: In summary, Mrs. Alexis is a 62-year-old elderly female with history of hypertension, end-stage renal disease, polycystic kidney disease, hyperlipidemia, pericardial effusion, and deep venous thrombosis, who was admitted with cough with whitish-yellow sputum and pulmonary hypertension. 1. End-stage renal disease. Continue hemodialysis three times a week Wednesday, , and Wednesday. 2. Uncontrolled hypertension. Continue her current medications clonidine, metoprolol, and hydralazine 25 mg p.o. every 8 hours to hold for systolic blood pressure less than 140. We will follow with you. 3. Rule out acute bronchitis. Continue antibiotics as well ID recommendation. Thank you for allowing me to participate in your patient's care. Hold Epogen for hemoglobin more than 11. We will schedule for hemodialysis today. Alicia Barone MD
[2018-03-04] MEDS: Vancomycin 500 mg (Oral/Rectal USE) PO SCH ×4 (05:05→21:42)
[2018-03-04] MEDS: Albuterol HFA 90 mcg/actuation (8 g) IH SCH ×2 (05:05→21:42)
[2018-03-04 07:35] LABS: BASO % 1.1 % (0.0-2.0); EOS # 0.1 K/uL (0.0-0.7); EOS % 1.5 % (0.0-4.0); HEMOGLOBIN 12.1 g/dL (12.0-16.0); LYMPH # 1.2 K/uL (1.0-4.3); LYMPH % 32.9 % (20.0-40.0); MEAN CELL VOLUME 96.1 fl (81.0-99.0); MEAN CORPUSCULAR HEMOGLOBIN 30.9 pg (27.0-31.0); MEAN CORPUSCULAR HGB CONC 32.1 g/dL (33.0-37.0); MEAN PLATELET VOLUME 8.9 fl (7.2-11.7); MONO # 0.5 K/uL (0.0-0.8); MONO % 14.3 % (0.0-10.0); NEUT # 1.8 K/uL (1.8-7.0); NEUT % 50.2 % (50.0-75.0); NRBC % 0.4 % (0.0-0.0); RBC 3.92 Mil/uL (3.80-5.20); WHITE BLOOD COUNT 3.6 K/uL (4.8-10.8)
[2018-03-04 07:48] LABS: CALCIUM 9.1 mg/dL (8.4-10.2)
[2018-03-04] MEDS: Acetylcysteine 10% 4 ML IH SCH ×2 (08:20→20:02)
--- NOTE | 2018-03-04 09:40 | CP.PCM.PN ---
<Catrachita Krishnan - Last Filed: 03/04/18 13:01> Subjective - Date & Time of Evaluation Date of Evaluation: 03/04/18 Time of Evaluation: 09:36 - Subjective Subjective: No acute overnight events. Pt seen and examined by bedside this AM. States that she feels better, and her cough and dyspnea has improved. Denies headache, chest pain, dyspnea, n/d/v/c, chills and fever. Objective - Vital Signs/Intake and Output Vital Signs (last 24 hours): Temp Pulse Resp BP Pulse Ox 98.2 F 62 20 179/73 H 100 03/04/18 08:17 03/04/18 08:17 03/04/18 08:17 03/04/18 08:17 03/04/18 08:17 - Medications Medications: Current Medications Acetaminophen (Tylenol 325mg Tab) 650 mg PO Q6 PRN PRN Reason: Fever >100.4 F Last Admin: 03/02/18 18:13 Dose: 650 mg Acetylcysteine (Mucomyst 10% 4ml) 2 ml IH RBID [facility] Last Admin: 03/04/18 08:20 Dose: Not Given Albuterol (Ventolin Hfa 90 Mcg/Actuation (8 G)) 2 puff IH Q6 [facility] Last Admin: 03/04/18 05:05 Dose: 2 puff Aspirin (Ecotrin) 81 mg PO DAILY [facility] Last Admin: 03/03/18 09:47 Dose: 81 mg Atorvastatin Calcium (Lipitor) 20 mg PO Q48H [facility] Last Admin: 03/03/18 21:43 Dose: 20 mg Benzocaine/Menthol (Cepacol Sore Throat) 1 mayra PO Q2 PRN PRN Reason: Sore Throat Last Admin: 03/03/18 17:34 Dose: 1 mayra Calcium Acetate (Phoslo) 1,334 mg PO WM [facility] Last Admin: 03/03/18 17:37 Dose: 1,334 mg Clonidine HCl (Catapres) 0.3 mg PO Q8 [facility] Last Admin: 03/04/18 01:46 Dose: 0.3 mg Doxercalciferol (Hectorol) 2 mcg PO TTS [facility] Last Admin: 03/03/18 09:43 Dose: 2 mcg Epoetin Chris (Procrit) 10,000 unit SC TTS [facility] Last Admin: 03/03/18 09:42 Dose: 10,000 unit Furosemide (Lasix) 40 mg PO Q12 [facility] Last Admin: 03/03/18 21:43 Dose: 40 mg Gabapentin (Neurontin) 100 mg PO TID PRN PRN Reason: neuropathic pain Heparin Sodium (Porcine) (Heparin) 5,000 units SC Q8 [facility] PRN Reason: Protocol Last Admin: 03/04/18 01:47 Dose: 5,000 units Lidocaine (Lidoderm) 1 ea TD DAILY [facility] Last Admin: 03/03/18 09:46 Dose: 1 ea Metoprolol Tartrate (Lopressor) 25 mg PO Q12 [facility] Last Admin: 03/03/18 21:44 Dose: 25 mg Buvqq-7-Gvte Ethyl Esters (Lovaza) 1 gm PO BID [facility] Last Admin: 03/03/18 17:36 Dose: 1 gm Ondansetron HCl (Zofran Odt) 4 mg PO Q8H PRN PRN Reason: Nausea/Vomiting Pantoprazole Sodium (Protonix Ec Tab) 40 mg PO DAILY [facility] Last Admin: 03/03/18 09:49 Dose: Not Given Promethazine HCl/Codeine (Phenergan/Codeine Oral Syrup) 5 ml PO Q6 PRN PRN Reason: Cough Last Admin: 03/03/18 14:29 Dose: 5 ml Vancomycin HCl (Vancocin (Oral/Rectal Use)) 125 mg PO Q6 [facility] PRN Reason: Protocol Last Admin: 03/04/18 05:05 Dose: 125 mg - Labs Labs: 03/04/18 06:30 03/04/18 06:30 PT 13.5 Seconds (9.8-13.1) H 03/01/18 08:40 INR 1.2 (0.9-1.2) 03/01/18 08:40 APTT 31.9 Seconds (25.6-37.1) 03/01/18 08:40 - Constitutional Appears: No Acute Distress, Other (NL on 2L O2) - Head Exam Head Exam: ATRAUMATIC, NORMOCEPHALIC - Eye Exam Eye Exam: EOMI, Normal appearance - ENT Exam ENT Exam: Mucous Membranes Moist - Respiratory Exam Respiratory Exam: Rhonchi (through the upper and lower lobes), Wheezes (mild expiratory wheezing in the lower lobes), NORMAL BREATHING PATTERN. absent: Rales - Cardiovascular Exam Cardiovascular Exam: REGULAR RHYTHM, +S1, +S2 - GI/Abdominal Exam GI & Abdominal Exam: Soft, Normal Bowel Sounds. absent: Distended, Tenderness - Extremities Exam Extremities Exam: Full ROM. absent: Calf Tenderness, Pedal Edema Additional comments: stasis dermatitis noted b/l in the lower extremities. RLE ORIF scar noted, well healed. RUE AV fistula noted, palpable thrill old fistula on LUE IV line noted on LUE - Neurological Exam Neurological Exam: Alert, Awake, Oriented x3 - Skin Skin Exam: Dry, Intact, Normal Color, Warm Additional comments: some bruising on exam on RUE and LUE Assessment and Plan - Assessment and Plan (Free Text) Assessment: Assessment/Plan: 62 YO Female with hx of ESRD on HD (TThS), HTN, CHF, hx RLE DVT, GERD, CAD s/p cath presents is admitted for fever, and dyspnea. Fever -afberile x 48hrs -likely 2/2 to viral URI -CXR negative, WBC 3.3 -tylenol PRN fever -f/u bcx, scx and scx -blood cx no growth 48 hrs -sputum culture neg, normal oral calvin -ID consulted, possibly viral etiology Dyspnea, cough -improving -acute on chronic -likely CHF exacerbation 2/2 to viral URI in setting of stable pericardial effusion and severe pulmonary HTN/severe tricuspid regurge -CXR negative for active disease, troponin negative x 3 -proBNP 195,000 -Echo 11/29/17: normal LV size and function with EF 60-65%, mild concentric LVH, severe pulm HTN/severe tricuspid regurge -EKG sinus with 1st deg AV block, HR 89 -cardiology consulted, Dyspnea seems to be more related to respiratory problem than cardiac -c/w promethazine/codeine for cough -c/w albuterol and mucomyst per Nephrology consult HTN -chronic, uncontrolled -Per nephrology; c/w home medications -Per nephro; hydralazine 50mg Q8 added today -cardiology consulted for medical optimization; Dyspnea seems to be more related to respiratory problem than cardiac -heart healthy diet/renal diet Diarrhea -resolved -no hx of recent abx use -hx of c diff in past (2yrs ago) -c.diff tox is neg but antibody pos -follow up stool culture -c/w vanc PO (D3), will switch to Metronidazole as outpatient ESRD on HD (TThS) -chronic, controlled -continue home medications -completed 2hrs of HD today, BUN/Cr at baseline 23/3.6 respectively -Nephrology on consult: Dr. Barone; lasix IV today and continue lasix PO daily from tomorrow Thrombocytopenia -likely acute on chronic -2/2 to ESRD -continue to monitor Valcular disease -Echo 11/29/17: normal LV size and function with EF 60-65%, mild concentric LVH, severe pulm HTN/severe tricuspid regurge -severe TR and severe Pulm hypertension -consider [facility] referral as outpt GERD -chronic, stable -Pantoprazole 40mg PO QD Chronic RLE DVT -stable -Heparin 5,000 units SC Q8 on hold due to low plts -no SCD's <Gely St - Last Filed: 03/04/18 13:26> Objective - Vital Signs/Intake and Output Vital Signs (last 24 hours): Temp Pulse Resp BP Pulse Ox 98.2 F 61 18 175/70 H 98 03/04/18 12:42 03/04/18 12:53 03/04/18 12:42 03/04/18 12:53 03/04/18 12:42 - Medications Medications: Current Medications Acetaminophen (Tylenol 325mg Tab) 650 mg PO Q6 PRN PRN Reason: Fever >100.4 F Last Admin: 03/02/18 18:13 Dose: 650 mg Acetylcysteine (Mucomyst 10% 4ml) 2 ml IH RBID [facility] Last Admin: 03/04/18 08:20 Dose: Not Given Albuterol (Ventolin Hfa 90 Mcg/Actuation (8 G)) 2 puff IH Q6 [facility] Last Admin: 03/04/18 05:05 Dose: 2 puff Aspirin (Ecotrin) 81 mg PO DAILY [facility] Last Admin: 03/04/18 09:53 Dose: 81 mg Atorvastatin Calcium (Lipitor) 20 mg PO Q48H [facility] Last Admin: 03/03/18 21:43 Dose: 20 mg Benzocaine/Menthol (Cepacol Sore Throat) 1 mayra PO Q2 PRN PRN Reason: Sore Throat Last Admin: 03/03/18 17:34 Dose: 1 mayra Calcium Acetate (Phoslo) 1,334 mg PO WM [facility] Last Admin: 03/04/18 12:54 Dose: 1,334 mg Clonidine HCl (Catapres) 0.3 mg PO Q8 [facility] Last Admin: 03/04/18 09:53 Dose: 0.3 mg Doxercalciferol (Hectorol) 2 mcg PO TTS [facility] Last Admin: 03/03/18 09:43 Dose: 2 mcg Epoetin Chris (Procrit) 10,000 unit SC TTS [facility] Last Admin: 03/03/18 09:42 Dose: 10,000 unit Furosemide (Lasix) 40 mg PO Q12 [facility] Last Admin: 03/04/18 09:51 Dose: 40 mg Gabapentin (Neurontin) 100 mg PO TID PRN PRN Reason: neuropathic pain Heparin Sodium (Porcine) (Heparin) 5,000 units SC Q8 [facility] PRN Reason: Protocol Last Admin: 03/04/18 09:49 Dose: 5,000 units Hydralazine HCl (Apresoline) 50 mg PO Q8 [facility] Last Admin: 03/04/18 12:53 Dose: 50 mg Lidocaine (Lidoderm) 1 ea TD DAILY [facility] Last Admin: 03/04/18 09:48 Dose: 1 ea Metoprolol Tartrate (Lopressor) 25 mg PO Q12 [facility] Last Admin: 03/04/18 09:50 Dose: 25 mg [id number]-[id number] Ethyl Esters (Lovaza) 1 gm PO BID [facility] Last Admin: 03/04/18 09:52 Dose: 1 gm Ondansetron HCl (Zofran Odt) 4 mg PO Q8H PRN PRN Reason: Nausea/Vomiting Pantoprazole Sodium (Protonix Ec Tab) 40 mg PO DAILY [facility] Last Admin: 03/04/18 09:52 Dose: 40 mg Promethazine HCl/Codeine (Phenergan/Codeine Oral Syrup) 5 ml PO Q6 PRN PRN Reason: Cough Last Admin: 03/03/18 14:29 Dose: 5 ml Vancomycin HCl (Vancocin (Oral/Rectal Use)) 125 mg PO Q6 [facility] PRN Reason: Protocol Last Admin: 03/04/18 09:53 Dose: 125 mg - Labs Labs: 03/04/18 06:30 03/04/18 06:30 PT 13.5 Seconds (9.8-13.1) H 03/01/18 08:40 INR 1.2 (0.9-1.2) 03/01/18 08:40 APTT 31.9 Seconds (25.6-37.1) 03/01/18 08:40 Attending/Attestation - Attestation I have personally seen and examined this patient.: Yes I have fully participated in the care of the patient.: Yes I have reviewed all pertinent clinical information, including history, physical exam and plan: Yes Notes (Text): 03/04/18 13:25 Attestation - ATTENDING NOTE - Patient seen and examined. case discussed with resident. Agree with findings and plan.
[2018-03-04] MEDS: Lidocaine 5% Patch TD SCH (09:48)
[2018-03-04] MEDS: Pantoprazole 40 mg EC Tab PO SCH (09:52)
[2018-03-04] MEDS: Omega-3-Acid Ethyl Esters 1 GM Cap PO SCH ×2 (09:52→17:26)
--- NOTE | 2018-03-04 09:56 | CP.PCM.PN ---
Subjective - Date & Time of Evaluation Date of Evaluation: 03/04/18 Time of Evaluation: 09:56 - Subjective Subjective: pt is seen and examined, follow up consult is dictated #[id number] will add hydralazine 50 mg po q 8 hrs Objective - Vital Signs/Intake and Output Vital Signs (last 24 hours): Temp Pulse Resp BP Pulse Ox 98.2 F 62 20 179/73 H 100 03/04/18 08:17 03/04/18 09:53 03/04/18 08:17 03/04/18 09:53 03/04/18 08:17 - Medications Medications: Current Medications Acetaminophen (Tylenol 325mg Tab) 650 mg PO Q6 PRN PRN Reason: Fever >100.4 F Last Admin: 03/02/18 18:13 Dose: 650 mg Acetylcysteine (Mucomyst 10% 4ml) 2 ml IH RBID [facility] Last Admin: 03/04/18 08:20 Dose: Not Given Albuterol (Ventolin Hfa 90 Mcg/Actuation (8 G)) 2 puff IH Q6 [facility] Last Admin: 03/04/18 05:05 Dose: 2 puff Aspirin (Ecotrin) 81 mg PO DAILY [facility] Last Admin: 03/04/18 09:53 Dose: 81 mg Atorvastatin Calcium (Lipitor) 20 mg PO Q48H [facility] Last Admin: 03/03/18 21:43 Dose: 20 mg Benzocaine/Menthol (Cepacol Sore Throat) 1 mayra PO Q2 PRN PRN Reason: Sore Throat Last Admin: 03/03/18 17:34 Dose: 1 mayra Calcium Acetate (Phoslo) 1,334 mg PO WM [facility] Last Admin: 03/04/18 09:49 Dose: 1,334 mg Clonidine HCl (Catapres) 0.3 mg PO Q8 [facility] Last Admin: 03/04/18 09:53 Dose: 0.3 mg Doxercalciferol (Hectorol) 2 mcg PO TTS [facility] Last Admin: 03/03/18 09:43 Dose: 2 mcg Epoetin Chris (Procrit) 10,000 unit SC TTS [facility] Last Admin: 03/03/18 09:42 Dose: 10,000 unit Furosemide (Lasix) 40 mg PO Q12 [facility] Last Admin: 03/04/18 09:51 Dose: 40 mg Gabapentin (Neurontin) 100 mg PO TID PRN PRN Reason: neuropathic pain Heparin Sodium (Porcine) (Heparin) 5,000 units SC Q8 [facility] PRN Reason: Protocol Last Admin: 03/04/18 09:49 Dose: 5,000 units Lidocaine (Lidoderm) 1 ea TD DAILY [facility] Last Admin: 03/04/18 09:48 Dose: 1 ea Metoprolol Tartrate (Lopressor) 25 mg PO Q12 [facility] Last Admin: 03/04/18 09:50 Dose: 25 mg [id number]-[id number] Ethyl Esters (Lovaza) 1 gm PO BID [facility] Last Admin: 03/04/18 09:52 Dose: 1 gm Ondansetron HCl (Zofran Odt) 4 mg PO Q8H PRN PRN Reason: Nausea/Vomiting Pantoprazole Sodium (Protonix Ec Tab) 40 mg PO DAILY [facility] Last Admin: 03/04/18 09:52 Dose: 40 mg Promethazine HCl/Codeine (Phenergan/Codeine Oral Syrup) 5 ml PO Q6 PRN PRN Reason: Cough Last Admin: 03/03/18 14:29 Dose: 5 ml Vancomycin HCl (Vancocin (Oral/Rectal Use)) 125 mg PO Q6 [facility] PRN Reason: Protocol Last Admin: 03/04/18 09:53 Dose: 125 mg - Labs Labs: 03/04/18 06:30 03/04/18 06:30 PT 13.5 Seconds (9.8-13.1) H 03/01/18 08:40 INR 1.2 (0.9-1.2) 03/01/18 08:40 APTT 31.9 Seconds (25.6-37.1) 03/01/18 08:40
--- NOTE | 2018-03-04 12:52 | CP.PCM.PN ---
Subjective - Date & Time of Evaluation Date of Evaluation: 03/04/18 Time of Evaluation: 07:00 - Subjective Subjective: CULTURES NEG THUS FAR PLAN IS TO CONT RX OUT PT Objective - Vital Signs/Intake and Output Vital Signs (last 24 hours): Temp Pulse Resp BP Pulse Ox 98.2 F 61 18 175/70 H 98 03/04/18 12:42 03/04/18 12:42 03/04/18 12:42 03/04/18 12:42 03/04/18 12:42 - Medications Medications: Current Medications Acetaminophen (Tylenol 325mg Tab) 650 mg PO Q6 PRN PRN Reason: Fever >100.4 F Last Admin: 03/02/18 18:13 Dose: 650 mg Acetylcysteine (Mucomyst 10% 4ml) 2 ml IH RBID [facility] Last Admin: 03/04/18 08:20 Dose: Not Given Albuterol (Ventolin Hfa 90 Mcg/Actuation (8 G)) 2 puff IH Q6 [facility] Last Admin: 03/04/18 05:05 Dose: 2 puff Aspirin (Ecotrin) 81 mg PO DAILY [facility] Last Admin: 03/04/18 09:53 Dose: 81 mg Atorvastatin Calcium (Lipitor) 20 mg PO Q48H [facility] Last Admin: 03/03/18 21:43 Dose: 20 mg Benzocaine/Menthol (Cepacol Sore Throat) 1 mayra PO Q2 PRN PRN Reason: Sore Throat Last Admin: 03/03/18 17:34 Dose: 1 mayra Calcium Acetate (Phoslo) 1,334 mg PO WM [facility] Last Admin: 03/04/18 09:49 Dose: 1,334 mg Clonidine HCl (Catapres) 0.3 mg PO Q8 [facility] Last Admin: 03/04/18 09:53 Dose: 0.3 mg Doxercalciferol (Hectorol) 2 mcg PO TTS [facility] Last Admin: 03/03/18 09:43 Dose: 2 mcg Epoetin Chris (Procrit) 10,000 unit SC TTS [facility] Last Admin: 03/03/18 09:42 Dose: 10,000 unit Furosemide (Lasix) 40 mg PO Q12 [facility] Last Admin: 03/04/18 09:51 Dose: 40 mg Gabapentin (Neurontin) 100 mg PO TID PRN PRN Reason: neuropathic pain Heparin Sodium (Porcine) (Heparin) 5,000 units SC Q8 [facility] PRN Reason: Protocol Last Admin: 03/04/18 09:49 Dose: 5,000 units Hydralazine HCl (Apresoline) 50 mg PO Q8 [facility] Lidocaine (Lidoderm) 1 ea TD DAILY [facility] Last Admin: 03/04/18 09:48 Dose: 1 ea Metoprolol Tartrate (Lopressor) 25 mg PO Q12 [facility] Last Admin: 03/04/18 09:50 Dose: 25 mg [id number]-[id number] Ethyl Esters (Lovaza) 1 gm PO BID [facility] Last Admin: 03/04/18 09:52 Dose: 1 gm Ondansetron HCl (Zofran Odt) 4 mg PO Q8H PRN PRN Reason: Nausea/Vomiting Pantoprazole Sodium (Protonix Ec Tab) 40 mg PO DAILY [facility] Last Admin: 03/04/18 09:52 Dose: 40 mg Promethazine HCl/Codeine (Phenergan/Codeine Oral Syrup) 5 ml PO Q6 PRN PRN Reason: Cough Last Admin: 03/03/18 14:29 Dose: 5 ml Vancomycin HCl (Vancocin (Oral/Rectal Use)) 125 mg PO Q6 [facility] PRN Reason: Protocol Last Admin: 03/04/18 09:53 Dose: 125 mg - Labs Labs: 03/04/18 06:30 03/04/18 06:30 PT 13.5 Seconds (9.8-13.1) H 03/01/18 08:40 INR 1.2 (0.9-1.2) 03/01/18 08:40 APTT 31.9 Seconds (25.6-37.1) 03/01/18 08:40 - Constitutional Appears: Non-toxic, Chronically Ill - Head Exam Head Exam: NORMOCEPHALIC - Eye Exam Eye Exam: PERRL - ENT Exam ENT Exam: Mucous Membranes Dry - Neck Exam Neck Exam: absent: Lymphadenopathy - Respiratory Exam Respiratory Exam: Decreased Breath Sounds - Cardiovascular Exam Cardiovascular Exam: REGULAR RHYTHM - GI/Abdominal Exam GI & Abdominal Exam: Distended - Rectal Exam Rectal Exam: Deferred - Exam Exam: NORMAL INSPECTION - Extremities Exam Extremities Exam: absent: Pedal Edema - Back Exam Back Exam: absent: CVA tenderness (L), CVA tenderness (R) - Neurological Exam Neurological Exam: Alert, Awake, Oriented x3 - Psychiatric Exam Psychiatric exam: Normal Mood - Skin Skin Exam: Dry Assessment and Plan (1) CHF (congestive heart failure) Status: Acute (2) Respiratory tract infection Status: Acute (3) ESRD (end stage renal disease) on dialysis Status: Chronic - Assessment and Plan (Free Text) Assessment: CONT RX OUT PT
[2018-03-04] MEDS: Benzocaine/Menthol (Cepacol) Lozenge PO PRN (21:45)
[2018-03-05] MEDS: Promethazine/Cod 6.25mg-10mg/5ml Syr UD PO PRN (02:35)
--- NOTE | 2018-03-05 02:39 | PN ---
DATE: 03/04/2018 FOLLOWUP RENAL CONSULTATION LOCATION: Room 413, bed 1. REQUESTING PHYSICIAN: Dr. Camila Tomas. REASON FOR FOLLOWUP: End-stage renal disease, continuation with hemodialysis. SUBJECTIVE: Mrs. Alexis is a 62 years old elderly female with past medical history significant longstanding hypertension, polycystic kidney disease, DVT, end-stage renal disease, pericardial effusion who was admitted with chief complaints of cough, shortness of breath, fever for about 3 to 4 days prior to the admission. The patient was also complaining of diarrhea, stool for C-diff antigen was positive and antibody was negative. The patient is on p.o. vancomycin. The patient is feeling much better today. No chest pain. No palpitations. No fever. Occasional cough. PHYSICAL EXAMINATION: VITAL SIGNS: Blood pressure 179/73, pulse 62, respirations 18, temperature 98.2, saturation 99%. Height 4 feet and 9 inches, weight 134 pounds. HEENT: Pupils normal and reactive to light and accommodation. Conjunctivae pink. Sclerae anicteric. Tongue is moist. Trachea is midline. LUNGS: Symmetric on both sides. Bilateral breath sounds present. Clear to auscultation. CVS: [place] at the fifth intercostal space, midclavicular line, S1 and S2 audible. No murmur. No gallop. ABDOMEN: Normal in appearance, soft and tympanic. No guarding. No rigidity. No hepatosplenomegaly. SOFTWARE DEVELOPMENT COORDINATOR: The patient is alert, awake and oriented x3. Nonfocal neuro examination. Cranial nerves II through XII grossly intact. Sensory and motor system is within normal limits. EXTREMITIES: No cyanosis. No clubbing. No edema. MEDICATIONS: Reviewed clonidine 0.3 mg p.o. every 8 hours, aspirin 81 mg daily, Zemplar 2 mcg three times a week, subcu heparin every 8 hours, Lasix 40 mg every 12 hours, Lidoderm patch, atorvastatin 20 mg p.o. every 48 hours, metoprolol 25 mg p.o. every 12 hours, Lovaza 1 gm p.o. b.i.d., Mucomyst inhaler b.i.d., Neurontin 100 mg p.o. t.i.d., Phenergan with Codeine, PhosLo 667 mg 2 tablets p.o. t.i.d., Procrit 10,000 units three times a week hold for hemoglobin more than 11, Protonix 40 mg p.o. daily, Tylenol, vancomycin 125 mg p.o. every 6 hours, albuterol and Zofran. LABORATORY DATA: As of 03/04/2018; WBC 3.6, hemoglobin 12.1, hematocrit 37.7, platelets 71. Sodium 136, potassium 4.6, chloride 97, CO2 26, BUN 24, creatinine 4.4, glucose 86, calcium 9.1. ASSESSMENT AND PLAN: In summary, Mrs. Alexis is a 62 years old elderly female with hypertension, polycystic kidney disease, endstage renal disease on hemodialysis three times a week Wednesday, and Wednesday was admitted with cough, shortness of breath, and cough associated yellow sputum and fever. Stool Clostridium toxin is negative and antigen is positive. 1. End-stage renal disease, continue hemodialysis three times a week, Wednesday, and Wednesday. 2. Blood pressure is still high. We will add hydralazine 50 mg p.o. every 8 hours, hold for systolic blood pressure less than 130. 3. Acute bronchitis. 4. Clostridium difficile antigen is positive. Continue vancomycin. We will schedule for hemodialysis in a.m. We will follow with you. Thank you for allowing me to participate in your patient's care. Alicia Barone MD
[2018-03-05] MEDS: Vancomycin 500 mg (Oral/Rectal USE) PO SCH ×2 (04:15→09:44)
[2018-03-05] MEDS: Albuterol HFA 90 mcg/actuation (8 g) IH SCH ×3 (04:15→12:36)
[2018-03-05] MEDS: Acetylcysteine 10% 4 ML IH SCH (08:15)
[2018-03-05 08:20] VITALS: PULSE 68
[2018-03-05] MEDS: Lidocaine 5% Patch TD SCH (09:43)
[2018-03-05] MEDS: Omega-3-Acid Ethyl Esters 1 GM Cap PO SCH (09:44)
--- NOTE | 2018-03-05 10:33 | CP.PCM.PN ---
Subjective - Date & Time of Evaluation Date of Evaluation: 03/05/18 Time of Evaluation: 10:31 - Subjective Subjective: pt is seen and examined,follow up consult is dictated #[id number] Objective - Vital Signs/Intake and Output Vital Signs (last 24 hours): Temp Pulse Resp BP Pulse Ox 98.6 F 68 20 191/72 H 97 03/05/18 08:00 03/05/18 09:45 03/05/18 08:00 03/05/18 09:45 03/05/18 08:00 - Medications Medications: Current Medications Acetaminophen (Tylenol 325mg Tab) 650 mg PO Q6 PRN PRN Reason: Fever >100.4 F Last Admin: 03/02/18 18:13 Dose: 650 mg Acetylcysteine (Mucomyst 10% 4ml) 2 ml IH RBID [facility] Last Admin: 03/05/18 08:15 Dose: Not Given Albuterol (Ventolin Hfa 90 Mcg/Actuation (8 G)) 2 puff IH Q6 [facility] Last Admin: 03/05/18 05:16 Dose: 2 puff Aspirin (Ecotrin) 81 mg PO DAILY [facility] Last Admin: 03/05/18 09:46 Dose: 81 mg Atorvastatin Calcium (Lipitor) 20 mg PO Q48H [facility] Last Admin: 03/03/18 21:43 Dose: 20 mg Benzocaine/Menthol (Cepacol Sore Throat) 1 mayra PO Q2 PRN PRN Reason: Sore Throat Last Admin: 03/04/18 21:45 Dose: 1 mayra Calcium Acetate (Phoslo) 1,334 mg PO WM [facility] Last Admin: 03/05/18 09:43 Dose: 1,334 mg Clonidine HCl (Catapres) 0.3 mg PO Q8 [facility] Last Admin: 03/05/18 09:45 Dose: 0.3 mg Doxercalciferol (Hectorol) 2 mcg PO TTS [facility] Last Admin: 03/05/18 10:12 Dose: 2 mcg Epoetin Chris (Procrit) 10,000 unit SC TTS [facility] Last Admin: 03/03/18 09:42 Dose: 10,000 unit Furosemide (Lasix) 40 mg PO Q12 [facility] Last Admin: 03/05/18 09:45 Dose: 40 mg Gabapentin (Neurontin) 100 mg PO TID PRN PRN Reason: neuropathic pain Heparin Sodium (Porcine) (Heparin) 5,000 units SC Q8 [facility] PRN Reason: Protocol Last Admin: 03/05/18 09:42 Dose: Not Given Hydralazine HCl (Apresoline) 50 mg PO Q8 [facility] Last Admin: 03/05/18 09:45 Dose: 50 mg Lidocaine (Lidoderm) 1 ea TD DAILY [facility] Last Admin: 03/05/18 09:43 Dose: 1 ea Metoprolol Tartrate (Lopressor) 25 mg PO Q12 [facility] Last Admin: 03/05/18 09:44 Dose: 25 mg Jiqcq-1-Relu Ethyl Esters (Lovaza) 1 gm PO BID [facility] Last Admin: 03/05/18 09:44 Dose: 1 gm Ondansetron HCl (Zofran Odt) 4 mg PO Q8H PRN PRN Reason: Nausea/Vomiting Pantoprazole Sodium (Protonix Ec Tab) 40 mg PO DAILY [facility] Last Admin: 03/04/18 09:52 Dose: 40 mg Promethazine HCl/Codeine (Phenergan/Codeine Oral Syrup) 5 ml PO Q6 PRN PRN Reason: Cough Last Admin: 03/05/18 02:35 Dose: 5 ml Vancomycin HCl (Vancocin (Oral/Rectal Use)) 125 mg PO Q6 [facility] PRN Reason: Protocol Last Admin: 03/05/18 09:44 Dose: 125 mg - Labs Labs: 03/04/18 06:30 03/04/18 06:30 PT 13.5 Seconds (9.8-13.1) H 03/01/18 08:40 INR 1.2 (0.9-1.2) 03/01/18 08:40 APTT 31.9 Seconds (25.6-37.1) 03/01/18 08:40
[2018-03-05] MEDS: Pantoprazole 40 mg EC Tab PO SCH (11:16)
[2018-03-05 12:11] VITALS: BP 195/73; RESP 18; TEMP 98; O2SAT 100
--- NOTE | 2018-03-05 12:15 | CP.PCM.DIS ---
<Catrachita Krishnan - Last Filed: 03/05/18 13:41> Provider - Provider Date of Admission: 03/03/18 07:05 Attending physician: Camila Tomas MD Primary care physician: Francisco Martin MD Consults: Nephro: Dr. Barone Cardio: Dr. Santos ID: Dr. Carter Time Spent in preparation of Discharge (in minutes): 30 Hospital Course - Lab Results Lab Results: Micro Results 03/02/18 18:40 Stool Stool Culture - Final NO SALMONELLA, SHIGELLA OR CAMPYLOBACTER ISOLATED. 03/02/18 08:40 Blood Blood Culture - Preliminary NO GROWTH AFTER 3 DAYS 03/02/18 08:50 Blood Blood Culture - Preliminary NO GROWTH AFTER 3 DAYS 03/01/18 15:05 Blood-Venous Blood Culture - Preliminary NO GROWTH AFTER 3 DAYS 03/02/18 16:36 Sputum Gram Stain - Final 03/02/18 16:36 Sputum Sputum Culture - Final NORMAL ORAL VU Most Recent Lab Values WBC 3.6 K/uL (4.8-10.8) L 03/04/18 06:30 RBC 3.92 Mil/uL (3.80-5.20) 03/04/18 06:30 Hgb 12.1 g/dL (12.0-16.0) 03/04/18 06:30 Hct 37.7 % (34.0-47.0) 03/04/18 06:30 MCV 96.1 fl (81.0-99.0) 03/04/18 06:30 MCH 30.9 pg (27.0-31.0) 03/04/18 06:30 MCHC 32.1 g/dL (33.0-37.0) L 03/04/18 06:30 RDW 24.0 % (11.5-14.5) H 03/04/18 06:30 Plt Count 71 K/uL (130-400) L 03/04/18 06:30 MPV 8.9 fl (7.2-11.7) 03/04/18 06:30 Neut % (Auto) 50.2 % (50.0-75.0) 03/04/18 06:30 Lymph % (Auto) 32.9 % (20.0-40.0) 03/04/18 06:30 Story % (Auto) 14.3 % (0.0-10.0) H 03/04/18 06:30 Eos % (Auto) 1.5 % (0.0-4.0) 03/04/18 06:30 Baso % (Auto) 1.1 % (0.0-2.0) 03/04/18 06:30 Neut # (Auto) 1.8 K/uL (1.8-7.0) 03/04/18 06:30 Lymph # (Auto) 1.2 K/uL (1.0-4.3) 03/04/18 06:30 Story # (Auto) 0.5 K/uL (0.0-0.8) 03/04/18 06:30 Eos # (Auto) 0.1 K/uL (0.0-0.7) 03/04/18 06:30 Baso # (Auto) 0.0 K/uL (0.0-0.2) 03/04/18 06:30 PT 13.5 Seconds (9.8-13.1) H 03/01/18 08:40 INR 1.2 (0.9-1.2) 03/01/18 08:40 APTT 31.9 Seconds (25.6-37.1) 03/01/18 08:40 pO2 34 mm/Hg (30-55) 03/01/18 15:40 VBG pH 7.42 (7.32-7.43) 03/01/18 15:40 VBG pCO2 52 mmHg (40-60) 03/01/18 15:40 VBG HCO3 29.8 mmol/L 03/01/18 15:40 VBG Total CO2 35.3 mmol/L (22-28) H 03/01/18 15:40 VBG O2 Sat (Calc) 63.8 % (40-65) 03/01/18 15:40 VBG Base Excess 7.6 mmol/L (0.0-2.0) H 03/01/18 15:40 VBG Potassium 4.2 mmol/L (3.6-5.2) 03/01/18 15:40 Sodium 139.0 mmol/L (132-148) 03/01/18 15:40 Chloride 98.0 mmol/L (98-107) 03/01/18 15:40 Glucose 90 mg/dL (65-105) 03/01/18 15:40 Lactate 1.4 mmol/L (0.7-2.1) 03/01/18 15:40 FiO2 21.0 % 03/01/18 15:40 Blood Gas Comments Vb 03/01/18 14:55 Crit Value Called To Thu nath r.n. 03/01/18 14:55 Crit Value Called By Sharmila 03/01/18 14:55 Crit Value Read Back Y 03/01/18 14:55 Blood Gas Notified Time 1513 03/01/18 14:55 Sodium 136 mmol/l (132-148) 03/04/18 06:30 Potassium 4.6 MMOL/L (3.6-5.0) 03/04/18 06:30 Chloride 97 mmol/L (98-107) L 03/04/18 06:30 Carbon Dioxide 26 mmol/L (22-30) 03/04/18 06:30 Anion Gap 18 (10-20) 03/04/18 06:30 BUN 24 mg/dl (7-17) H 03/04/18 06:30 Creatinine 4.4 mg/dl (0.7-1.2) H 03/04/18 06:30 Est GFR ( Amer) 12 03/04/18 06:30 Est GFR (Non-Af Amer) 10 03/04/18 06:30 Random Glucose 86 mg/dL (65-105) 03/04/18 06:30 Lactic Acid 1.1 MMOL/L (0.7-2.1) 03/01/18 15:00 Calcium 9.1 mg/dL (8.4-10.2) 03/04/18 06:30 Total Bilirubin 0.7 mg/dl (0.2-1.3) 03/03/18 04:00 AST 35 U/L (14-36) 03/03/18 04:00 ALT 20 U/L (9-52) 03/03/18 04:00 Alkaline Phosphatase 79 U/L (38-126) 03/03/18 04:00 Troponin I 0.0710 ng/mL (0.00-0.120) 03/02/18 08:00 NT-Pro-B Natriuret Pep 944410 pg/ml (0-900) H 03/01/18 15:05 Total Protein 6.4 G/DL (6.3-8.2) 03/03/18 04:00 Albumin 3.4 g/dL (3.5-5.0) L 03/03/18 04:00 Globulin 2.9 gm/dL (2.2-3.9) 03/03/18 04:00 Albumin/Globulin Ratio 1.2 (1.0-2.1) 03/03/18 04:00 Procalcitonin 2.55 NG/ML (0.19-0.49) H 03/02/18 08:40 Venous Blood Potassium 4.2 mmol/L (3.6-5.2) 03/01/18 15:40 C. difficile Ag & Toxin Positive antigen (NEGATIVE) 03/02/18 18:40 Influenza Typ A,B (EIA) Negative for flu a/b (NEGATIVE) 03/02/18 16:26 - Hospital Course Hospital Course: 62 YO Female with hx of ESRD on HD (TThS), HTN, CHF, hx RLE DVT, GERD, CAD s/p cath presents is admitted for fever, and dyspnea. Fever and dyspnea likely 2/2 to URI, and exacerbation of CHF. Blood work and culture remain neg, over the course of the hospital stay dyspnea improved, and pt has remain afebrile. Hospital course was complicated by dirrhea, stool c diff test was pos for antigen pos. Pt given 4 Days of Vancomyicn PO (per ID), will d/c home with Metroidazole. Pt will be d/c home today after dialysis, follow up in [facility] in 1 week, referral for [facility] provided to patient. Home Meds: Albuterol (Ventolin Hfa 90 Mcg/Actuation (8 G) Aspirin (Ecotrin) 81 mg PO DAILY [facility] Atorvastatin Calcium (Lipitor) 20 mg PO Q48H [facility] Calcium Acetate (Phoslo) 1,334 mg PO WM [facility] Clonidine HCl (Catapres) 0.3 mg PO Q8 [facility] Furosemide (Lasix) 40 mg PO Q12 [facility] Gabapentin (Neurontin) 100 mg PO TID PRN Lidocaine (Lidoderm) 1 ea TD DAILY [facility] Metoprolol Tartrate (Lopressor) 25 mg PO Q12 [facility] Meios-3-Jyof Ethyl Esters (Lovaza) 1 gm PO BID [facility] Pantoprazole Sodium (Protonix Ec Tab) 40 mg PO DAILY [facility] + Metronidazole 500mg Take 1 Tab PO TID x 3 more days Hydralazine 25mg PO TID. new med started per nephro for better BP control Discharge Exam - Head Exam Head Exam: ATRAUMATIC, NORMOCEPHALIC - Eye Exam Eye Exam: EOMI, Normal appearance - ENT Exam ENT Exam: Mucous Membranes Moist - Respiratory Exam Respiratory Exam: Rhonchi (mild in the lower lobes), NORMAL BREATHING PATTERN. absent: Rales, Wheezes - Cardiovascular Exam Cardiovascular Exam: REGULAR RHYTHM, +S1, +S2 - GI/Abdominal Exam GI & Abdominal Exam: Normal Bowel Sounds, Soft. absent: Distended, Tenderness - Extremities Exam Extremities exam: full ROM, normal inspection Additional comments: stasis dermatitis noted b/l in the lower extremities. RLE ORIF scar noted, well healed. RUE AV fistula noted, palpable thrill old fistula on LUE IV line noted on LUE - Neurological Exam Neurological exam: Alert, Oriented x3 - Psychiatric Exam Psychiatric exam: Normal Affect, Normal Mood - Skin Skin Exam: Dry, Intact, Normal Color, Warm Discharge Plan - Discharge Medications Prescriptions: hydrALAZINE [Apresoline] 25 mg PO Q8 30 Days tab Metronidazole [Flagyl] 500 mg PO TID 3 Days #9 tablet - Follow Up Plan Condition: STABLE Disposition: HOME/ ROUTINE Instructions: Heart Failure, Adult (DC), End Stage Kidney Disease (DC) Additional Instructions: continue dialysis tts Referrals: Alicia Barone MD [Staff Provider] - Francisco Martin MD [Primary Care Provider] - <[address] - Last Filed: 03/06/18 09:15> Provider - Provider Date of Admission: 03/03/18 07:05 Attending physician: Camila Tomas MD Primary care physician: Francisco Martin MD Hospital Course - Lab Results Lab Results: Micro Results 03/02/18 08:40 Blood Blood Culture - Preliminary NO GROWTH AFTER 4 DAYS 03/02/18 08:50 Blood Blood Culture - Preliminary NO GROWTH AFTER 4 DAYS 03/01/18 15:05 Blood-Venous Blood Culture - Preliminary NO GROWTH AFTER 4 DAYS 03/02/18 18:40 Stool Stool Culture - Final NO SALMONELLA, SHIGELLA OR CAMPYLOBACTER ISOLATED. 03/02/18 16:36 Sputum Gram Stain - Final 03/02/18 16:36 Sputum Sputum Culture - Final NORMAL ORAL VU Most Recent Lab Values WBC 2.5 K/uL (4.8-10.8) L 03/05/18 12:00 RBC 4.07 Mil/uL (3.80-5.20) 03/05/18 12:00 Hgb 12.2 g/dL (12.0-16.0) 03/05/18 12:00 Hct 38.6 % (34.0-47.0) 03/05/18 12:00 MCV 94.7 fl (81.0-99.0) 03/05/18 12:00 MCH 30.1 pg (27.0-31.0) 03/05/18 12:00 MCHC 31.7 g/dL (33.0-37.0) L 03/05/18 12:00 RDW 23.9 % (11.5-14.5) H 03/05/18 12:00 Plt Count 65 K/uL (130-400) L 03/05/18 12:00 MPV 9.0 fl (7.2-11.7) 03/05/18 12:00 Neut % (Auto) 52.3 % (50.0-75.0) 03/05/18 12:00 Lymph % (Auto) 31.9 % (20.0-40.0) 03/05/18 12:00 Story % (Auto) 12.1 % (0.0-10.0) H 03/05/18 12:00 Eos % (Auto) 2.7 % (0.0-4.0) 03/05/18 12:00 Baso % (Auto) 1.0 % (0.0-2.0) 03/05/18 12:00 Neut # (Auto) 1.3 K/uL (1.8-7.0) L 03/05/18 12:00 Lymph # (Auto) 0.8 K/uL (1.0-4.3) L 03/05/18 12:00 Story # (Auto) 0.3 K/uL (0.0-0.8) 03/05/18 12:00 Eos # (Auto) 0.1 K/uL (0.0-0.7) 03/05/18 12:00 Baso # (Auto) 0.0 K/uL (0.0-0.2) 03/05/18 12:00 PT 13.5 Seconds (9.8-13.1) H 03/01/18 08:40 INR 1.2 (0.9-1.2) 03/01/18 08:40 APTT 31.9 Seconds (25.6-37.1) 03/01/18 08:40 pO2 34 mm/Hg (30-55) 03/01/18 15:40 VBG pH 7.42 (7.32-7.43) 03/01/18 15:40 VBG pCO2 52 mmHg (40-60) 03/01/18 15:40 VBG HCO3 29.8 mmol/L 03/01/18 15:40 VBG Total CO2 35.3 mmol/L (22-28) H 03/01/18 15:40 VBG O2 Sat (Calc) 63.8 % (40-65) 03/01/18 15:40 VBG Base Excess 7.6 mmol/L (0.0-2.0) H 03/01/18 15:40 VBG Potassium 4.2 mmol/L (3.6-5.2) 03/01/18 15:40 Sodium 139.0 mmol/L (132-148) 03/01/18 15:40 Chloride 98.0 mmol/L (98-107) 03/01/18 15:40 Glucose 90 mg/dL (65-105) 03/01/18 15:40 Lactate 1.4 mmol/L (0.7-2.1) 03/01/18 15:40 FiO2 21.0 % 03/01/18 15:40 Blood Gas Comments Vbg 03/01/18 14:55 Crit Value Called To Thu nath r.n. 03/01/18 14:55 Crit Value Called By Sharmila 03/01/18 14:55 Crit Value Read Back Y 03/01/18 14:55 Blood Gas Notified Time 1513 03/01/18 14:55 Sodium 134 mmol/l (132-148) 03/05/18 12:00 Potassium 4.0 MMOL/L (3.6-5.0) 03/05/18 12:00 Chloride 94 mmol/L (98-107) L 03/05/18 12:00 Carbon Dioxide 27 mmol/L (22-30) 03/05/18 12:00 Anion Gap 17 (10-20) 03/05/18 12:00 BUN 33 mg/dl (7-17) H 03/05/18 12:00 Creatinine 6.0 mg/dl (0.7-1.2) H 03/05/18 12:00 Est GFR ( Amer) 9 03/05/18 12:00 Est GFR (Non-Af Amer) 7 03/05/18 12:00 Random Glucose 124 mg/dL (65-105) H 03/05/18 12:00 Lactic Acid 1.1 MMOL/L (0.7-2.1) 03/01/18 15:00 Calcium 9.2 mg/dL (8.4-10.2) 03/05/18 12:00 Phosphorus 5.2 mg/dl (2.5-4.5) H 03/05/18 12:00 Total Bilirubin 0.7 mg/dl (0.2-1.3) 03/03/18 04:00 AST 35 U/L (14-36) 03/03/18 04:00 ALT 20 U/L (9-52) 03/03/18 04:00 Alkaline Phosphatase 79 U/L (38-126) 03/03/18 04:00 Troponin I 0.0710 ng/mL (0.00-0.120) 03/02/18 08:00 NT-Pro-B Natriuret Pep 182760 pg/ml (0-900) H 03/01/18 15:05 Total Protein 6.4 G/DL (6.3-8.2) 03/03/18 04:00 Albumin 3.4 g/dL (3.5-5.0) L 03/03/18 04:00 Globulin 2.9 gm/dL (2.2-3.9) 03/03/18 04:00 Albumin/Globulin Ratio 1.2 (1.0-2.1) 03/03/18 04:00 Procalcitonin 2.55 NG/ML (0.19-0.49) H 03/02/18 08:40 Venous Blood Potassium 4.2 mmol/L (3.6-5.2) 03/01/18 15:40 C. difficile Ag & Toxin Positive antigen (NEGATIVE) 03/02/18 18:40 Influenza Typ A,B (EIA) Negative for flu a/b (NEGATIVE) 03/02/18 16:26
[2018-03-05 12:42] LABS: EOS # 0.1 K/uL (0.0-0.7); EOS % 2.7 % (0.0-4.0); HEMOGLOBIN 12.2 g/dL (12.0-16.0); LYMPH # 0.8 K/uL (1.0-4.3); LYMPH % 31.9 % (20.0-40.0); MEAN CELL VOLUME 94.7 fl (81.0-99.0); MEAN CORPUSCULAR HEMOGLOBIN 30.1 pg (27.0-31.0); MEAN CORPUSCULAR HGB CONC 31.7 g/dL (33.0-37.0); MONO # 0.3 K/uL (0.0-0.8); MONO % 12.1 % (0.0-10.0); NEUT # 1.3 K/uL (1.8-7.0); NEUT % 52.3 % (50.0-75.0); NRBC % 0.3 % (0.0-0.0); RBC 4.07 Mil/uL (3.80-5.20); RED CELL DISTRIBUTION WIDTH 23.9 % (11.5-14.5); WHITE BLOOD COUNT 2.5 K/uL (4.8-10.8)
[2018-03-05 12:55] LABS: CALCIUM 9.2 mg/dL (8.4-10.2)
--- NOTE | 2018-03-05 16:16 | PN ---
DATE: 03/05/2018 Patient is located in room 413, bed 1. REQUESTING PHYSICIAN: Camila Tomas MD REASON FOR FOLLOWUP: End-stage renal disease, continuation of hemodialysis. SUBJECTIVE: Mrs. Alexis is a 62-year-old elderly female with a history of longstanding hypertension, polycystic kidney disease, pericardial effusion, end-stage renal disease, on hemodialysis three days a week, Wednesday, , and Wednesday, history of DVT, who was admitted with a chief complaint of cough, shortness of breath, and fever for about three to four days prior to the admission and also associated with some diarrhea. The patient was found to have a stool C. diff antigen positive and antibody was negative. The patient still complains of cough associated with some whitish-yellowish sputum. No chest pain. No palpitation. No nausea. No vomiting or diarrhea. Complains of ecchymotic area in the subcu heparin injection site. No edema of the legs. PHYSICAL EXAMINATION: VITAL SIGNS: Blood pressure this morning 191/72, pulse 68, respirations 20, temperature 98.6, O2 saturation 97%. Height 4 feet 9 inches, weight is 134 pounds. GENERAL: Mrs. Alexis is a 62-year-old elderly female, moderately built, moderately nourished, not in acute distress. HEENT: Pupils normally reactive to light and accommodation. Conjunctivae pink. Sclerae anicteric. Tongue is moist. Trachea is midline. LUNGS: Symmetric on both sides, bilateral breath sounds present. Occasional left basal crackles present. CVS: Allison on the fifth intercostal space, midclavicular line, S1 and S2 audible. No murmur. No gallop. The patient has engorged veins on the anterior chest wall. ABDOMEN: Normal in appearance, soft, and tympanic. No guarding. No rigidity. No hepatosplenomegaly. No abdominal bruits. The patient has an ecchymotic area on the left lower quadrant area in the abdominal injection site. BRAILLE TRANSCRIBER: The patient is alert, awake, oriented x3. Nonfocal neuro examination. Cranial nerves II through XII grossly intact. Sensory and motor system within normal limits. EXTREMITIES: No cyanosis, no clubbing, no edema. CURRENT MEDICATIONS: Include as follows: Hydralazine 50 mg p.o. q.8 hours, clonidine 0.3 mg p.o. q.8 hours and Ecotrin 81 mg daily, Hectorol 2 mcg three times a week, subcu heparin 5000 q.8 hours, Lasix 40 mg p.o. q.12 hours, lidocaine patch, also Lipitor 20 mg p.o. q.48 hours, metoprolol 25 mg p.o. q.12 hours, Lovaza 1 g b.i.d., Mucomyst q.12 hours, gabapentin 100 mg p.o. t.i.d., Phenergan with Codeine syrup 5 mL q.6 hours, PhosLo 667 mg two tablets p.o. t.i.d. with food, Procrit 10,000 units three times a week; hold for hemoglobin more than 11, Protonix 40 mg p.o. daily, Tylenol, vancomycin 125 mg p.o. q.6 hours, albuterol inhaler, and Zofran. LABORATORY DATA: No new labs are available for today. As of 03/04/2018, H and H are 12.1/37.7, platelets 71. As of 03/04/2018, sodium 136, potassium 4.6, chloride 97, CO2 26, BUN 24, creatinine 4.4, glucose 86, calcium 9.1, platelets as of 03/01/2018 are 118. As of 03/02/2018, platelets 93. As of 03/03/2018, platelets 81. As of 03/04/2018 platelets 71. ASSESSMENT AND PLAN: In summary, Mrs. Alexis is a 62-year-old elderly female with a history of hypertension, polycystic kidney disease, deep venous thrombosis, end-stage renal disease, pericardial effusion, severe pulmonary hypertension, and mitral regurgitation who was admitted with cough, shortness of breath, and fever associated with whitish-yellow sputum and stool for Clostridium difficile antigen is positive. On vancomycin. 1. End-stage renal disease, continue hemodialysis three times a week, Wednesday, , and Wednesday. 2. Thrombocytopenia. 3. Uncontrolled hypertension. Continue blood pressure medications, metoprolol, clonidine, and hydralazine. We will titrate hydralazine as needed. We will check CBC, BMP, phosphorus level and we will try to ultrafiltrate as much as patient can tolerate. We will follow with you. Thank you for allowing me to participate in the patient's care. Alicia Barone MD
--- NOTE | 2018-03-07 13:11 | PQF CHF ---
This form is a permanent part of the medical record BALTA LUNDY: COULD YOU PLEASE CLARIFY THE TYPE OF CHF. Clarification of your documentation is requested to better reflect the severity of illness and intensity of treatment of your patient. Indicators present [X] Diagnosis of CHF and/or history of CHF [] BNP > 200 [] Imaging Finding of Pulmonary Edema /Pleural Effusions [] Fluid/Volume Overload [] Pitting edema [] Ejection Fraction < 40% (Indicative of Systolic Heart Failure) [] Ejection Fraction > 40% (Indicative of Diastolic Heart Failure) [] Dyspnea / Orthopenea / Paroxysmal Nocturnal Dyspnea [] Other: Location in the medical record that reflects the above clinical findings: [] Treatment Provided: [] PHYSICIAN'S RESPONSE diastolic HF Based on your medical judgment of the clinical indicators outlined above, are you treating this patient for a known or suspected: [] Acute CHF [] Systolic [] Diastolic [] Combined [] Chronic CHF [] Systolic [] Diastolic [] Combined [] Acute on Chronic CHF []Systolic [] Diastolic [] Combined [] CHF due hypertension [] Acute systolic []Chronic systolic [] Acute/ chronic systolic [] Other, please indicate: [] [] If Unable to Determine, please check the box, sign and date. Present On Admission (POA) Indicator: [] Present at the time of admission [] Not present at the time of admission [] Clinically Undetermined In responding to this query, please exercise your independent professional judgment. The fact that a question is asked does not imply that any particular answer is desired or expected. Thank you for your clarification on this documentation. If you have any questions please call:[ ] * Thank you, * GRACE JARRELL [ [phone] pc network technician [employer]
== END 2018-03-05 16:15 | disposition home or self-care (01) | DRG 544 ==
LOC: H.ER 13:50 → SUPCPDRO 13:50 → H.ERHOLD 17:40 → H.TEL 22:53 → OBSVTOIN 03-03 07:05 → H.TEL 03-03 21:22
PROVIDERS: ADMIT Family Medicine Geriatric Medicine; ATTEND Family Medicine Geriatric Medicine
PROC: 5A1D70Z Performance of Urinary Filtration, Intermittent, Less than 6 Hours Per Day (ICD-10-PCS; principal; 2018-03-03)
PROC: 5A1D70Z Performance of Urinary Filtration, Intermittent, Less than 6 Hours Per Day (ICD-10-PCS; 2018-03-05)
DX: I13.2 Hypertensive heart and chronic kidney disease with heart failure and with stage 5 chronic kidney disease, or end stage renal disease (principal); I50.30 Unspecified diastolic (congestive) heart failure; I50.9 Heart failure, unspecified; I82.501 Chronic embolism and thrombosis of unspecified deep veins of right lower extremity; J44.0 Chronic obstructive pulmonary disease with (acute) lower respiratory infection; N18.6 End stage renal disease; D69.6 Thrombocytopenia, unspecified; I25.10 Atherosclerotic heart disease of native coronary artery without angina pectoris; I27.20 Pulmonary hypertension, unspecified; I31.3 Pericardial effusion (noninflammatory); I34.0 Nonrheumatic mitral (valve) insufficiency; I44.0 Atrioventricular block, first degree; I48.0 Paroxysmal atrial fibrillation; J11.1 Influenza due to unidentified influenza virus with other respiratory manifestations; J20.9 Acute bronchitis, unspecified; K21.9 Gastro-esophageal reflux disease without esophagitis; Q61.3 Polycystic kidney, unspecified; Z79.82 Long term (current) use of aspirin; Z79.899 Other long term (current) drug therapy; Z82.49 Family history of ischemic heart disease and other diseases of the circulatory system; Z87.01 Personal history of pneumonia (recurrent); Z90.710 Acquired absence of both cervix and uterus; Z90.721 Acquired absence of ovaries, unilateral; Z91.19 Patient's noncompliance with other medical treatment and regimen; Z99.2 Dependence on renal dialysis; K64.9 Unspecified hemorrhoids; E78.00 Pure hypercholesterolemia, unspecified; E78.5 Hyperlipidemia, unspecified; I87.2 Venous insufficiency (chronic) (peripheral)

== ENCOUNTER 2018-10-02 07:21 | Inpatient (IN) | payer OTHER, SELFPAY ==
[2018-10-02 07:28] VITALS: BMI 32.4
--- NOTE | 2018-10-02 08:05 | ED PDOC ---
HPI: CCC, URI, Sore Throat Time Seen by Provider: 10/02/18 07:53 Chief Complaint (Nursing): Cough, Cold, Congestion History Per: Patient Onset/Duration Of Symptoms: Days (3) Current Symptoms Are (Timing): Still Present Associated Symptoms: Cough, Sputum Additional Complaint(s): Cough productive yellow sputum assoc with SOB x 3 days. Occasionally blood tinged. Denies fever. Vomited when coughing x 1. H/o ESRD on dialysis, lasy dialyzed yesterday. Past Medical History - Medical History PMH: Anxiety, CHF, Fractures, HTN, Hypercholesterolemia, Peripheral Edema, Pneumonia, End Stage Renal Disease (Dialysis - //Wed), Chronic Kidney Disease Denies: Arthritis, Asthma, Atrial Fibrillation, Bipolar Disorder, Bronchitis, CAD, Cardia Arrhythmia, COPD, Crohn's Disease, Depression, Diverticulitis, Emphysema, Gastritis, Gall Bladder Disease, HIV, Kidney Stones, Mitral Valve Prolapse, Osteoporosis, Pancreatitis, Paranoia, Post Traumatic Stress Disorder, Pulmonary Embolism, Rheumatoid Arthritis, Schizophrenia, Sleep Apnea - Surgical History Surgical History: Hernia Repair Denies: Appendectomy, CABG, Carotid Endarterectomy, Cholecystectomy, Coronary Stent, Pacemaker, Tonsillectomy - Family History Family History: States: Unknown Family Hx - Immunization History Hx Tetanus Toxoid Vaccination: No Hx Influenza Vaccination: Yes Hx Pneumococcal Vaccination: Yes - Home Medications Home Medications: Ambulatory Orders Medication Instructions Recorded Atorvastatin [Lipitor] 20 mg PO Q48H 12/06/17 Calcium Acetate [Phoslo] 1,334 cap PO WM 12/06/17 Esomeprazole Magnesium [Nexium] 40 mg PO DAILY 12/06/17 Metoprolol Tartrate [Lopressor] 25 mg PO Q12 12/06/17 cloNIDine [Catapres] 0.3 mg PO Q8 12/06/17 Albuterol Sulfate [Ventolin Hfa] 2 puff IH Q6 PRN 03/01/18 Aspirin [Adult Low Dose Aspirin EC] 81 mg PO DAILY 03/01/18 Gabapentin [Neurontin] 100 mg PO TID PRN 03/01/18 Lidocaine 5% [Lidoderm] 1 patch TD DAILY 03/01/18 York-3 Fatty Acids/Fish Oil 1 cap PO BID 03/01/18 [York-3 1,000 mg Softgel] Furosemide [Lasix] 40 mg PO Q12 tab 03/05/18 Metronidazole [Flagyl] 500 mg PO TID 3 Days #9 tablet 03/05/18 hydrALAZINE [Apresoline] 25 mg PO Q8 30 Days tab 03/05/18 - Allergies Allergies/Adverse Reactions: Allergies Allergy/AdvReac Type Severity Reaction Status Date / Time ciprofloxacin [From Cipro] Allergy RASH Verified 03/01/18 17:52 Penicillins Allergy RASH Verified 11/18/17 14:03 Review of Systems ROS Statement: Except As Marked, All Systems Reviewed And Found Negative Respiratory: Positive for: Cough, Shortness of Breath Physical Exam - Reviewed Nursing Documentation Reviewed: Yes Vital Signs Reviewed: Yes - Physical Exam Appears: Positive for: Non-toxic, No Acute Distress Head Exam: Positive for: ATRAUMATIC, NORMAL INSPECTION, NORMOCEPHALIC Skin: Positive for: Normal Color, Warm, DRY Eye Exam: Positive for: EOMI, Normal appearance, PERRL ENT: Positive for: Normal ENT Inspection Neck: Positive for: Normal, Painless ROM Cardiovascular/Chest: Positive for: Regular Rate, Rhythm Respiratory: Positive for: Rhonchi. Negative for: Wheezing, Respiratory Distress Gastrointestinal/Abdominal: Positive for: Normal Exam, Soft Back: Positive for: Normal Inspection Extremity: Positive for: Other (Dialysis shunt right bicep. Left arm, no erythema or tenderness.) Neurologic/Psych: Positive for: Alert, Oriented - Laboratory Results Result Diagrams: 10/02/18 08:30 10/02/18 08:30 Medical Decision Making Medical Decision Making: [place] [facility] [place] with swelling left upper ext. Pt unsure what dx was but states was discharge dhome same day with meds but does not know what. Will repeat CXR and blood work. Does not appear to be DVT at present. No DVT seen on venous doppler LUE, however, finding of possible abscess vs hematoma seen on US Will place in obs for VQ scan as unable to perform CTA with contrast due to GFR as well as w/u for finding on US Disposition - Clinical Impression Clinical Impression: ESRD (end stage renal disease) on dialysis - Patient ED Disposition Is Patient to be Admitted: Yes - Disposition Disposition Time: 14:32 Condition: FAIR Forms: [facility] ([place] - Pt Status Changed To: Hospital Disposition Of: Observation - POA Present On Arrival: None
[2018-10-02 08:44] LABS: EOS % 1.1 % (0.0-4.0); HEMOGLOBIN 10.5 g/dL (12.0-16.0); LYMPH # 0.5 K/uL (1.0-4.3); LYMPH % 12.8 % (20.0-40.0); MEAN CELL VOLUME 88.6 fl (81.0-99.0); MEAN CORPUSCULAR HEMOGLOBIN 27.6 pg (27.0-31.0); MEAN CORPUSCULAR HGB CONC 31.2 g/dL (33.0-37.0); MEAN PLATELET VOLUME 7.9 fl (7.2-11.7); MONO # 0.5 K/uL (0.0-0.8); MONO % 12.5 % (0.0-10.0); NEUT % 72.6 % (50.0-75.0); RBC 3.79 Mil/uL (3.80-5.20); RED CELL DISTRIBUTION WIDTH 21.1 % (11.5-14.5); WHITE BLOOD COUNT 4.1 K/uL (4.8-10.8)
[2018-10-02 08:45] LABS: VENOUS BLOOD GAS PCO2 48 mmHg (40-60); VENOUS BLOOD GAS PO2 43 mm/Hg (30-55); VENOUS BLOOD PH 7.46 (7.32-7.43)
[2018-10-02 09:06] LABS: ALBUMIN 3.4 g/dL (3.5-5.0); CALCIUM 9.7 mg/dL (8.4-10.2)
[2018-10-02] MEDS ORDERED: Albuterol-Ipratrop 3 mg / 0.5 (3 ml) UD IH STA (09:52)
[2018-10-02] MEDS ORDERED: Albuterol-Ipratrop 3 mg / 0.5 (3 ml) UD ONE (10:15)
--- NOTE | 2018-10-02 11:09 | RAD ---
Date of service: 10/02/2018 HISTORY: cough COMPARISON: No prior. TECHNIQUE: Chest PA and lateral FINDINGS: LUNGS: No active pulmonary disease. PLEURA: No significant pleural effusion identified. No pneumothorax apparent. CARDIOVASCULAR: Cardiomegaly. Normal cardiac size. No pulmonary vascular congestion. OSSEOUS STRUCTURES: No significant abnormalities. VISUALIZED UPPER ABDOMEN: Normal. OTHER FINDINGS: None. IMPRESSION: Cardiomegaly.
[2018-10-02] MEDS ORDERED: Sodium Chloride 3% for Inhalation 4 ML VIAL.NEB IH PRN (14:51)
[2018-10-02] MEDS ORDERED: Albuterol-Ipratrop 3 mg / 0.5 (3 ml) UD INH PRN (15:04)
--- NOTE | 2018-10-02 15:54 | CP.PCM.HP ---
<Татьяна Franco - Last Filed: 10/02/18 16:47> History of Present Illness - History of Present Illness History of Present Illness: 63 yr old F presents to ED with complaint of SOB, cough and congestion x 3 days. Reports phlegm production with some drops of blood present. Denies fevers, chill s, weakness or dizziness. Patient also has complaint of left upper extremity pain x 5 days for which patient went to [facility] [place] [facility], was discharged with diagnosis of muscle spasm. Patient states left arm pain has worsened and now has some swelling. PMHx includes ESRD on HD TThSat, Hypertension, HLD, RLE DVT, GERD, CAD s/p cath, right ankle ORIF, chronic RUE swelling, left kidney cysts. Last hemodialysis was wednesday, patient tolerated entire session well but reports uncontrolled HTN during session. PMD: Francisco Gautam Specialists: Dr. Sutherland (flatbed press operator), Dr. aBrone (pig breeder) PMHx: ESRD on HD TThSat, Hypertension, HLD, RLE DVT, GERD, CAD s/p cath, right ORIF, chronic RUE swelling, left kidney cysts SurgHx: hysterectomy with b/l oophorectomy, x 1, right ankle ORIF FMHx: mother 88 with HTN, father hx unknown, siblings healthy SocHx: denies Etoh/tobacco or drugs Medications: Allergies: ciprofloxacin (rash), penicillin (rash) ED course: BP 160/80 mmHg, HR 86, Temp 100.9F, resp 18, O2 sat 100% on room air -CXR: cardiomegaly -EKG: NSR at 94 bpm, LPFB -CBC: no leukocytosis, H/H 10.5/33.6, plts 203 -D-dimer: 726 -VBG: pH 7.46, pO2 43, pCO2 48, lactate 1.3 -CMP: Na 142, K 4.0, Cl 100, HCO3 30, AG 16, BUN 29/Cr 4.1 -blood culture specimen collected -Influenza negative Present on Admission - Present on Admission Any Indicators Present on Admission: Yes History of DVT/PE: Yes History of Uncontrolled Diabetes: No Urinary Catheter: No Decubitus Ulcer Present: No Review of Systems - Constitutional Constitutional: absent: Chills, Weakness - EENT Eyes: absent: Change in Vision Ears: absent: Dizziness Nose/Mouth/Throat: Nasal Congestion. absent: Sore Throat - Cardiovascular Cardiovascular: Dyspnea, Leg Edema (mild). absent: Chest Pain, Palpitations - Respiratory Respiratory: Cough, Dyspnea, Hemoptysis. absent: Wheezing - Gastrointestinal Gastrointestinal: Nausea (mild), Vomiting (1 episode yesterday) - Genitourinary Additional comments: ESRD on HD TThSat - Musculoskeletal Musculoskeletal: Other (chronic b/l LE pain) - Neurological Neurological: absent: Weakness - Endocrine Endocrine: absent: Palpitations, Polydipsia, Polyphagia Past Patient History - Tetanus Immunizations Tetanus Immunization: Unknown - Past Medical History & Family History Past Medical History?: Yes - Past Social History Smoking Status: Never Smoked - CARDIAC Hx Atrial Fibrillation: No Hx Cardia Arrhythmia: No Hx Congestive Heart Failure: Yes Hx Hypercholesterolemia: Yes Hx Hypertension: Yes Hx Mitral Valve Prolapse: No Hx Pacemaker: No Hx Peripheral Edema: Yes - PULMONARY Hx Asthma: No Hx Bronchitis: No Hx Chronic Obstructive Pulmonary Disease (COPD): No Hx Emphysema: No Hx Pneumonia: Yes Hx Pulmonary Embolism: No Hx Sleep Apnea: No - NEUROLOGICAL Hx Neurological Disorder: No - HEENT Hx HEENT Problems: No - RENAL Hx Chronic Kidney Disease: Yes Hx Kidney Stones: No - ENDOCRINE/METABOLIC Hx Endocrine Disorders: No - HEMATOLOGICAL/ONCOLOGICAL Hx Human Immunodeficiency Virus (HIV): No - INTEGUMENTARY Hx Dermatological Problems: No - MUSCULOSKELETAL/RHEUMATOLOGICAL Hx Arthritis: No Hx Fractures: Yes Hx Osteoporosis: No Hx Rheumatoid Arthritis: No - GASTROINTESTINAL Hx Crohn's Disease: No Hx Diverticulitis: No Hx Gall Bladder Disease: No Hx Gastritis: No Hx Pancreatitis: No - GENITOURINARY/GYNECOLOGICAL Hx Genitourinary Disorders: No - PSYCHIATRIC Hx Anxiety: Yes Hx Bipolar Disorder: No Hx Depression: No Hx Paranoia: No Hx Post Traumatic Stress Disorder: No Hx Schizophrenia: No - SURGICAL HISTORY Hx Appendectomy: No Hx Carotid Endarterectomy: No Hx Cholecystectomy: No Hx Coronary Artery Bypass Graft: No Hx Coronary Stent: No Hx Tonsillectomy: No - ANESTHESIA Hx Anesthesia: Yes Hx Anesthesia Reactions: Yes Hx Malignant Hyperthermia: No Meds Allergies/Adverse Reactions: Allergies Allergy/AdvReac Type Severity Reaction Status Date / Time ciprofloxacin [From Cipro] Allergy RASH Verified 03/01/18 17:52 Penicillins Allergy RASH Verified 11/18/17 14:03 FISH AdvReac RASH Verified 10/03/18 19:53 shellfish derived AdvReac RASH Verified 10/03/18 19:17 Physical Exam - Constitutional Appears: No Acute Distress - Head Exam Head Exam: ATRAUMATIC, NORMOCEPHALIC - Eye Exam Eye Exam: EOMI - ENT Exam ENT Exam: Mucous Membranes Moist - Respiratory Exam Respiratory Exam: Wheezes (mild), NORMAL BREATHING PATTERN - Cardiovascular Exam Cardiovascular Exam: +S1, +S2. absent: Gallop - GI/Abdominal Exam GI & Abdominal Exam: Soft. absent: Tenderness - Extremities Exam Extremities exam: Positive for: pedal edema (+1 pitting bilateral), pedal pulses present. Negative for: calf tenderness Additional comments: RUE fistula, + bruit; nonfunctioning LUE fistula -minimal bruit, mild left arm swelling - Neurological Exam Neurological exam: Alert, Oriented x3 - Psychiatric Exam Psychiatric exam: Normal Affect, Normal Mood - Skin Skin Exam: Dry, Warm Results - Vital Signs Recent Vital Signs: Last Vital Signs Temp 100.9 F H 10/02/18 15:36 Pulse 86 10/02/18 15:36 Resp 18 10/02/18 15:36 BP 185/73 H 10/02/18 15:36 Pulse Ox 100 10/02/18 15:36 - Labs Result Diagrams: 10/02/18 08:30 10/02/18 08:30 Labs: Laboratory Results - last 24 hr 10/02/18 10/02/18 10/02/18 08:01 08:30 08:30 WBC 4.1 L D RBC 3.79 L Hgb 10.5 L Hct 33.6 L MCV 88.6 D MCH 27.6 MCHC 31.2 L RDW 21.1 H Plt Count 203 D MPV 7.9 Neut % (Auto) 72.6 Lymph % (Auto) 12.8 L [place] % (Auto) 12.5 H Eos % (Auto) 1.1 Baso % (Auto) 1.0 Neut # (Auto) 3.0 Lymph # (Auto) 0.5 L [place] # (Auto) 0.5 Eos # (Auto) 0.0 Baso # (Auto) 0.0 D-Dimer, Quantitative pO2 43 VBG pH 7.46 H VBG pCO2 48 VBG HCO3 31.5 VBG Total CO2 35.6 H VBG O2 Sat (Calc) 81.9 H VBG Base Excess 9.0 H VBG Potassium 3.7 Sodium 139.0 142 Chloride 104.0 100 Glucose 130 H Lactate 1.3 FiO2 21.0 Potassium 4.0 Carbon Dioxide 30 Anion Gap 16 BUN 29 H Creatinine 4.1 H Est GFR ( Amer) 13 Est GFR (Non-Af Amer) 11 Random Glucose 130 H Calcium 9.7 Total Bilirubin 0.6 AST 34 ALT 22 Alkaline Phosphatase 140 H D Total Protein 6.7 Albumin 3.4 L Globulin 3.4 Albumin/Globulin Ratio 1.0 Venous Blood Potassium 3.7 Influenza Typ A,B (EIA) 10/02/18 10/02/18 09:00 10:40 WBC RBC Hgb Hct MCV MCH MCHC RDW Plt Count MPV Neut % (Auto) Lymph % (Auto) [place] % (Auto) Eos % (Auto) Baso % (Auto) Neut # (Auto) Lymph # (Auto) [place] # (Auto) Eos # (Auto) Baso # (Auto) D-Dimer, Quantitative 726 H pO2 VBG pH VBG pCO2 VBG HCO3 VBG Total CO2 VBG O2 Sat (Calc) VBG Base Excess VBG Potassium Sodium Chloride Glucose Lactate FiO2 Potassium Carbon Dioxide Anion Gap BUN Creatinine Est GFR ( Amer) Est GFR (Non-Af Amer) Random Glucose Calcium Total Bilirubin AST ALT Alkaline Phosphatase Total Protein Albumin Globulin Albumin/Globulin Ratio Venous Blood Potassium Influenza Typ A,B (EIA) Negative for flu a/b Assessment & Plan - Assessment and Plan (Free Text) Assessment: 63 yr old F admitted for SOB, cough and hemoptysis with PMHx including ESRD on HD TThSat, Hypertension, HLD, RLE DVT, GERD, CAD s/p cath, right ankle ORIF, chronic RUE swelling, left kidney cysts. 1. Hemoptysis, SOB, productive cough -likely viral upper respiratory infection, less likely bacterial (no leukocytosis, low grade fever) vs PE (D-dimer: 726) -CXR: cardiomegaly, -VBG: pH 7.46, pO2 43, pCO2 48, lactate 1.3, influenza negative -admit to telemetry -f/u sputum and blood cultures -Azithromycin 500mg PO QD, albuterol INH PRN -f/u CT Chest angio -O2 supplement via nasal cannula 2. Left upper extremity pain and swelling -acute on chronic -left Upper ext duplex: no evidence of DVT, complex structure lateral to vessels medial to left shoulder bone with no flow, may represent abscess or hematoma -no further imaging required at this time -tylenol PRN pain 3. ESRD on HD TueThSat -chronic, last HD this past sat - BUN 29/Cr 4.1 -Nephrology consult :Dr. Barone: recommendations appreciated -continue home medications: Nephrocaps 1 tab PO QD, Calcium acetate 667mg 3 Tabs PO TID 4. Hypertension -chronic, uincontrolled -continue home medication: Clonidine 0.3mg PO TID, -increase dose of Metoprolol tartrate to 50mg PO BID -monitor GORDO 5. Chronic LE pain -chronicm controlled -continue home medication: Gabapentin 100mg PO TID 6. GERD -chronic, controlled -Pantoprazole 40mg PO QD 7. DVT prophylaxis -Heparin 5,000 units SC Q12 - Date & Time Date: 10/02/18 Time: 15:45 <Ismael Armendariz - Last Filed: 10/04/18 01:19> Results - Vital Signs Recent Vital Signs: Last Vital Signs Temp 98.5 F 10/04/18 00:30 Pulse 72 10/04/18 00:30 Resp 18 10/04/18 00:30 BP 171/67 H 10/04/18 00:30 Pulse Ox 99 10/04/18 00:30 - Labs Result Diagrams: 10/03/18 04:25 10/03/18 04:25 Labs: Laboratory Results - last 24 hr 10/03/18 10/03/18 10/03/18 04:25 04:25 19:16 WBC 4.9 RBC 3.89 Hgb 10.8 L Hct 34.7 MCV 89.2 MCH 27.8 MCHC 31.2 L RDW 21.6 H Plt Count 162 MPV 8.0 Neut % (Auto) 67.6 Lymph % (Auto) 18.4 L [place] % (Auto) 12.7 H Eos % (Auto) 0.3 Baso % (Auto) 1.0 Neut # (Auto) 3.3 Lymph # (Auto) 0.9 L [place] # (Auto) 0.6 Eos # (Auto) 0.0 Baso # (Auto) 0.0 Sodium 140 Potassium 4.7 Chloride 100 Carbon Dioxide 25 Anion Gap 20 BUN 38 H Creatinine 5.2 H Est GFR ( Amer) 10 Est GFR (Non-Af Amer) 8 Random Glucose 91 Calcium 9.3 Troponin I 0.0500 Attending/Attestation - Attestation I have personally seen and examined this patient.: Yes I have fully participated in the care of the patient.: Yes I have reviewed all pertinent clinical information: Yes Notes (Text): 10/04/18 01:19 Patient seen and examined with resident. Case discussed and agreed with assessment and plan of management.
[2018-10-02] MEDS ORDERED: Azithromycin 500 MG IV IVPB ONE (16:47)
[2018-10-02] MEDS: Azithromycin 500 MG in Sodium Chloride 0.9% 250 ML IVPB SCH (16:56)
[2018-10-02] MEDS ORDERED: Sodium Chloride 0.9% 50 ML IV ONE (18:29)
[2018-10-02] MEDS ORDERED: Iodixanol 320 MG/ML 100 ML BOTTLE IV ONE (18:29)
--- NOTE | 2018-10-02 20:07 | CARD ---
APPROVED REPORT Date of service: 10/02/2018 EKG Measurement Heart [id number] <Conclusion> Normal sinus rhythm Left posterior fascicular block Poor R wave progression in Precordial leads Nonspecific ST abnormality Abnormal ECG
[2018-10-02] MEDS: Calcium Acetate 667 MG Capsule PO SCH (21:42)
[2018-10-02] MEDS: Omega-3-Acid Ethyl Esters 1 GM Cap PO SCH (21:45)
[2018-10-03 05:36] LABS: EOS % 0.3 % (0.0-4.0); HEMOGLOBIN 10.8 g/dL (12.0-16.0); LYMPH # 0.9 K/uL (1.0-4.3); LYMPH % 18.4 % (20.0-40.0); MEAN CELL VOLUME 89.2 fl (81.0-99.0); MEAN CORPUSCULAR HEMOGLOBIN 27.8 pg (27.0-31.0); MEAN CORPUSCULAR HGB CONC 31.2 g/dL (33.0-37.0); MONO # 0.6 K/uL (0.0-0.8); MONO % 12.7 % (0.0-10.0); NEUT # 3.3 K/uL (1.8-7.0); NEUT % 67.6 % (50.0-75.0); NRBC % 0.1 % (0.0-0.0); RBC 3.89 Mil/uL (3.80-5.20); RED CELL DISTRIBUTION WIDTH 21.6 % (11.5-14.5); WHITE BLOOD COUNT 4.9 K/uL (4.8-10.8)
[2018-10-03 05:52] LABS: CALCIUM 9.3 mg/dL (8.4-10.2)
[2018-10-03] MEDS: Omega-3-Acid Ethyl Esters 1 GM Cap PO SCH ×2 (08:36→16:10)
[2018-10-03] MEDS: Pantoprazole 40 mg EC Tab PO SCH (08:37)
[2018-10-03] MEDS: Azithromycin 500 MG in Sodium Chloride 0.9% 250 ML IVPB SCH (08:48)
--- NOTE | 2018-10-03 08:52 | CP.PCM.PN ---
<Vy Cheema - Last Filed: 10/03/18 13:26> Subjective - Date & Time of Evaluation Date of Evaluation: 10/03/18 Time of Evaluation: 12:00 - Subjective Subjective: Pt seen/examined at bedside; no acute events overnight. Reported improvement in her cough, congestion, shortness of breath, however symptoms still present. Objective - Vital Signs/Intake and Output Vital Signs (last 24 hours): Temp Pulse Resp BP Pulse Ox 98.8 F 72 20 183/68 H 100 10/03/18 08:16 10/03/18 08:35 10/03/18 08:16 10/03/18 08:35 10/03/18 08:16 - Medications Medications: Current Medications Acetaminophen (Tylenol 325mg Tab) 650 mg PO Q6 PRN PRN Reason: Fever >100.4 F Acetaminophen (Tylenol 325mg Tab) 650 mg PO Q6 PRN PRN Reason: Pain, moderate (4-7) Albuterol/Ipratropium (Duoneb 3 Mg/0.5 Mg (3 Ml) Ud) 3 ml INH RQ6 PRN PRN Reason: Shortness of Breath Last Admin: 10/03/18 02:21 Dose: 3 ml Aspirin (Ecotrin) 81 mg PO DAILY [facility] Last Admin: 10/03/18 08:31 Dose: 81 mg Atorvastatin Calcium (Lipitor) 20 mg PO Q48H [facility] Last Admin: 10/02/18 21:44 Dose: Not Given Calcium Acetate (Phoslo) 1,334 mg PO WM [facility] Last Admin: 10/02/18 21:42 Dose: 1,334 mg Clonidine HCl (Catapres) 0.3 mg PO Q8 [facility] Last Admin: 10/03/18 08:30 Dose: 0.3 mg Furosemide (Lasix) 40 mg PO Q12 [facility] Last Admin: 10/03/18 08:34 Dose: 40 mg Gabapentin (Neurontin) 100 mg PO TID PRN PRN Reason: neuropathic pain Heparin Sodium (Porcine) (Heparin) 5,000 units SC Q12 [facility]; Protocol Last Admin: 10/03/18 08:31 Dose: 5,000 units Hydralazine HCl (Apresoline) 25 mg PO Q8 [facility] Last Admin: 10/03/18 08:28 Dose: 25 mg Azithromycin 500 mg/ Sodium (Chloride) 250 mls @ 250 mls/hr IVPB DAILY [facility]; Protocol Last Admin: 10/03/18 08:48 Dose: 250 mls/hr Metoprolol Tartrate (Lopressor) 50 mg PO Q12 [facility] Last Admin: 10/03/18 08:35 Dose: 50 mg Fpayj-7-Root Ethyl Esters (Lovaza) 1 gm PO BID [facility] Last Admin: 10/03/18 08:36 Dose: 1 gm Pantoprazole Sodium (Protonix Ec Tab) 40 mg PO DAILY [facility] Last Admin: 10/03/18 08:37 Dose: 40 mg - Labs Labs: 10/03/18 04:25 10/03/18 04:25 - Constitutional Appears: No Acute Distress - Head Exam Head Exam: ATRAUMATIC - Eye Exam Eye Exam: Normal appearance - Respiratory Exam Respiratory Exam: Wheezes, NORMAL BREATHING PATTERN - Cardiovascular Exam Cardiovascular Exam: REGULAR RHYTHM, +S1, +S2 - GI/Abdominal Exam GI & Abdominal Exam: Soft - Extremities Exam Extremities Exam: Pedal Edema (1+). absent: Calf Tenderness Additional comments: RUE fistula, + bruit; nonfunctioning LUE fistula - Neurological Exam Neurological Exam: Alert, Oriented x3 - Psychiatric Exam Psychiatric exam: Normal Affect, Normal Mood - Skin Skin Exam: Normal Color, Warm Assessment and Plan - Assessment and Plan (Free Text) Assessment: 63 yr old F admitted for SOB, cough and coughing blood tinged mucus. Pt has ESRD on HD TThSat, hypertension, HLD, RLE DVT, GERD, CAD s/p cath, right ankle ORIF, chronic RUE swelling, left kidney cysts. Reports feeling better. Influenza negative. Had elevated D-dimer, but CTA neg for PE. Left Upper ext duplex: no evidence of DVT, complex structure lateral to vessels medial to left shoulder bone with no flow, may represent abscess or hematoma CXR shows cardiomegaly but no active pulmonary disease. Plan: Cough, shortness of breath - Likely URI; CTA neg, CXR no acute disease - Azthromycin 500mg PO QD, albuterol INH PRN - Xopenex Q8 [facility] - O2 supplement via nasal canula Left upper extremity pain and swelling - Acute on chronic, DVT r/o - Tylenol PRN ESRD on HD TueThSat - Chronic, last HD this past sat - BUN 29/Cr 4.1 - Nephrology consult: Dr. Barone: HD today and tomorrow - Continue home medications: Nephrocaps 1 tab PO QD, Calcium acetate 667mg 3 Tabs PO TID Hypertension - Chronic, uncontrolled - Continue home medication: Clonidine 0.3mg PO TID - Increase dose of Metoprolol tartrate to 50mg PO BID - Start hydralazine 25 mg Q8h Chronic LE pain - Chronic, controlled - Continue home medication: Gabapentin 100mg PO TID GERD - Chronic, controlled - Pantoprazole 40mg PO QD DVT prophylaxis - Heparin 5,000 units SC Q12 <Dariela Rios - Last Filed: 10/03/18 15:11> Objective - Vital Signs/Intake and Output Vital Signs (last 24 hours): Temp Pulse Resp BP Pulse Ox 97.7 F 74 20 162/73 H 100 10/03/18 11:49 10/03/18 11:49 10/03/18 11:49 10/03/18 11:49 10/03/18 11:49 - Medications Medications: Current Medications Acetaminophen (Tylenol 325mg Tab) 650 mg PO Q6 PRN PRN Reason: Fever >100.4 F Acetaminophen (Tylenol 325mg Tab) 650 mg PO Q6 PRN PRN Reason: Pain, moderate (4-7) Albuterol/Ipratropium (Duoneb 3 Mg/0.5 Mg (3 Ml) Ud) 3 ml INH RQ6 PRN PRN Reason: Shortness of Breath Last Admin: 10/03/18 02:21 Dose: 3 ml Aspirin (Ecotrin) 81 mg PO DAILY [facility] Last Admin: 10/03/18 08:31 Dose: 81 mg Atorvastatin Calcium (Lipitor) 20 mg PO Q48H [facility] Last Admin: 10/02/18 21:44 Dose: Not Given Calcium Acetate (Phoslo) 1,334 mg PO WM [facility] Last Admin: 10/03/18 13:07 Dose: 1,334 mg Clonidine HCl (Catapres) 0.3 mg PO Q8 [facility] Last Admin: 10/03/18 08:30 Dose: 0.3 mg Furosemide (Lasix) 40 mg PO Q12 [facility] Last Admin: 10/03/18 08:34 Dose: 40 mg Gabapentin (Neurontin) 100 mg PO TID PRN PRN Reason: neuropathic pain Heparin Sodium (Porcine) (Heparin) 5,000 units SC Q12 [facility]; Protocol Last Admin: 10/03/18 08:31 Dose: 5,000 units Hydralazine HCl (Apresoline) 25 mg PO Q8 [facility] Last Admin: 10/03/18 08:28 Dose: 25 mg Azithromycin 500 mg/ Sodium (Chloride) 250 mls @ 250 mls/hr IVPB DAILY [facility]; Protocol Last Admin: 10/03/18 08:48 Dose: 250 mls/hr Levalbuterol HCl (Xopenex) 1.25 mg INH RQ8 [facility] Last Admin: 10/03/18 09:42 Dose: 1.25 mg Metoprolol Tartrate (Lopressor) 50 mg PO Q12 [facility] Last Admin: 10/03/18 08:35 Dose: 50 mg [id number] Ethyl Esters (Lovaza) 1 gm PO BID [facility] Last Admin: 10/03/18 08:36 Dose: 1 gm Pantoprazole Sodium (Protonix Ec Tab) 40 mg PO DAILY [facility] Last Admin: 10/03/18 08:37 Dose: 40 mg - Labs Labs: 10/03/18 04:25 10/03/18 04:25 Attending/Attestation - Attestation I have personally seen and examined this patient.: Yes I have fully participated in the care of the patient.: Yes I have reviewed all pertinent clinical information, including history, physical exam and plan: Yes Notes (Text): Pericardial Effusion seen on CTA of chest chronic - 2 Echos done in 2018 demonstrate the effusion -discussed case with Dr Irving - will do extra HD today and contnue with scheduled HD in am - pt denies CP, no SOB - + cough, denies hemoptysis but states she had blood tinge sputum after so much coughing yesterday.
[2018-10-03] MEDS: Levalbuterol 1.25 MG/3 ML Inhal Soln UD INH SCH ×3 (09:42→23:52)
--- NOTE | 2018-10-03 09:53 | CP.PCM.CON ---
History of Present Illness - History of Present Illness History of Present Illness: pt is seen and examined, full consult is dictated#[id number] Past Patient History - Tetanus Immunizations Tetanus Immunization: Unknown - Past Medical History & Family History Past Medical History?: Yes - Past Social History Smoking Status: Never Smoked - CARDIAC Hx Cardiac Disorders: Yes Hx Atrial Fibrillation: No Hx Cardia Arrhythmia: No Hx Congestive Heart Failure: Yes Hx Hypercholesterolemia: Yes Hx Hypertension: Yes Hx Mitral Valve Prolapse: No Hx Pacemaker: No Hx Peripheral Edema: Yes - PULMONARY Hx Respiratory Disorders: Yes Hx Asthma: No Hx Bronchitis: No Hx Chronic Obstructive Pulmonary Disease (COPD): No Hx Emphysema: No Hx Pneumonia: Yes Hx Pulmonary Embolism: No Hx Sleep Apnea: No - NEUROLOGICAL Hx Neurological Disorder: No - HEENT Hx HEENT Problems: No - RENAL Hx Chronic Kidney Disease: Yes Hx Dialysis: Yes Date of Last Dialysis Treatment: 10/01/18 Hx Kidney Stones: No Hx Renal Failure: Yes - ENDOCRINE/METABOLIC Hx Endocrine Disorders: No - HEMATOLOGICAL/ONCOLOGICAL Hx Blood Disorders: No Hx AIDS: No Hx Human Immunodeficiency Virus (HIV): No - INTEGUMENTARY Hx Dermatological Problems: No - MUSCULOSKELETAL/RHEUMATOLOGICAL Hx Musculoskeletal Disorders: No Hx Falls: No - GASTROINTESTINAL Hx Gastrointestinal Disorders: No Hx Crohn's Disease: No Hx Diverticulitis: No Hx Gall Bladder Disease: No Hx Gastritis: No Hx Pancreatitis: No - GENITOURINARY/GYNECOLOGICAL Hx Genitourinary Disorders: No - PSYCHIATRIC Hx Psychophysiologic Disorder: Yes Hx Anxiety: Yes Hx Substance Use: No - SURGICAL HISTORY Hx Surgeries: Yes Hx Appendectomy: No Hx Carotid Endarterectomy: No Hx Section: Yes Hx Cholecystectomy: No Hx Coronary Artery Bypass Graft: No Hx Coronary Stent: No Hx Herniorrhaphy: Yes Hx Tonsillectomy: No - ANESTHESIA Hx Anesthesia: Yes Hx Anesthesia Reactions: Yes Hx Malignant Hyperthermia: No Meds Allergies/Adverse Reactions: Allergies Allergy/AdvReac Type Severity Reaction Status Date / Time ciprofloxacin [From Cipro] Allergy RASH Verified 03/01/18 17:52 Penicillins Allergy RASH Verified 11/18/17 14:03 FISH AdvReac RASH Verified 10/03/18 19:53 shellfish derived AdvReac RASH Verified 10/03/18 19:17 - Medications Medications: Current Medications Acetaminophen (Tylenol 325mg Tab) 650 mg PO Q6 PRN PRN Reason: Fever >100.4 F Acetaminophen (Tylenol 325mg Tab) 650 mg PO Q6 PRN PRN Reason: Pain, moderate (4-7) Albuterol/Ipratropium (Duoneb 3 Mg/0.5 Mg (3 Ml) Ud) 3 ml INH RQ6 PRN PRN Reason: Shortness of Breath Last Admin: 10/03/18 02:21 Dose: 3 ml Aspirin (Ecotrin) 81 mg PO DAILY [facility] Last Admin: 10/03/18 08:31 Dose: 81 mg Atorvastatin Calcium (Lipitor) 20 mg PO Q48H [facility] Last Admin: 10/02/18 21:44 Dose: Not Given Calcium Acetate (Phoslo) 1,334 mg PO WM [facility] Last Admin: 10/02/18 21:42 Dose: 1,334 mg Clonidine HCl (Catapres) 0.3 mg PO Q8 [facility] Last Admin: 10/03/18 08:30 Dose: 0.3 mg Furosemide (Lasix) 40 mg PO Q12 [facility] Last Admin: 10/03/18 08:34 Dose: 40 mg Gabapentin (Neurontin) 100 mg PO TID PRN PRN Reason: neuropathic pain Heparin Sodium (Porcine) (Heparin) 5,000 units SC Q12 [facility]; Protocol Last Admin: 10/03/18 08:31 Dose: 5,000 units Hydralazine HCl (Apresoline) 25 mg PO Q8 [facility] Last Admin: 10/03/18 08:28 Dose: 25 mg Azithromycin 500 mg/ Sodium (Chloride) 250 mls @ 250 mls/hr IVPB DAILY [facility]; Protocol Last Admin: 10/03/18 08:48 Dose: 250 mls/hr Levalbuterol HCl (Xopenex) 1.25 mg INH RQ8 [facility] Last Admin: 10/03/18 09:42 Dose: 1.25 mg Metoprolol Tartrate (Lopressor) 50 mg PO Q12 [facility] Last Admin: 10/03/18 08:35 Dose: 50 mg [id number] Ethyl Esters (Lovaza) 1 gm PO BID [facility] Last Admin: 10/03/18 08:36 Dose: 1 gm Pantoprazole Sodium (Protonix Ec Tab) 40 mg PO DAILY [facility] Last Admin: 10/03/18 08:37 Dose: 40 mg Results - Vital Signs Recent Vital Signs: Last Vital Signs Temp 98.8 F 10/03/18 08:16 Pulse 72 10/03/18 08:35 Resp 20 10/03/18 08:16 BP 183/68 H 10/03/18 08:35 Pulse Ox 100 10/03/18 08:16 - Labs Result Diagrams: 10/03/18 04:25 10/03/18 04:25 Labs: Laboratory Results - last 24 hr 10/02/18 10/03/18 10/03/18 10:40 04:25 04:25 WBC 4.9 RBC 3.89 Hgb 10.8 L Hct 34.7 MCV 89.2 MCH 27.8 MCHC 31.2 L RDW 21.6 H Plt Count 162 MPV 8.0 Neut % (Auto) 67.6 Lymph % (Auto) 18.4 L [place] % (Auto) 12.7 H Eos % (Auto) 0.3 Baso % (Auto) 1.0 Neut # (Auto) 3.3 Lymph # (Auto) 0.9 L [place] # (Auto) 0.6 Eos # (Auto) 0.0 Baso # (Auto) 0.0 D-Dimer, Quantitative 726 H Sodium 140 Potassium 4.7 Chloride 100 Carbon Dioxide 25 Anion Gap 20 BUN 38 H Creatinine 5.2 H Est GFR ( Amer) 10 Est GFR (Non-Af Amer) 8 Random Glucose 91 Calcium 9.3
--- NOTE | 2018-10-03 11:44 | CT ---
Date of service: 10/02/2018 PROCEDURE: CT Chest with contrast (Pulmonary Angiogram) HISTORY: r/o PE COMPARISON: None available. TECHNIQUE: Axial computed tomography images were obtained of the chest in the pulmonary arterial phase of enhancement. Coronal and sagittal reformatted images were created and reviewed. Intravenous contrast dose: 75 cc Visipaque 320. Mean Hounsfield value in the main pulmonary artery: 2005.74 Radiation dose: Total exam DLP = 242.63 mGy-cm. This CT exam was performed using one or more of the following dose reduction techniques: Automated exposure control, adjustment of the mA and/or kV according to patient size, and/or use of iterative reconstruction technique. FINDINGS: PULMONARY ARTERIES: Unremarkable. No pulmonary embolism. AORTA: No acute findings. No thoracic aortic aneurysm. No atherosclerotic calcification or mural plaque present. LUNGS: Unremarkable. No nodule, mass or pulmonary consolidation. PLEURAL SPACES: Trace bilateral pleural effusions. HEART: Cardiomegaly. Trace pericardial effusion. LYMPH NODES: No lymphadenopathy. BONES, CHEST WALL: Unremarkable. No fracture or destructive lesion OTHER FINDINGS: Hepatomegaly, innumerable hepatic and renal cysts. Cholelithiasis without CT evidence of acute cholecystitis. Dilated great vessels particularly the brachiocephalic artery and its branch vessels including marked dilatation of the right subclavian artery with incompletely visualized vascular stent. Innumerable collaterals about the anterior thoracic and abdominal wall. Diffuse edema and anasarca. IMPRESSION: Unremarkable CT pulmonary angiogram. No pulmonary embolus. Concordant results (preliminary interpretation) provided by [facility]. Procedure Completed: 18:29 Preliminary Report: Dictated and Authenticated: 19:17. Final Interpretation: 11:40. October 03, 2018
--- NOTE | 2018-10-03 12:14 | US ---
Date of service: 10/02/2018 PROCEDURE: Left upper extremity venous sonography HISTORY: pain and swelling pain and swelling. Incomplete history of stent/vascular procedure. COMPARISON: None TECHNIQUE: Standard protocol for this study/examination. FINDINGS: No visible left upper extremity deep vein thrombosis. Compression augmentation/phasicity documented internal jugular, subclavian, axillary and brachial veins. Nonvisualization of the basilic and cephalic systems. Complex solid and cystic mass in the left subclavian region, with no definite correlate on recent CT scan of the affected area. This may be thrombosed venous/vascular structures. There is a stent noted/evidence of non working fistula which does not display flow. The area of interest measures 4.1 x 4.3 x 7.5 cm. IMPRESSION: No visible thrombus as described above. Evidence of non functioning AV fistula. Complex left subclavian mass. The mass does not display flow. Differential considerations include hematoma/seroma, thrombosed vessels which cannot be explained on this limited study. Concordant findings (preliminary report) provided by MICHAEL BEAN.
[2018-10-03] MEDS: Calcium Acetate 667 MG Capsule PO SCH (13:13)
[2018-10-03] MEDS ORDERED: Levalbuterol 1.25 MG/3 ML Inhal Soln UD INH SCH (16:00)
[2018-10-03] MEDS: guaiFENesin DM 200 mg-20 mg/10 ml UD PO SCH ×2 (16:12→21:43)
[2018-10-03] MEDS ORDERED: Labetalol 5mg/ml (4ml) IVP PRN (18:43)
[2018-10-03] MEDS ORDERED: Levalbuterol 0.63 MG/3 ML Inhal Soln UD ONE (19:20)
[2018-10-03] MEDS ORDERED: Levalbuterol 1.25 MG/3 ML Inhal Soln UD INH PRN (19:23)
[2018-10-03] MEDS ORDERED: Levalbuterol 0.63 MG/3 ML Inhal Soln UD INH STA (19:25)
[2018-10-04] MEDS: guaiFENesin DM 200 mg-20 mg/10 ml UD PO SCH ×4 (03:12→21:45)
[2018-10-04 05:55] LABS: BASO % 0.2 % (0.0-2.0); HEMOGLOBIN 10.1 g/dL (12.0-16.0); LYMPH # 0.5 K/uL (1.0-4.3); LYMPH % 10.2 % (20.0-40.0); MEAN CELL VOLUME 89.2 fl (81.0-99.0); MEAN CORPUSCULAR HEMOGLOBIN 27.9 pg (27.0-31.0); MEAN CORPUSCULAR HGB CONC 31.2 g/dL (33.0-37.0); MEAN PLATELET VOLUME 7.9 fl (7.2-11.7); MONO # 0.1 K/uL (0.0-0.8); MONO % 2.4 % (0.0-10.0); NEUT # 4.2 K/uL (1.8-7.0); NEUT % 87.2 % (50.0-75.0); RBC 3.62 Mil/uL (3.80-5.20); WHITE BLOOD COUNT 4.8 K/uL (4.8-10.8)
[2018-10-04 06:54] LABS: CALCIUM 9.1 mg/dL (8.4-10.2)
[2018-10-04] MEDS: Levalbuterol 1.25 MG/3 ML Inhal Soln UD INH SCH ×3 (08:10→23:38)
[2018-10-04] MEDS: Omega-3-Acid Ethyl Esters 1 GM Cap PO SCH ×2 (09:22→16:22)
[2018-10-04] MEDS: Pantoprazole 40 mg EC Tab PO SCH (09:23)
[2018-10-04] MEDS: Azithromycin 500 MG in Sodium Chloride 0.9% 250 ML IVPB SCH (09:29)
--- NOTE | 2018-10-04 10:09 | CON ---
DATE: 10/03/2018 RENAL CONSULTATION LOCATION: The patient is located in room 417, bed 2. REQUESTED BY: Dariela Rios MD and Ismael Armendariz MD REASON FOR FOLLOWUP: Cough, shortness of breath, and for further evaluation. HISTORY OF PRESENT ILLNESS: Mrs. Alexis is a 63-year-old elderly, who is a very pleasant female with a past medical history significant for polycystic kidney disease, end-stage renal disease, secondary hyperparathyroidism, peripheral vascular disease, multiple access problems, who is on hemodialysis with end-stage renal disease, on hemodialysis three times a week; Wednesday, , and Wednesday, was admitted with chief complaints of cough, shortness of breath for the last two to three days, status post CT angiogram, low probability for PE. The patient was started on IV antibiotics. The patient is feeling slightly better today, still complains of cough associated with whitish-yellow sputum. Denies any fever. No dysuria. The patient does complain of mild flank tenderness and pain, on and off. PAST MEDICAL HISTORY: Significant for longstanding hypertension, pericardial effusion,severe pulmonary hypertension, severe tricuspid regurgitation, multiple access problems and stenosis, multiple angioplasties and stent placements. ALLERGIES: ALLERGIC TO CIPRO, PENICILLIN, FISH, AND SHELLFISH. SOCIAL HISTORY: No smoking, no alcohol, no drugs. She has a very supportive daughter and . CURRENT MEDICATIONS: Include as follows; hydralazine 25 mg p.o. every 6 hours, azithromycin 500 mg daily, clonidine 0.3 mg p.o. every 8 hours, DuoNeb inhaler, aspirin 81 mg daily, subcu heparin 5000 every 12 hours, Lasix 40 mg p.o. every 12 hours, Lipitor 20 mg p.o. every 40 hours, metoprolol 50 mg p.o. every 12 hours, omega 3 fatty acids, Lovaza 1 g p.o. b.i.d., gabapentin 100 mg p.o. t.i.d., PhosLo 667 mg two tablets p.o. with meals, Protonix 40 mg p.o. daily, Tessalon Perles, labetalol 10 mg IV push every 6 hours p.r.n., Tylenol, and Xopenex 1.25 mg inhaler every 8 hours. PHYSICAL EXAMINATION: VITAL SIGNS: Blood pressure this morning 183/68, pulse 72, respirations 20, temperature 97.7, and saturation 100%. Height 4 feet and 9 inches, weight is 150 pounds. GENERAL: Mrs. Alexis is a 63-year-old elderly female, moderately built, moderately nourished, not in acute distress. HEENT: Pupils are normal and reactive to light and accommodation. Conjunctivae pink. Sclerae anicteric. Tongue is moist. NECK: Trachea is midline. LUNGS: Symmetry on both sides. Bilateral breath sounds present. Bilateral expiratory rhonchi present. CVS: [place] at the fifth intercostal space, midclavicular line. S1 and S2 are audible. No murmur or gallop. ABDOMEN: Normal in appearance. Soft, tympanitic. No guarding. No rigidity. No hepatosplenomegaly. LAW INSTRUCTOR: The patient is alert, awake, and oriented x3. Nonfocal neuro examination. Cranial nerves II through XII grossly intact. Sensory and motor system is within normal limits. EXTREMITIES: No cyanosis. No clubbing. The patient has rods in right foot and ankle. LABORATORY DATA: Include as follows: As of 10/03/2018; WBC 4.7, hemoglobin 10.8, hematocrit is 34.7, and platelet of 162. Sodium 140, potassium 4.7, chloride 100, CO2 25, BUN 38, creatinine 5.2, glucose 91, calcium 9.3. Influenza A and B antibody screening is negative. CT of the chest as of 10/02/2018, pulmonary angiogram; impression, unremarkable CT pulmonary angiogram. No pulmonary embolism. Upper extremity ultrasound as of 10/02/2018, no visible thrombus, evidence of nonfunctioning AV fistula, complex left subclavian mass, the mass does not display flow. Differential configuration include hematoma or seroma, thrombosed vessel which cannot be explained on this limited study. No visible left upper extremity deep vein thrombosis. Chest x-ray as of 10/02/2018, no cardiomegaly. On 10/03/2018; sodium 140, potassium 4.7, chloride 100, CO2 of 25, BUN 38, creatinine 5.2, glucose 91, calcium 9.3, troponin 0.050. ASSESSMENT AND PLAN: In summary, Mrs. Alexis is a 63-year-old elderly female with a history of hypertension; polycystic kidney disease; end-stage renal disease; peripheral vascular disease, on hemodialysis three times a week, Wednesday, , and Wednesday; severe tricuspid regurgitation; [id number] pericardial effusion was admitted with cough, shortness of breath, cough associated with yellow sputum for few days. 1. End-stage renal disease, continue hemodialysis; Wednesday, , and Wednesday. We will give an extra dialysis if the patient can tolerate. We will try to ultrafiltrate 1-2 liters as tolerated. 2. Uncontrolled hypertension. Blood pressure medication increased recently, metoprolol 25 p.o. twice daily to 50 mg p.o. twice daily and advised to continue clonidine 0.3 mg p.o. every 8 hours and also started hydralazine 25 mg p.o. every 8 hours; now increased hydralazine to every 6 hours. Continue all her current medications and we will titrate as needed. 3. Polycystic kidney disease. 4. Chronic pericardial effusion. 5. Severe tricuspid regurgitation and severe pulmonary hypertension. Continue intravenous antibiotics as per Dr. Dariela Rios. Case discussed with Dr. Dariela Rios for possible discharge tomorrow after dialysis. We will follow with you. Thank you for allowing me to participate in our patient's care. Alicia Barone MD
--- NOTE | 2018-10-04 10:19 | CP.PCM.PN ---
<Vy Cheema - Last Filed: 10/04/18 10:33> Subjective - Date & Time of Evaluation Date of Evaluation: 10/04/18 Time of Evaluation: 09:00 - Subjective Subjective: Pt seen/evaluated at bedside, and daughter present as well. Yesterday evening she felt short of breath during dialysis, was having coughing attack and experienced chest discomfort while coughing. Was evaluated by attending and night resident, EKG was done, troponins drawn - all within normal limits. Was given 60 mg solumedrol, as well as xopenex, with improvement. Overnight, had fever to 102, blood culture was drawn. Pt reported she felt better later in the evening, and reports she feels well now. Objective - Vital Signs/Intake and Output Vital Signs (last 24 hours): Temp Pulse Resp BP Pulse Ox 97.3 F L 65 18 163/77 H 99 10/04/18 07:55 10/04/18 09:22 10/04/18 07:55 10/04/18 09:22 10/04/18 07:55 - Medications Medications: Current Medications Acetaminophen (Tylenol 325mg Tab) 650 mg PO Q6 PRN PRN Reason: Fever >100.4 F Last Admin: 10/03/18 21:50 Dose: 650 mg Acetaminophen (Tylenol 325mg Tab) 650 mg PO Q6 PRN PRN Reason: Pain, moderate (4-7) Albuterol/Ipratropium (Duoneb 3 Mg/0.5 Mg (3 Ml) Ud) 3 ml INH RQ6 PRN PRN Reason: Shortness of Breath Last Admin: 10/03/18 02:21 Dose: 3 ml Amlodipine Besylate (Norvasc) 5 mg PO DAILY [facility] Last Admin: 10/04/18 09:28 Dose: Not Given Aspirin (Ecotrin) 81 mg PO DAILY [facility] Last Admin: 10/04/18 09:22 Dose: 81 mg Atorvastatin Calcium (Lipitor) 20 mg PO Q48H [facility] Last Admin: 10/02/18 21:44 Dose: Not Given Benzonatate (Tessalon Perles) 100 mg PO BID PRN PRN Reason: Cough Last Admin: 10/03/18 19:35 Dose: 100 mg Calcium Acetate (Phoslo) 1,334 mg PO WM [facility] Last Admin: 01/08/19 09:22 Dose: 1,334 mg Clonidine HCl (Catapres) 0.3 mg PO Q8 [facility] Last Admin: 10/04/18 09:22 Dose: 0.3 mg Furosemide (Lasix) 40 mg PO Q12 [facility] Last Admin: 10/04/18 09:21 Dose: 40 mg Gabapentin (Neurontin) 100 mg PO TID PRN PRN Reason: neuropathic pain Guaifenesin/Dextromethorphan (Robitussin Dm) 10 ml PO Q6 [facility] Last Admin: 10/04/18 09:45 Dose: 10 ml Heparin Sodium (Porcine) (Heparin) 5,000 units SC Q12 [facility]; Protocol Last Admin: 10/04/18 09:21 Dose: 5,000 units Hydralazine HCl (Apresoline) 25 mg PO Q6 [facility] Last Admin: 10/04/18 09:20 Dose: 25 mg Azithromycin 500 mg/ Sodium (Chloride) 250 mls @ 250 mls/hr IVPB DAILY [facility]; Protocol Last Admin: 10/04/18 09:29 Dose: 250 mls/hr Labetalol HCl (Trandate) 10 mg IVP Q6 PRN PRN Reason: Systolic Blood Pressure Levalbuterol HCl (Xopenex) 1.25 mg INH RQ8 [facility] Last Admin: 10/04/18 08:10 Dose: 1.25 mg Metoprolol Tartrate (Lopressor) 50 mg PO Q12 [facility] Last Admin: 10/04/18 09:20 Dose: 50 mg [id number] Ethyl Esters (Lovaza) 1 gm PO BID [facility] Last Admin: 10/04/18 09:22 Dose: 1 gm Pantoprazole Sodium (Protonix Ec Tab) 40 mg PO DAILY [facility] Last Admin: 10/04/18 09:23 Dose: 40 mg - Labs Labs: 10/04/18 05:15 10/04/18 05:15 - Constitutional Appears: No Acute Distress - Head Exam Head Exam: NORMAL INSPECTION - Eye Exam Eye Exam: Normal appearance - ENT Exam ENT Exam: Mucous Membranes Moist - Respiratory Exam Respiratory Exam: NORMAL BREATHING PATTERN. absent: Respiratory Distress Additional comments: good air movement, less wheeze than yesterday - Cardiovascular Exam Cardiovascular Exam: REGULAR RHYTHM, +S1, +S2 - GI/Abdominal Exam GI & Abdominal Exam: Soft. absent: Tenderness - Extremities Exam Extremities Exam: Pedal Edema (1+). absent: Calf Tenderness Additional comments: RUE fistula, + bruit; nonfunctioning LUE fistula - Back Exam Back Exam: NORMAL INSPECTION - Neurological Exam Neurological Exam: Alert, Oriented x3 - Psychiatric Exam Psychiatric exam: Normal Affect, Normal Mood - Skin Skin Exam: Dry, Warm Assessment and Plan - Assessment and Plan (Free Text) Assessment: 63 yr old F admitted for SOB, cough and coughing blood tinged mucus. Pt has ESRD on HD TThSat, hypertension, HLD, RLE DVT, GERD, CAD s/p cath, right ankle ORIF, chronic RUE swelling, left kidney cysts. Overnight, pt had 102F fever; prior to that, coughing a lot and had elevated BP; BP meds adjusted as in plan, also s/p 60 mg solumedrol. Had elevated D-dimer, but CTA neg for PE. Left Upper ext duplex: no evidence of DVT, complex structure lateral to vessels medial to left shoulder bone with no flow, may represent abscess or hematoma CXR shows cardiomegaly but no active pulmonary disease. Influenza negative; however need to repeat to look for cause of wheezing/fever in setting of neg CXR, pt unable to urinate due to ESRD. Plan: Cough, shortness of breath - Febrile overnight, clear CXR, no urine due to ESRD - URI vs influenza; will repeat influenza swab - Azthromycin 500mg PO QD, albuterol INH PRN - Xopenex Q8 [facility] - Tessalon 100 mg BID PRN - O2 supplement via nasal canula - F/u blood and sputum cultures Left upper extremity pain and swelling - Acute on chronic, DVT r/o - Tylenol PRN ESRD on HD TueThSat - Chronic, last HD yest; pending another HD session today, - BUN 29/Cr 4.1 - Nephrology consult: Dr. Barone: input/recs appreciated - Continue home medications: Nephrocaps 1 tab PO QD, Calcium acetate 667mg 3 Tabs PO TID Hypertension - Chronic, uncontrolled - Continue home medication: Clonidine 0.3mg PO Q8 - Continue dose of Metoprolol tartrate to 50mg PO Q8 (increased from home dose) - Increase hydralazine 25 mg from Q8h to Q6h - Labetalol 10 mg IVP Q6 PRN Chronic LE pain - Chronic, controlled - Continue home medication: Gabapentin 100mg PO TID GERD - Chronic, controlled - Pantoprazole 40mg PO QD DVT prophylaxis - Heparin 5,000 units SC Q12 <Dariela Rios - Last Filed: 10/04/18 14:13> Objective - Vital Signs/Intake and Output Vital Signs (last 24 hours): Temp Pulse Resp BP Pulse Ox 98.1 F 89 18 214/73 H 100 10/04/18 12:00 10/04/18 12:23 10/04/18 12:00 10/04/18 12:23 10/04/18 12:00 - Medications Medications: Current Medications Acetaminophen (Tylenol 325mg Tab) 650 mg PO Q6 PRN PRN Reason: Fever >100.4 F Last Admin: 10/03/18 21:50 Dose: 650 mg Acetaminophen (Tylenol 325mg Tab) 650 mg PO Q6 PRN PRN Reason: Pain, moderate (4-7) Albuterol/Ipratropium (Duoneb 3 Mg/0.5 Mg (3 Ml) Ud) 3 ml INH RQ6 PRN PRN Reason: Shortness of Breath Last Admin: 10/03/18 02:21 Dose: 3 ml Amlodipine Besylate (Norvasc) 5 mg PO ONCE ONE Stop: 10/04/18 14:06 Amlodipine Besylate (Norvasc) 10 mg PO DAILY [facility] Aspirin (Ecotrin) 81 mg PO DAILY [facility] Last Admin: 10/04/18 09:22 Dose: 81 mg Atorvastatin Calcium (Lipitor) 20 mg PO Q48H [facility] Last Admin: 10/02/18 21:44 Dose: Not Given Benzonatate (Tessalon Perles) 100 mg PO BID PRN PRN Reason: Cough Last Admin: 10/03/18 19:35 Dose: 100 mg Calcium Acetate (Phoslo) 1,334 mg PO WM [facility] Last Admin: 10/04/18 12:20 Dose: 1,334 mg Clonidine HCl (Catapres) 0.3 mg PO Q8 [facility] Last Admin: 10/04/18 09:22 Dose: 0.3 mg Furosemide (Lasix) 40 mg PO Q12 [facility] Last Admin: 10/04/18 09:21 Dose: 40 mg Gabapentin (Neurontin) 100 mg PO TID PRN PRN Reason: neuropathic pain Guaifenesin/Dextromethorphan (Robitussin Dm) 10 ml PO Q6 [facility] Last Admin: 10/04/18 09:45 Dose: 10 ml Heparin Sodium (Porcine) (Heparin) 5,000 units SC Q12 [facility]; Protocol Last Admin: 10/04/18 09:21 Dose: 5,000 units Hydralazine HCl (Apresoline) 25 mg PO Q6 [facility] Last Admin: 10/04/18 09:20 Dose: 25 mg Azithromycin 500 mg/ Sodium (Chloride) 250 mls @ 250 mls/hr IVPB DAILY [facility]; Protocol Last Admin: 10/04/18 09:29 Dose: 250 mls/hr Labetalol HCl (Trandate) 10 mg IVP Q6 PRN PRN Reason: Systolic Blood Pressure Levalbuterol HCl (Xopenex) 1.25 mg INH RQ8 [facility] Last Admin: 10/04/18 08:10 Dose: 1.25 mg Metoprolol Tartrate (Lopressor) 50 mg PO Q8 [facility] [id number] Ethyl Esters (Lovaza) 1 gm PO BID [facility] Last Admin: 10/04/18 09:22 Dose: 1 gm Pantoprazole Sodium (Protonix Ec Tab) 40 mg PO DAILY [facility] Last Admin: 10/04/18 09:23 Dose: 40 mg - Labs Labs: 10/04/18 05:15 10/04/18 05:15 Attending/Attestation - Attestation I have personally seen and examined this patient.: Yes I have fully participated in the care of the patient.: Yes I have reviewed all pertinent clinical information, including history, physical exam and plan: Yes Notes (Text): Hypertensive Urgency - pt's BP remains elevated ( 200systolic) - will admit pt for further mgt of uncontrolled BP - add Norvasc 10 mg daily -Increase Metoprolol to 50 mg q8 Acute Bronchitis, prob viral cannot totally r/o beginning PNA - pt had fever 102.2 last night, persistent cough and some wheezing and rhonchi - CTA : no PNA - rpt Flu screen negative - cont IV Zithromax, add Aztreonam ( pt allergic to PCN and quinolones - RASH) - Sputum c/s , Mycoplasma Ag - Legionella : neg
[2018-10-04] MEDS ORDERED: Aztreonam 1 GM in Sodium Chloride 0.9% 100 ML IVPB STA (11:36)
--- NOTE | 2018-10-04 12:18 | CP.PCM.PN ---
Subjective - Date & Time of Evaluation Date of Evaluation: 10/04/18 Time of Evaluation: 09:10 - Subjective Subjective: pt is seen and examined, follow up consult is dictated #[id number] Objective - Vital Signs/Intake and Output Vital Signs (last 24 hours): Temp Pulse Resp BP Pulse Ox 98.1 F 89 18 214/73 H 100 10/04/18 12:00 10/04/18 12:00 10/04/18 12:00 10/04/18 12:00 10/04/18 12:00 - Medications Medications: Current Medications Acetaminophen (Tylenol 325mg Tab) 650 mg PO Q6 PRN PRN Reason: Fever >100.4 F Last Admin: 10/03/18 21:50 Dose: 650 mg Acetaminophen (Tylenol 325mg Tab) 650 mg PO Q6 PRN PRN Reason: Pain, moderate (4-7) Albuterol/Ipratropium (Duoneb 3 Mg/0.5 Mg (3 Ml) Ud) 3 ml INH RQ6 PRN PRN Reason: Shortness of Breath Last Admin: 10/03/18 02:21 Dose: 3 ml Amlodipine Besylate (Norvasc) 5 mg PO DAILY [facility] Last Admin: 10/04/18 09:28 Dose: Not Given Aspirin (Ecotrin) 81 mg PO DAILY [facility] Last Admin: 10/04/18 09:22 Dose: 81 mg Atorvastatin Calcium (Lipitor) 20 mg PO Q48H [facility] Last Admin: 10/02/18 21:44 Dose: Not Given Benzonatate (Tessalon Perles) 100 mg PO BID PRN PRN Reason: Cough Last Admin: 10/03/18 19:35 Dose: 100 mg Calcium Acetate (Phoslo) 1,334 mg PO WM [facility] Last Admin: 10/04/18 09:22 Dose: 1,334 mg Clonidine HCl (Catapres) 0.3 mg PO Q8 [facility] Last Admin: 10/04/18 09:22 Dose: 0.3 mg Furosemide (Lasix) 40 mg PO Q12 [facility] Last Admin: 10/04/18 09:21 Dose: 40 mg Gabapentin (Neurontin) 100 mg PO TID PRN PRN Reason: neuropathic pain Guaifenesin/Dextromethorphan (Robitussin Dm) 10 ml PO Q6 [facility] Last Admin: 10/04/18 09:45 Dose: 10 ml Heparin Sodium (Porcine) (Heparin) 5,000 units SC Q12 [facility]; Protocol Last Admin: 10/04/18 09:21 Dose: 5,000 units Hydralazine HCl (Apresoline) 25 mg PO Q6 [facility] Last Admin: 10/04/18 09:20 Dose: 25 mg Azithromycin 500 mg/ Sodium (Chloride) 250 mls @ 250 mls/hr IVPB DAILY [facility]; Protocol Last Admin: 10/04/18 09:29 Dose: 250 mls/hr Aztreonam 1 gm/ Sodium (Chloride) 100 mls @ 100 mls/hr IVPB STAT [facility]; Protocol Stop: 10/04/18 12:35 Labetalol HCl (Trandate) 10 mg IVP Q6 PRN PRN Reason: Systolic Blood Pressure Levalbuterol HCl (Xopenex) 1.25 mg INH RQ8 [facility] Last Admin: 10/04/18 08:10 Dose: 1.25 mg Metoprolol Tartrate (Lopressor) 50 mg PO Q12 [facility] Last Admin: 10/04/18 09:20 Dose: 50 mg Easke-5-Omgx Ethyl Esters (Lovaza) 1 gm PO BID [facility] Last Admin: 10/04/18 09:22 Dose: 1 gm Pantoprazole Sodium (Protonix Ec Tab) 40 mg PO DAILY [facility] Last Admin: 10/04/18 09:23 Dose: 40 mg - Labs Labs: 10/04/18 05:15 10/04/18 05:15
--- NOTE | 2018-10-04 19:54 | CARD ---
APPROVED REPORT Date of service: 10/03/2018 EKG Measurement Heart [id number] <Conclusion> Sinus tachycardia Rightward axis Borderline ECG
--- NOTE | 2018-10-04 19:58 | CARD ---
APPROVED REPORT Date of service: 10/03/2018 EKG Measurement Heart [id number] <Conclusion> Sinus tachycardia Possible Left atrial enlargement Rightward axis Poor R wave progression in Precordial leads Abnormal ECG
[2018-10-04 20:54] LABS: HEPATITIS B SURFACE AG Negative (NEGATIVE)
[2018-10-04 20:59] LABS: HEPATITIS B CORE AB NEGATIVE (NEGATIVE)
[2018-10-04 21:11] LABS: HEPATITIS C ANTIBODY NEGATIVE (NEGATIVE)
--- NOTE | 2018-10-05 02:48 | PN ---
DATE: 10/04/2018 FOLLOWUP RENAL CONSULTATION LOCATION: Room 417, bed 2. REQUESTED BY: Dariela Rios MD and Ismael Armendariz MD REASON FOR FOLLOWUP: End-stage renal disease, continuation of hemodialysis. HISTORY OF PRESENT ILLNESS: Mrs. Alexis is a 63-year-old elderly very pleasant female with a past medical history significant for longstanding hypertension, polycystic kidney disease, pericardial effusion, peripheral vascular disease who was admitted with a chief complaint of cough, shortness of breath, cough associated with whitish yellow sputum and low-grade fever. The patient is being treated for acute bronchitis. The patient is not in any distress this morning. Complains of severe cough last night. T-max is 102.2. PHYSICAL EXAMINATION: VITAL SIGNS: Her blood pressure this morning 163/77, pulse 65, respirations 18, temperature 98.1, and saturation 100%. Height 4 feet 9 inches. Weight is 150 pounds. GENERAL: Mrs. Alexis is a 59-year-old elderly female, moderately built, moderately nourished, not in distress. HEENT: Pupils normal and reactive to light and accommodation. Conjunctivae pink. Sclerae nonicteric. Tongue is moist. Trachea is midline. LUNGS: Symmetric on both sides. Bilateral breath sounds present. Bilateral rhonchi present, diffuse. CARDIOVASCULAR SYSTEM: [place] at the fifth intercostal space, midclavicular line. S1 and S2 audible. No murmur. No gallop. ABDOMEN: Normal in appearance, soft, tympanitic. No guarding. No rigidity. No hepatosplenomegaly. CENTRAL NERVOUS SYSTEM: The patient is alert, awake, oriented x3. Nonfocal neuro examination. Cranial nerves II through XII grossly intact. Sensory and motor system is within normal limits. EXTREMITIES: No cyanosis, no clubbing, no edema. CURRENT MEDICATIONS: Include as follows: Hydralazine 25 mg p.o. every 6 hours, clonidine 0.3 mg p.o. every 8 hours, aspirin 81 mg daily, subcu heparin 5000 units every 12 hours, Lasix 40 mg p.o. every 12 hours, Lipitor 20 mg p.o. every 48 hours, Lopressor 50 mg p.o. every 8 hours, Lovaza 1 g p.o. b.i.d., Neurontin 100 mg p.o. t.i.d., amlodipine 10 mg daily, PhosLo 667 mg two tablets with meals, labetalol 100 mg IV every 6 hours p.r.n., and Xopenex 1.25 mg inhaler every 8 hours. LABORATORY DATA: Include as follows: As of 10/04/2018: WBC 4.8, hemoglobin 10.1, hematocrit is 32.3, platelets 140. Sodium 140, potassium 4.2, chloride 98, CO2 of 28, BUN 37, creatinine 4.9, glucose 148, calcium 9.1. Troponin 0.05. Influenza A and B antibodies negative. Again as of 10/04/2018, Mycoplasma pneumoniae is negative. Hepatitis B surface antigen is negative, surface antibody is positive. Hepatitis B core antibody is negative. Hepatitis C antibody is negative. Blood culture x1 negative as of 10/02/2018, and sputum gram-stain and culture is pending as of 10/03/2018. ASSESSMENT AND PLAN: In summary, Mrs. Alexis is a 63-year-old elderly female with hypertension, polycystic kidney disease, pericardial effusion who was admitted with cough, shortness of breath and associated with whitish yellow sputum and fever. 1. Acute bronchitis. 2. Uncontrolled hypertension. 3. End-stage renal disease. Continue current medication azithromycin 500 mg daily and continue hydralazine, clonidine, metoprolol, Norvasc and Lasix. We will follow up with you. Thank you for allowing me to participate in your patient's care. The patient is scheduled for hemodialysis today. Alicia Barone MD
[2018-10-05] MEDS: guaiFENesin DM 200 mg-20 mg/10 ml UD PO SCH ×4 (04:27→21:41)
[2018-10-05 05:44] LABS: CALCIUM 9.1 mg/dL (8.4-10.2)
[2018-10-05] MEDS: Levalbuterol 1.25 MG/3 ML Inhal Soln UD INH SCH (08:27)
[2018-10-05] MEDS: Omega-3-Acid Ethyl Esters 1 GM Cap PO SCH ×2 (08:40→16:38)
[2018-10-05] MEDS: Pantoprazole 40 mg EC Tab PO SCH (08:42)
[2018-10-05] MEDS: Azithromycin 500 MG in Sodium Chloride 0.9% 250 ML IVPB SCH (08:46)
[2018-10-05] MEDS ORDERED: Albuterol-Ipratrop 3 mg / 0.5 (3 ml) UD INH SCH (10:00)
--- NOTE | 2018-10-05 10:30 | CP.PCM.PN ---
Subjective - Date & Time of Evaluation Date of Evaluation: 10/05/18 Time of Evaluation: 09:30 - Subjective Subjective: Pt seen/eval at bedside; reports that she has been coughing a lot and her throat hurts from coughing. Yesterday had hot flash all over body while getting azactam infusion, so it was discontinued. This am reported feeling "off" while getting azithromycin but no respiratory distress, solumedrol ordered w/ relief. Objective - Vital Signs/Intake and Output Vital Signs (last 24 hours): Temp Pulse Resp BP Pulse Ox 97.9 F 69 20 156/69 H 100 10/05/18 07:51 10/05/18 08:59 10/05/18 07:51 10/05/18 08:59 10/05/18 07:51 - Medications Medications: Current Medications Acetaminophen (Tylenol 325mg Tab) 650 mg PO Q6 PRN PRN Reason: Fever >100.4 F Last Admin: 10/03/18 21:50 Dose: 650 mg Acetaminophen (Tylenol 325mg Tab) 650 mg PO Q6 PRN PRN Reason: Pain, moderate (4-7) Albuterol/Ipratropium (Duoneb 3 Mg/0.5 Mg (3 Ml) Ud) 3 ml INH RQ6 [facility] Amlodipine Besylate (Norvasc) 10 mg PO DAILY [facility] Last Admin: 10/05/18 08:44 Dose: 10 mg Aspirin (Ecotrin) 81 mg PO DAILY [facility] Last Admin: 10/05/18 08:41 Dose: 81 mg Atorvastatin Calcium (Lipitor) 20 mg PO Q48H [facility] Last Admin: 10/04/18 16:18 Dose: 20 mg Benzonatate (Tessalon Perles) 100 mg PO BID PRN PRN Reason: Cough Last Admin: 10/03/18 19:35 Dose: 100 mg Calcium Acetate (Phoslo) 1,334 mg PO WM [facility] Last Admin: 10/05/18 08:43 Dose: 1,334 mg Clonidine HCl (Catapres) 0.3 mg PO Q8 [facility] Last Admin: 10/05/18 08:40 Dose: 0.3 mg Furosemide (Lasix) 40 mg PO Q12 [facility] Last Admin: 10/05/18 08:42 Dose: 40 mg Gabapentin (Neurontin) 100 mg PO TID PRN PRN Reason: neuropathic pain Guaifenesin/Dextromethorphan (Robitussin Dm) 10 ml PO Q6 [facility] Last Admin: 10/05/18 08:59 Dose: 10 ml Heparin Sodium (Porcine) (Heparin) 5,000 units SC Q12 [facility]; Protocol Last Admin: 10/05/18 08:42 Dose: 5,000 units Hydralazine HCl (Apresoline) 25 mg PO Q6 [facility] Last Admin: 10/05/18 08:59 Dose: 25 mg Azithromycin 500 mg/ Sodium (Chloride) 250 mls @ 250 mls/hr IVPB DAILY [facility]; Protocol Last Admin: 10/05/18 08:46 Dose: 250 mls/hr Labetalol HCl (Trandate) 10 mg IVP Q6 PRN PRN Reason: Systolic Blood Pressure Last Admin: 10/05/18 00:56 Dose: 10 mg Metoprolol Tartrate (Lopressor) 50 mg PO Q8 [facility] Last Admin: 10/05/18 08:40 Dose: 50 mg Ahnst-5-Iacj Ethyl Esters (Lovaza) 1 gm PO BID [facility] Last Admin: 10/05/18 08:40 Dose: 1 gm Pantoprazole Sodium (Protonix Ec Tab) 40 mg PO DAILY [facility] Last Admin: 10/05/18 08:42 Dose: 40 mg - Labs Labs: 10/04/18 05:15 10/05/18 04:50 - Constitutional Appears: No Acute Distress - Head Exam Head Exam: ATRAUMATIC, NORMAL INSPECTION - Eye Exam Eye Exam: Normal appearance - ENT Exam ENT Exam: Mucous Membranes Moist - Respiratory Exam Respiratory Exam: NORMAL BREATHING PATTERN. absent: Respiratory Distress Additional comments: coarse sounds, but improved - Cardiovascular Exam Cardiovascular Exam: REGULAR RHYTHM - GI/Abdominal Exam GI & Abdominal Exam: Soft - Extremities Exam Extremities Exam: absent: Calf Tenderness, Pedal Edema Additional comments: RUE fistula, + bruit; nonfunctioning LUE fistula - Neurological Exam Neurological Exam: Alert, Oriented x3 - Psychiatric Exam Psychiatric exam: Normal Affect, Normal Mood - Skin Skin Exam: Dry, Warm Assessment and Plan - Assessment and Plan (Free Text) Assessment: 63 yr old F admitted for SOB, cough and coughing blood tinged mucus. Pt has ESRD on HD TThSat, hypertension, HLD, RLE DVT, GERD, CAD s/p cath, right ankle ORIF, chronic RUE swelling, left kidney cysts. Was febrile to 102F over 24 hrs ago; no fevers in 24 hrs. Still coughing, BP meds adjusted yesterday, still labile but better. Had elevated D-dimer, but CTA neg for PE. Left Upper ext duplex: no evidence of DVT, complex structure lateral to vessels medial to left shoulder bone with no flow, may represent abscess or hematoma CXR shows cardiomegaly but no active pulmonary disease. Repeat CXR today. Influenza negative; repeat negative. Pt unable to urinate due to ESRD. Plan: Cough, shortness of breath - Afebrile overnight - Likely URI; - Azthromycin 500mg PO QD, albuterol INH PRN - Xopenex Q8 [facility] - Tessalon 100 mg BID PRN - O2 supplement via nasal canula - F/u legionella - F/u blood cx - Sputum cx: moderate gram pos cocci in clusters, moderate gram pos bacilli - solumedrol 125mg IVP - Pulm consult Left upper extremity pain and swelling - Acute on chronic, DVT r/o - Tylenol PRN ESRD on HD TueThSat - Chronic, last HD yest and day before (10/04 and 10/03) - BUN 18/3.1 - Nephrology consult: Dr. Barone: input/recs appreciated - Continue home medications: Nephrocaps 1 tab PO QD, Calcium acetate 667mg 3 Tabs PO TID Hypertension - Chronic, uncontrolled - Continue home medication: Clonidine 0.3mg PO Q8 - Continue dose of Metoprolol tartrate to 50mg PO Q8 (increased from home dose) - Continue hydralazine 25 mg from Q8h to Q6h - Add norvasc 10 mg - Labetalol 10 mg IVP Q6 PRN Chronic LE pain - Chronic, controlled - Continue home medication: Gabapentin 100mg PO TID GERD - Chronic, controlled - Pantoprazole 40mg PO QD DVT prophylaxis - Heparin 5,000 units SC Q12
[2018-10-05] MEDS: Albuterol-Ipratrop 3 mg / 0.5 (3 ml) UD INH SCH ×3 (12:00→19:20)
--- NOTE | 2018-10-05 15:58 | RAD ---
Date of service: 10/05/2018 HISTORY: r/p PNA COMPARISON: 10/02/2018. TECHNIQUE: Chest PA and lateral FINDINGS: LUNGS: No active pulmonary disease. PLEURA: Trace bilateral pleural effusions. These are only seen on the lateral views. CARDIOVASCULAR: No radiographic findings to suggest acute or significant cardiovascular disease. Atherosclerotic calcifications identified primarily aortic arch. No pulmonary vascular congestion. OSSEOUS STRUCTURES: No significant abnormalities. VISUALIZED UPPER ABDOMEN: Normal. OTHER FINDINGS: None. IMPRESSION: No active disease. No significant interval change compared to the prior examination(s).
[2018-10-05] MEDS ORDERED: Potassium Chloride 20 mEq ER Tab PO ONE (16:39)
--- NOTE | 2018-10-05 19:01 | CON ---
DATE: 10/05/2018 HISTORY OF PRESENT ILLNESS: Ms. Alexis is a 63-year-old female who is referred for pulmonary evaluation because of cough, shortness of breath and history of asthma. She was admitted with cough and shortness of breath for 3 days associated with pulmonary congestion. She has been treated in hospital, but continues to have some shortness of breath and refusing to take IV steroids and IV antibiotics because of complaint of side effects from the medications. She was recently discharged from [facility]. PAST MEDICAL HISTORY: She has a past medical history of coronary artery disease status post cardiac cath. She also has a history of deep venous thrombosis, hypertension, end-stage renal disease on hemodialysis, status post ORIF of ankle. FAMILY HISTORY: Noncontributory. SOCIAL HISTORY: Socially, she lives at home with her . Denies smoking or alcohol use. Does not use drugs. REVIEW OF SYSTEM: Remarkable for occasional cough and shortness of breath and leg pains. PHYSICAL EXAMINATION: GENERAL: The patient is alert and oriented, appears to be uncomfortable during antibiotic infusion. VITAL SIGNS: Blood pressure of 156/69, pulse of 69, respiratory rate is 18. She is febrile. O2 sat is 95% on nasal cannula oxygen. SKIN: Shows fair turgor. HEENT: Pupils are reactive to light and accommodation. Mouth shows fair hygiene. NECK: JVP flat. LUNGS: Fair aeration bilaterally with some basal dullness but no rales or wheezing. HEART: S1, S2. ABDOMEN: Soft, nontender, no organomegaly. EXTREMITIES: Scar of right ankle surgery. Trace bilateral pitting edema with stasis changes of both lower extremities. CENTRAL NERVOUS SYSTEM: Grossly intact. LABORATORY DATA: CT scan of chest shows no acute cardiopulmonary pathology. Chest x-ray done, official report pending. WBC 4.8, hemoglobin 10.1, platelet count 140,000. Sodium 136, potassium 3.4, BUN of 18, creatinine 3.1. Troponin 0.050. EKG normal sinus rhythm, left posterior fascicular block, poor R-wave progression in precordial leads, nonspecific ST-T changes. IMPRESSION: Clinical picture more compatible with this 63-year-old female who has a heart condition, renal insufficiency and had hemoptysis which has resolved which was probably secondary to upper respiratory tract infection, history of end-stage renal disease, hypertension, gastroesophageal reflux disease, there might be an element of acute bronchitis. PLAN: The plan is to continue present therapy as ordered, but to hold antibiotic therapy since the patient has no fever or leukocytosis and is refusing to take medications anyway because of side effects. We will also hold off on steroids for now. Continue diuretic therapy, oxygen and as well as bronchodilators. The patient's is at bedside and does not want her to continue taking antibiotics and steroids. It would be prudent to discharge the patient on aerolized bronchodilators with nebulizer. Once clinically stable, we will continue to follow with you. Suraj Garcia MD
[2018-10-06] MEDS: Albuterol-Ipratrop 3 mg / 0.5 (3 ml) UD INH SCH ×5 (00:43→16:00)
[2018-10-06] MEDS: guaiFENesin DM 200 mg-20 mg/10 ml UD PO SCH ×3 (04:52→16:07)
[2018-10-06 06:14] LABS: ALB/GLOB RATIO 0.9 (1.0-2.1); ALBUMIN 2.9 g/dL (3.5-5.0); CALCIUM 8.9 mg/dL (8.4-10.2)
--- NOTE | 2018-10-06 08:35 | CP.PCM.PN ---
Subjective - Date & Time of Evaluation Date of Evaluation: 10/06/18 Time of Evaluation: 08:34 - Subjective Subjective: pt is quin nd examined, follow up consult is dictated #[id number] for hd today Objective - Vital Signs/Intake and Output Vital Signs (last 24 hours): Temp Pulse Resp BP Pulse Ox 97.4 F L 66 20 155/67 H 100 10/06/18 08:27 10/06/18 08:27 10/06/18 08:27 10/06/18 08:27 10/06/18 08:27 - Medications Medications: Current Medications Acetaminophen (Tylenol 325mg Tab) 650 mg PO Q6 PRN PRN Reason: Fever >100.4 F Last Admin: 10/03/18 21:50 Dose: 650 mg Acetaminophen (Tylenol 325mg Tab) 650 mg PO Q6 PRN PRN Reason: Pain, moderate (4-7) Last Admin: 10/06/18 01:52 Dose: 650 mg Albuterol/Ipratropium (Duoneb 3 Mg/0.5 Mg (3 Ml) Ud) 3 ml INH RQ4 [facility] Last Admin: 10/06/18 07:48 Dose: 3 ml Amlodipine Besylate (Norvasc) 10 mg PO DAILY [facility] Last Admin: 10/05/18 08:44 Dose: 10 mg Aspirin (Ecotrin) 81 mg PO DAILY [facility] Last Admin: 10/05/18 08:41 Dose: 81 mg Atorvastatin Calcium (Lipitor) 20 mg PO Q48H [facility] Last Admin: 10/04/18 16:18 Dose: 20 mg Benzonatate (Tessalon Perles) 100 mg PO BID PRN PRN Reason: Cough Last Admin: 10/03/18 19:35 Dose: 100 mg Calcium Acetate (Phoslo) 1,334 mg PO WM [facility] Last Admin: 10/05/18 17:29 Dose: 1,334 mg Clonidine HCl (Catapres) 0.3 mg PO Q8 [facility] Last Admin: 10/06/18 01:57 Dose: 0.3 mg Furosemide (Lasix) 40 mg PO Q12 [facility] Last Admin: 10/05/18 21:39 Dose: 40 mg Gabapentin (Neurontin) 100 mg PO TID PRN PRN Reason: neuropathic pain Guaifenesin/Dextromethorphan (Robitussin Dm) 10 ml PO Q6 [facility] Last Admin: 10/06/18 04:52 Dose: Not Given Heparin Sodium (Porcine) (Heparin) 5,000 units SC Q12 [facility]; Protocol Last Admin: 10/05/18 21:40 Dose: 5,000 units Hydralazine HCl (Apresoline) 25 mg PO Q6 [facility] Last Admin: 10/06/18 04:51 Dose: Not Given Labetalol HCl (Trandate) 10 mg IVP Q6 PRN PRN Reason: Systolic Blood Pressure Last Admin: 10/05/18 00:56 Dose: 10 mg Metoprolol Tartrate (Lopressor) 50 mg PO Q8 [facility] Last Admin: 10/06/18 01:58 Dose: 50 mg Montelukast Sodium (Singulair) 10 mg PO HS [facility] Last Admin: 10/05/18 21:41 Dose: 10 mg Rhtgh-4-Ncnh Ethyl Esters (Lovaza) 1 gm PO BID [facility] Last Admin: 10/05/18 16:38 Dose: 1 gm Pantoprazole Sodium (Protonix Ec Tab) 40 mg PO DAILY [facility] Last Admin: 10/05/18 08:42 Dose: 40 mg - Labs Labs: 10/04/18 05:15 10/06/18 05:10
--- NOTE | 2018-10-06 08:38 | CP.PCM.PN ---
Subjective - Date & Time of Evaluation Date of Evaluation: 10/06/18 Time of Evaluation: 08:41 - Subjective Subjective: FEELS BETTER TODAY REFUSING ANTIBIOTIC AND STEROID RX BECAUSE OF UNTOWARD REACTION DENIES CHEST PAINS/SOB CASE DISCUSSED WITH PT AND HER YESTERDAY--THEY REQUEST NEBULIZER WITH SOLUTION ON D/C HOME Objective - Vital Signs/Intake and Output Vital Signs (last 24 hours): Temp Pulse Resp BP Pulse Ox 97.4 F L 66 20 155/67 H 100 10/06/18 08:27 10/06/18 08:27 10/06/18 08:27 10/06/18 08:27 10/06/18 08:27 - Medications Medications: Current Medications Acetaminophen (Tylenol 325mg Tab) 650 mg PO Q6 PRN PRN Reason: Fever >100.4 F Last Admin: 10/03/18 21:50 Dose: 650 mg Acetaminophen (Tylenol 325mg Tab) 650 mg PO Q6 PRN PRN Reason: Pain, moderate (4-7) Last Admin: 10/06/18 01:52 Dose: 650 mg Albuterol/Ipratropium (Duoneb 3 Mg/0.5 Mg (3 Ml) Ud) 3 ml INH RQ4 [facility] Last Admin: 10/06/18 07:48 Dose: 3 ml Amlodipine Besylate (Norvasc) 10 mg PO DAILY [facility] Last Admin: 10/05/18 08:44 Dose: 10 mg Aspirin (Ecotrin) 81 mg PO DAILY [facility] Last Admin: 10/05/18 08:41 Dose: 81 mg Atorvastatin Calcium (Lipitor) 20 mg PO Q48H [facility] Last Admin: 10/04/18 16:18 Dose: 20 mg Benzonatate (Tessalon Perles) 100 mg PO BID PRN PRN Reason: Cough Last Admin: 10/03/18 19:35 Dose: 100 mg Calcium Acetate (Phoslo) 1,334 mg PO WM [facility] Last Admin: 10/05/18 17:29 Dose: 1,334 mg Clonidine HCl (Catapres) 0.3 mg PO Q8 [facility] Last Admin: 10/06/18 01:57 Dose: 0.3 mg Furosemide (Lasix) 40 mg PO Q12 [facility] Last Admin: 10/05/18 21:39 Dose: 40 mg Gabapentin (Neurontin) 100 mg PO TID PRN PRN Reason: neuropathic pain Guaifenesin/Dextromethorphan (Robitussin Dm) 10 ml PO Q6 [facility] Last Admin: 10/06/18 04:52 Dose: Not Given Heparin Sodium (Porcine) (Heparin) 5,000 units SC Q12 [facility]; Protocol Last Admin: 10/05/18 21:40 Dose: 5,000 units Hydralazine HCl (Apresoline) 25 mg PO Q6 [facility] Last Admin: 10/06/18 04:51 Dose: Not Given Labetalol HCl (Trandate) 10 mg IVP Q6 PRN PRN Reason: Systolic Blood Pressure Last Admin: 10/05/18 00:56 Dose: 10 mg Metoprolol Tartrate (Lopressor) 50 mg PO Q8 [facility] Last Admin: 10/06/18 01:58 Dose: 50 mg Montelukast Sodium (Singulair) 10 mg PO HS [facility] Last Admin: 10/05/18 21:41 Dose: 10 mg Bdobq-0-Imba Ethyl Esters (Lovaza) 1 gm PO BID [facility] Last Admin: 10/05/18 16:38 Dose: 1 gm Pantoprazole Sodium (Protonix Ec Tab) 40 mg PO DAILY [facility] Last Admin: 10/05/18 08:42 Dose: 40 mg - Labs Labs: 10/04/18 05:15 10/06/18 05:10 - Constitutional Appears: No Acute Distress - Head Exam Head Exam: ATRAUMATIC, NORMAL INSPECTION, NORMOCEPHALIC - Eye Exam Eye Exam: EOMI, Normal appearance, PERRL Pupil Exam: NORMAL ACCOMODATION, PERRL - ENT Exam ENT Exam: Mucous Membranes Moist, Normal Exam - Neck Exam Neck Exam: Full ROM, Normal Inspection. absent: Lymphadenopathy - Respiratory Exam Respiratory Exam: Prolonged Expiratory Phase, Rhonchi, NORMAL BREATHING PATTERN - Cardiovascular Exam Cardiovascular Exam: REGULAR RHYTHM, +S1, +S2. absent: Murmur - GI/Abdominal Exam GI & Abdominal Exam: Soft, Normal Bowel Sounds. absent: Tenderness - Rectal Exam Rectal Exam: NORMAL INSPECTION - Extremities Exam Extremities Exam: Full ROM, Normal Capillary Refill, Normal Inspection. absent: Joint Swelling, Pedal Edema - Back Exam Back Exam: NORMAL INSPECTION - Neurological Exam Neurological Exam: Alert, Awake, CN II-XII Intact, Normal Gait, Oriented x3 - Psychiatric Exam Psychiatric exam: Normal Affect, Normal Mood - Skin Skin Exam: Dry, Intact, Normal Color, Warm Assessment and Plan - Assessment and Plan (Free Text) Assessment: DYSPNEA--IMPROVED HEMOPTYSIS RESOLVED BRONCHITIS--CLINICALLY IMPROVED ESRD HTN Plan: SINCE PT IS REFUSING FURTHER PULMONARY INTERVENTION,WILL SIGN OFF CASE SUGGEST NEBULIZED BRONCHODILATORS ON D/C HOME
[2018-10-06] MEDS: Pantoprazole 40 mg EC Tab PO SCH (09:16)
[2018-10-06] MEDS: Omega-3-Acid Ethyl Esters 1 GM Cap PO SCH ×2 (09:17→16:05)
--- NOTE | 2018-10-06 16:14 | CP.PCM.DIS ---
Provider - Provider Date of Admission: 10/04/18 07:41 Attending physician: Ismael Armendariz MD Primary care physician: Francisco Gautam Consults: 10/02/18 16:14 Nephrology Consult Stat Comment: Consulting Provider: Alicia Barone Consulting Physician: Alicia Barone Reason for Consult: ESRD 10/03/18 01:59 Pastoral Care Referral Routine Comment: Physician Instructions: Reason For Exam: New admission 10/05/18 09:53 Pulmonology Consult Routine Comment: productive cough, trace bilateral pleural effusion Consulting Provider: Suraj Garcia I Consulting Physician: Suraj Garcia I Reason for Consult: productive cough, trace bilateral pleural effusion, Time Spent in preparation of Discharge (in minutes): 30 Hospital Course - Lab Results Lab Results: Micro Results 10/03/18 08:07 Sputum Gram Stain - Final 10/03/18 08:07 Sputum Sputum Culture - Final NORMAL ORAL VU 10/02/18 08:30 Blood Blood Culture - Preliminary NO GROWTH AFTER 4 DAYS 10/03/18 23:40 Blood Blood Culture - Preliminary NO GROWTH AFTER 48 HOURS Most Recent Lab Values WBC 4.8 K/uL (4.8-10.8) 10/04/18 05:15 RBC 3.62 Mil/uL (3.80-5.20) L 10/04/18 05:15 Hgb 10.1 g/dL (12.0-16.0) L 10/04/18 05:15 Hct 32.3 % (34.0-47.0) L 10/04/18 05:15 MCV 89.2 fl (81.0-99.0) 10/04/18 05:15 MCH 27.9 pg (27.0-31.0) 10/04/18 05:15 MCHC 31.2 g/dL (33.0-37.0) L 10/04/18 05:15 RDW 21.0 % (11.5-14.5) H 10/04/18 05:15 Plt Count 140 K/uL (130-400) 10/04/18 05:15 MPV 7.9 fl (7.2-11.7) 10/04/18 05:15 Neut % (Auto) 87.2 % (50.0-75.0) H 10/04/18 05:15 Lymph % (Auto) 10.2 % (20.0-40.0) L 10/04/18 05:15 Cass % (Auto) 2.4 % (0.0-10.0) 10/04/18 05:15 Eos % (Auto) 0.0 % (0.0-4.0) 10/04/18 05:15 Baso % (Auto) 0.2 % (0.0-2.0) 10/04/18 05:15 Neut # (Auto) 4.2 K/uL (1.8-7.0) 10/04/18 05:15 Lymph # (Auto) 0.5 K/uL (1.0-4.3) L 10/04/18 05:15 Cass # (Auto) 0.1 K/uL (0.0-0.8) 10/04/18 05:15 Eos # (Auto) 0.0 K/uL (0.0-0.7) 10/04/18 05:15 Baso # (Auto) 0.0 K/uL (0.0-0.2) 10/04/18 05:15 D-Dimer, Quantitative 726 ng/mlDDU (0-230) H 10/02/18 10:40 pO2 43 mm/Hg (30-55) 10/02/18 08:01 VBG pH 7.46 (7.32-7.43) H 10/02/18 08:01 VBG pCO2 48 mmHg (40-60) 10/02/18 08:01 VBG HCO3 31.5 mmol/L 10/02/18 08:01 VBG Total CO2 35.6 mmol/L (22-28) H 10/02/18 08:01 VBG O2 Sat (Calc) 81.9 % (40-65) H 10/02/18 08:01 VBG Base Excess 9.0 mmol/L (0.0-2.0) H 10/02/18 08:01 VBG Potassium 3.7 mmol/L (3.6-5.2) 10/02/18 08:01 Sodium 139.0 mmol/L (132-148) 10/02/18 08:01 Chloride 104.0 mmol/L (98-107) 10/02/18 08:01 Glucose 130 mg/dL (65-105) H 10/02/18 08:01 Lactate 1.3 mmol/L (0.7-2.1) 10/02/18 08:01 FiO2 21.0 % 10/02/18 08:01 Sodium 136 mmol/l (132-148) 10/06/18 05:10 Potassium 4.3 MMOL/L (3.6-5.0) 10/06/18 05:10 Chloride 99 mmol/L (98-107) 10/06/18 05:10 Carbon Dioxide 30 mmol/L (22-30) 10/06/18 05:10 Anion Gap 11 (10-20) 10/06/18 05:10 BUN 27 mg/dl (7-17) H 10/06/18 05:10 Creatinine 4.3 mg/dl (0.7-1.2) H 10/06/18 05:10 Est GFR ( Amer) 13 10/06/18 05:10 Est GFR (Non-Af Amer) 10 10/06/18 05:10 Random Glucose 85 mg/dL (65-105) 10/06/18 05:10 Calcium 8.9 mg/dL (8.4-10.2) 10/06/18 05:10 Total Bilirubin 0.6 mg/dl (0.2-1.3) 10/06/18 05:10 AST 27 U/L (14-36) 10/06/18 05:10 ALT 24 U/L (9-52) 10/06/18 05:10 Alkaline Phosphatase 124 U/L (38-126) 10/06/18 05:10 Troponin I 0.0500 ng/mL (0.00-0.120) 10/03/18 19:16 Total Protein 5.9 G/DL (6.3-8.2) L 10/06/18 05:10 Albumin 2.9 g/dL (3.5-5.0) L 10/06/18 05:10 Globulin 3.0 gm/dL (2.2-3.9) 10/06/18 05:10 Albumin/Globulin Ratio 0.9 (1.0-2.1) L 10/06/18 05:10 Venous Blood Potassium 3.7 mmol/L (3.6-5.2) 10/02/18 08:01 Hep Bs Antigen Negative (NEGATIVE) 10/04/18 14:10 Hep Bs Antibody Positive (NEGATIVE) 10/04/18 14:10 Hep B Core IgM Ab Negative (NEGATIVE) 10/04/18 14:10 Hepatitis C Antibody Negative (NEGATIVE) 10/04/18 14:10 Influenza Typ A,B (EIA) Negative for flu a/b (NEGATIVE) 10/04/18 10:15 Mycoplasma pneumon IgM Negative (NEGATIVE) 10/04/18 08:55 - Hospital Course Hospital Course: 63 yr old F admitted for SOB, productive cough, fever and uncontrolled hypertension with PMHx significant for ESRD on HD, HTN, Hx RLE DVT, CAD s/p cath and HLD. During this admission patient initially had some improvement of symptoms with IV antibiotics, IV steroid, respiratory treatments and supplemental oxygen and 1 additional hemodialysis session in addition to scheduled hemodialysis on TThSat schedule. Patients hypertensive medications were adjusted during this admission. On 4th day of treatment, patient refused antibiotic and steroid treatment recommended by primary team and traveling operator. Risks and benefits of refusing treatment was reviewed with patient, patient continued to receive respiratory treatments and was discharged stable after scheduled hemodialysis session today. Prior to discharge patient was afebrile over 48hrs. - Date & Time of H&P Date of H&P: 10/02/18 Time of H&P: 15:41 Discharge Exam - Head Exam Head Exam: ATRAUMATIC, NORMAL INSPECTION, NORMOCEPHALIC - Eye Exam Eye Exam: EOMI - ENT Exam ENT Exam: Mucous Membranes Moist - Respiratory Exam Respiratory Exam: NORMAL BREATHING PATTERN - Cardiovascular Exam Cardiovascular Exam: +S1, +S2 - Extremities Exam Extremities exam: full ROM Additional comments: no pedal edema, no calf tenderness - Neurological Exam Neurological exam: Alert, CN II-XII Intact, Oriented x3 - Psychiatric Exam Psychiatric exam: Normal Affect, Normal Mood - Skin Skin Exam: Dry, Warm Discharge Plan - Discharge Medications Prescriptions: Albuterol/Ipratropium [Duoneb 3 mg/0.5 mg (3 ml) UD] 3 ml INH RQ4 PRN #30 neb PRN Reason: Shortness Of Breath amLODIPine [Norvasc] 10 mg PO DAILY #30 tab Metoprolol Tartrate [Lopressor] 25 mg PO Q12 #60 tab - Follow Up Plan Condition: FAIR Disposition: HOME/ ROUTINE Instructions: Acute Bronchitis, Adult (DC), End Stage Kidney Disease (DC) Additional Instructions: -Follow up with your primary care doctor and cheese specialist within 1 week -Go for your outpatient hemodialysis as scheduled -continue your home medications -some of you medications have been adjusted on this admission, bring your new prescription medications to your next appointment with all your doctors Referrals: Alicia Barone MD [Staff Provider] - Francisco Martin MD [Staff Provider] -
[2018-10-06 16:22] VITALS: RESP 17; TEMP 97.6; O2SAT 100
[2018-10-06 17:28] VITALS: BP 178/66; PULSE 73
--- NOTE | 2018-10-07 02:34 | PN ---
DATE: 10/06/2018 FOLLOWUP RENAL CONSULTATION LOCATION: The patient is located in room 417, bed 2. REQUESTED BY: Dariela Rios MD and Ismael Armendariz MD REASON FOR FOLLOWUP: End-stage renal disease, continuation of hemodialysis. SUBJECTIVE: Mrs. Alexis is a 63-year-old elderly, very pleasant female with a past medical history significant for hypertension; polycystic kidney disease; peripheral vascular disease; end-stage renal disease, on hemodialysis three times a week, Wednesday, Wednesday and Wednesday; pericardial effusion and severe tricuspid regurgitation; who was admitted with a chief complaint of cough and shortness of breath for a few days prior to the admission. The patient is feeling slightly better today. Less cough. No fever. No shortness of breath. PHYSICAL EXAMINATION VITAL SIGNS: This morning, blood pressure 155/67, pulse 66, respirations 20, temperature 97.7 and saturation 99%. Height 4 feet 9 inches, weight is 150 pounds. GENERAL: Mrs. Alexis is a 63-year-old elderly female, moderately built, moderately nourished, not in acute distress. HEENT: Pupils are normal and reactive to light and accommodation. Conjunctivae pink. Sclerae anicteric. Tongue is moist. NECK: Trachea is midline. LUNGS: Symmetric on both sides. Bilateral basal crackles present. CARDIOVASCULAR SYSTEM: Meridian at the fifth intercostal space, midclavicular line. S1 and S2 audible. No murmur. No gallop. ABDOMEN: Normal in appearance, soft, tympanitic. No guarding. No rigidity. No hepatosplenomegaly. CENTRAL NERVOUS SYSTEM: The patient is alert, awake and oriented x3. Nonfocal neuro examination. Cranial nerves II through XII grossly intact. Sensory and motor system is within normal limits. EXTREMITIES: No cyanosis. No clubbing. No edema. The patient has a scar on the right ankle from the previous surgery. MEDICATIONS: Her current medications include as follows: Tylenol, DuoNeb inhaler, amlodipine 10 mg daily, aspirin 81 mg daily, Lipitor 20 mg at bedtime, PhosLo 667 mg two tablets p.o. with meals, Clonidine 0.3 mg p.o. every 8 hours, Lasix 40 mg every 12 hours, gabapentin 100 mg p.o. t.i.d., Robitussin DM 10 mL p.o. every 6 hours, subcu heparin 5000 units every 12 hours, hydralazine 25 mg p.o. every 6 hours, labetalol 10 mg IV every 6 hours p.r.n., metoprolol 50 mg p.o. every 8 hours, Singulair, omega-3 acid, Lovaza 1 g p.o. b.i.d. and Protonix 40 mg p.o. daily. LABORATORY DATA: Include as follows: As of 10/06/2018, sodium 136, potassium 4.3, chloride 99, CO2 of 30, BUN 27, creatinine 1.3, glucose 85, calcium 8.9, total bilirubin 0.6, AST 27, ALT 24, alkaline phosphatase 124, total protein 5.9, albumin 2.9. ASSESSMENT AND PLAN: In summary, Mrs. Alexis is a 63-year-old elderly female with hypertension, polycystic kidney disease, pericardial effusion and severe tricuspid regurgitation, was admitted with cough and shortness of breath. 1. Acute bronchitis. 2. Hypertension, uncontrolled. Continue her current medications; amlodipine, metoprolol, clonidine, hydralazine and Lasix. 3. Polycystic kidney disease. Continue her current medications and continue antibiotics as per primary team. The patient is scheduled for hemodialysis today and advised to ultrafiltrate 2 L if the patient cooperates. We will follow with you. Thank you for allowing me to participate in the patient's care. Alicia Barone MD
== END 2018-10-06 17:29 | disposition home or self-care (01) | DRG 144 ==
LOC: H.ER 07:21 → H.ERHOLD 14:29 → H.TEL 23:18 → OBSVTOIN 10-04 07:41
PROC: 5A1D70Z Performance of Urinary Filtration, Intermittent, Less than 6 Hours Per Day (ICD-10-PCS; principal; 2018-10-04)
PROC: 3E0F73Z Introduction of Anti-inflammatory into Respiratory Tract, Via Natural or Artificial Opening (ICD-10-PCS; 2018-10-04)
PROC: 5A1D70Z Performance of Urinary Filtration, Intermittent, Less than 6 Hours Per Day (ICD-10-PCS; 2018-10-06)
DX: J20.8 Acute bronchitis due to other specified organisms (principal); I13.2 Hypertensive heart and chronic kidney disease with heart failure and with stage 5 chronic kidney disease, or end stage renal disease; N18.6 End stage renal disease; Q61.3 Polycystic kidney, unspecified; N25.81 Secondary hyperparathyroidism of renal origin; I27.20 Pulmonary hypertension, unspecified; R04.2 Hemoptysis; I16.0 Hypertensive urgency; I25.10 Atherosclerotic heart disease of native coronary artery without angina pectoris; I50.9 Heart failure, unspecified; R79.1 Abnormal coagulation profile; E78.5 Hyperlipidemia, unspecified; E78.00 Pure hypercholesterolemia, unspecified; I73.9 Peripheral vascular disease, unspecified; I07.1 Rheumatic tricuspid insufficiency; K21.9 Gastro-esophageal reflux disease without esophagitis; F41.9 Anxiety disorder, unspecified; Z99.2 Dependence on renal dialysis; Z86.718 Personal history of other venous thrombosis and embolism; Z88.0 Allergy status to penicillin; Z87.01 Personal history of pneumonia (recurrent); Z79.82 Long term (current) use of aspirin; Z88.1 Allergy status to other antibiotic agents; Z91.013 Allergy to seafood

== ENCOUNTER 2018-11-20 21:11 | Emergency (ER) | payer BC, SELFPAY ==
[2018-11-20 21:11] VITALS: BMI 32.4
[2018-11-20 21:25] VITALS: RESP 18; TEMP 99.4
[2018-11-20 22:15] LABS: BASO % 0.5 % (0.0-2.0); EOS # 0.2 K/uL (0.0-0.7); EOS % 2.1 % (0.0-4.0); HEMOGLOBIN 11.9 g/dL (12.0-16.0); LYMPH # 1.1 K/uL (1.0-4.3); LYMPH % 13.6 % (20.0-40.0); MEAN CELL VOLUME 90.4 fl (81.0-99.0); MEAN CORPUSCULAR HEMOGLOBIN 28.8 pg (27.0-31.0); MEAN CORPUSCULAR HGB CONC 31.9 g/dL (33.0-37.0); MEAN PLATELET VOLUME 8.4 fl (7.2-11.7); MONO # 0.8 K/uL (0.0-0.8); MONO % 9.7 % (0.0-10.0); NEUT % 74.1 % (50.0-75.0); NRBC % 0.4 % (0.0-0.0); RBC 4.14 Mil/uL (3.80-5.20)
[2018-11-20 22:19] LABS: INR 1.1; PROTHROMBIN TIME 12.8 Seconds (9.8-13.1)
[2018-11-20 22:21] LABS: PARTIAL THROMBOPLASTIN TIME 26.4 Seconds (25.6-37.1)
[2018-11-20 22:24] LABS: ALB/GLOB RATIO 1.2 (1.0-2.1); CALCIUM 10.1 mg/dL (8.4-10.2)
[2018-11-20 22:35] LABS: TROPONIN I 0.032 ng/mL (0.00-0.120)
--- NOTE | 2018-11-20 22:53 | ED PDOC ---
Upper Extremity Pain/Injury Time Seen by Provider: 11/20/18 21:20 Chief Complaint (Nursing): Upper Extremity Problem/Injury Chief Complaint (Provider): Right Arm and Right Breast Pain History Per: Patient History/Exam Limitations: no limitations Onset/Duration Of Symptoms: Days (x1) Current Symptoms Are (Timing): Still Present Additional Complaint(s): 63 year old female with extensive pmhx including end stage renal failure (dialysis Wednesday//Wednesday) presents to the ED for evaluation of right upper arm and right breast pain for the past day. Patient reports that she has an av fistula in her right arm and goes for maintenance of it every three months, last time two days ago. Since having her normal dialysis yesterday, she notes that this morning she woke up with pain and swelling to the right arm which goes into her right breast. Denies trauma and injury. Of note, she says the swelling in the arm has improved slightly, but still would like to be evaluated. Otherwise denies fever, chills, nausea, vomiting, diarrhea, and shortness of breath. PMD: Mario Past Medical History Reviewed: Historical Data, Nursing Documentation, Vital Signs Vital Signs: Last Vital Signs Temp 99.4 F 11/20/18 21: Pulse 75 11/20/18 21:22 Resp 18 11/20/18 21: BP 184/64 H 11/20/18 21: Pulse Ox 96 11/20/18 21:22 - Medical History PMH: Anxiety, CHF, Fractures, HTN, Hypercholesterolemia, Peripheral Edema, Pneumonia, End Stage Renal Disease (Dialysis - //Wed), Chronic Kidney Disease Denies: Arthritis, Asthma, Atrial Fibrillation, Bipolar Disorder, Bronchitis, CAD, Cardia Arrhythmia, COPD, Crohn's Disease, Depression, Diverticulitis, Emphysema, Gastritis, Gall Bladder Disease, HIV, Kidney Stones, Mitral Valve Prolapse, Osteoporosis, Pancreatitis, Paranoia, Post Traumatic Stress Disorder, Pulmonary Embolism, Rheumatoid Arthritis, Schizophrenia, Sleep Apnea - Surgical History Surgical History: Hernia Repair Denies: Appendectomy, CABG, Carotid Endarterectomy, Cholecystectomy, Coronary Stent, Pacemaker, Tonsillectomy Other surgeries: av fistula placement in right arm - Family History Family History: States: Unknown Family Hx - Social History Current smoker - smoking cessation education provided: No Alcohol: None Drugs: Denies - Immunization History Hx Tetanus Toxoid Vaccination: No Hx Influenza Vaccination: Yes Hx Pneumococcal Vaccination: Yes - Home Medications Home Medications: Ambulatory Orders Medication Instructions Recorded Calcium Acetate [Phoslo] 1,334 cap PO TID 12/06/17 Esomeprazole Magnesium [Nexium] 40 mg PO DAILY 12/06/17 cloNIDine [Catapres] 0.3 mg PO Q8 12/06/17 Albuterol Sulfate [Ventolin Hfa] 2 puff IH Q6 PRN 03/01/18 Aspirin [Adult Low Dose Aspirin EC] 81 mg PO DAILY 03/01/18 Gabapentin [Neurontin] 100 mg PO TID PRN 03/01/18 Afton-3 Fatty Acids/Fish Oil 1 cap PO BID 03/01/18 [Afton-3 1,000 mg Softgel] hydrALAZINE [Apresoline] 25 mg PO Q8 30 Days tab 03/05/18 Rosuvastatin Calcium [Crestor] 5 mg PO DAILY 10/02/18 Albuterol/Ipratropium [Duoneb 3 3 ml INH RQ4 PRN #30 neb 10/06/18 mg/0.5 mg (3 ml) UD] Metoprolol Tartrate [Lopressor] 25 mg PO Q12 #60 tab 10/06/18 amLODIPine [Norvasc] 10 mg PO DAILY #30 tab 10/06/18 traMADol [Ultram] 50 mg PO Q6 #12 tab 11/21/18 - Allergies Allergies/Adverse Reactions: Allergies Allergy/AdvReac Type Severity Reaction Status Date / Time ciprofloxacin [From Cipro] Allergy RASH Verified 11/20/18 21:22 Penicillins Allergy RASH Verified 11/20/18 21:22 FISH AdvReac RASH Verified 11/20/18 21:22 shellfish derived AdvReac RASH Verified 11/20/18 21:22 shrimp AdvReac REDNESS Verified 11/20/18 21:22 Review of Systems ROS Statement: Except As Marked, All Systems Reviewed And Found Negative Constitutional: Negative for: Fever, Chills Respiratory: Negative for: Shortness of Breath Gastrointestinal: Negative for: Nausea, Vomiting, Diarrhea Musculoskeletal: Positive for: Arm Pain (right with swelling near av fistula site), Other (right breast pain) Physical Exam - Reviewed Nursing Documentation Reviewed: Yes Vital Signs Reviewed: Yes - Physical Exam Appears: Positive for: Uncomfortable Head Exam: Positive for: ATRAUMATIC, NORMOCEPHALIC Eye Exam: Positive for: Normal appearance Neck: Positive for: Normal, Painless ROM, Supple Cardiovascular/Chest: Positive for: Regular Rate, Rhythm, Other (right breast asymmetrically enlarged and tender to palpation) Respiratory: Positive for: Normal Breath Sounds. Negative for: Respiratory Distress Gastrointestinal/Abdominal: Positive for: Normal Exam, Soft. Negative for: Tenderness Back: Positive for: Normal Inspection Extremity: Positive for: Normal ROM (all extremities), Other (right arm: diffuse tenderness, erythematous forearm; av fistula site with good thrill and pulsation, non-bloody) Neurologic/Psych: Positive for: Alert, Oriented (x3). Negative for: Motor/Sensory Deficits - Laboratory Results Result Diagrams: 11/20/18 22:12 11/20/18 22:12 Lab Results: PT 12.8 Seconds (9.8-13.1) 11/20/18 22:12 INR 1.1 11/20/18 22:12 APTT 26.4 Seconds (25.6-37.1) 11/20/18 22:12 Troponin I 0.0320 ng/mL (0.00-0.120) 11/20/18 22:12 Total Bilirubin 0.6 mg/dl (0.2-1.3) 11/20/18 22:12 AST 32 U/L (14-36) 11/20/18 22:12 ALT 26 U/L (9-52) 11/20/18 22:12 Alkaline Phosphatase 119 U/L (38-126) 11/20/18 22:12 Total Protein 7.3 G/DL (6.3-8.2) 11/20/18 22:12 Albumin 4.0 g/dL (3.5-5.0) 11/20/18 22:12 Globulin 3.3 gm/dL (2.2-3.9) 11/20/18 22:12 Albumin/Globulin Ratio 1.2 (1.0-2.1) 11/20/18 22:12 - ECG O2 Sat by Pulse Oximetry: 96 (RA) Pulse Ox Interpretation: Normal Medical Decision Making Medical Decision Making: Time: 2127 Initial Impression: 63 year old female with right upper extremity pain and mastalgia in setting of recent av fistula maintenance Initial Plan: --CT Chest w/o contrast --EKG --CMP --Lact acid --Trop I --CBC with differential --PTT / PT --Morphine 2mg IVP --Blood culture --US duplex RUE 23:08 CT Chest FINDINGS: LUNGS: The lungs appear essentially clear. No pulmonary mass. PLEURAL SPACES: No pneumothorax evident. Small bibasilar pleural effusions are noted. HEART/VASCULAR: Moderate cardiomegaly. A moderate sized pericardial effusion is again noted. A 2.2 cm linear radiopaque density is seen in the upper SVC; possibly consistent with a catheter tip remnant. A medial right upper extremity AV vascular shunt is noted. LYMPH NODES: No lymphadenopathy is evident. BONES: No focal osseous abnormality or acute fracture. UPPER ABDOMEN: The visualized upper abdomen again demonstrates polycystic kidney disease. Several scattered hepatic cysts are also noted. A small volume of upper abdominal ascites is noted. There is evidence of reflux esophagitis at the esophagogastric junction. IMPRESSION: 1. Moderate cardiomegaly. 2. Persistent moderate sized pericardial effusion. 3. Medial right upper extremity AV vascular shunt. 4. 2.2 cm linear density in the upper SVC; possibly consistent with a catheter tip remnant. 5. Polycystic kidney disease. 6. A small volume of upper abdominal ascites is present. 7. Evidence of reflux esophagitis at the esophagogastric junction. 8. A few scattered hepatic cysts are present. 01:18 US RUE Findings: Normal compressibility, absent intraluminal thrombi and unremarkable augmentation of the right internal jugular and subclavian veins. Patent arteriovenous fistula is noted in the right upper arm. Impression: No evidence of deep venous thrombosis. 01:38 Patient reports some improvement of symptoms. Provider offered admission however patient states that she feels symptoms have improved enough to follow up with her PMD. Patient will be discharged home diagnosis is shoulder pain and AV fistula to right upper extremity. Patient will follow up with her PMD and hospice coordinator in 1-2 days. Scribe Attestation: Documented by Yulia Negron, acting as a scribe for Kt Hall MD. Provider Scribe Attestation: All medical record entries made by the Scribe were at my direction and personally dictated by me. I have reviewed the chart and agree that the record accurately reflects my personal performance of the history, physical exam, medical decision making, and the department course for this patient. I have also personally directed, reviewed, and agree with the discharge instructions and disposition. Disposition - Clinical Impression Clinical Impression: A-V fistula, Shoulder pain, right - Patient ED Disposition Is Patient to be Admitted: No - Disposition Disposition: Routine/Home Disposition Time: 01:38 Condition: STABLE Additional Instructions: MARCI RAHMAN, thank you for letting us take care of you today. Your provider was Kt Hall MD and you were treated for CHEST PAIN. The [facility] medical care you received today was directed at your acute symptoms. If you were prescribed any medication, please fill it and take as directed. It may take several days for your symptoms to resolve. Return to the Emergency Department if your symptoms worsen, do not improve, or if you have any other problems. Please contact your doctor or call one of the physicians/clinics you have been referred to that are listed on the Patient Visit Information form that is included in your discharge packet. Bring any paperwork you were given at discharge with you along with any medications you are taking to your follow up visit. Our treatment cannot replace ongoing medical care by a primary care p yeimi outside of the emergency department. Thank you for allowing the [facility] team to be part of your care today. If you had an X-Ray or CT scan: A Radiologist will review the ED reading if any change in treatment is needed we will contact you. If you had a blood, urine, or wound culture: It will take several days for the results, if any change in treatment is needed we will contact you. If you had an STI test: It will take 48 hours for the results. Please call after 1 week if you have not heard back. Prescriptions: traMADol [Ultram] 50 mg PO Q6 #12 tab Instructions: Arteriovenous Fistula for Dialysis, Shoulder Pain (DC) Forms: [employer] (Chinese) Print Language: SETSWANA
[2018-11-21 02:18] VITALS: BP 156/69; PULSE 78; O2SAT 99
--- NOTE | 2018-11-21 08:59 | CARD ---
APPROVED REPORT Date of service: 11/20/2018 EKG Measurement Heart [id number] <Conclusion> Normal sinus rhythm Right axis deviation Otherwise normal ECG
--- NOTE | 2018-11-21 13:17 | CT ---
Date of service: 11/20/2018 PROCEDURE: CT Chest without contrast HISTORY: right breast swelling/chest pain; s/p RUE AV shunt COMPARISON: Six TECHNIQUE: Contiguous axial images were obtained through the chest without intravenous contrast enhancement. Sagittal and coronal reconstructions were performed. Radiation dose: Total exam DLP = 335.34 mGy-cm. This CT exam was performed using one or more of the following dose reduction techniques: Automated exposure control, adjustment of the mA and/or kV according to patient size, and/or use of iterative reconstruction technique. FINDINGS: LUNGS: Clear lungs. Visualized airway clear MEDIASTINUM: Unremarkable thoracic aorta. No aneurysm. Cardiomegaly. Stable pericardial effusion. Main pulmonary artery unremarkable. No vascular congestion. No lymphadenopathy. No aortic atherosclerotic calcification. PLEURA: Trace right pleural effusion. BONES: No fracture. No destructive lesion. UPPER ABDOMEN: Stable hepatic cysts and incompletely visualized polycystic kidney disease. OTHER FINDINGS: Redemonstration of dilated venous vascular structures including visible right upper extremity. More distally right upper extremity shunt is seen. Worsening pain is in subcutaneous edema right breast and chest wall. IMPRESSION: Worsening right chest wall, right breast right upper extremity edema/anasarca. Remaining findings in the thorax and upper abdomen with exception of a new trace right pleural effusion are stable Stable pericardial effusion. Concordant findings (preliminary report) provided by [facility].
--- NOTE | 2018-11-21 13:33 | US ---
Date of service: 11/20/2018 PROCEDURE: Limited vascular ultrasound establish patency of anastomosis HISTORY: RUE pain. Symptoms following dialysis. AV fistula based on right-side following left-sided failure February 2018. COMPARISON: None TECHNIQUE: Standard protocol for this study/examination. FINDINGS: Right upper extremity: Flow identified through the AV fistula on the right. The anastomosis is clearly identified with flow in Afrin 10 the ferritin loops. IMPRESSION: Functioning AV fistula for dialysis right upper extremity. No evidence proximal thrombosis or other pathologic process. Concordant findings (preliminary report) provided by [facility].
== END 2018-11-21 02:18 | disposition home or self-care (01) ==
LOC: H.ER 21:11
DX: M25.511 Pain in right shoulder (principal); I77.0 Arteriovenous fistula, acquired; Z99.2 Dependence on renal dialysis; N18.6 End stage renal disease; Z88.1 Allergy status to other antibiotic agents; Z88.0 Allergy status to penicillin
CPT/HCPCS: 71250; 80053; 83605; 84484; 85025; 85610; 85730; 87040; 93005; 93971; 96374; 99284; J2270